=== PATIENT | female | born 1980 | race Caucasian/White ===

== ENCOUNTER → 2020-12-30 15:52 | Outpatient (CLI) | payer OTHER, SELFPAY ==
[2020-12-30 16:49] LABS: Hematocrit 42.1 % (36-46); Hemoglobin 14.3 g/dL (12.0-16.0); Mean Corpuscular HGB Conc 34.1 % (30-36); Mean Corpuscular Hemoglobin 30.5 PG (26-34); Mean Corpuscular Volume 89.4 fL (80-100); Platelet Count 179 X10^3/uL (150-400); Red Blood Cell Count 4.71 X10^6/uL (4.0-5.2); Red Cell Distribution Width 12.8 % (11.6-14.8); White Blood Cell Count 8.7 X10^3/uL (4.5-11.0)
[2020-12-30 17:17] LABS: Alanine Aminotransferase 19 IU/L (<35); Albumin 4.5 g/dL (3.5-5.0); Albumin Globulin Ratio 1.6 (1.0-2.8); Alkaline Phosphatase 60 U/L (38-126); Aspartate Aminotransferase 27 IU/L (14-36); BUN Creatinine Ratio 13.5 (6-22); Bilirubin Total 1.1 mg/dL (0.2-1.3); Blood Urea Nitrogen 7 mg/dL (7-17); Calcium 10.4 mg/dL (8.4-10.2); Carbon Dioxide 29 mmol/L (22-32); Chloride 103 mmol/L (98-107); Cholesterol 201 mg/dL (140-199); Estimated Glomerular Filt Rate > 60.0 mL/min (>60); Globulin 2.9 g/dL (1.7-4.1); Glucose 92 mg/dL (70-100); HDL Cholesterol 104 mg/dL (40-60); HEMOLYSIS < 15 (0-50); LDL Cholesterol Calculated 88 mg/dL (<100); Potassium 4.7 mmol/L (3.4-5.1); Sodium 138 mmol/L (137-145); Total Protein 7.4 g/dL (6.3-8.2); Triglycerides 45 mg/dL (35-150)
[2020-12-30 17:54] LABS: TSH w/ Reflex to FT4 0.53 uIU/mL (0.47-4.68)
== END ==
PROVIDERS: PCP Nurse Practitioner Family; Referring Provider Nurse Practitioner Family; Visit Provider Nurse Practitioner Family
DX: Z00.00 Encounter for general adult medical examination without abnormal findings (principal); Z13.6 Encounter for screening for cardiovascular disorders; F32.9 Major depressive disorder, single episode, unspecified; F41.9 Anxiety disorder, unspecified
CPT/HCPCS: 36415; 80053; 80061; 84443; 85027

== ENCOUNTER → 2021-01-08 16:43 | Outpatient (CLI) | payer OTHER, SELFPAY ==
[2021-01-09 11:21] LABS: Calcium 9.5 mg/dL (8.7-10.2); Parathyroid Hormone, Intact 74 pg/mL (15-65)
== END ==
PROVIDERS: PCP Nurse Practitioner Family; Referring Provider Nurse Practitioner Family; Visit Provider Nurse Practitioner Family
DX: E83.52 Hypercalcemia (principal)
CPT/HCPCS: 36415; 82310; 83970

== ENCOUNTER → 2021-03-19 18:44 | Outpatient (CLI) | payer OTHER, SELFPAY ==
[2021-03-19 19:53] LABS: COVID19 -Nasal RAPID Negative (Negative)
== END ==
PROVIDERS: PCP Nurse Practitioner Family; Visit Provider Physician Assistant
DX: R09.81 Nasal congestion (principal); Z20.822 Contact with and (suspected) exposure to COVID-19
CPT/HCPCS: 87635

== ENCOUNTER → 2022-07-09 16:39 | Outpatient (CLI) | payer OTHER, SELFPAY ==
--- NOTE | 2022-07-09 16:41 | DI.MG.S_ITS ---
BILATERAL DIGITAL SCREENING MAMMOGRAM 3D/2D WITH CAD: 07/09/2022 CLINICAL: Routine screening. Baseline exam. No prior exams were available for comparison. Both breasts are heterogeneously dense, which may obscure small masses (category c / 51-75% glandular tissue). Current study was also evaluated with a Computer Aided Detection (CAD) system. No significant masses, calcifications, or other findings are seen in either breast. IMPRESSION: NEGATIVE There is no mammographic evidence of malignancy. A 1 year screening mammogram is recommended. Based on the Tyrer Cuzick model (a risk assessment model) the patient's lifetime risk is 12.2% and her 10 year risk is 1.7%. According to the ACR, ACS, and NCCN guidelines, an annual breast MRI exam along with mammogram is recommended if the patient's lifetime risk is 20% or greater. This exam was interpreted at Station ID: [id number]. NOTE: For mammograms, a report in lay terms will be sent to the patient. Approximately 15% of breast malignancies will not be visualized mammographically. In the management of a palpable breast mass, a negative mammogram must not discourage biopsy of a clinically suspicious lesion. Electronically Signed By: Caron ledezma/braden:07/10/2022 09:02:36 letter sent: Normal Exam ACR BI-RADS Category 1: Negative 3341F
[2022-07-09 18:23] LABS: Alanine Aminotransferase 19 IU/L (<35); Albumin 4.7 g/dL (3.5-5.0); Albumin Globulin Ratio 1.4 (1.0-2.8); Alkaline Phosphatase 73 U/L (38-126); Aspartate Aminotransferase 26 IU/L (14-36); Bilirubin Total 1.5 mg/dL (0.2-1.3); Blood Urea Nitrogen 5 mg/dL (7-17); Calcium 9.6 mg/dL (8.4-10.2); Carbon Dioxide 25 mmol/L (22-32); Chloride 101 mmol/L (98-107); Estimated Glomerular Filt Rate > 60 mL/min (>60); Globulin 3.3 g/dL (1.7-4.1); Glucose 82 mg/dL (70-100); HEMOLYSIS < 15 (0-50); Potassium 3.4 mmol/L (3.4-5.1); Sodium 137 mmol/L (137-145)
[2022-07-11 06:36] LABS: Calcium 9.8 mg/dL (8.7-10.2); Parathyroid Hormone, Intact 66 pg/mL (15-65)
== END ==
PROVIDERS: PCP Family Medicine; Referring Provider Family Medicine; Visit Provider Family Medicine
DX: Z12.31 Encounter for screening mammogram for malignant neoplasm of breast (principal); N25.81 Secondary hyperparathyroidism of renal origin
CPT/HCPCS: 36415; 77063; 77067; 80053; 82310; 83970

== ENCOUNTER → 2022-10-26 15:44 | Outpatient (CLI) | payer OTHER, SELFPAY ==
[2022-10-26 16:59] LABS: Alanine Aminotransferase 17 IU/L (<35); Albumin 4.4 g/dL (3.5-5.0); Albumin Globulin Ratio 1.5 (1.0-2.8); Alkaline Phosphatase 71 U/L (38-126); Aspartate Aminotransferase 23 IU/L (14-36); Bilirubin Total 0.9 mg/dL (0.2-1.3); Blood Urea Nitrogen 9 mg/dL (7-17); Calcium 9.2 mg/dL (8.4-10.2); Carbon Dioxide 25 mmol/L (22-32); Chloride 104 mmol/L (98-107); Estimated Glomerular Filt Rate > 60 mL/min (>60); Globulin 2.9 g/dL (1.7-4.1); Glucose 86 mg/dL (70-100); HEMOLYSIS < 15 (0-50); Potassium 3.4 mmol/L (3.4-5.1); Sodium 137 mmol/L (137-145); Total Protein 7.3 g/dL (6.3-8.2)
== END ==
PROVIDERS: PCP Family Medicine; Referring Provider Family Medicine; Visit Provider Family Medicine
DX: E80.6 Other disorders of bilirubin metabolism (principal)
CPT/HCPCS: 36415; 80053

== ENCOUNTER → 2023-06-16 14:55 | Outpatient (CLI) | payer OTHER, SELFPAY ==
[2023-06-16 15:30] LABS: Add Manual Diff / Slide Review NO; Basophils Absolute Auto 0 /uL (0-100); Basophils Percent Auto 0.5 % (0-2); Eosinophils Absolute Auto 0 /uL (0-450); Eosinophils Percent Auto 0.7 % (2-4); Hematocrit 39.9 % (36-46); Hemoglobin 13.8 g/dL (12.0-16.0); Lymphocytes Absolute Auto 1800 /uL (1100-4500); Lymphocytes Percent Auto 31.7 % (25-40); Mean Corpuscular HGB Conc 34.6 % (30-36); Mean Corpuscular Hemoglobin 29.8 PG (26-34); Mean Corpuscular Volume 86.1 fL (80-100); Monocytes Absolute Auto 400 /uL (0-900); Monocytes Percent Auto 6.8 % (3-14); Neutrophils Absolute Auto 3400 /uL (1500-7000); Neutrophils Percent Auto 60.3 % (50-75); Platelet Count 157 X10^3/uL (150-400); Red Blood Cell Count 4.63 X10^6/uL (4.0-5.2); Red Cell Distribution Width 12.7 % (11.6-14.8); White Blood Cell Count 5.7 X10^3/uL (4.5-11.0)
[2023-06-16 15:49] LABS: Alanine Aminotransferase 20 IU/L (<35); Albumin 4.8 g/dL (3.5-5.0); Albumin Globulin Ratio 1.7 (1.0-2.8); Alkaline Phosphatase 63 U/L (38-126); Aspartate Aminotransferase 24 IU/L (14-36); BUN Creatinine Ratio 10.3 (6-22); Bilirubin Total 1.5 mg/dL (0.2-1.3); Blood Urea Nitrogen 6 mg/dL (7-17); Calcium 10.3 mg/dL (8.4-10.2); Carbon Dioxide 27 mmol/L (22-32); Chloride 103 mmol/L (98-107); Estimated Glomerular Filt Rate > 60 mL/min (>60); Globulin 2.9 g/dL (1.7-4.1); Glucose 86 mg/dL (70-100); HEMOLYSIS < 15 (0-50); Potassium 3.8 mmol/L (3.4-5.1); Sodium 137 mmol/L (137-145); Total Protein 7.7 g/dL (6.3-8.2)
[2023-06-16 15:50] LABS: HEMOLYSIS < 15 (0-50); Iron 119 ug/dL (37-170)
[2023-06-16 16:01] LABS: Percent Iron Saturation 31 % (15-50); Total Iron Binding Capacity 388 ug/dL (265-497); Transferrin 282 mg/dL (206-381)
[2023-06-16 16:21] LABS: TSH w/ Reflex to FT4 0.66 uIU/mL (0.47-4.68)
[2023-06-16 16:24] LABS: Ferritin 22 ng/mL (6-137)
[2023-06-16 16:39] LABS: Vitamin B12 386 pg/mL (239-931)
[2023-06-16 18:31] LABS: Vitamin D 25 Hydroxy (D3) 25.4 ng/mL (30.0-100.0)
[2023-06-17 17:29] LABS: Ionized Calcium 5.3 mg/dL (4.5-5.6)
[2023-06-18 14:51] LABS: Calcium 10.2 mg/dL (8.7-10.2); Parathyroid Hormone, Intact 50 pg/mL (15-65)
== END ==
PROVIDERS: PCP Physician Assistant; Referring Provider Physician Assistant; Visit Provider Physician Assistant
DX: R53.83 Other fatigue (principal); E55.9 Vitamin D deficiency, unspecified; N25.81 Secondary hyperparathyroidism of renal origin
CPT/HCPCS: 36415; 80053; 82306; 82310; 82330; 82607; 82728; 83540; 83550; 83970; 84443; 85025

== ENCOUNTER → 2023-09-14 13:33 | Outpatient (CLI) | payer OTHER, SELFPAY ==
--- NOTE | 2023-09-14 13:35 | DI.MG.S_ITS ---
BILATERAL DIGITAL SCREENING MAMMOGRAM 3D/2D WITH CAD: 09/14/2023 CLINICAL: Routine screening. Comparison is made to exam dated: 07/09/2022 mammogram - [facility]. Both breasts are heterogeneously dense, which may obscure small masses (category c / 51-75% glandular tissue). Current study was also evaluated with a Computer Aided Detection (CAD) system. No significant masses, calcifications, or other findings are seen in either breast. There has been no significant interval change. IMPRESSION: NEGATIVE There is no mammographic evidence of malignancy. A 1 year screening mammogram is recommended. Based on the Tyrer Cuzick model (a risk assessment model) the patient's lifetime risk is 12.2% and her 10 year risk is 1.8%. According to the ACR, ACS, and NCCN guidelines, an annual breast MRI exam along with mammogram is recommended if the patient's lifetime risk is 20% or greater. This exam was interpreted at Station ID: [id number]. NOTE: For mammograms, a report in lay terms will be sent to the patient. Approximately 15% of breast malignancies will not be visualized mammographically. In the management of a palpable breast mass, a negative mammogram must not discourage biopsy of a clinically suspicious lesion. Electronically Signed By: Kranthi phipps/braden:09/14/2023 17:07:41 letter sent: Normal Exam ACR BI-RADS Category 1: Negative 3341F
== END ==
LOC: MAMMO 13:34
PROVIDERS: PCP Family Medicine; Referring Provider Physician Assistant; Visit Provider Physician Assistant
DX: Z12.31 Encounter for screening mammogram for malignant neoplasm of breast (principal)
CPT/HCPCS: 77063; 77067

== ENCOUNTER 2024-01-24 08:15 | Emergency (ER) | payer OTHER, SELFPAY ==
[2024-01-24] VITALS (9 sets, daily range): BP systolic 101–204; BP diastolic 63–91; PULSE 65–83; RESP 18; TEMP 36.5; O2SAT 99–100; BMI 27.8
--- NOTE | 2024-01-24 09:09 | ED_ITS ---
HPI - Extremity Problem General Chief complaint: Extremity Problem,Nontraumatic Stated complaint: numbness and pain r arm Time Seen by Provider: 01/24/24 08:35 Source: patient Mode of arrival: Ambulatory Limitations: no limitations History of Present Illness HPI Narrative: Patient is a 43-year-old female who is here for evaluation of pain and tingling to her right hand and right arm. States it has been going on for the past several months. Has a follow-up with her primary doctor the end of this month. Has not taken anything for the symptoms. States that it initially started just as some tingling in her thumb and index and middle finger in her hand but is now radiating up into her forearm and above her elbow. She was also having some right shoulder discomfort. No chest pain. No shortness of breath. No trauma. She states that last evening she was unable to sleep because of the burning in the tingling. Related Data Home Medications Medication Instructions Recorded Confirmed apple cider vinegar 300 mg tablet mg PO 01/08/21 11/18/23 blue-green algae (Spirulina) 500 mg PO 01/08/21 11/18/23 mg tablet elderberry PO DAILY 01/08/21 11/18/23 multivitamin 1 tab PO DAILY 11/18/23 11/18/23 Previous Rx's Medication Instructions Recorded diphenhydramine HCl 2 % topical 1 applic topical BID #103 mL 11/18/23 gel (Benadryl) cyclobenzaprine 10 mg tablet 10 mg PO TID PRN muscle spasm #21 01/24/24 tabs methylprednisolone 4 mg tablets in See Rx Instructions PO .COMPLEX 01/24/24 a dose pack (Medrol (Jay)) #21 ea tramadol 50 mg tablet 50 mg PO Q6H PRN pain #10 tabs 01/24/24 Allergies Allergy/AdvReac Type Severity Reaction Status Date / Time No Known Drug Allergies Allergy Unverified 11/18/23 10:25 Review of Systems Musculoskeletal Musculoskeletal: Reports system reviewed and no additional complaints, except as documented Integumentary/Breasts Skin/Breast: Reports system reviewed and no additional complaints, except as documented Neurologic Neurologic: Reports system reviewed and no additional complaints, except as documented Patient History Medical History Itching of ear Keloid scar Spontaneous vaginal delivery Secondary hyperparathyroidism (12/2020) Keloid (~1998) Shoulder pain (~2013) Human papilloma virus (~2003) Depression (~2006) Anxiety (~2006) Surgical History History of tonsillectomy (~1983) Family History Father Pancreatitis Liver disease Cancer Prediabetes History of heart disease Hypertension Hyperlipidemia Mother History of heart disease Osteoporosis Sister Mental health problem Grandfather Prostate cancer Grandmother History of heart disease Hypertension Grandfather Stroke Grandmother Cancer Family/Other Mental health problem Social History marital status: number of children: 1 household members: spouse and children 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[employer]) Smoking Status: Never smoker second hand exposure: No alcohol intake: current (1x/week) substance use type: does not use Smoking Status: Never smoker alcohol intake frequency: a few times a month Substance Use Type: does not use Exam Initial Vital Signs Initial Vital Signs: Vital Signs Temperature 97.7 F 01/24/24 08:26 Pulse Rate 78 01/24/24 08:26 Respiratory Rate 18 01/24/24 08:26 Blood Pressure 124/77 01/24/24 08:26 Pulse Oximetry 100 01/24/24 08:26 Oxygen Delivery Method Room Air 01/24/24 08:26 Cardio Pulses: radial pulses present on the right Back/Spine/Pelvis Cervical Spine: No cervical muscular tenderness, No cervical spasm and No cervical spinal tenderness Skin General: no rashes or lesions noted Neuro Sensory Exam: no sensory deficits noted Other: Spurling's test negative Extrem Other: No discomfort with palpation of the right shoulder. No discomfort with movement or palpation of the right elbow of the right wrist. Course Orders Ordered: Discontinued Medications Ketorolac Tromethamine (Ketorolac 30 Mg/Ml Vial) 30 mg IM NOW ONE Stop: 01/24/24 09:10 Vital Signs Vital signs: Vital Signs - 8 hr 01/24/24 08:26 01/24/24 08:32 01/24/24 08:33 Temperature 97.7 F Pulse Rate 78 83 Pulse Rate [Bilateral Radial] Respiratory Rate 18 Blood Pressure 124/77 162/75 H Pulse Oximetry 100 Oxygen Delivery Method Room Air 01/24/24 08:33 01/24/24 08:35 Temperature Pulse Rate 76 Pulse Rate [Bilateral Radial] 70 Respiratory Rate Blood Pressure Pulse Oximetry 100 Oxygen Delivery Method MDM - Extremity (Nontraumatic) MDM Narrative Medical decision making narrative: History and physical exam was most consistent with cervical radiculopathy. I have low suspicion that this is carpal tunnel was the symptoms are going up to her elbow and also her shoulder. I discuss this with her. There was no imaging studies required today. Will try symptomatic treatment with muscle relaxers and anti-inflammatories and pain medication. Will have her keep her appointment at the end of the month with her primary care doctor. She was given return precautions and follow-up instructions. She expressed understanding and agreement. Discharge Plan Departure Patient Disposition: Home Clinical Impression: Cervical radiculopathy Instructions: DI for Cervical Radiculopathy Activity Restrictions/Additional Instructions: I do recommend that you try to stay as active as possible. After you finish the course of steroids doing taking anti-inflammatory such as Motrin and or Naprosyn can be helpful. Light stretching and heat and ice and massage can be helpful as well. Keep your appointment with your primary doctor in the end of the month. Prescriptions: New methylprednisolone [Medrol (Jay)] 4 mg tablets,dose pack See Rx Instructions .ROUTE .COMPLEX Qty: 21 0RF Rx Instructions: orally per package directions cyclobenzaprine 10 mg tablet 10 mg PO TID PRN (Reason: muscle spasm) Qty: 21 0RF tramadol 50 mg tablet 50 mg PO Q6H PRN (Reason: pain) Qty: 10 0RF No Action multivitamin Tablet 1 tab PO DAILY Benadryl 2 % gel 1 applic topical BID Qty: 103 0RF blue-green algae (Spirulina) 500 mg tablet PO elderberry PO DAILY apple cider vinegar 300 mg tablet PO Referrals: Melissa Perkins MD [Primary Care Provider] - Stand Alone Forms: Patient Portal/API
[2024-01-24] MEDS: KETOROLAC 30 MG/ML VIAL IM (09:19)
== END 2024-01-24 09:42 | disposition home or self-care (01) ==
PROVIDERS: Emergency Provider Emergency Medicine; PCP Family Medicine
DX: M54.12 Radiculopathy, cervical region (principal)
CPT/HCPCS: 96372; 99283; J1885

== ENCOUNTER → 2024-05-22 08:25 | Outpatient (CLI) | payer OTHER, SELFPAY ==
--- NOTE | 2024-05-22 09:00 | DI.MRI.S_ITS ---
PROCEDURE: MR CERVICAL SPINE WO CON INDICATIONS: cervical radiculopathy with hand numbness on right TECHNIQUE: Noncontrast sagittal T1 spin echo and T2 fast spin echo, sagittal STIR, foraminal oblique sagittal T2 fast spin echo, and axial gradient echo or T2 fast spin echo through the cervical spine. COMPARISON: None. FINDINGS: Image quality: Excellent. Alignment and Curvature: There is straightening of normal cervical lordosis. No significant spondylolisthesis. Bone Marrow: Marrow demonstrates normal overall signal. Spinal Cord: Visualized spinal cord has normal size and signal. No cerebellar tonsillar herniation. Paraspinous Soft Tissues: No paravertebral masses. Prevertebral soft tissues are normal in thickness. C2-C3: Loss of disc signal. Mild diffuse disc bulge. No significant central canal stenosis or neural foraminal narrowing. C3-C4: Loss of disc signal. No significant disc bulge, canal stenosis or neural foraminal narrowing. C4-C5: Loss of disc signal. Central disc bulge and effacement of thecal sac anteriorly. Mild left-sided neural foraminal narrowing is also seen. C5-C6: Loss of disc signal and disc height. Broad-based disc bulge and bilateral uncovertebral hypertrophic changes are seen with [id number] central canal stenosis and moderate right worse than left bilateral neural foraminal narrowing. C6-C7: Loss of disc height and disc signal.. Broad-based disc bulge and bilateral uncovertebral hypertrophic changes are seen with mild central canal stenosis and [id number] right-sided neural foraminal narrowing. Mild left-sided neural foraminal narrowing is also seen. C7-T1: Normal appearance. IMPRESSION: 1. Mild degenerative disc bulge at C4-5 through C6-7 levels causing mild central canal stenosis and bilateral neural foraminal narrowing as described above. 2. No marrow edema. No acute fracture or dislocation. 3. No abnormal cervical spinal cord signal. Dictated by: Yemi Lam M.D. on 05/22/2024 at 16:00 Approved by: Yemi Lam M.D. on 05/22/2024 at 16:05
== END ==
LOC: MRI 08:26
PROVIDERS: Family Provider Family Medicine; PCP Family Medicine; Referring Provider Family Medicine; Visit Provider Family Medicine
DX: M50.121 Cervical disc disorder at C4-C5 level with radiculopathy (principal); M48.02 Spinal stenosis, cervical region
CPT/HCPCS: 72141

== ENCOUNTER 2024-08-02 07:30 | Outpatient (RCR) | payer OTHER, SELFPAY ==
--- NOTE | 2024-04-06 15:57 | PT.OIE ---
Current Diagnoses Stiffness of right wrist, not elsewhere classified (04/06/24) Radiculopathy, cervical region (04/06/24) Weakness (04/06/24) Past Medical History (Last Reviewed 01/24/24 @ 09:11 by Jan Guerrier DO) Anxiety (~2006) Depression (~2006) Human papilloma virus (~2003) Itching of ear Keloid (~1998) Keloid scar Secondary hyperparathyroidism (12/2020) Shoulder pain (~2013) Spontaneous vaginal delivery Past Surgical History (Last Reviewed 06/01/22 @ 14:50 by Barbie Ramos DO) History of tonsillectomy (~1983) Visit Care Team Role Provider Type Melissa Perkins MD Attending Provider Physician Family Provider Primary Care Provider Referring Provider Specialty: Family Practice [employer] Address: [address] [place] [address], [facility] Fax: Email: [email or web address] Physical Therapy Initial Evaluation PT-OP-A Visit Information Start: 04/06/24 07:29 Freq: Status: Active Protocol: Document 04/06/24 14:33 NM (Rec: 04/06/24 16:15 NM [id number]) Out-Patient Physical Therapy Visit Information Visit Information Visit Type Initial Evaluation Visit Start Time 14:35 Visit Stop Time 15:20 Visit Number 1 Evaluation Information Evaluation Date 04/06/24 Precautions Precautions neck pain and median nerve PT-OP-B Current Condition Start: 04/06/24 07:29 Freq: Status: Active Protocol: Document 04/06/24 14:33 NM (Rec: 04/06/24 16:15 NM [id number]) Current Condition History of Current Condition Onset Date Mother's day 2023 Current Complaints pain, numbness and tingling History of Current Condition Pt reports that she has cervical radiculopathy. She was seen January-February because entire R arm went numb and 10/ [address] Brown who referred her to PT. Over the past 2 months . She nows has pain only in the R hand vs no longer has the radiation. Pt reports that her condition started in November, when she started to experience numbness in her hand. She sleeps with her arms elevated on both sides. On Mother's day, she did a lot of excavating/moving yard work. The following Wednesday, she had pain; unable to type. Prescribed prednisone and muscle relaxers; steroid helped with symptoms. She only uses muscle relaxers occasionally, causes depression. Primarily felt in thumb and fingers 2-3. 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 She also had a minor whiplash event 2 weekends ago when dog pulled on leash, so now L sided pain; now longer as stiffness. Day before mothers' day, she walked several miles in her backpack, which is originally when the arm numbness began but was managable. She shakes her hands, wakes up at night. Denies weakness but states difficulty with fine motor. 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) Functional Limitations- Other sleeping on side PT-OP-C Subjective Start: 04/06/24 07:29 Freq: Status: Active Protocol: Document 04/06/24 14:33 NM (Rec: 04/06/24 16:15 NM [id number]) OP-PT Subjective Patient Comments Patient Comments Pt consents to participate in evaluation Patient Questionnaires Neck Disability Index NDI Score 23/50 Quick Dash- Upper Extremity Quick Dash UE Score 56.8% (36 score) Quick Dash- Work and Sports Modules Quick Dash W&S Score work: 12 or 50% impaired OP-PT Pain Assessment Location R hand Pain Location Details fingers 1-3 Intensity 4 Scale Used Numeric (0 - 10) Description Aching,Tingling Description- Other numbness; worst: 8 Frequency Constant Variations/Patterns sharpness is sporadi Pain Aggravating Factors ADL's,Activity,Exercise, Lifting Other Pain Aggravating Factors gripping, fine motor, cooking Pain Alleviating Factors Medication,Rest cervical spine Pain Location Details R sided Intensity 3 Scale Used Numeric (0 - 10) Description Aching,Sharp,Spasm Description- Other worse: 5 Frequency Frequent Pain Duration 3 hours Variations/Patterns worse in morning Other Pain Aggravating Factors wearing backpack Pain Alleviating Factors Medication,Massage PT-OP-F Manual Assessment Start: 04/06/24 07:29 Freq: Status: Active Protocol: Document 04/06/24 14:33 NM (Rec: 04/06/24 16:15 NM [id number]) Manual Assessments Soft Tissue Assessment Soft Tissue Mobility Assessment Increased soft tissue restrictions of cervical paraspinals, chest and periscapulars, wrist extensors . R medial scapular border 7 cm, L medial scapular border 8 cm Joint Mobility Assessment Joint Mobility Assessment Hypomobility of cervical spine with lateral gliding, especially L>R PT-OP-G Mobility & Gait Start: 04/06/24 07:29 Freq: Status: Active Protocol: Document 04/06/24 14:33 NM (Rec: 04/06/24 16:15 NM [id number]) OP Gait Assessment Gait Gait Assistance Required: Independent Distance (Feet) 150 Comments Gait Comments Stiff gait with limited trunk rotation and arm swing. R shoulder is more elevated. No widebased or ataxic gait, no LOB PT-OP-H Neuro Start: 04/06/24 07:29 Freq: Status: Active Protocol: Document 04/06/24 14:33 NM (Rec: 04/06/24 16:15 NM [id number]) Sensation Evaluation Comments Summary Comments Will assess in next session Deep Tendon Reflex & Clonus Assessment Deep Tendon Reflex Bilateral Brachioradialis Deep Tendon Reflex 1+ Diminished Bilateral Tricep Deep Tendon Reflex 1+ Diminished Bilateral Bicep Deep Tendon Reflex 1+ Diminished PT-OP-J Posture/Palpation/Skin Start: 04/06/24 07:29 Freq: Status: Active Protocol: Document 04/06/24 14:33 NM (Rec: 04/06/24 16:15 NM [id number]) Posture Evaluation Position Standing Head/C-Spine Posture Forward Head Shoulder Posture (L) Rounded,(R) Rounded,(L) Forward,(R) Forward,(R) Elevated Scapula Posture (R) Rotated Up,(R) Elevated,(R ) Tipped Arm Posture (L) Externally Rotated,(R) Externally Rotated Pelvis Posture Anteriorly Tilted Weight Distribution Balanced Palpation Assessment Location R wrist/hand Palpation Details Tightness of wrist extensors Pain with gripping and wrist flexion cervical spine Palpation Findings Soft Tissue Tightness Palpation Details Moderate tightness of paraspinals, pectoralis, lat, levator scapula, upper trapezius, scalenes, suboccipitals Skin Assessment Other Assessments Skin Assessment Comments No R wrist swellin cm ea PT-OP-K Range of Motion Start: 04/06/24 07:29 Freq: Status: Active Protocol: Document 04/06/24 14:33 NM (Rec: 04/06/24 16:15 NM [id number]) Cervical Spine Range of Motion Cervical Spine Active Degrees Flexion 60 Extension 45 Rotation Left 84 Rotation Right 70 Lateral Flexion Left 40 Lateral Flexion Right 40 ROM Limitations Soft Tissue Tightness Comments pain on L side with ext and flex Shoulder Goniometric Range of Motion Shoulder Right Flexion 150 Abduction 150 External Rotation at 0 degrees Abduction 70 Internal Rotation Behind Back (text) T10 Comments T4 for apley ER Left Flexion 150 Abduction 160 External Rotation at 0 degrees Abduction 70 Internal Rotation Behind Back (text) T9 Comments T4 for apley ER Shoulder ROM Limitations Comments reports pulling sensation with apley IR Wrist Goniometric Range of Motion Wrist Right Flexion Active (degrees) 50 Extension Active (degrees) 70 Left Flexion Active (degrees) 60 Extension Active (degrees) 60 ROM Limitations Comments increased symptoms with R wrist flexion PT-OP-L Special Tests Start: 04/06/24 07:29 Freq: Status: Active Protocol: Document 04/06/24 14:33 NM (Rec: 04/06/24 16:15 NM [id number]) Special Tests Cervical Spine Special Tests Shoulder Abduction Relief Test Test Results + Comments neural symptom relief with passive arm ABD on head ULTT Test Results median n Comments better w/ depression; pain also w/ ulnar n test position but no symptoms Distraction Test Results + Comments symptom resolved Spurling's Test Results + Comments local only on L Neural Special Tests- Upper Body Carpal compression test Test Results + Froment's Sign Test Results - Phalen's Test Results + Tinel Sign Test Results - Carpal Shake Test Results + PT-OP-M Strength Start: 04/06/24 07:29 Freq: Status: Active Protocol: Document 04/06/24 14:33 NM (Rec: 04/06/24 16:15 NM [id number]) Cervical Spine Strength Cervical Spine Manual Muscle Testing Flexion (C1-2) 4+ Good+ Extension 4+ Good+ Rotation Left 4+ Good+ Rotation Right 4+ Good+ Lateral Flexion Left (C3) 4+ Good+ Lateral Flexion Right (C3) 4+ Good+ Comments no pain or symptom reproduction Shoulder Strength Shoulder Manual Muscle Testing Right Flexion 4+ Good+ Abduction (C5) 4 Good External Rotation 4 Good Internal Rotation 4 Good Left Flexion 4+ Good+ Abduction (C5) 4+ Good+ External Rotation 4+ Good+ Internal Rotation 4+ Good+ Elbow/Forearm Strength Elbow and Forearm Manual Muscle Testing Right Flexion (C6) 4+ Good+ Extension (C7) 4+ Good+ Left Flexion (C6) 4+ Good+ Extension (C7) 4+ Good+ Wrist Strength Wrist Manual Muscle Testing Right Flexion (C7) 4- Good- Extension (C6) 4 Good Comments mild pain w/ flex and ext fingers: 4/5, no significant difference between sides Left Flexion (C7) 4+ Good+ Extension (C6) 4+ Good+ PT-OP-Q Treatments Start: 04/06/24 07:29 Freq: Status: Active Protocol: Document 04/06/24 14:33 NM (Rec: 04/06/24 16:15 NM [id number]) Therapeutic Exercises Supine Exercises cervical traction Supine Exercise Name on towel roll under head Reps/Minutes 2 minutes Comments reports symptom reduction in hand Standing Exercises nerve glide Standing Exercise Name median nerve: 1. finger abd/ add, 2. wrist flex/ext Side right Reps/Minutes 10 ea Comments reports symptom reduction in hand PT-OP-T Assessment and Plan Start: 04/06/24 07:29 Freq: Status: Active Protocol: Document 04/06/24 14:33 NM (Rec: 04/06/24 16:15 NM [id number]) Physical Therapy Assessment Rehab Potential Rehabilitation Potential Good Evaluation Complexity Number of Personal Factors/Comorbidities 1-2 Number of Body Systems Impaired 1-2 Clinical Presentation at Evaluation Stable Impairments Impairments Activity Tolerance, Coordination,Functional Activities,Functional Mobility ,Gait,Integument,Pain,Posture, ROM,Sensation,Soft Tissue Mobility,Strength,Transfers, Vestibular Goals Five Impairment reports currently 50% impaired with work tasks Short Term Goal (STG) Pt will be educated on good ergonomic positioning and work tools in order to improve posture and body mechanics for better symptom management STG Duration 4 weeks Detention Goal (LTG) Pt will report that she is less than 25% impaired with work-related tasks in order to demonstrate improved symptom management, activity tolerance , and QOL LTG Duration 12 weeks Four Impairment sleeping Short Term Goal (STG) Pt will report that she is waking once or fewer times per night due to symptoms in R hand in order to demonstrate improved symptom management and QOL STG Duration 8 weeks Detention Goal (LTG) Pt will report that she is waking fewer than 2x/wk due to symptoms in R hand in order to demonstrate improved symptom management and QOL LTG Duration 12 weeks Three Impairment ROM: R wrist flexion 50 deg Short Term Goal (STG) Pt will improve R wrist flexion to at least 60 deg in order to demonstrate improved ROM for pericare, if appropriate STG Duration 6 weeks Ticket Scheduler Goal (LTG) Pt will improve R wrist flexion to at least 70 deg in order to demonstrate improved ROM for pericare or typing, if appropriate LTG Duration 12 weeks Two Impairment ROM: R cervical spine rotation 70 deg Ticket Scheduler Goal (LTG) Pt will improve R cervical spine rotation >80 deg or within 5 deg of L cervical spine rotation in order to improve visual scanning and demonstrate improved soft tissue length LTG Duration 12 weeks One Impairment QOL/activity tolerance: quickdash 56.8% impairment Short Term Goal (STG) Pt will decrease quickdash impairment by at least 11% (1 MCID) in order to demonstrate improved symptom management and QOL STG Duration 8 weeks Detention Goal (LTG) Pt will report <25% impairment on quickdash due to pain or numbness/tingling in R hand/ wrist or neck in order to demonstrate improved symptom management, activity tolerance and QOL LTG Duration 12 weeks Assessment Summary Assessment Pt is a 44 y.o. female presenting with acute cervical spine pain and R hand pain. She has numbness and tingling into first 3 fingers of R hand . Symptoms are consistent with carpal tunnel; however, neck pain and other neural symptoms suggest that she is having radicular symptoms into her R hand, likely C5-6. Pt is most concerned with her hand. Symptoms occurred after weekend traveling with backpack and after day of extensive yard work. 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 She has worse neural symptoms at night, which wakes her and she has to shake her hands. She has moderate soft tissue restrictions of her paraspinals, periscapulars , and chest muscles, which likely influences symptoms. Pt has small limitations in cervical spine ROM, no limitations in strength. She has slight limitations in shoulder ROM and R shoulder strength; however, pt has mild differences in strength bilaterally. Pt has moderate limitations in R wrist AROM. She has positive Spurling's test for local pain, ULTT with shoulder depression, and shoulder abduction relief sign (indicates C5-6 radicular symptoms). She is positive for all carpal tunnel tests except tinel. Currently, pt has impairments in ROM, strength, activity tolerance, pain, numbness/tingling, sleep , ability to perform ADLs/self care or work tasks, and QOL. PT educated pt on exam findings and plan of care, initiating HEP to address cervical spine ROM and neural symptoms. Pt had good feedback to exercises. Pt would benefit from skilled PT for improved soft tissue flexibility, spine and RUE mobility, strengthening, and education regarding body mechanics and ergononics in order to improve symptom management, ability to perform ADLs, and QOL. Physical Therapy Plan Frequency and Duration Frequency of Treatment 2x/Week Duration of treatment (weeks) 12 Plan of Care Start Date 04/06/24 Plan of Care End Date 07/06/24 Therapeutic Interventions Therapeutic Interventions Canalithic Repositioning,Gait Training,Home Exercise Program ,Joint Mobilizations,Manual Therapy,Neuromuscular Re- education,Orthotic/Prosthetic Management,Patient/Caregiver Education,Self-Care/Home Management,Sensory Integration ,Soft Tissue Mobilization, Taping,Therapeutic Activities, Therapeutic Exercises Modalities Cold Pack/Ice Massage,Electric Stimulation,Hot Packs, Traction- Mechanical, Ultrasound Next Visit Focus/Plan Next Note Type Treatment Note Next Visit Plan ergonomic assessment, sleeping assessment, vertebral a, PA springing review HEP establish tendon glides, DNF, stretching of cervical spine and periscapulars behzad pect, thoracic mobility
--- NOTE | 2024-04-10 09:41 | PT.OTN ---
Current Diagnoses Stiffness of right wrist, not elsewhere classified (04/10/24) Radiculopathy, cervical region (04/10/24) Weakness (04/10/24) Physical Therapy Treatment Note PT-OP-A Visit Information Start: 04/06/24 07:29 Freq: Status: Active Protocol: Document 04/10/24 07:31 NM (Rec: 04/10/24 08:17 NM [id number]) Out-Patient Physical Therapy Visit Information Visit Information Visit Type Treatment Note Visit Start Time 07:32 Visit Stop Time 08:15 Visit Number 2 Evaluation Information Evaluation Date 04/06/24 Precautions Precautions neck pain and median nerve PT-OP-B Current Condition Start: 04/06/24 07:29 Freq: Status: Active Protocol: Document 04/06/24 14:33 NM (Rec: 04/06/24 16:15 NM [id number]) Current Condition History of Current Condition Onset Date Mother's day 2023 Current Complaints pain, numbness and tingling History of Current Condition Pt reports that she has cervical radiculopathy. She was seen January-February because entire R arm went numb and 10/ [address] Brown who referred her to PT. Over the past 2 months . She nows has pain only in the R hand vs no longer has the radiation. Pt reports that her condition started in November, when she started to experience numbness in her hand. She sleeps with her arms elevated on both sides. On Mother's day, she did a lot of excavating/moving yard work. The following Wednesday, she had pain; unable to type. Prescribed prednisone and muscle relaxers; steroid helped with symptoms. She only uses muscle relaxers occasionally, causes depression. Primarily felt in thumb and fingers 2-3. Feels like numbness/tingling, worse w/ health information manager. She also had a minor whiplash event 2 weekends ago when dog pulled on leash, so now L sided pain; now longer as stiffness. Day before mothers' day, she walked several miles in her backpack, which is originally when the arm numbness began but was managable. She shakes her hands, wakes up at night. Denies weakness but states difficulty with fine motor. 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 She sewed the dog bed this past weekend, which was painful. Reports 5/10 R hand pain, 4/10 neck pain.Has been compliant with HEP since evaluation. PT-OP-F Manual Assessment Start: 04/06/24 07:29 Freq: Status: Active Protocol: Document 04/06/24 14:33 NM (Rec: 04/06/24 16:15 NM [id number]) Manual Assessments Soft Tissue Assessment Soft Tissue Mobility Assessment Increased soft tissue restrictions of cervical paraspinals, chest and periscapulars, wrist extensors . R medial scapular border 7 cm, L medial scapular border 8 cm Joint Mobility Assessment Joint Mobility Assessment Hypomobility of cervical spine with lateral gliding, especially L>R PT-OP-G Mobility & Gait Start: 04/06/24 07:29 Freq: Status: Active Protocol: Document 04/06/24 14:33 NM (Rec: 04/06/24 16:15 NM [id number]) OP Gait Assessment Gait Gait Assistance Required: Independent Distance (Feet) 150 Comments Gait Comments Stiff gait with limited trunk rotation and arm swing. R shoulder is more elevated. No widebased or ataxic gait, no LOB PT-OP-H Neuro Start: 04/06/24 07:29 Freq: Status: Active Protocol: Document 04/10/24 07:31 NM (Rec: 04/10/24 09:41 NM [id number]) Sensation Evaluation Comments Summary Comments BUE equally intact to light touch sensation PT-OP-J Posture/Palpation/Skin Start: 04/06/24 07:29 Freq: Status: Active Protocol: Document 04/06/24 14:33 NM (Rec: 04/06/24 16:15 NM [id number]) Posture Evaluation Position Standing Head/C-Spine Posture Forward Head Shoulder Posture (L) Rounded,(R) Rounded,(L) Forward,(R) Forward,(R) Elevated Scapula Posture (R) Rotated Up,(R) Elevated,(R ) Tipped Arm Posture (L) Externally Rotated,(R) Externally Rotated Pelvis Posture Anteriorly Tilted Weight Distribution Balanced Palpation Assessment Location R wrist/hand Palpation Details Tightness of wrist extensors Pain with gripping and wrist flexion cervical spine Palpation Findings Soft Tissue Tightness Palpation Details Moderate tightness of paraspinals, pectoralis, lat, levator scapula, upper trapezius, scalenes, suboccipitals Skin Assessment Other Assessments Skin Assessment Comments No R wrist swellin cm ea PT-OP-K Range of Motion Start: 04/06/24 07:29 Freq: Status: Active Protocol: Document 04/06/24 14:33 NM (Rec: 04/06/24 16:15 NM [id number]) Cervical Spine Range of Motion Cervical Spine Active Degrees Flexion 60 Extension 45 Rotation Left 84 Rotation Right 70 Lateral Flexion Left 40 Lateral Flexion Right 40 ROM Limitations Soft Tissue Tightness Comments pain on L side with ext and flex Shoulder Goniometric Range of Motion Shoulder Right Flexion 150 Abduction 150 External Rotation at 0 degrees Abduction 70 Internal Rotation Behind Back (text) T10 Comments T4 for apley ER Left Flexion 150 Abduction 160 External Rotation at 0 degrees Abduction 70 Internal Rotation Behind Back (text) T9 Comments T4 for apley ER Shoulder ROM Limitations Comments reports pulling sensation with apley IR Wrist Goniometric Range of Motion Wrist Right Flexion Active (degrees) 50 Extension Active (degrees) 70 Left Flexion Active (degrees) 60 Extension Active (degrees) 60 ROM Limitations Comments increased symptoms with R wrist flexion PT-OP-L Special Tests Start: 04/06/24 07:29 Freq: Status: Active Protocol: Document 04/10/24 07:31 NM (Rec: 04/10/24 09:41 NM [id number]) Special Tests Cervical Spine Special Tests Vertebral Artery Test Results - Comments intact cranial n, no abnormal palpation/auscultation of carotid a Shoulder Abduction Relief Test Test Results + Comments neural symptom relief with passive arm ABD on head ULTT Test Results median n Comments better w/ depression; pain also w/ ulnar n test position but no symptoms Distraction Test Results + Comments symptom resolved Spurling's Test Results + Comments local only on L PT-OP-M Strength Start: 04/06/24 07:29 Freq: Status: Active Protocol: Document 04/06/24 14:33 NM (Rec: 04/06/24 16:15 NM [id number]) Cervical Spine Strength Cervical Spine Manual Muscle Testing Flexion (C1-2) 4+ Good+ Extension 4+ Good+ Rotation Left 4+ Good+ Rotation Right 4+ Good+ Lateral Flexion Left (C3) 4+ Good+ Lateral Flexion Right (C3) 4+ Good+ Comments no pain or symptom reproduction Shoulder Strength Shoulder Manual Muscle Testing Right Flexion 4+ Good+ Abduction (C5) 4 Good External Rotation 4 Good Internal Rotation 4 Good Left Flexion 4+ Good+ Abduction (C5) 4+ Good+ External Rotation 4+ Good+ Internal Rotation 4+ Good+ Elbow/Forearm Strength Elbow and Forearm Manual Muscle Testing Right Flexion (C6) 4+ Good+ Extension (C7) 4+ Good+ Left Flexion (C6) 4+ Good+ Extension (C7) 4+ Good+ Wrist Strength Wrist Manual Muscle Testing Right Flexion (C7) 4- Good- Extension (C6) 4 Good Comments mild pain w/ flex and ext fingers: 4/5, no significant difference between sides Left Flexion (C7) 4+ Good+ Extension (C6) 4+ Good+ PT-OP-Q Treatments Start: 04/06/24 07:29 Freq: Status: Active Protocol: Document 04/10/24 07:31 NM (Rec: 04/10/24 08:17 NM [id number]) Therapeutic Exercises Supine Exercises thoracic mobility Supine Exercise Name 1. ext, 2. snow ann marie with pec stretch (HEP) Reps/Minutes 1. 10, 2. 10 Comments reports symptom reduction Sidelying Exercises open book Sidelying Exercise Name trialed in PT (HEP) Side bilateral Reps/Minutes 5 ea Sitting Exercises tendon glide Sitting Exercise Name (HEP): straight hand, hook fist, lumbrical fist, flat fist, full fist Side right Reps/Minutes 10 Comments feels stretching, no increase in symptoms, feels good Standing Exercises nerve glide Standing Exercise Name HEP review:median nerve: 1. finger abd/add, 2. wrist flex/ ext Side right Reps/Minutes 5 Comments reports symptom reduction in hand; cued flat hand vs making fist Manual Therapy Treatment Consent Patient gave verbal consent for manual Yes treatment Soft Tissue Mobilization thoracic spine/chest Body Location B paraspinals, pec, rhomboid Mobilization Type Rolling,Sustained Pressure Intensity/Depth Moderate Body Position Prone Comments Increased tightness of paraspinals and pec. Palpable reduction at pec following soft tissue mobilization, R>L R hand/forearm Body Location flexors, wrist flexors and palmar fascia Mobilization Type Rolling,Other Comments Rolling and fanning of R forearm flexors and palmar fascia. reports less numbness in hand with soft tissue mobilization cervical spine Body Location B paraspinals, LS, UT Mobilization Type Rolling,Sustained Pressure, Trigger Point Release,Other Comments Trigger point at L LS and UT, reduced with trigger point release but not gone. Increased restrictions of paraspinals, pec, LS, UT; R>L. Palpable reduction in soft tissue restrictions following STM Mobilization with movement of LS Joint Mobilizations thoracic spine Joint T2-T9 Direction P-A Grade III Body Position Prone Reps/Duration 10 ea Comments Hypomobility of T7-9. Monitored for pain, performed for increased cervicothoracic mobility cervical spine Joint C3-7 Direction P-A, lateral glides Grade II Body Position prone, sup Reps/Duration 2x10 ea Comments Monitored for pain. Performed for pain reduction and to determine tolerance for mobilization. Hypomobility of lower cervical spine PT-OP-T Assessment and Plan Start: 04/06/24 07:29 Freq: Status: Active Protocol: Document 04/10/24 07:31 NM (Rec: 04/10/24 08:17 NM [id number]) Physical Therapy Assessment Goals Five Impairment reports currently 50% impaired with work tasks Short Term Goal (STG) Pt will be educated on good ergonomic positioning and work tools in order to improve posture and body mechanics for better symptom management STG Duration 4 weeks Long-Term Goal (LTG) Pt will report that she is less than 25% impaired with work-related tasks in order to demonstrate improved symptom management, activity tolerance , and QOL LTG Duration 12 weeks Four Impairment sleeping Short Term Goal (STG) Pt will report that she is waking once or fewer times per night due to symptoms in R hand in order to demonstrate improved symptom management and QOL STG Duration 8 weeks Quantitative Researcher Goal (LTG) Pt will report that she is waking fewer than 2x/wk due to symptoms in R hand in order to demonstrate improved symptom management and QOL LTG Duration 12 weeks Three Impairment ROM: R wrist flexion 50 deg Short Term Goal (STG) Pt will improve R wrist flexion to at least 60 deg in order to demonstrate improved ROM for pericare, if appropriate STG Duration 6 weeks Long-Term Goal (LTG) Pt will improve R wrist flexion to at least 70 deg in order to demonstrate improved ROM for pericare or typing, if appropriate LTG Duration 12 weeks Two Impairment ROM: R cervical spine rotation 70 deg Long-Term Goal (LTG) Pt will improve R cervical spine rotation >80 deg or within 5 deg of L cervical spine rotation in order to improve visual scanning and demonstrate improved soft tissue length LTG Duration 12 weeks One Impairment QOL/activity tolerance: quickdash 56.8% impairment Short Term Goal (STG) Pt will decrease quickdash impairment by at least 11% (1 MCID) in order to demonstrate improved symptom management and QOL STG Duration 8 weeks Quantitative Researcher Goal (LTG) Pt will report <25% impairment on quickdash due to pain or numbness/tingling in R hand/ wrist or neck in order to demonstrate improved symptom management, activity tolerance and QOL LTG Duration 12 weeks Assessment Summary Assessment Pt tolerated session well. Emphasis on reducing cervical and thoracic muscle restrictions, in addition to R hand/forearm. Pt reports symptom reduction with soft tissue mobilization of neck and R hand/forearm flexors. Remaining session emphasis on improving cervicothoracic mobility and R flexor tendon mobility. Observable improvement in cervical spine ROM following open book and manual treatment. Pt had good response to tendon gliding on R hand, reporting reduction in numbness. Pt also had good feedback to abdirashid ann marie with pec stretch. Demos increased tightness especially on R side , but no significant limitations in trunk or R shoulder ROM. Educated on desk ergonomics at work for symptom reduction. She would benefit from skilled PT for cervicothoracic and R forearm/ hand mobility, in addition to body mechanics training in order to improve symptom management. Physical Therapy Plan Frequency and Duration Frequency of Treatment 2x/Week Duration of treatment (weeks) 12 Plan of Care Start Date 04/06/24 Plan of Care End Date 07/06/24 Therapeutic Interventions Therapeutic Interventions Canalithic Repositioning,Gait Training,Home Exercise Program ,Joint Mobilizations,Manual Therapy,Neuromuscular Re- education,Orthotic/Prosthetic Management,Patient/Caregiver Education,Self-Care/Home Management,Sensory Integration ,Soft Tissue Mobilization, Taping,Therapeutic Activities, Therapeutic Exercises Modalities Cold Pack/Ice Massage,Electric Stimulation,Hot Packs, Traction- Mechanical, Ultrasound Next Visit Focus/Plan Next Note Type Treatment Note Next Visit Plan Next: DNF training (chin tuck + flex/ext), trial CS stretches (scalenes, UT, LS, SCM); median nerve glide; scapular mobility > rows sleeping assessment Continue with manual therapy: STM, cervical spine mobilizations grade II-III
--- NOTE | 2024-04-12 15:20 | PT.OTN ---
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 She was seen January-February because entire R arm went numb and 10/ [address] Brown who referred her to PT. Over the past 2 months . She nows has pain only in the R hand vs no longer has the radiation. Pt reports that her condition started in November, when she started to experience numbness in her hand. She sleeps with her arms elevated on both sides. On Mother's day, she did a lot of excavating/moving yard work. The following Wednesday, she had pain; unable to type. Prescribed prednisone and muscle relaxers; steroid helped with symptoms. She only uses muscle relaxers occasionally, causes depression. Primarily felt in thumb and fingers 2-3. 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 She also had a minor whiplash event 2 weekends ago when dog pulled on leash, so now L sided pain; now longer as stiffness. Day before mothers' day, she walked several miles in her backpack, which is originally when the arm numbness began but was managable. She shakes her hands, wakes up at night. Denies weakness but states difficulty with fine motor. 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 PT-OP-F Manual Assessment Start: 04/06/24 07:29 Freq: Status: Active Protocol: Document 04/06/24 14:33 NM (Rec: 04/06/24 16:15 NM [id number]) Manual Assessments Soft Tissue Assessment Soft Tissue Mobility Assessment Increased soft tissue restrictions of cervical paraspinals, chest and periscapulars, wrist extensors . R medial scapular border 7 cm, L medial scapular border 8 cm Joint Mobility Assessment Joint Mobility Assessment Hypomobility of cervical spine with lateral gliding, especially L>R PT-OP-G Mobility & Gait Start: 04/06/24 07:29 Freq: Status: Active Protocol: Document 04/06/24 14:33 NM (Rec: 04/06/24 16:15 NM [id number]) OP Gait Assessment Gait Gait Assistance Required: Independent Distance (Feet) 150 Comments Gait Comments Stiff gait with limited trunk rotation and arm swing. R shoulder is more elevated. No widebased or ataxic gait, no LOB PT-OP-H Neuro Start: 04/06/24 07:29 Freq: Status: Active Protocol: Document 04/10/24 07:31 NM (Rec: 04/10/24 09:41 NM [id number]) Sensation Evaluation Comments Summary Comments BUE equally intact to light touch sensation PT-OP-J Posture/Palpation/Skin Start: 04/06/24 07:29 Freq: Status: Active Protocol: Document 04/06/24 14:33 NM (Rec: 04/06/24 16:15 NM [id number]) Posture Evaluation Position Standing Head/C-Spine Posture Forward Head Shoulder Posture (L) Rounded,(R) Rounded,(L) Forward,(R) Forward,(R) Elevated Scapula Posture (R) Rotated Up,(R) Elevated,(R ) Tipped Arm Posture (L) Externally Rotated,(R) Externally Rotated Pelvis Posture Anteriorly Tilted Weight Distribution Balanced Palpation Assessment Location R wrist/hand Palpation Details Tightness of wrist extensors Pain with gripping and wrist flexion cervical spine Palpation Findings Soft Tissue Tightness Palpation Details Moderate tightness of paraspinals, pectoralis, lat, levator scapula, upper trapezius, scalenes, suboccipitals Skin Assessment Other Assessments Skin Assessment Comments No R wrist swellin cm ea PT-OP-K Range of Motion Start: 04/06/24 07:29 Freq: Status: Active Protocol: Document 04/06/24 14:33 NM (Rec: 04/06/24 16:15 NM [id number]) Cervical Spine Range of Motion Cervical Spine Active Degrees Flexion 60 Extension 45 Rotation Left 84 Rotation Right 70 Lateral Flexion Left 40 Lateral Flexion Right 40 ROM Limitations Soft Tissue Tightness Comments pain on L side with ext and flex Shoulder Goniometric Range of Motion Shoulder Right Flexion 150 Abduction 150 External Rotation at 0 degrees Abduction 70 Internal Rotation Behind Back (text) T10 Comments T4 for apley ER Left Flexion 150 Abduction 160 External Rotation at 0 degrees Abduction 70 Internal Rotation Behind Back (text) T9 Comments T4 for apley ER Shoulder ROM Limitations Comments reports pulling sensation with apley IR Wrist Goniometric Range of Motion Wrist Right Flexion Active (degrees) 50 Extension Active (degrees) 70 Left Flexion Active (degrees) 60 Extension Active (degrees) 60 ROM Limitations Comments increased symptoms with R wrist flexion PT-OP-L Special Tests Start: 04/06/24 07:29 Freq: Status: Active Protocol: Document 04/10/24 07:31 NM (Rec: 04/10/24 09:41 NM [id number]) Special Tests Cervical Spine Special Tests Vertebral Artery Test Results - Comments intact cranial n, no abnormal palpation/auscultation of carotid a Shoulder Abduction Relief Test Test Results + Comments neural symptom relief with passive arm ABD on head ULTT Test Results median n Comments better w/ depression; pain also w/ ulnar n test position but no symptoms Distraction Test Results + Comments symptom resolved Spurling's Test Results + Comments local only on L PT-OP-M Strength Start: 04/06/24 07:29 Freq: Status: Active Protocol: Document 04/06/24 14:33 NM (Rec: 04/06/24 16:15 NM [id number]) Cervical Spine Strength Cervical Spine Manual Muscle Testing Flexion (C1-2) 4+ Good+ Extension 4+ Good+ Rotation Left 4+ Good+ Rotation Right 4+ Good+ Lateral Flexion Left (C3) 4+ Good+ Lateral Flexion Right (C3) 4+ Good+ Comments no pain or symptom reproduction Shoulder Strength Shoulder Manual Muscle Testing Right Flexion 4+ Good+ Abduction (C5) 4 Good External Rotation 4 Good Internal Rotation 4 Good Left Flexion 4+ Good+ Abduction (C5) 4+ Good+ External Rotation 4+ Good+ Internal Rotation 4+ Good+ Elbow/Forearm Strength Elbow and Forearm Manual Muscle Testing Right Flexion (C6) 4+ Good+ Extension (C7) 4+ Good+ Left Flexion (C6) 4+ Good+ Extension (C7) 4+ Good+ Wrist Strength Wrist Manual Muscle Testing Right Flexion (C7) 4- Good- Extension (C6) 4 Good Comments mild pain w/ flex and ext fingers: 4/5, no significant difference between sides Left Flexion (C7) 4+ Good+ Extension (C6) 4+ Good+ PT-OP-Q Treatments Start: 04/06/24 07:29 Freq: Status: Active Protocol: Document 04/12/24 15:16 TS (Rec: 04/12/24 16:19 TS [id number]) Therapeutic Exercises Sitting Exercises Prayer stretch Reps/Minutes 1x30 Comments Has increased numbness with prayer stretch. Ulnar/radial deviation Resistance 2LB Reps/Minutes x10 Comments no pain. Ext/Flex stretch Equipment Used 2LB weight Reps/Minutes 2x30 Comments Holding stretch and reps with 2LB weight Motorcycle bars Side bilateral Reps/Minutes x10 Comments Good stretch tendon glide Sitting Exercise Name (HEP): straight hand, hook fist, lumbrical fist, flat fist, full fist Side right Reps/Minutes 10 Comments feels stretching, no increase in symptoms, feels good Manual Therapy Treatment Soft Tissue Mobilization R hand/forearm Body Location flexors, wrist flexors and palmar fascia Mobilization Type Rolling,Other Comments Rolling and fanning of R forearm flexors and palmar fascia. cervical spine Body Location B paraspinals, LS, UT Mobilization Type Rolling,Sustained Pressure, Trigger Point Release,Other Comments Trigger point at L & R LS and UT, reduced with trigger point release but not gone. Increased restrictions of paraspinals, pec, LS, UT; R>L. Joint Mobilizations thoracic spine Joint T2-T9 Direction P-A Grade III Body Position Prone Reps/Duration 10 ea Comments Hypomobility of T7-9. Monitored for pain, performed for increased cervicothoracic mobility cervical spine Joint C3-7 Direction P-A, lateral glides Grade II Body Position prone, sup Reps/Duration 2x10 ea Comments Monitored for pain. Performed for pain reduction and to determine tolerance for mobilization. Hypomobility of lower cervical spine PT-OP-T Assessment and Plan Start: 04/06/24 07:29 Freq: Status: Active Protocol: Document 04/12/24 15:16 TS (Rec: 04/12/24 16:19 TS [id number]) Physical Therapy Assessment Goals Five Impairment reports currently 50% impaired with work tasks Short Term Goal (STG) Pt will be educated on good ergonomic positioning and work tools in order to improve posture and body mechanics for better symptom management STG Duration 4 weeks [employer] Major Goal (LTG) Pt will report that she is less than 25% impaired with work-related tasks in order to demonstrate improved symptom management, activity tolerance , and QOL LTG Duration 12 weeks Four Impairment sleeping Short Term Goal (STG) Pt will report that she is waking once or fewer times per night due to symptoms in R hand in order to demonstrate improved symptom management and QOL STG Duration 8 weeks Mcc Goal (LTG) Pt will report that she is waking fewer than 2x/wk due to symptoms in R hand in order to demonstrate improved symptom management and QOL LTG Duration 12 weeks Three Impairment ROM: R wrist flexion 50 deg Short Term Goal (STG) Pt will improve R wrist flexion to at least 60 deg in order to demonstrate improved ROM for pericare, if appropriate STG Duration 6 weeks [employer] Major Goal (LTG) Pt will improve R wrist flexion to at least 70 deg in order to demonstrate improved ROM for pericare or typing, if appropriate LTG Duration 12 weeks Two Impairment ROM: R cervical spine rotation 70 deg [employer] Major Goal (LTG) Pt will improve R cervical spine rotation >80 deg or within 5 deg of L cervical spine rotation in order to improve visual scanning and demonstrate improved soft tissue length LTG Duration 12 weeks One Impairment QOL/activity tolerance: quickdash 56.8% impairment Short Term Goal (STG) Pt will decrease quickdash impairment by at least 11% (1 MCID) in order to demonstrate improved symptom management and QOL STG Duration 8 weeks [employer] Major Goal (LTG) Pt will report <25% impairment on quickdash due to pain or numbness/tingling in R hand/ wrist or neck in order to demonstrate improved symptom management, activity tolerance and QOL LTG Duration 12 weeks Assessment Summary Assessment Pt responds well to manual, she reports feeling good pull with spine mobilizations. Weighted wrist exercises with 2LBS were comfortable for pt, no reports of pain or increased sensations. After end of prayer stretch pt reported increased numbness in R hand. Continues to have increased tightness in R side after session. Physical Therapy Plan Next Visit Focus/Plan Next Note Type Treatment Note Next Visit Plan Assess weight wrist ex, prayer stretch if pt did at home. Next: DNF training (chin tuck + flex/ext), trial CS stretches (scalenes, UT, LS, SCM); median nerve glide; scapular mobility > rows sleeping assessment Continue with manual therapy: STM, cervical spine mobilizations grade II-III
--- NOTE | 2024-04-17 12:09 | PT.OTN ---
Current Diagnoses Stiffness of right wrist, not elsewhere classified (04/20/24) Radiculopathy, cervical region (04/20/24) Weakness (04/20/24) Physical Therapy Treatment Note PT-OP-A Visit Information Start: 04/06/24 07:29 Freq: Status: Active Protocol: Document 04/17/24 11:18 NM (Rec: 04/17/24 12:09 NM [id number]) Out-Patient Physical Therapy Visit Information Visit Information Visit Type Treatment Note Visit Start Time 11:19 Visit Stop Time 12:00 Visit Number 4 Evaluation Information Evaluation Date 04/06/24 Precautions Precautions neck pain and median nerve PT-OP-B Current Condition Start: 04/06/24 07:29 Freq: Status: Active Protocol: Document 04/06/24 14:33 NM (Rec: 04/06/24 16:15 NM [id number]) Current Condition History of Current Condition Onset Date Mother's day 2023 Current Complaints pain, numbness and tingling History of Current Condition Pt reports that she has cervical radiculopathy. She was seen January-February because entire R arm went numb and 10/ [address] Brown who referred her to PT. Over the past 2 months . She nows has pain only in the R hand vs no longer has the radiation. Pt reports that her condition started in November, when she started to experience numbness in her hand. She sleeps with her arms elevated on both sides. On Mother's day, she did a lot of excavating/moving yard work. The following Wednesday, she had pain; unable to type. Prescribed prednisone and muscle relaxers; steroid helped with symptoms. She only uses muscle relaxers occasionally, causes depression. Primarily felt in thumb and fingers 2-3. 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 She also had a minor whiplash event 2 weekends ago when dog pulled on leash, so now L sided pain; now longer as stiffness. Day before mothers' day, she walked several miles in her backpack, which is originally when the arm numbness began but was managable. She shakes her hands, wakes up at night. Denies weakness but states difficulty with fine motor. 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 Reports no neck discomfort with exercises for neck. She reports increased neck pain on L side than R, states a really big knot. States 4-5/ 10. She has a follow up with Dr. Brown later in April. PT-OP-F Manual Assessment Start: 04/06/24 07:29 Freq: Status: Active Protocol: Document 04/06/24 14:33 NM (Rec: 04/06/24 16:15 NM [id number]) Manual Assessments Soft Tissue Assessment Soft Tissue Mobility Assessment Increased soft tissue restrictions of cervical paraspinals, chest and periscapulars, wrist extensors . R medial scapular border 7 cm, L medial scapular border 8 cm Joint Mobility Assessment Joint Mobility Assessment Hypomobility of cervical spine with lateral gliding, especially L>R PT-OP-G Mobility & Gait Start: 04/06/24 07:29 Freq: Status: Active Protocol: Document 04/06/24 14:33 NM (Rec: 04/06/24 16:15 NM [id number]) OP Gait Assessment Gait Gait Assistance Required: Independent Distance (Feet) 150 Comments Gait Comments Stiff gait with limited trunk rotation and arm swing. R shoulder is more elevated. No widebased or ataxic gait, no LOB PT-OP-H Neuro Start: 04/06/24 07:29 Freq: Status: Active Protocol: Document 04/10/24 07:31 NM (Rec: 04/10/24 09:41 NM [id number]) Sensation Evaluation Comments Summary Comments BUE equally intact to light touch sensation PT-OP-J Posture/Palpation/Skin Start: 04/06/24 07:29 Freq: Status: Active Protocol: Document 04/06/24 14:33 NM (Rec: 04/06/24 16:15 NM [id number]) Posture Evaluation Position Standing Head/C-Spine Posture Forward Head Shoulder Posture (L) Rounded,(R) Rounded,(L) Forward,(R) Forward,(R) Elevated Scapula Posture (R) Rotated Up,(R) Elevated,(R ) Tipped Arm Posture (L) Externally Rotated,(R) Externally Rotated Pelvis Posture Anteriorly Tilted Weight Distribution Balanced Palpation Assessment Location R wrist/hand Palpation Details Tightness of wrist extensors Pain with gripping and wrist flexion cervical spine Palpation Findings Soft Tissue Tightness Palpation Details Moderate tightness of paraspinals, pectoralis, lat, levator scapula, upper trapezius, scalenes, suboccipitals Skin Assessment Other Assessments Skin Assessment Comments No R wrist swellin cm ea PT-OP-K Range of Motion Start: 04/06/24 07:29 Freq: Status: Active Protocol: Document 04/06/24 14:33 NM (Rec: 04/06/24 16:15 NM [id number]) Cervical Spine Range of Motion Cervical Spine Active Degrees Flexion 60 Extension 45 Rotation Left 84 Rotation Right 70 Lateral Flexion Left 40 Lateral Flexion Right 40 ROM Limitations Soft Tissue Tightness Comments pain on L side with ext and flex Shoulder Goniometric Range of Motion Shoulder Right Flexion 150 Abduction 150 External Rotation at 0 degrees Abduction 70 Internal Rotation Behind Back (text) T10 Comments T4 for apley ER Left Flexion 150 Abduction 160 External Rotation at 0 degrees Abduction 70 Internal Rotation Behind Back (text) T9 Comments T4 for apley ER Shoulder ROM Limitations Comments reports pulling sensation with apley IR Wrist Goniometric Range of Motion Wrist Right Flexion Active (degrees) 50 Extension Active (degrees) 70 Left Flexion Active (degrees) 60 Extension Active (degrees) 60 ROM Limitations Comments increased symptoms with R wrist flexion PT-OP-L Special Tests Start: 04/06/24 07:29 Freq: Status: Active Protocol: Document 04/10/24 07:31 NM (Rec: 04/10/24 09:41 NM [id number]) Special Tests Cervical Spine Special Tests Vertebral Artery Test Results - Comments intact cranial n, no abnormal palpation/auscultation of carotid a Shoulder Abduction Relief Test Test Results + Comments neural symptom relief with passive arm ABD on head ULTT Test Results median n Comments better w/ depression; pain also w/ ulnar n test position but no symptoms Distraction Test Results + Comments symptom resolved Spurling's Test Results + Comments local only on L PT-OP-M Strength Start: 04/06/24 07:29 Freq: Status: Active Protocol: Document 04/06/24 14:33 NM (Rec: 04/06/24 16:15 NM [id number]) Cervical Spine Strength Cervical Spine Manual Muscle Testing Flexion (C1-2) 4+ Good+ Extension 4+ Good+ Rotation Left 4+ Good+ Rotation Right 4+ Good+ Lateral Flexion Left (C3) 4+ Good+ Lateral Flexion Right (C3) 4+ Good+ Comments no pain or symptom reproduction Shoulder Strength Shoulder Manual Muscle Testing Right Flexion 4+ Good+ Abduction (C5) 4 Good External Rotation 4 Good Internal Rotation 4 Good Left Flexion 4+ Good+ Abduction (C5) 4+ Good+ External Rotation 4+ Good+ Internal Rotation 4+ Good+ Elbow/Forearm Strength Elbow and Forearm Manual Muscle Testing Right Flexion (C6) 4+ Good+ Extension (C7) 4+ Good+ Left Flexion (C6) 4+ Good+ Extension (C7) 4+ Good+ Wrist Strength Wrist Manual Muscle Testing Right Flexion (C7) 4- Good- Extension (C6) 4 Good Comments mild pain w/ flex and ext fingers: 4/5, no significant difference between sides Left Flexion (C7) 4+ Good+ Extension (C6) 4+ Good+ PT-OP-Q Treatments Start: 04/06/24 07:29 Freq: Status: Active Protocol: Document 04/17/24 11:18 NM (Rec: 04/17/24 12:09 NM [id number]) Therapeutic Exercises Supine Exercises cervical spine isometrics Supine Exercise Name flexion, lateral flexion B, rotation B Side bilateral Reps/Minutes 5x5 ea Comments R hand increase symptom if use , none with isometric DNF activation Supine Exercise Name chin tucks isometrics Side bilateral Reps/Minutes 10 with 2 hold Comments pain free; no compensations thoracic mobility Supine Exercise Name 1. shoulder flex, 2. snow ann marie, 3. pec stretch T, 4. HABD w/ scap retract Side bilateral Equipment Used foam roller Reps/Minutes 1. 10, 2. 15, 3. 60, 4. 10 Comments no increase in symptoms Sitting Exercises cervical spine stretches Sitting Exercise Name LS Side bilateral Reps/Minutes 2x30 Comments trialed R side but d/c due to inc numbness; good carlos a L side Manual Therapy Treatment Consent Patient gave verbal consent for manual Yes treatment Soft Tissue Mobilization thoracic spine/chest Body Location B paraspinals, B pec, rhomboid Mobilization Type Rolling,Sustained Pressure Intensity/Depth Moderate Body Position Prone Comments Increased tightness of paraspinals and pec. Palpable reduction at pec following soft tissue mobilization, R>L cervical spine Body Location B paraspinals, LS, UT Mobilization Type Rolling,Sustained Pressure, Trigger Point Release,Other Intensity/Depth Moderate Body Position Hooklying,sitting Comments Trigger point at L & R LS and UT, reduced with trigger point release but not resolved. Increased restrictions of paraspinals, pec, LS, UT; R>L. Joint Mobilizations cervical spine Joint C3-7 Direction lateral glides Grade III Body Position Supine Reps/Duration 2x30 ea Comments Monitored for pain. Performed to improve R cervical spine mobility especially along lateral facets Self-Care/Home Management Treatment Education Patient Education Joint Protection,Pain Management Other Education Educated to d/c all hand exercises at this time due to symptom increase PT-OP-T Assessment and Plan Start: 04/06/24 07:29 Freq: Status: Active Protocol: Document 04/17/24 11:18 NM (Rec: 04/17/24 12:09 NM [id number]) Physical Therapy Assessment Goals Five Impairment reports currently 50% impaired with work tasks Short Term Goal (STG) Pt will be educated on good ergonomic positioning and work tools in order to improve posture and body mechanics for better symptom management STG Duration 4 weeks Residential Goal (LTG) Pt will report that she is less than 25% impaired with work-related tasks in order to demonstrate improved symptom management, activity tolerance , and QOL LTG Duration 12 weeks Four Impairment sleeping Short Term Goal (STG) Pt will report that she is waking once or fewer times per night due to symptoms in R hand in order to demonstrate improved symptom management and QOL STG Duration 8 weeks Residential Goal (LTG) Pt will report that she is waking fewer than 2x/wk due to symptoms in R hand in order to demonstrate improved symptom management and QOL LTG Duration 12 weeks Three Impairment ROM: R wrist flexion 50 deg Short Term Goal (STG) Pt will improve R wrist flexion to at least 60 deg in order to demonstrate improved ROM for pericare, if appropriate STG Duration 6 weeks [employer] Goal (LTG) Pt will improve R wrist flexion to at least 70 deg in order to demonstrate improved ROM for pericare or typing, if appropriate LTG Duration 12 weeks Two Impairment ROM: R cervical spine rotation 70 deg Residential Goal (LTG) Pt will improve R cervical spine rotation >80 deg or within 5 deg of L cervical spine rotation in order to improve visual scanning and demonstrate improved soft tissue length LTG Duration 12 weeks One Impairment QOL/activity tolerance: quickdash 56.8% impairment Short Term Goal (STG) Pt will decrease quickdash impairment by at least 11% (1 MCID) in order to demonstrate improved symptom management and QOL STG Duration 8 weeks [employer]ender Goal (LTG) Pt will report <25% impairment on quickdash due to pain or numbness/tingling in R hand/ wrist or neck in order to demonstrate improved symptom management, activity tolerance and QOL LTG Duration 12 weeks Assessment Summary Assessment Pt tolerated session well but reports no change in symptoms at end of session, other than less tightness along B paraspinals. Pt has significant trigger points at B levator scapula, L>R. Emphasis on restoring tissue length at pecs and cervical paraspinals. Pt with improved tolerance for pec stretch and thoracic mobility. 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 Trialed cervical isometrics to improve paraspinal strength in supine. Pt reports feeling weakness but no increased pain. If symptoms do not improve, pt would benefit from MRI of cervical spine. She would benefit from skilled PT for cervical spine mobility, flexibility and strengthening for symptom reduction and better tolerance for ADLs and work. Physical Therapy Plan Frequency and Duration Frequency of Treatment 2x/Week Duration of treatment (weeks) 12 Plan of Care Start Date 04/06/24 Plan of Care End Date 07/06/24 Therapeutic Interventions Therapeutic Interventions Canalithic Repositioning,Gait Training,Home Exercise Program ,Joint Mobilizations,Manual Therapy,Neuromuscular Re- education,Orthotic/Prosthetic Management,Patient/Caregiver Education,Self-Care/Home Management,Sensory Integration ,Soft Tissue Mobilization, Taping,Therapeutic Activities, Therapeutic Exercises Modalities Cold Pack/Ice Massage,Electric Stimulation,Hot Packs, Traction- Mechanical, Ultrasound Next Visit Focus/Plan Next Note Type Treatment Note Next Visit Plan row, scapular, flex with ER in supine, periscapulars Next: DNF training (chin tuck + flex/ext), trial CS stretches (scalenes, UT, LS, SCM); median nerve glide; scapular mobility > rows sleeping assessment Continue with manual therapy: STM, cervical spine mobilizations grade II-III
--- NOTE | 2024-04-17 12:09 | PT.OTN ---
Current Diagnoses Stiffness of right wrist, not elsewhere classified (04/17/24) Radiculopathy, cervical region (04/17/24) Weakness (04/17/24) Physical Therapy Treatment Note PT-OP-A Visit Information Start: 04/06/24 07:29 Freq: Status: Active Protocol: Document 04/17/24 11:18 NM (Rec: 04/17/24 12:09 NM [id number]) Out-Patient Physical Therapy Visit Information Visit Information Visit Type Treatment Note Visit Start Time 11:19 Visit Stop Time 12:00 Visit Number 4 Evaluation Information Evaluation Date 04/06/24 Precautions Precautions neck pain and median nerve PT-OP-B Current Condition Start: 04/06/24 07:29 Freq: Status: Active Protocol: Document 04/06/24 14:33 NM (Rec: 04/06/24 16:15 NM [id number]) Current Condition History of Current Condition Onset Date Mother's day 2023 Current Complaints pain, numbness and tingling History of Current Condition Pt reports that she has cervical radiculopathy. She was seen January-February because entire R arm went numb and 10/ [address] Brown who referred her to PT. Over the past 2 months . She nows has pain only in the R hand vs no longer has the radiation. Pt reports that her condition started in November, when she started to experience numbness in her hand. She sleeps with her arms elevated on both sides. On Mother's day, she did a lot of excavating/moving yard work. The following Wednesday, she had pain; unable to type. Prescribed prednisone and muscle relaxers; steroid helped with symptoms. She only uses muscle relaxers occasionally, causes depression. Primarily felt in thumb and fingers 2-3. Feels like numbness/tingling, worse w/ orthopedic physician. She also had a minor whiplash event 2 weekends ago when dog pulled on leash, so now L sided pain; now longer as stiffness. Day before mothers' day, she walked several miles in her backpack, which is originally when the arm numbness began but was managable. She shakes her hands, wakes up at night. Denies weakness but states difficulty with fine motor. 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 Reports no neck discomfort with exercises for neck. She reports increased neck pain on L side than R, states a really big knot. States 4-5/ 10. She has a follow up with Dr. Brown later in April. PT-OP-F Manual Assessment Start: 04/06/24 07:29 Freq: Status: Active Protocol: Document 04/06/24 14:33 NM (Rec: 04/06/24 16:15 NM [id number]) Manual Assessments Soft Tissue Assessment Soft Tissue Mobility Assessment Increased soft tissue restrictions of cervical paraspinals, chest and periscapulars, wrist extensors . R medial scapular border 7 cm, L medial scapular border 8 cm Joint Mobility Assessment Joint Mobility Assessment Hypomobility of cervical spine with lateral gliding, especially L>R PT-OP-G Mobility & Gait Start: 04/06/24 07:29 Freq: Status: Active Protocol: Document 04/06/24 14:33 NM (Rec: 04/06/24 16:15 NM [id number]) OP Gait Assessment Gait Gait Assistance Required: Independent Distance (Feet) 150 Comments Gait Comments Stiff gait with limited trunk rotation and arm swing. R shoulder is more elevated. No widebased or ataxic gait, no LOB PT-OP-H Neuro Start: 04/06/24 07:29 Freq: Status: Active Protocol: Document 04/10/24 07:31 NM (Rec: 04/10/24 09:41 NM [id number]) Sensation Evaluation Comments Summary Comments BUE equally intact to light touch sensation PT-OP-J Posture/Palpation/Skin Start: 04/06/24 07:29 Freq: Status: Active Protocol: Document 04/06/24 14:33 NM (Rec: 04/06/24 16:15 NM [id number]) Posture Evaluation Position Standing Head/C-Spine Posture Forward Head Shoulder Posture (L) Rounded,(R) Rounded,(L) Forward,(R) Forward,(R) Elevated Scapula Posture (R) Rotated Up,(R) Elevated,(R ) Tipped Arm Posture (L) Externally Rotated,(R) Externally Rotated Pelvis Posture Anteriorly Tilted Weight Distribution Balanced Palpation Assessment Location R wrist/hand Palpation Details Tightness of wrist extensors Pain with gripping and wrist flexion cervical spine Palpation Findings Soft Tissue Tightness Palpation Details Moderate tightness of paraspinals, pectoralis, lat, levator scapula, upper trapezius, scalenes, suboccipitals Skin Assessment Other Assessments Skin Assessment Comments No R wrist swellin cm ea PT-OP-K Range of Motion Start: 04/06/24 07:29 Freq: Status: Active Protocol: Document 04/06/24 14:33 NM (Rec: 04/06/24 16:15 NM [id number]) Cervical Spine Range of Motion Cervical Spine Active Degrees Flexion 60 Extension 45 Rotation Left 84 Rotation Right 70 Lateral Flexion Left 40 Lateral Flexion Right 40 ROM Limitations Soft Tissue Tightness Comments pain on L side with ext and flex Shoulder Goniometric Range of Motion Shoulder Right Flexion 150 Abduction 150 External Rotation at 0 degrees Abduction 70 Internal Rotation Behind Back (text) T10 Comments T4 for apley ER Left Flexion 150 Abduction 160 External Rotation at 0 degrees Abduction 70 Internal Rotation Behind Back (text) T9 Comments T4 for apley ER Shoulder ROM Limitations Comments reports pulling sensation with apley IR Wrist Goniometric Range of Motion Wrist Right Flexion Active (degrees) 50 Extension Active (degrees) 70 Left Flexion Active (degrees) 60 Extension Active (degrees) 60 ROM Limitations Comments increased symptoms with R wrist flexion PT-OP-L Special Tests Start: 04/06/24 07:29 Freq: Status: Active Protocol: Document 04/10/24 07:31 NM (Rec: 04/10/24 09:41 NM [id number]) Special Tests Cervical Spine Special Tests Vertebral Artery Test Results - Comments intact cranial n, no abnormal palpation/auscultation of carotid a Shoulder Abduction Relief Test Test Results + Comments neural symptom relief with passive arm ABD on head ULTT Test Results median n Comments better w/ depression; pain also w/ ulnar n test position but no symptoms Distraction Test Results + Comments symptom resolved Spurling's Test Results + Comments local only on L PT-OP-M Strength Start: 04/06/24 07:29 Freq: Status: Active Protocol: Document 04/06/24 14:33 NM (Rec: 04/06/24 16:15 NM [id number]) Cervical Spine Strength Cervical Spine Manual Muscle Testing Flexion (C1-2) 4+ Good+ Extension 4+ Good+ Rotation Left 4+ Good+ Rotation Right 4+ Good+ Lateral Flexion Left (C3) 4+ Good+ Lateral Flexion Right (C3) 4+ Good+ Comments no pain or symptom reproduction Shoulder Strength Shoulder Manual Muscle Testing Right Flexion 4+ Good+ Abduction (C5) 4 Good External Rotation 4 Good Internal Rotation 4 Good Left Flexion 4+ Good+ Abduction (C5) 4+ Good+ External Rotation 4+ Good+ Internal Rotation 4+ Good+ Elbow/Forearm Strength Elbow and Forearm Manual Muscle Testing Right Flexion (C6) 4+ Good+ Extension (C7) 4+ Good+ Left Flexion (C6) 4+ Good+ Extension (C7) 4+ Good+ Wrist Strength Wrist Manual Muscle Testing Right Flexion (C7) 4- Good- Extension (C6) 4 Good Comments mild pain w/ flex and ext fingers: 4/5, no significant difference between sides Left Flexion (C7) 4+ Good+ Extension (C6) 4+ Good+ PT-OP-Q Treatments Start: 04/06/24 07:29 Freq: Status: Active Protocol: Document 04/17/24 11:18 NM (Rec: 04/17/24 12:09 NM [id number]) Therapeutic Exercises Supine Exercises cervical spine isometrics Supine Exercise Name flexion, lateral flexion B, rotation B Side bilateral Reps/Minutes 5x5 ea Comments R hand increase symptom if use , none with isometric DNF activation Supine Exercise Name chin tucks isometrics Side bilateral Reps/Minutes 10 with 2 hold Comments pain free; no compensations thoracic mobility Supine Exercise Name 1. shoulder flex, 2. snow ann marie, 3. pec stretch T, 4. HABD w/ scap retract Side bilateral Equipment Used foam roller Reps/Minutes 1. 10, 2. 15, 3. 60, 4. 10 Comments no increase in symptoms Sitting Exercises cervical spine stretches Sitting Exercise Name LS Side bilateral Reps/Minutes 2x30 Comments trialed R side but d/c due to inc numbness; good carlos a L side Manual Therapy Treatment Consent Patient gave verbal consent for manual No treatment Soft Tissue Mobilization thoracic spine/chest Body Location B paraspinals, B pec, rhomboid Mobilization Type Rolling,Sustained Pressure Intensity/Depth Moderate Body Position Prone Comments Increased tightness of paraspinals and pec. Palpable reduction at pec following soft tissue mobilization, R>L cervical spine Body Location B paraspinals, LS, UT Mobilization Type Rolling,Sustained Pressure, Trigger Point Release,Other Intensity/Depth Moderate Body Position Hooklying,sitting Comments Trigger point at L & R LS and UT, reduced with trigger point release but not resolved. Increased restrictions of paraspinals, pec, LS, UT; R>L. Joint Mobilizations cervical spine Joint C3-7 Direction lateral glides Grade III Body Position Supine Reps/Duration 2x30 ea Comments Monitored for pain. Performed to improve R cervical spine mobility especially along lateral facets Self-Care/Home Management Treatment Education Patient Education Joint Protection,Pain Management Other Education Educated to d/c all hand exercises at this time due to symptom increase PT-OP-T Assessment and Plan Start: 04/06/24 07:29 Freq: Status: Active Protocol: Document 04/17/24 11:18 NM (Rec: 04/17/24 12:09 NM [id number]) Physical Therapy Assessment Goals Five Impairment reports currently 50% impaired with work tasks Short Term Goal (STG) Pt will be educated on good ergonomic positioning and work tools in order to improve posture and body mechanics for better symptom management STG Duration 4 weeks Half-Way Goal (LTG) Pt will report that she is less than 25% impaired with work-related tasks in order to demonstrate improved symptom management, activity tolerance , and QOL LTG Duration 12 weeks Four Impairment sleeping Short Term Goal (STG) Pt will report that she is waking once or fewer times per night due to symptoms in R hand in order to demonstrate improved symptom management and QOL STG Duration 8 weeks [employer] Goal (LTG) Pt will report that she is waking fewer than 2x/wk due to symptoms in R hand in order to demonstrate improved symptom management and QOL LTG Duration 12 weeks Three Impairment ROM: R wrist flexion 50 deg Short Term Goal (STG) Pt will improve R wrist flexion to at least 60 deg in order to demonstrate improved ROM for pericare, if appropriate STG Duration 6 weeks Half-Way Goal (LTG) Pt will improve R wrist flexion to at least 70 deg in order to demonstrate improved ROM for pericare or typing, if appropriate LTG Duration 12 weeks Two Impairment ROM: R cervical spine rotation 70 deg Half-Way Goal (LTG) Pt will improve R cervical spine rotation >80 deg or within 5 deg of L cervical spine rotation in order to improve visual scanning and demonstrate improved soft tissue length LTG Duration 12 weeks One Impairment QOL/activity tolerance: quickdash 56.8% impairment Short Term Goal (STG) Pt will decrease quickdash impairment by at least 11% (1 MCID) in order to demonstrate improved symptom management and QOL STG Duration 8 weeks [employer] Goal (LTG) Pt will report <25% impairment on quickdash due to pain or numbness/tingling in R hand/ wrist or neck in order to demonstrate improved symptom management, activity tolerance and QOL LTG Duration 12 weeks Assessment Summary Assessment Pt tolerated session well but reports no change in symptoms at end of session, other than less tightness along B paraspinals. Pt has significant trigger points at B levator scapula, L>R. Emphasis on restoring tissue length at pecs and cervical paraspinals. Pt with improved tolerance for pec stretch and thoracic mobility. She is unable to orthopedic physician objects without increase in R hand tingling/ numbness. Trialed cervical isometrics to improve paraspinal strength in supine. Pt reports feeling weakness but no increased pain. If symptoms do not improve, pt would benefit from MRI of cervical spine. She would benefit from skilled PT for cervical spine mobility, flexibility and strengthening for symptom reduction and better tolerance for ADLs and work. Physical Therapy Plan Frequency and Duration Frequency of Treatment 2x/Week Duration of treatment (weeks) 12 Plan of Care Start Date 04/06/24 Plan of Care End Date 07/06/24 Therapeutic Interventions Therapeutic Interventions Canalithic Repositioning,Gait Training,Home Exercise Program ,Joint Mobilizations,Manual Therapy,Neuromuscular Re- education,Orthotic/Prosthetic Management,Patient/Caregiver Education,Self-Care/Home Management,Sensory Integration ,Soft Tissue Mobilization, Taping,Therapeutic Activities, Therapeutic Exercises Modalities Cold Pack/Ice Massage,Electric Stimulation,Hot Packs, Traction- Mechanical, Ultrasound Next Visit Focus/Plan Next Note Type Treatment Note Next Visit Plan row, scapular, flex with ER in supine, periscapulars Next: DNF training (chin tuck + flex/ext), trial CS stretches (scalenes, UT, LS, SCM); median nerve glide; scapular mobility > rows sleeping assessment Continue with manual therapy: STM, cervical spine mobilizations grade II-III
--- NOTE | 2024-04-20 12:55 | PT.OTN ---
Current Diagnoses Stiffness of right wrist, not elsewhere classified (04/20/24) Radiculopathy, cervical region (04/20/24) Weakness (04/20/24) Physical Therapy Treatment Note PT-OP-A Visit Information Start: 04/06/24 07:29 Freq: Status: Active Protocol: Document 04/20/24 10:33 NM (Rec: 04/20/24 11:16 NM [id number]) Out-Patient Physical Therapy Visit Information Visit Information Visit Type Treatment Note Visit Start Time 10:33 Visit Stop Time 11:15 Visit Number 5 Evaluation Information Evaluation Date 04/06/24 Precautions Precautions neck pain and median nerve PT-OP-B Current Condition Start: 04/06/24 07:29 Freq: Status: Active Protocol: Document 04/06/24 14:33 NM (Rec: 04/06/24 16:15 NM [id number]) Current Condition History of Current Condition Onset Date Mother's day 2023 Current Complaints pain, numbness and tingling History of Current Condition Pt reports that she has cervical radiculopathy. She was seen January-February because entire R arm went numb and 10/ [address] Brown who referred her to PT. Over the past 2 months . She nows has pain only in the R hand vs no longer has the radiation. Pt reports that her condition started in November, when she started to experience numbness in her hand. She sleeps with her arms elevated on both sides. On Mother's day, she did a lot of excavating/moving yard work. The following Wednesday, she had pain; unable to type. Prescribed prednisone and muscle relaxers; steroid helped with symptoms. She only uses muscle relaxers occasionally, causes depression. Primarily felt in thumb and fingers 2-3. 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 She also had a minor whiplash event 2 weekends ago when dog pulled on leash, so now L sided pain; now longer as stiffness. Day before mothers' day, she walked several miles in her backpack, which is originally when the arm numbness began but was managable. She shakes her hands, wakes up at night. Denies weakness but states difficulty with fine motor. 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 used massage gun yesterday on her muscles, which felt good. Starting at 4/10 neck pain and R hand numbness/tingling PT-OP-F Manual Assessment Start: 04/06/24 07:29 Freq: Status: Active Protocol: Document 04/06/24 14:33 NM (Rec: 04/06/24 16:15 NM [id number]) Manual Assessments Soft Tissue Assessment Soft Tissue Mobility Assessment Increased soft tissue restrictions of cervical paraspinals, chest and periscapulars, wrist extensors . R medial scapular border 7 cm, L medial scapular border 8 cm Joint Mobility Assessment Joint Mobility Assessment Hypomobility of cervical spine with lateral gliding, especially L>R PT-OP-G Mobility & Gait Start: 04/06/24 07:29 Freq: Status: Active Protocol: Document 04/06/24 14:33 NM (Rec: 04/06/24 16:15 NM [id number]) OP Gait Assessment Gait Gait Assistance Required: Independent Distance (Feet) 150 Comments Gait Comments Stiff gait with limited trunk rotation and arm swing. R shoulder is more elevated. No widebased or ataxic gait, no LOB PT-OP-H Neuro Start: 04/06/24 07:29 Freq: Status: Active Protocol: Document 04/10/24 07:31 NM (Rec: 04/10/24 09:41 NM [id number]) Sensation Evaluation Comments Summary Comments BUE equally intact to light touch sensation PT-OP-J Posture/Palpation/Skin Start: 04/06/24 07:29 Freq: Status: Active Protocol: Document 04/06/24 14:33 NM (Rec: 04/06/24 16:15 NM [id number]) Posture Evaluation Position Standing Head/C-Spine Posture Forward Head Shoulder Posture (L) Rounded,(R) Rounded,(L) Forward,(R) Forward,(R) Elevated Scapula Posture (R) Rotated Up,(R) Elevated,(R ) Tipped Arm Posture (L) Externally Rotated,(R) Externally Rotated Pelvis Posture Anteriorly Tilted Weight Distribution Balanced Palpation Assessment Location R wrist/hand Palpation Details Tightness of wrist extensors Pain with gripping and wrist flexion cervical spine Palpation Findings Soft Tissue Tightness Palpation Details Moderate tightness of paraspinals, pectoralis, lat, levator scapula, upper trapezius, scalenes, suboccipitals Skin Assessment Other Assessments Skin Assessment Comments No R wrist swellin cm ea PT-OP-K Range of Motion Start: 04/06/24 07:29 Freq: Status: Active Protocol: Document 04/06/24 14:33 NM (Rec: 04/06/24 16:15 NM [id number]) Cervical Spine Range of Motion Cervical Spine Active Degrees Flexion 60 Extension 45 Rotation Left 84 Rotation Right 70 Lateral Flexion Left 40 Lateral Flexion Right 40 ROM Limitations Soft Tissue Tightness Comments pain on L side with ext and flex Shoulder Goniometric Range of Motion Shoulder Right Flexion 150 Abduction 150 External Rotation at 0 degrees Abduction 70 Internal Rotation Behind Back (text) T10 Comments T4 for apley ER Left Flexion 150 Abduction 160 External Rotation at 0 degrees Abduction 70 Internal Rotation Behind Back (text) T9 Comments T4 for apley ER Shoulder ROM Limitations Comments reports pulling sensation with apley IR Wrist Goniometric Range of Motion Wrist Right Flexion Active (degrees) 50 Extension Active (degrees) 70 Left Flexion Active (degrees) 60 Extension Active (degrees) 60 ROM Limitations Comments increased symptoms with R wrist flexion PT-OP-L Special Tests Start: 04/06/24 07:29 Freq: Status: Active Protocol: Document 04/10/24 07:31 NM (Rec: 04/10/24 09:41 NM [id number]) Special Tests Cervical Spine Special Tests Vertebral Artery Test Results - Comments intact cranial n, no abnormal palpation/auscultation of carotid a Shoulder Abduction Relief Test Test Results + Comments neural symptom relief with passive arm ABD on head ULTT Test Results median n Comments better w/ depression; pain also w/ ulnar n test position but no symptoms Distraction Test Results + Comments symptom resolved Spurling's Test Results + Comments local only on L PT-OP-M Strength Start: 04/06/24 07:29 Freq: Status: Active Protocol: Document 04/06/24 14:33 NM (Rec: 04/06/24 16:15 NM [id number]) Cervical Spine Strength Cervical Spine Manual Muscle Testing Flexion (C1-2) 4+ Good+ Extension 4+ Good+ Rotation Left 4+ Good+ Rotation Right 4+ Good+ Lateral Flexion Left (C3) 4+ Good+ Lateral Flexion Right (C3) 4+ Good+ Comments no pain or symptom reproduction Shoulder Strength Shoulder Manual Muscle Testing Right Flexion 4+ Good+ Abduction (C5) 4 Good External Rotation 4 Good Internal Rotation 4 Good Left Flexion 4+ Good+ Abduction (C5) 4+ Good+ External Rotation 4+ Good+ Internal Rotation 4+ Good+ Elbow/Forearm Strength Elbow and Forearm Manual Muscle Testing Right Flexion (C6) 4+ Good+ Extension (C7) 4+ Good+ Left Flexion (C6) 4+ Good+ Extension (C7) 4+ Good+ Wrist Strength Wrist Manual Muscle Testing Right Flexion (C7) 4- Good- Extension (C6) 4 Good Comments mild pain w/ flex and ext fingers: 4/5, no significant difference between sides Left Flexion (C7) 4+ Good+ Extension (C6) 4+ Good+ PT-OP-Q Treatments Start: 04/06/24 07:29 Freq: Status: Active Protocol: Document 04/20/24 10:33 NM (Rec: 04/20/24 11:16 NM [id number]) Therapeutic Exercises Supine Exercises median nerve glide Supine Exercise Name trialed in supine Side right Equipment Used with and without tensioning Reps/Minutes 10 ea Comments reports no change in neural symptoms cervical spine isometrics Supine Exercise Name flexion, lateral flexion B, rotation B Side bilateral Reps/Minutes 5x5 ea Comments R hand increase symptom if use , none with isometric Sidelying Exercises open book Side bilateral Reps/Minutes 10 ea Comments following nerve glide Standing Exercises cervical retraction Side bilateral Resistance AROM Equipment Used wall Reps/Minutes 15 Comments no increase in neural symptoms periscapulars Standing Exercise Name W<>Y Side bilateral Equipment Used wall Reps/Minutes 10 ea direction Comments inc tingling facing wall, less if not facing wall pec stretch/mobilization Standing Exercise Name wall 45-90 deg Side bilateral Reps/Minutes 15 breath holds w/ mobilization Other Exercises mobilization with movement Other Exercise Name 1. LS: shoulder flex, shoulder abd, snow ann marie; 2. pec Side bilateral Reps/Minutes 15 ea Comments HEP (no hand out) Manual Therapy Treatment Consent Patient gave verbal consent for manual Yes treatment Soft Tissue Mobilization thoracic spine/chest Body Location B paraspinals, B pec Mobilization Type Rolling,Sustained Pressure Intensity/Depth Moderate Body Position Prone Comments Increased tightness of paraspinals and pec. Palpable reduction at pec following soft tissue mobilization, R>L cervical spine Body Location B paraspinals, LS, UT Mobilization Type Rolling,Sustained Pressure, Trigger Point Release,Other Intensity/Depth Moderate Body Position Hooklying,sitting Comments Trigger point at L & R LS and UT, reduced with trigger point release but not resolved. Much less than last session. Increased restrictions of paraspinals, pec, LS, UT; R>L. Mobilization with movement of UT and LS, 5x ea bilaterally. Monitored for pain, feels really good Joint Mobilizations cervical spine Joint C3-7 Direction lateral glides L Grade III Body Position Supine Reps/Duration 2x30 ea Comments Monitored for pain. 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) Pt will report that she is less than 25% impaired with work-related tasks in order to demonstrate improved symptom management, activity tolerance , and QOL LTG Duration 12 weeks Four Impairment sleeping Short Term Goal (STG) Pt will report that she is waking once or fewer times per night due to symptoms in R hand in order to demonstrate improved symptom management and QOL STG Duration 8 weeks Group Home Goal (LTG) Pt will report that she is waking fewer than 2x/wk due to symptoms in R hand in order to demonstrate improved symptom management and QOL LTG Duration 12 weeks Three Impairment ROM: R wrist flexion 50 deg Short Term Goal (STG) Pt will improve R wrist flexion to at least 60 deg in order to demonstrate improved ROM for pericare, if appropriate STG Duration 6 weeks 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) Pt will improve R wrist flexion to at least 70 deg in order to demonstrate improved ROM for pericare or typing, if appropriate LTG Duration 12 weeks Two Impairment ROM: R cervical spine rotation 70 deg Group Home Goal (LTG) Pt will improve R cervical spine rotation >80 deg or within 5 deg of L cervical spine rotation in order to improve visual scanning and demonstrate improved soft tissue length LTG Duration 12 weeks One Impairment QOL/activity tolerance: quickdash 56.8% impairment Short Term Goal (STG) Pt will decrease quickdash impairment by at least 11% (1 MCID) in order to demonstrate improved symptom management and QOL STG Duration 8 weeks 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 Pt responds well to manual therapy but continues to have increased muscle restriction of pec/periscapulars and cervical paraspinals. Trialed median nerve glide, but no change in symptoms into R hand . Session emphasis on improving muscle length, reducing tension, and improving periscapular activation. Pt responds well to Y<>W lift offs when facing away from wall. Continued with deep neck flexor activation in standing and isometrics in supine. Mild decrease in symptoms with cervical retraction. She would benefit from skilled PT to improve symptom management and improve activity tolerance. Physical Therapy Plan Frequency and Duration Frequency of Treatment 2x/Week Duration of treatment (weeks) 12 Plan of Care Start Date 04/06/24 Plan of Care End Date 07/06/24 Therapeutic Interventions Therapeutic Interventions Canalithic Repositioning,Gait Training,Home Exercise Program ,Joint Mobilizations,Manual Therapy,Neuromuscular Re- education,Orthotic/Prosthetic Management,Patient/Caregiver Education,Self-Care/Home Management,Sensory Integration ,Soft Tissue Mobilization, Taping,Therapeutic Activities, Therapeutic Exercises Modalities Cold Pack/Ice Massage,Electric Stimulation,Hot Packs, Traction- Mechanical, Ultrasound Next Visit Focus/Plan Next Note Type Treatment Note Next Visit Plan row, scapular, flex with ER in supine, periscapulars Next: DNF training (chin tuck + flex/ext), trial CS stretches (scalenes, UT, LS, SCM); median nerve glide; scapular mobility > rows sleeping assessment Continue with manual therapy: STM, cervical spine mobilizations grade II-III
--- NOTE | 2024-04-24 09:01 | PT.OTN ---
Current Diagnoses Stiffness of right wrist, not elsewhere classified (04/24/24) Radiculopathy, cervical region (04/24/24) Weakness (04/24/24) Physical Therapy Treatment Note PT-OP-A Visit Information Start: 04/06/24 07:29 Freq: Status: Active Protocol: Document 04/24/24 08:17 MB (Rec: 04/24/24 09:01 MB [id number]) Out-Patient Physical Therapy Visit Information Visit Information Visit Type Treatment Note Visit Start Time 08:17 Visit Stop Time 08:57 Visit Number 6 Evaluation Information Evaluation Date 04/06/24 Precautions Precautions neck pain and median nerve PT-OP-B Current Condition Start: 04/06/24 07:29 Freq: Status: Active Protocol: Document 04/06/24 14:33 NM (Rec: 04/06/24 16:15 NM [id number]) Current Condition History of Current Condition Onset Date Mother's day 2023 Current Complaints pain, numbness and tingling History of Current Condition Pt reports that she has cervical radiculopathy. She was seen January-February because entire R arm went numb and 10/ [address] Brown who referred her to PT. Over the past 2 months . She nows has pain only in the R hand vs no longer has the radiation. Pt reports that her condition started in November, when she started to experience numbness in her hand. She sleeps with her arms elevated on both sides. On Mother's day, she did a lot of excavating/moving yard work. The following Wednesday, she had pain; unable to type. Prescribed prednisone and muscle relaxers; steroid helped with symptoms. She only uses muscle relaxers occasionally, causes depression. Primarily felt in thumb and fingers 2-3. Feels like numbness/tingling, worse w/ cloth weigher. She also had a minor whiplash event 2 weekends ago when dog pulled on leash, so now L sided pain; now longer as stiffness. Day before mothers' day, she walked several miles in her backpack, which is originally when the arm numbness began but was managable. She shakes her hands, wakes up at night. Denies weakness but states difficulty with fine motor. 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 She con't to have some right arm numbness when she awakens. Exercises are going well. She stopped the nerve glides in the hand d /t increased numbness and other exercises are going well . PT-OP-F Manual Assessment Start: 04/06/24 07:29 Freq: Status: Active Protocol: Document 04/06/24 14:33 NM (Rec: 04/06/24 16:15 NM [id number]) Manual Assessments Soft Tissue Assessment Soft Tissue Mobility Assessment Increased soft tissue restrictions of cervical paraspinals, chest and periscapulars, wrist extensors . R medial scapular border 7 cm, L medial scapular border 8 cm Joint Mobility Assessment Joint Mobility Assessment Hypomobility of cervical spine with lateral gliding, especially L>R PT-OP-G Mobility & Gait Start: 04/06/24 07:29 Freq: Status: Active Protocol: Document 04/06/24 14:33 NM (Rec: 04/06/24 16:15 NM [id number]) OP Gait Assessment Gait Gait Assistance Required: Independent Distance (Feet) 150 Comments Gait Comments Stiff gait with limited trunk rotation and arm swing. R shoulder is more elevated. No widebased or ataxic gait, no LOB PT-OP-H Neuro Start: 04/06/24 07:29 Freq: Status: Active Protocol: Document 04/10/24 07:31 NM (Rec: 04/10/24 09:41 NM [id number]) Sensation Evaluation Comments Summary Comments BUE equally intact to light touch sensation PT-OP-J Posture/Palpation/Skin Start: 04/06/24 07:29 Freq: Status: Active Protocol: Document 04/06/24 14:33 NM (Rec: 04/06/24 16:15 NM [id number]) Posture Evaluation Position Standing Head/C-Spine Posture Forward Head Shoulder Posture (L) Rounded,(R) Rounded,(L) Forward,(R) Forward,(R) Elevated Scapula Posture (R) Rotated Up,(R) Elevated,(R ) Tipped Arm Posture (L) Externally Rotated,(R) Externally Rotated Pelvis Posture Anteriorly Tilted Weight Distribution Balanced Palpation Assessment Location R wrist/hand Palpation Details Tightness of wrist extensors Pain with gripping and wrist flexion cervical spine Palpation Findings Soft Tissue Tightness Palpation Details Moderate tightness of paraspinals, pectoralis, lat, levator scapula, upper trapezius, scalenes, suboccipitals Skin Assessment Other Assessments Skin Assessment Comments No R wrist swellin cm ea PT-OP-K Range of Motion Start: 04/06/24 07:29 Freq: Status: Active Protocol: Document 04/06/24 14:33 NM (Rec: 04/06/24 16:15 NM [id number]) Cervical Spine Range of Motion Cervical Spine Active Degrees Flexion 60 Extension 45 Rotation Left 84 Rotation Right 70 Lateral Flexion Left 40 Lateral Flexion Right 40 ROM Limitations Soft Tissue Tightness Comments pain on L side with ext and flex Shoulder Goniometric Range of Motion Shoulder Right Flexion 150 Abduction 150 External Rotation at 0 degrees Abduction 70 Internal Rotation Behind Back (text) T10 Comments T4 for apley ER Left Flexion 150 Abduction 160 External Rotation at 0 degrees Abduction 70 Internal Rotation Behind Back (text) T9 Comments T4 for apley ER Shoulder ROM Limitations Comments reports pulling sensation with apley IR Wrist Goniometric Range of Motion Wrist Right Flexion Active (degrees) 50 Extension Active (degrees) 70 Left Flexion Active (degrees) 60 Extension Active (degrees) 60 ROM Limitations Comments increased symptoms with R wrist flexion PT-OP-L Special Tests Start: 04/06/24 07:29 Freq: Status: Active Protocol: Document 04/10/24 07:31 NM (Rec: 04/10/24 09:41 NM [id number]) Special Tests Cervical Spine Special Tests Vertebral Artery Test Results - Comments intact cranial n, no abnormal palpation/auscultation of carotid a Shoulder Abduction Relief Test Test Results + Comments neural symptom relief with passive arm ABD on head ULTT Test Results median n Comments better w/ depression; pain also w/ ulnar n test position but no symptoms Distraction Test Results + Comments symptom resolved Spurling's Test Results + Comments local only on L PT-OP-M Strength Start: 04/06/24 07:29 Freq: Status: Active Protocol: Document 04/06/24 14:33 NM (Rec: 04/06/24 16:15 NM [id number]) Cervical Spine Strength Cervical Spine Manual Muscle Testing Flexion (C1-2) 4+ Good+ Extension 4+ Good+ Rotation Left 4+ Good+ Rotation Right 4+ Good+ Lateral Flexion Left (C3) 4+ Good+ Lateral Flexion Right (C3) 4+ Good+ Comments no pain or symptom reproduction Shoulder Strength Shoulder Manual Muscle Testing Right Flexion 4+ Good+ Abduction (C5) 4 Good External Rotation 4 Good Internal Rotation 4 Good Left Flexion 4+ Good+ Abduction (C5) 4+ Good+ External Rotation 4+ Good+ Internal Rotation 4+ Good+ Elbow/Forearm Strength Elbow and Forearm Manual Muscle Testing Right Flexion (C6) 4+ Good+ Extension (C7) 4+ Good+ Left Flexion (C6) 4+ Good+ Extension (C7) 4+ Good+ Wrist Strength Wrist Manual Muscle Testing Right Flexion (C7) 4- Good- Extension (C6) 4 Good Comments mild pain w/ flex and ext fingers: 4/5, no significant difference between sides Left Flexion (C7) 4+ Good+ Extension (C6) 4+ Good+ PT-OP-Q Treatments Start: 04/06/24 07:29 Freq: Status: Active Protocol: Document 04/24/24 08:17 MB (Rec: 04/24/24 09:01 MB [id number]) Manual Therapy Treatment Consent Patient gave verbal consent for manual Yes treatment Other Other Manual Treatments Pt prone: TrP treatment right subscapularis, upper traps and infraspinatus. Pt supine: STM and positional release M SCM with more work on the right that is more tense, grade II- III PA mobs cervical spine and mobilizing at various angles with pt face up and more tension C1-5 on the right that makes middle scalene tight, manual traction cervical spine and occipital release and pt tolerates well. STM B pect major and minor and more tension on the right. Self-Care/Home Management Treatment Education Other Education Ed pt on proper sleeping position with pillow support between arms if side lying and more support under head, ed in benefits of trying manual and then cervical traction to unweight discs PT-OP-T Assessment and Plan Start: 04/06/24 07:29 Freq: Status: Active Protocol: Document 04/24/24 08:17 MB (Rec: 04/24/24 09:01 [id number]) Physical Therapy Assessment Goals Five Impairment reports currently 50% impaired with work tasks Short Term Goal (STG) Pt will be educated on good ergonomic positioning and work tools in order to improve posture and body mechanics for better symptom management STG Duration 4 weeks Managed Care Specialist Goal (LTG) Pt will report that she is less than 25% impaired with work-related tasks in order to demonstrate improved symptom management, activity tolerance , and QOL LTG Duration 12 weeks Four Impairment sleeping Short Term Goal (STG) Pt will report that she is waking once or fewer times per night due to symptoms in R hand in order to demonstrate improved symptom management and QOL STG Duration 8 weeks Managed Care Specialist Goal (LTG) Pt will report that she is waking fewer than 2x/wk due to symptoms in R hand in order to demonstrate improved symptom management and QOL LTG Duration 12 weeks Three Impairment ROM: R wrist flexion 50 deg Short Term Goal (STG) Pt will improve R wrist flexion to at least 60 deg in order to demonstrate improved ROM for pericare, if appropriate STG Duration 6 weeks Senior Care Goal (LTG) Pt will improve R wrist flexion to at least 70 deg in order to demonstrate improved ROM for pericare or typing, if appropriate LTG Duration 12 weeks Two Impairment ROM: R cervical spine rotation 70 deg Managed Care Specialist Goal (LTG) Pt will improve R cervical spine rotation >80 deg or within 5 deg of L cervical spine rotation in order to improve visual scanning and demonstrate improved soft tissue length LTG Duration 12 weeks One Impairment QOL/activity tolerance: quickdash 56.8% impairment Short Term Goal (STG) Pt will decrease quickdash impairment by at least 11% (1 MCID) in order to demonstrate improved symptom management and QOL STG Duration 8 weeks Managed Care Specialist Goal (LTG) Pt will report <25% impairment on quickdash due to pain or numbness/tingling in R hand/ wrist or neck in order to demonstrate improved symptom management, activity tolerance and QOL LTG Duration 12 weeks Assessment Summary Assessment Good tolerance of manual work including TrP work and manual cervical traction today and monitor response. Physical Therapy Plan Frequency and Duration Frequency of Treatment 2x/Week Duration of treatment (weeks) 12 Plan of Care Start Date 04/06/24 Plan of Care End Date 07/06/24 Therapeutic Interventions Therapeutic Interventions Canalithic Repositioning,Gait Training,Home Exercise Program ,Joint Mobilizations,Manual Therapy,Neuromuscular Re- education,Orthotic/Prosthetic Management,Patient/Caregiver Education,Self-Care/Home Management,Sensory Integration ,Soft Tissue Mobilization, Taping,Therapeutic Activities, Therapeutic Exercises Modalities Cold Pack/Ice Massage,Electric Stimulation,Hot Packs, Traction- Mechanical, Ultrasound Next Visit Focus/Plan Next Note Type Treatment Note Next Visit Plan Consider trial Piyush cervical traction. row, scapular, flex with ER in supine, periscapulars Next: DNF training (chin tuck + flex/ext), trial CS stretches (scalenes, UT, LS, SCM); median nerve glide; scapular mobility > rows sleeping assessment Continue with manual therapy: STM, cervical spine mobilizations grade II-III
--- NOTE | 2024-04-26 12:42 | PT.OTN ---
Current Diagnoses Stiffness of right wrist, not elsewhere classified (04/26/24) Radiculopathy, cervical region (04/26/24) Weakness (04/26/24) Physical Therapy Treatment Note PT-OP-A Visit Information Start: 04/06/24 07:29 Freq: Status: Active Protocol: Document 04/26/24 10:33 NM (Rec: 04/26/24 11:18 NM [id number]) Out-Patient Physical Therapy Visit Information Visit Information Visit Type Treatment Note Visit Start Time 10:33 Visit Stop Time 11:13 Visit Number 7 Evaluation Information Evaluation Date 04/06/24 Precautions Precautions neck pain and median nerve PT-OP-B Current Condition Start: 04/06/24 07:29 Freq: Status: Active Protocol: Document 04/06/24 14:33 NM (Rec: 04/06/24 16:15 NM [id number]) Current Condition History of Current Condition Onset Date Mother's day 2023 Current Complaints pain, numbness and tingling History of Current Condition Pt reports that she has cervical radiculopathy. She was seen January-February because entire R arm went numb and 10/ [address] Brown who referred her to PT. Over the past 2 months . She nows has pain only in the R hand vs no longer has the radiation. Pt reports that her condition started in November, when she started to experience numbness in her hand. She sleeps with her arms elevated on both sides. On Mother's day, she did a lot of excavating/moving yard work. The following Wednesday, she had pain; unable to type. Prescribed prednisone and muscle relaxers; steroid helped with symptoms. She only uses muscle relaxers occasionally, causes depression. Primarily felt in thumb and fingers 2-3. Feels like numbness/tingling, worse w/ bender machine. She also had a minor whiplash event 2 weekends ago when dog pulled on leash, so now L sided pain; now longer as stiffness. Day before mothers' day, she walked several miles in her backpack, which is originally when the arm numbness began but was managable. She shakes her hands, wakes up at night. Denies weakness but states difficulty with fine motor. 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 Pt reports less tingling, no change in numbness. PT-OP-F Manual Assessment Start: 04/06/24 07:29 Freq: Status: Active Protocol: Document 04/06/24 14:33 NM (Rec: 04/06/24 16:15 NM [id number]) Manual Assessments Soft Tissue Assessment Soft Tissue Mobility Assessment Increased soft tissue restrictions of cervical paraspinals, chest and periscapulars, wrist extensors . R medial scapular border 7 cm, L medial scapular border 8 cm Joint Mobility Assessment Joint Mobility Assessment Hypomobility of cervical spine with lateral gliding, especially L>R PT-OP-G Mobility & Gait Start: 04/06/24 07:29 Freq: Status: Active Protocol: Document 04/06/24 14:33 NM (Rec: 04/06/24 16:15 NM [id number]) OP Gait Assessment Gait Gait Assistance Required: Independent Distance (Feet) 150 Comments Gait Comments Stiff gait with limited trunk rotation and arm swing. R shoulder is more elevated. No widebased or ataxic gait, no LOB PT-OP-H Neuro Start: 04/06/24 07:29 Freq: Status: Active Protocol: Document 04/10/24 07:31 NM (Rec: 04/10/24 09:41 NM [id number]) Sensation Evaluation Comments Summary Comments BUE equally intact to light touch sensation PT-OP-J Posture/Palpation/Skin Start: 04/06/24 07:29 Freq: Status: Active Protocol: Document 04/06/24 14:33 NM (Rec: 04/06/24 16:15 NM [id number]) Posture Evaluation Position Standing Head/C-Spine Posture Forward Head Shoulder Posture (L) Rounded,(R) Rounded,(L) Forward,(R) Forward,(R) Elevated Scapula Posture (R) Rotated Up,(R) Elevated,(R ) Tipped Arm Posture (L) Externally Rotated,(R) Externally Rotated Pelvis Posture Anteriorly Tilted Weight Distribution Balanced Palpation Assessment Location R wrist/hand Palpation Details Tightness of wrist extensors Pain with gripping and wrist flexion cervical spine Palpation Findings Soft Tissue Tightness Palpation Details Moderate tightness of paraspinals, pectoralis, lat, levator scapula, upper trapezius, scalenes, suboccipitals Skin Assessment Other Assessments Skin Assessment Comments No R wrist swellin cm ea PT-OP-K Range of Motion Start: 04/06/24 07:29 Freq: Status: Active Protocol: Document 04/06/24 14:33 NM (Rec: 04/06/24 16:15 NM [id number]) Cervical Spine Range of Motion Cervical Spine Active Degrees Flexion 60 Extension 45 Rotation Left 84 Rotation Right 70 Lateral Flexion Left 40 Lateral Flexion Right 40 ROM Limitations Soft Tissue Tightness Comments pain on L side with ext and flex Shoulder Goniometric Range of Motion Shoulder Right Flexion 150 Abduction 150 External Rotation at 0 degrees Abduction 70 Internal Rotation Behind Back (text) T10 Comments T4 for apley ER Left Flexion 150 Abduction 160 External Rotation at 0 degrees Abduction 70 Internal Rotation Behind Back (text) T9 Comments T4 for apley ER Shoulder ROM Limitations Comments reports pulling sensation with apley IR Wrist Goniometric Range of Motion Wrist Right Flexion Active (degrees) 50 Extension Active (degrees) 70 Left Flexion Active (degrees) 60 Extension Active (degrees) 60 ROM Limitations Comments increased symptoms with R wrist flexion PT-OP-L Special Tests Start: 04/06/24 07:29 Freq: Status: Active Protocol: Document 04/10/24 07:31 NM (Rec: 04/10/24 09:41 NM [id number]) Special Tests Cervical Spine Special Tests Vertebral Artery Test Results - Comments intact cranial n, no abnormal palpation/auscultation of carotid a Shoulder Abduction Relief Test Test Results + Comments neural symptom relief with passive arm ABD on head ULTT Test Results median n Comments better w/ depression; pain also w/ ulnar n test position but no symptoms Distraction Test Results + Comments symptom resolved Spurling's Test Results + Comments local only on L PT-OP-M Strength Start: 04/06/24 07:29 Freq: Status: Active Protocol: Document 04/06/24 14:33 NM (Rec: 04/06/24 16:15 NM [id number]) Cervical Spine Strength Cervical Spine Manual Muscle Testing Flexion (C1-2) 4+ Good+ Extension 4+ Good+ Rotation Left 4+ Good+ Rotation Right 4+ Good+ Lateral Flexion Left (C3) 4+ Good+ Lateral Flexion Right (C3) 4+ Good+ Comments no pain or symptom reproduction Shoulder Strength Shoulder Manual Muscle Testing Right Flexion 4+ Good+ Abduction (C5) 4 Good External Rotation 4 Good Internal Rotation 4 Good Left Flexion 4+ Good+ Abduction (C5) 4+ Good+ External Rotation 4+ Good+ Internal Rotation 4+ Good+ Elbow/Forearm Strength Elbow and Forearm Manual Muscle Testing Right Flexion (C6) 4+ Good+ Extension (C7) 4+ Good+ Left Flexion (C6) 4+ Good+ Extension (C7) 4+ Good+ Wrist Strength Wrist Manual Muscle Testing Right Flexion (C7) 4- Good- Extension (C6) 4 Good Comments mild pain w/ flex and ext fingers: 4/5, no significant difference between sides Left Flexion (C7) 4+ Good+ Extension (C6) 4+ Good+ PT-OP-Q Treatments Start: 04/06/24 07:29 Freq: Status: Active Protocol: Document 04/26/24 10:33 NM (Rec: 04/26/24 11:18 NM [id number]) Therapeutic Exercises Sitting Exercises Cervical SNAGs Sitting Exercise Name C5-6 Side right Equipment Used L rot, towel Reps/Minutes 5 with 2 hold Comments Feels good, not a lot d/t hand numbness cervical spine stretches Sitting Exercise Name 1. scalene > levator stretch, 2. UT mobilization Side bilateral Reps/Minutes 1. 5x5 ea bilateral, 2. 5 w/ level 1 band, brief hold Standing Exercises cervical retraction Side bilateral Resistance level 1 Equipment Used seated, PT providing resistance with band Reps/Minutes 10 with 2 hold Comments no increase in neural symptoms periscapulars Standing Exercise Name W<>Y Side bilateral Equipment Used wall, back to wall Reps/Minutes 10 ea direction pec stretch/mobilization Standing Exercise Name wall 45-90 deg Side bilateral Equipment Used ball at pec Reps/Minutes 15 breath holds w/ mobilization Manual Therapy Treatment Consent Patient gave verbal consent for manual Yes treatment Soft Tissue Mobilization thoracic spine/chest Body Location B paraspinals, B pec Mobilization Type Rolling,Sustained Pressure Intensity/Depth Moderate Body Position Prone Comments Increased tightness of paraspinals and pec. Palpable reduction at pec following soft tissue mobilization, R>L cervical spine Body Location B paraspinals, LS, UT Mobilization Type Rolling,Sustained Pressure, Other Intensity/Depth Moderate Body Position Hooklying,sitting Comments No trigger points today but R side more elevated than L, reduced with soft tissue mobilization Joint Mobilizations 1st rib Joint R Direction caudal Grade III Body Position Sitting Reps/Duration 10 ea Comments elevated, reduced with mobilization but still elevated following. monitored for pain, slight bias into R lateral flexion with mobilization scapular Joint R Direction depression, adduction, rotation Body Position Sidelying Reps/Duration 10 ea Comments elevated at start of session, reduced and more normalized position afterward. monitored for pain cervical spine Joint C5-6 Direction upglide L, lateral glides L Grade III Body Position Supine Reps/Duration 2x30 ea Comments Monitored for pain. Performed to improve R cervical spine mobility especially along lateral facets, with bias into R lateral flexion and L rotation which pt reports causes symptom reduction. States no numbness when performing upglides Manual Traction cervical spine Body Position Supine Reps/Duration 5x10 Comments Gentle traction, reports reduction in numbness but no change in tingling fingers 1-3 PT-OP-T Assessment and Plan Start: 04/06/24 07:29 Freq: Status: Active Protocol: Document 04/26/24 10:33 NM (Rec: 04/26/24 11:18 NM [id number]) Physical Therapy Assessment Goals Five Impairment reports currently 50% impaired with work tasks Short Term Goal (STG) Pt will be educated on good ergonomic positioning and work tools in order to improve posture and body mechanics for better symptom management STG Duration 4 weeks Title I Math Tutor Goal (LTG) Pt will report that she is less than 25% impaired with work-related tasks in order to demonstrate improved symptom management, activity tolerance , and QOL LTG Duration 12 weeks Four Impairment sleeping Short Term Goal (STG) Pt will report that she is waking once or fewer times per night due to symptoms in R hand in order to demonstrate improved symptom management and QOL STG Duration 8 weeks Shelter Goal (LTG) Pt will report that she is waking fewer than 2x/wk due to symptoms in R hand in order to demonstrate improved symptom management and QOL LTG Duration 12 weeks Three Impairment ROM: R wrist flexion 50 deg Short Term Goal (STG) Pt will improve R wrist flexion to at least 60 deg in order to demonstrate improved ROM for pericare, if appropriate STG Duration 6 weeks Title I Math Tutor Goal (LTG) Pt will improve R wrist flexion to at least 70 deg in order to demonstrate improved ROM for pericare or typing, if appropriate LTG Duration 12 weeks Two Impairment ROM: R cervical spine rotation 70 deg Shelter Goal (LTG) Pt will improve R cervical spine rotation >80 deg or within 5 deg of L cervical spine rotation in order to improve visual scanning and demonstrate improved soft tissue length LTG Duration 12 weeks One Impairment QOL/activity tolerance: quickdash 56.8% impairment Short Term Goal (STG) Pt will decrease quickdash impairment by at least 11% (1 MCID) in order to demonstrate improved symptom management and QOL STG Duration 8 weeks Title I Math Tutor Goal (LTG) Pt will report <25% impairment on quickdash due to pain or numbness/tingling in R hand/ wrist or neck in order to demonstrate improved symptom management, activity tolerance and QOL LTG Duration 12 weeks Assessment Summary Assessment Pt tolerated session well but has minimal change in neural symptoms at end of session. Pt does have reduction in numbness with L upglide and lateral glides during manual treatment. Emphasis on mid- cervical region on R side. Right 1st rib and R scapula are elevated, reduced with soft tissue mobilization and scapular mobilizations. Pt demos improvements in cervical spine ROM following last session. Requires cueing for correct deep neck flexor activation with band. Good response to SNAGs, educated to perform in limited number of reps with emphasis on R midcervical spine to reduce feelings of tingling while promoting increased ROM and reducing hypomobility of cervical spine. Pt would benefit from skilled PT for improved symptom management and soft tissue mobilty/ strengthening. Physical Therapy Plan Frequency and Duration Frequency of Treatment 2x/Week Duration of treatment (weeks) 12 Plan of Care Start Date 04/06/24 Plan of Care End Date 07/06/24 Therapeutic Interventions Therapeutic Interventions Canalithic Repositioning,Gait Training,Home Exercise Program ,Joint Mobilizations,Manual Therapy,Neuromuscular Re- education,Orthotic/Prosthetic Management,Patient/Caregiver Education,Self-Care/Home Management,Sensory Integration ,Soft Tissue Mobilization, Taping,Therapeutic Activities, Therapeutic Exercises Modalities Cold Pack/Ice Massage,Electric Stimulation,Hot Packs, Traction- Mechanical, Ultrasound Next Visit Focus/Plan Next Note Type Treatment Note Next Visit Plan trial Pickett cervical traction. Upglides and lateral glides, STM as needed, resisted retraction row and low row w/ band, scapular clock, flex with ER in supine, periscapulars Next: scalenes, UT, LS, SCM as needed; scapular mobility > rows and low rows Continue with manual therapy: STM, cervical spine mobilizations grade II-III
--- NOTE | 2024-05-02 10:31 | PT.OTN ---
Current Diagnoses Stiffness of right wrist, not elsewhere classified (05/02/24) Radiculopathy, cervical region (05/02/24) Weakness (05/02/24) Physical Therapy Treatment Note PT-OP-A Visit Information Start: 04/06/24 07:29 Freq: Status: Active Protocol: Document 05/02/24 09:46 MB (Rec: 05/02/24 10:30 MB [id number]) Out-Patient Physical Therapy Visit Information Visit Information Visit Type Treatment Note Visit Start Time 09:46 Visit Stop Time 10:26 Visit Number 8 Evaluation Information Evaluation Date 04/06/24 Precautions Precautions neck pain and median nerve PT-OP-B Current Condition Start: 04/06/24 07:29 Freq: Status: Active Protocol: Document 04/06/24 14:33 NM (Rec: 04/06/24 16:15 NM [id number]) Current Condition History of Current Condition Onset Date Mother's day 2023 Current Complaints pain, numbness and tingling History of Current Condition Pt reports that she has cervical radiculopathy. She was seen January-February because entire R arm went numb and 10/ [address] Brown who referred her to PT. Over the past 2 months . She nows has pain only in the R hand vs no longer has the radiation. Pt reports that her condition started in November, when she started to experience numbness in her hand. She sleeps with her arms elevated on both sides. On Mother's day, she did a lot of excavating/moving yard work. The following Wednesday, she had pain; unable to type. Prescribed prednisone and muscle relaxers; steroid helped with symptoms. She only uses muscle relaxers occasionally, causes depression. Primarily felt in thumb and fingers 2-3. Feels like numbness/tingling, worse w/ suede brusher. She also had a minor whiplash event 2 weekends ago when dog pulled on leash, so now L sided pain; now longer as stiffness. Day before mothers' day, she walked several miles in her backpack, which is originally when the arm numbness began but was managable. She shakes her hands, wakes up at night. Denies weakness but states difficulty with fine motor. 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 She is excited to try traction. PT-OP-F Manual Assessment Start: 04/06/24 07:29 Freq: Status: Active Protocol: Document 04/06/24 14:33 NM (Rec: 04/06/24 16:15 NM [id number]) Manual Assessments Soft Tissue Assessment Soft Tissue Mobility Assessment Increased soft tissue restrictions of cervical paraspinals, chest and periscapulars, wrist extensors . R medial scapular border 7 cm, L medial scapular border 8 cm Joint Mobility Assessment Joint Mobility Assessment Hypomobility of cervical spine with lateral gliding, especially L>R PT-OP-G Mobility & Gait Start: 04/06/24 07:29 Freq: Status: Active Protocol: Document 04/06/24 14:33 NM (Rec: 04/06/24 16:15 NM [id number]) OP Gait Assessment Gait Gait Assistance Required: Independent Distance (Feet) 150 Comments Gait Comments Stiff gait with limited trunk rotation and arm swing. R shoulder is more elevated. No widebased or ataxic gait, no LOB PT-OP-H Neuro Start: 04/06/24 07:29 Freq: Status: Active Protocol: Document 04/10/24 07:31 NM (Rec: 04/10/24 09:41 NM [id number]) Sensation Evaluation Comments Summary Comments BUE equally intact to light touch sensation PT-OP-J Posture/Palpation/Skin Start: 04/06/24 07:29 Freq: Status: Active Protocol: Document 04/06/24 14:33 NM (Rec: 04/06/24 16:15 NM [id number]) Posture Evaluation Position Standing Head/C-Spine Posture Forward Head Shoulder Posture (L) Rounded,(R) Rounded,(L) Forward,(R) Forward,(R) Elevated Scapula Posture (R) Rotated Up,(R) Elevated,(R ) Tipped Arm Posture (L) Externally Rotated,(R) Externally Rotated Pelvis Posture Anteriorly Tilted Weight Distribution Balanced Palpation Assessment Location R wrist/hand Palpation Details Tightness of wrist extensors Pain with gripping and wrist flexion cervical spine Palpation Findings Soft Tissue Tightness Palpation Details Moderate tightness of paraspinals, pectoralis, lat, levator scapula, upper trapezius, scalenes, suboccipitals Skin Assessment Other Assessments Skin Assessment Comments No R wrist swellin cm ea PT-OP-K Range of Motion Start: 04/06/24 07:29 Freq: Status: Active Protocol: Document 04/06/24 14:33 NM (Rec: 04/06/24 16:15 NM [id number]) Cervical Spine Range of Motion Cervical Spine Active Degrees Flexion 60 Extension 45 Rotation Left 84 Rotation Right 70 Lateral Flexion Left 40 Lateral Flexion Right 40 ROM Limitations Soft Tissue Tightness Comments pain on L side with ext and flex Shoulder Goniometric Range of Motion Shoulder Right Flexion 150 Abduction 150 External Rotation at 0 degrees Abduction 70 Internal Rotation Behind Back (text) T10 Comments T4 for apley ER Left Flexion 150 Abduction 160 External Rotation at 0 degrees Abduction 70 Internal Rotation Behind Back (text) T9 Comments T4 for apley ER Shoulder ROM Limitations Comments reports pulling sensation with apley IR Wrist Goniometric Range of Motion Wrist Right Flexion Active (degrees) 50 Extension Active (degrees) 70 Left Flexion Active (degrees) 60 Extension Active (degrees) 60 ROM Limitations Comments increased symptoms with R wrist flexion PT-OP-L Special Tests Start: 04/06/24 07:29 Freq: Status: Active Protocol: Document 04/10/24 07:31 NM (Rec: 04/10/24 09:41 NM [id number]) Special Tests Cervical Spine Special Tests Vertebral Artery Test Results - Comments intact cranial n, no abnormal palpation/auscultation of carotid a Shoulder Abduction Relief Test Test Results + Comments neural symptom relief with passive arm ABD on head ULTT Test Results median n Comments better w/ depression; pain also w/ ulnar n test position but no symptoms Distraction Test Results + Comments symptom resolved Spurling's Test Results + Comments local only on L PT-OP-M Strength Start: 04/06/24 07:29 Freq: Status: Active Protocol: Document 04/06/24 14:33 NM (Rec: 04/06/24 16:15 NM [id number]) Cervical Spine Strength Cervical Spine Manual Muscle Testing Flexion (C1-2) 4+ Good+ Extension 4+ Good+ Rotation Left 4+ Good+ Rotation Right 4+ Good+ Lateral Flexion Left (C3) 4+ Good+ Lateral Flexion Right (C3) 4+ Good+ Comments no pain or symptom reproduction Shoulder Strength Shoulder Manual Muscle Testing Right Flexion 4+ Good+ Abduction (C5) 4 Good External Rotation 4 Good Internal Rotation 4 Good Left Flexion 4+ Good+ Abduction (C5) 4+ Good+ External Rotation 4+ Good+ Internal Rotation 4+ Good+ Elbow/Forearm Strength Elbow and Forearm Manual Muscle Testing Right Flexion (C6) 4+ Good+ Extension (C7) 4+ Good+ Left Flexion (C6) 4+ Good+ Extension (C7) 4+ Good+ Wrist Strength Wrist Manual Muscle Testing Right Flexion (C7) 4- Good- Extension (C6) 4 Good Comments mild pain w/ flex and ext fingers: 4/5, no significant difference between sides Left Flexion (C7) 4+ Good+ Extension (C6) 4+ Good+ PT-OP-Q Treatments Start: 04/06/24 07:29 Freq: Status: Active Protocol: Document 05/02/24 09:46 MB (Rec: 05/02/24 10:30 MB [id number]) Therapeutic Exercises Supine Exercises 6 foam roller exercises Side bilateral Equipment Used 6 foam roller Reps/Minutes Several reps all AROM, one rep pect stretch Comments Flexion, Ts, 1/2X and pect stretch Manual Therapy Treatment Consent Patient gave verbal consent for manual Yes treatment Manual Traction Pickett cervical traction Comments Initiated training today on yoga mat, height of machine at lowest level, PT teaching pt to position traction pads, pump up machine and hold. Traction 20-30 lbs and it does tend not to hold over time. Other Other Manual Treatments Pt prone: TrP treatment right upper traps and B cervical paraspinals. Rib recoil upper thoracic spinous processes. Pt supine: grade II-III PA mobs cervical spine and mobilizing at various angles with pt face up and more tension C1-5 on left today, B first rib isometric PT-OP-T Assessment and Plan Start: 04/06/24 07:29 Freq: Status: Active Protocol: Document 05/02/24 09:46 MB (Rec: 05/02/24 10:30 MB [id number]) Physical Therapy Assessment Rehab Potential Rehabilitation Potential Good Evaluation Complexity Number of Personal Factors/Comorbidities 1-2 Number of Body Systems Impaired 1-2 Clinical Presentation at Evaluation Stable Impairments Impairments Activity Tolerance, Coordination,Functional Activities,Functional Mobility ,Gait,Integument,Pain,Posture, ROM,Sensation,Soft Tissue Mobility,Strength,Transfers, Vestibular Goals Five Impairment reports currently 50% impaired with work tasks Short Term Goal (STG) Pt will be educated on good ergonomic positioning and work tools in order to improve posture and body mechanics for better symptom management STG Duration 4 weeks Shelter Goal (LTG) Pt will report that she is less than 25% impaired with work-related tasks in order to demonstrate improved symptom management, activity tolerance , and QOL LTG Duration 12 weeks Four Impairment sleeping Short Term Goal (STG) Pt will report that she is waking once or fewer times per night due to symptoms in R hand in order to demonstrate improved symptom management and QOL STG Duration 8 weeks Shelter Goal (LTG) Pt will report that she is waking fewer than 2x/wk due to symptoms in R hand in order to demonstrate improved symptom management and QOL LTG Duration 12 weeks Three Impairment ROM: R wrist flexion 50 deg Short Term Goal (STG) Pt will improve R wrist flexion to at least 60 deg in order to demonstrate improved ROM for pericare, if appropriate STG Duration 6 weeks Shelter Goal (LTG) Pt will improve R wrist flexion to at least 70 deg in order to demonstrate improved ROM for pericare or typing, if appropriate LTG Duration 12 weeks Two Impairment ROM: R cervical spine rotation 70 deg Shelter Goal (LTG) Pt will improve R cervical spine rotation >80 deg or within 5 deg of L cervical spine rotation in order to improve visual scanning and demonstrate improved soft tissue length LTG Duration 12 weeks One Impairment QOL/activity tolerance: quickdash 56.8% impairment Short Term Goal (STG) Pt will decrease quickdash impairment by at least 11% (1 MCID) in order to demonstrate improved symptom management and QOL STG Duration 8 weeks Nuclear Medicine Technician Goal (LTG) Pt will report <25% impairment on quickdash due to pain or numbness/tingling in R hand/ wrist or neck in order to demonstrate improved symptom management, activity tolerance and QOL LTG Duration 12 weeks Assessment Summary Assessment Progressed thoracic mobility over 6 foam roller today, continued manual work and initiated Pickett cervical traction machine today. Monitor response. Pt states no paresthesias in right hand during use today and cervical movement is better after all of treatment today. Physical Therapy Plan Frequency and Duration Frequency of Treatment 2x/Week Duration of treatment (weeks) 12 Plan of Care Start Date 04/06/24 Plan of Care End Date 07/06/24 Therapeutic Interventions Therapeutic Interventions Canalithic Repositioning,Gait Training,Home Exercise Program ,Joint Mobilizations,Manual Therapy,Neuromuscular Re- education,Orthotic/Prosthetic Management,Patient/Caregiver Education,Self-Care/Home Management,Sensory Integration ,Soft Tissue Mobilization, Taping,Therapeutic Activities, Therapeutic Exercises Modalities Cold Pack/Ice Massage,Electric Stimulation,Hot Packs, Traction- Mechanical, Ultrasound Next Visit Focus/Plan Next Note Type Treatment Note Next Visit Plan Review Pickett cervical traction. From POC: Upglides and lateral glides, STM as needed, resisted retraction row and low row w/ band, scapular clock, flex with ER in supine, periscapulars Next: scalenes, UT, LS, SCM as needed; scapular mobility > rows and low rows Continue with manual therapy: STM, cervical spine mobilizations grade II-III
--- NOTE | 2024-05-05 12:44 | PT.OTN ---
Current Diagnoses Stiffness of right wrist, not elsewhere classified (05/05/24) Radiculopathy, cervical region (05/05/24) Weakness (05/05/24) Physical Therapy Treatment Note PT-OP-A Visit Information Start: 04/06/24 07:29 Freq: Status: Active Protocol: Document 05/05/24 11:19 NM (Rec: 05/05/24 11:54 NM [id number]) Out-Patient Physical Therapy Visit Information Visit Information Visit Type Progress Note Visit Start Time 11:20 Visit Stop Time 12:04 Visit Number 9 Evaluation Information Evaluation Date 04/06/24 Precautions Precautions neck pain and median nerve PT-OP-B Current Condition Start: 04/06/24 07:29 Freq: Status: Active Protocol: Document 04/06/24 14:33 NM (Rec: 04/06/24 16:15 NM [id number]) Current Condition History of Current Condition Onset Date Mother's day 2023 Current Complaints pain, numbness and tingling History of Current Condition Pt reports that she has cervical radiculopathy. She was seen January-February because entire R arm went numb and 10/ [address] Brown who referred her to PT. Over the past 2 months . She nows has pain only in the R hand vs no longer has the radiation. Pt reports that her condition started in November, when she started to experience numbness in her hand. She sleeps with her arms elevated on both sides. On Mother's day, she did a lot of excavating/moving yard work. The following Wednesday, she had pain; unable to type. Prescribed prednisone and muscle relaxers; steroid helped with symptoms. She only uses muscle relaxers occasionally, causes depression. Primarily felt in thumb and fingers 2-3. Feels like numbness/tingling, worse w/ heel blacker. She also had a minor whiplash event 2 weekends ago when dog pulled on leash, so now L sided pain; now longer as stiffness. Day before mothers' day, she walked several miles in her backpack, which is originally when the arm numbness began but was managable. She shakes her hands, wakes up at night. Denies weakness but states difficulty with fine motor. 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 Mike R thumb is swollen and completely numb in R hand. She ordered a traction machine. States traction felt very good . No change in neck/hand symptoms since starting PT. States that it feels alittle less but less and very painful . PT-OP-F Manual Assessment Start: 04/06/24 07:29 Freq: Status: Active Protocol: Document 04/06/24 14:33 NM (Rec: 04/06/24 16:15 NM [id number]) Manual Assessments Soft Tissue Assessment Soft Tissue Mobility Assessment Increased soft tissue restrictions of cervical paraspinals, chest and periscapulars, wrist extensors . R medial scapular border 7 cm, L medial scapular border 8 cm Joint Mobility Assessment Joint Mobility Assessment Hypomobility of cervical spine with lateral gliding, especially L>R PT-OP-G Mobility & Gait Start: 04/06/24 07:29 Freq: Status: Active Protocol: Document 04/06/24 14:33 NM (Rec: 04/06/24 16:15 NM [id number]) OP Gait Assessment Gait Gait Assistance Required: Independent Distance (Feet) 150 Comments Gait Comments Stiff gait with limited trunk rotation and arm swing. R shoulder is more elevated. No widebased or ataxic gait, no LOB PT-OP-H Neuro Start: 04/06/24 07:29 Freq: Status: Active Protocol: Document 04/10/24 07:31 NM (Rec: 04/10/24 09:41 NM [id number]) Sensation Evaluation Comments Summary Comments BUE equally intact to light touch sensation PT-OP-J Posture/Palpation/Skin Start: 04/06/24 07:29 Freq: Status: Active Protocol: Document 04/06/24 14:33 NM (Rec: 04/06/24 16:15 NM [id number]) Posture Evaluation Position Standing Head/C-Spine Posture Forward Head Shoulder Posture (L) Rounded,(R) Rounded,(L) Forward,(R) Forward,(R) Elevated Scapula Posture (R) Rotated Up,(R) Elevated,(R ) Tipped Arm Posture (L) Externally Rotated,(R) Externally Rotated Pelvis Posture Anteriorly Tilted Weight Distribution Balanced Palpation Assessment Location R wrist/hand Palpation Details Tightness of wrist extensors Pain with gripping and wrist flexion cervical spine Palpation Findings Soft Tissue Tightness Palpation Details Moderate tightness of paraspinals, pectoralis, lat, levator scapula, upper trapezius, scalenes, suboccipitals Skin Assessment Other Assessments Skin Assessment Comments No R wrist swellin cm ea PT-OP-K Range of Motion Start: 04/06/24 07:29 Freq: Status: Active Protocol: Document 05/05/24 11:19 NM (Rec: 05/05/24 11:54 NM [id number]) Cervical Spine Range of Motion Cervical Spine Active Degrees Flexion 60 Extension 45 Rotation Left 84 Rotation Right 70 Lateral Flexion Left 40 Lateral Flexion Right 40 ROM Limitations Soft Tissue Tightness Comments pain on L side with ext and flex 05/05/24: 80 deg rot B, 45 deg L LF, 25 deg R LF, 55 deg ext, 60 deg flex Shoulder Goniometric Range of Motion Shoulder Right Flexion 150 Abduction 150 External Rotation at 0 degrees Abduction 70 Internal Rotation Behind Back (text) T10 Comments T4 for apley ER 05/05/24: 153 deg abd, 165 deg flexion PT-OP-L Special Tests Start: 04/06/24 07:29 Freq: Status: Active Protocol: Document 04/10/24 07:31 NM (Rec: 04/10/24 09:41 NM [id number]) Special Tests Cervical Spine Special Tests Vertebral Artery Test Results - Comments intact cranial n, no abnormal palpation/auscultation of carotid a Shoulder Abduction Relief Test Test Results + Comments neural symptom relief with passive arm ABD on head ULTT Test Results median n Comments better w/ depression; pain also w/ ulnar n test position but no symptoms Distraction Test Results + Comments symptom resolved Spurling's Test Results + Comments local only on L PT-OP-M Strength Start: 04/06/24 07:29 Freq: Status: Active Protocol: Document 04/06/24 14:33 NM (Rec: 04/06/24 16:15 NM [id number]) Cervical Spine Strength Cervical Spine Manual Muscle Testing Flexion (C1-2) 4+ Good+ Extension 4+ Good+ Rotation Left 4+ Good+ Rotation Right 4+ Good+ Lateral Flexion Left (C3) 4+ Good+ Lateral Flexion Right (C3) 4+ Good+ Comments no pain or symptom reproduction Shoulder Strength Shoulder Manual Muscle Testing Right Flexion 4+ Good+ Abduction (C5) 4 Good External Rotation 4 Good Internal Rotation 4 Good Left Flexion 4+ Good+ Abduction (C5) 4+ Good+ External Rotation 4+ Good+ Internal Rotation 4+ Good+ Elbow/Forearm Strength Elbow and Forearm Manual Muscle Testing Right Flexion (C6) 4+ Good+ Extension (C7) 4+ Good+ Left Flexion (C6) 4+ Good+ Extension (C7) 4+ Good+ Wrist Strength Wrist Manual Muscle Testing Right Flexion (C7) 4- Good- Extension (C6) 4 Good Comments mild pain w/ flex and ext fingers: 4/5, no significant difference between sides Left Flexion (C7) 4+ Good+ Extension (C6) 4+ Good+ PT-OP-Q Treatments Start: 04/06/24 07:29 Freq: Status: Active Protocol: Document 05/05/24 11:19 NM (Rec: 05/05/24 11:54 NM [id number]) Therapeutic Exercises Supine Exercises DNF activation Supine Exercise Name 1. chin tucks, 2. head nods, 3 . cervical rotation Side bilateral Equipment Used 2 tennis balls Reps/Minutes 10 ea Standing Exercises cervical retraction Standing Exercise Name 1. retraction, 2. retraction + rotation Side bilateral Resistance level 1 Equipment Used seated, PT providing resistance with band Reps/Minutes 10 with 2 hold ea direction Comments no increase in neural symptoms periscapulars Standing Exercise Name 1. UT shrug, 2. rows, 3. low row Side bilateral Resistance level 1 band > level 3 band ( revert back to level 1) Reps/Minutes 1. 10x5, 2. 20 w/ 3 hold, 3. 15 with 3 hold Comments cued cervical retraction, scap control; pain free, no inc neural symptoms Other Exercises mobilization with movement Other Exercise Name suboccipital release Side bilateral Equipment Used 2 tennis balls under pillow Reps/Minutes 2 minutes Manual Therapy Treatment Consent Patient gave verbal consent for manual Yes treatment Soft Tissue Mobilization thoracic spine/chest Body Location B paraspinals, B pec Mobilization Type Rolling,Sustained Pressure Intensity/Depth Moderate Body Position Prone Comments Increased tightness of paraspinals and pec. Palpable reduction at pec following soft tissue mobilization, R>L cervical spine Body Location B paraspinals, LS, UT Mobilization Type Rolling,Sustained Pressure, Other Intensity/Depth Moderate Body Position Hooklying,sitting Comments No trigger points today, equal R & L, reduced with soft tissue mobilization, less tightness Joint Mobilizations 1st rib Joint R Direction caudal Grade III Body Position Sitting Reps/Duration 10 ea Comments elevated, reduced with mobilization but still elevated following. monitored for pain, slight bias into R lateral flexion with mobilization scapular Joint R Direction depression, adduction, rotation Body Position Sidelying Reps/Duration 10 ea Comments performed prior to periscapular exercises, reduced and more normalized position afterward. monitored for pain cervical spine Joint C5-6 Direction upglide L, lateral glides L Grade III Body Position Supine Reps/Duration 2x30 ea Comments Monitored for pain. Performed to improve R cervical spine mobility especially along lateral facets, with bias into R lateral flexion and L rotation which pt reports causes symptom reduction. Fewer neural symptoms with mobilization Manual Traction cervical spine Body Position Supine Reps/Duration 2x30 Comments Gentle traction, reports reduction in numbness PT-OP-R Modalities Start: 04/06/24 07:29 Freq: Status: Active Protocol: Document 05/05/24 11:19 NM (Rec: 05/05/24 12:28 NM [id number]) Spinal Traction Traction Treatment Cervical Method Mechanical,Static Patient Position Hooklying Force Applied (Pounds) 20 Heating Pad Applied No Traction Treatment Comment Tristan's cervical traction unit. PT performed set up and positioned pt, PT present and monitored throughout. Muniz within reach. PT-OP-T Assessment and Plan Start: 04/06/24 07:29 Freq: Status: Active Protocol: Document 05/05/24 11:19 NM (Rec: 05/05/24 11:54 NM [id number]) Physical Therapy Assessment Goals Five Impairment reports currently 50% impaired with work tasks Short Term Goal (STG) Pt will be educated on good ergonomic positioning and work tools in order to improve posture and body mechanics for better symptom management 05/05/24: pt provided handout for ergonomics in previous sessions, currently states 31. 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) Pt will report that she is less than 25% impaired with work-related tasks in order to demonstrate improved symptom management, activity tolerance , and QOL 05/05/24- PROGRESSING: pt reports 31.3% impaired at work LTG Duration 12 weeks Four Impairment sleeping Short Term Goal (STG) Pt will report that she is waking once or fewer times per night due to symptoms in R hand in order to demonstrate improved symptom management and QOL 05/05/24: not waking up at night due to symptoms STG Duration 8 weeks 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) Pt will report that she is waking fewer than 2x/wk due to symptoms in R hand in order to demonstrate improved symptom management and QOL 05/05/24: not waking up at night due to symptoms LTG Duration 12 weeks MET Three Impairment ROM: R wrist flexion 50 deg Short Term Goal (STG) Pt will improve R wrist flexion to at least 60 deg in order to demonstrate improved ROM for pericare, if appropriate STG Duration 6 weeks Care Home Goal (LTG) Pt will improve R wrist flexion to at least 70 deg in order to demonstrate improved ROM for pericare or typing, if appropriate LTG Duration 12 weeks Two Impairment ROM: R cervical spine rotation 70 deg 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) Pt will improve R cervical spine rotation >80 deg or within 5 deg of L cervical spine rotation in order to improve visual scanning and demonstrate improved soft tissue length 05/05/24: 80 deg B rotation LTG Duration 12 weeks MET One Impairment QOL/activity tolerance: quickdash 56.8% impairment Short Term Goal (STG) Pt will decrease quickdash impairment by at least 11% (1 MCID) in order to demonstrate improved symptom management and QOL 05/05/24- NOT MET: 34 or 52.3%; work module 31.3% STG Duration 8 weeks Care Home Goal (LTG) Pt will report <25% impairment on quickdash due to pain or numbness/tingling in R hand/ wrist or neck in order to demonstrate improved symptom management, activity tolerance and QOL LTG Duration 12 weeks Progress Towards Goals Progress Towards Goals Progressing Toward Goals,Goals Met Assessment Summary Assessment Pt tolerated session well. Continues to have good feedback for manual therapy and mechanical traction today. Educated pt on use of 2 tennis balls for suboccipital release and mobilizations, in addition to deep neck flexor activation. Progressed to standing periscapular activation with lower resistance bands to periscapular activation for postural correction and better cervical spine alignment. Pt able to perform all exercises today with reports of fewer neural symptoms in R hand. Pt is having follow up with referring provider in upcoming weeks. She would benefit from skilled PT for improved flexibility, strength, and symptom reduction in order to improve better activity tolerance. Physical Therapy Plan Frequency and Duration Frequency of Treatment 2x/Week Duration of treatment (weeks) 12 Plan of Care Start Date 04/06/24 Plan of Care End Date 07/06/24 Therapeutic Interventions Therapeutic Interventions Canalithic Repositioning,Gait Training,Home Exercise Program ,Joint Mobilizations,Manual Therapy,Neuromuscular Re- education,Orthotic/Prosthetic Management,Patient/Caregiver Education,Self-Care/Home Management,Sensory Integration ,Soft Tissue Mobilization, Taping,Therapeutic Activities, Therapeutic Exercises Modalities Cold Pack/Ice Massage,Electric Stimulation,Hot Packs, Traction- Mechanical, Ultrasound Other Referrals/Consults Referrals/Consults Recommended Pt would benefit from a MRI of her cervical spine Next Visit Focus/Plan Next Note Type Treatment Note Next Visit Plan Review Pickett cervical traction and follow up about home traction. Retrial rows/ low rows, periscapular. From POC: Upglides and lateral glides, STM as needed, resisted retraction row and low row w/ band, scapular clock, flex with ER in supine, periscapulars Next: scalenes, UT, LS, SCM as needed; scapular mobility > rows and low rows Continue with manual therapy: STM, cervical spine mobilizations grade II-III
--- NOTE | 2024-05-11 12:50 | PT.OTN ---
Current Diagnoses Stiffness of right wrist, not elsewhere classified (05/11/24) Radiculopathy, cervical region (05/11/24) Weakness (05/11/24) Physical Therapy Treatment Note PT-OP-A Visit Information Start: 04/06/24 07:29 Freq: Status: Active Protocol: Document 05/11/24 08:15 NM (Rec: 05/11/24 07:28 NM [id number]) Out-Patient Physical Therapy Visit Information Visit Information Visit Type Treatment Note Visit Note 09/22 after PN Visit Start Time 08:15 Visit Stop Time 09:00 Visit Number 10 Evaluation Information Evaluation Date 04/06/24 Precautions Precautions neck pain and median nerve PT-OP-B Current Condition Start: 04/06/24 07:29 Freq: Status: Active Protocol: Document 04/06/24 14:33 NM (Rec: 04/06/24 16:15 NM [id number]) Current Condition History of Current Condition Onset Date Mother's day 2023 Current Complaints pain, numbness and tingling History of Current Condition Pt reports that she has cervical radiculopathy. She was seen January-February because entire R arm went numb and 10/ [address] Brown who referred her to PT. Over the past 2 months . She nows has pain only in the R hand vs no longer has the radiation. Pt reports that her condition started in November, when she started to experience numbness in her hand. She sleeps with her arms elevated on both sides. On Mother's day, she did a lot of excavating/moving yard work. The following Wednesday, she had pain; unable to type. Prescribed prednisone and muscle relaxers; steroid helped with symptoms. She only uses muscle relaxers occasionally, causes depression. Primarily felt in thumb and fingers 2-3. 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 She also had a minor whiplash event 2 weekends ago when dog pulled on leash, so now L sided pain; now longer as stiffness. Day before mothers' day, she walked several miles in her backpack, which is originally when the arm numbness began but was managable. She shakes her hands, wakes up at night. Denies weakness but states difficulty with fine motor. 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 She had her doctor appt and MRI has been ordered. Pt reports that she woke up with numbness in R side but it did not wake her up. She continues to have muscle tightness. [place] good after last session. PT-OP-F Manual Assessment Start: 04/06/24 07:29 Freq: Status: Active Protocol: Document 04/06/24 14:33 NM (Rec: 04/06/24 16:15 NM [id number]) Manual Assessments Soft Tissue Assessment Soft Tissue Mobility Assessment Increased soft tissue restrictions of cervical paraspinals, chest and periscapulars, wrist extensors . R medial scapular border 7 cm, L medial scapular border 8 cm Joint Mobility Assessment Joint Mobility Assessment Hypomobility of cervical spine with lateral gliding, especially L>R PT-OP-G Mobility & Gait Start: 04/06/24 07:29 Freq: Status: Active Protocol: Document 04/06/24 14:33 NM (Rec: 04/06/24 16:15 NM [id number]) OP Gait Assessment Gait Gait Assistance Required: Independent Distance (Feet) 150 Comments Gait Comments Stiff gait with limited trunk rotation and arm swing. R shoulder is more elevated. No widebased or ataxic gait, no LOB PT-OP-H Neuro Start: 04/06/24 07:29 Freq: Status: Active Protocol: Document 04/10/24 07:31 NM (Rec: 04/10/24 09:41 NM [id number]) Sensation Evaluation Comments Summary Comments BUE equally intact to light touch sensation PT-OP-J Posture/Palpation/Skin Start: 04/06/24 07:29 Freq: Status: Active Protocol: Document 04/06/24 14:33 NM (Rec: 04/06/24 16:15 NM [id number]) Posture Evaluation Position Standing Head/C-Spine Posture Forward Head Shoulder Posture (L) Rounded,(R) Rounded,(L) Forward,(R) Forward,(R) Elevated Scapula Posture (R) Rotated Up,(R) Elevated,(R ) Tipped Arm Posture (L) Externally Rotated,(R) Externally Rotated Pelvis Posture Anteriorly Tilted Weight Distribution Balanced Palpation Assessment Location R wrist/hand Palpation Details Tightness of wrist extensors Pain with gripping and wrist flexion cervical spine Palpation Findings Soft Tissue Tightness Palpation Details Moderate tightness of paraspinals, pectoralis, lat, levator scapula, upper trapezius, scalenes, suboccipitals Skin Assessment Other Assessments Skin Assessment Comments No R wrist swellin cm ea PT-OP-K Range of Motion Start: 04/06/24 07:29 Freq: Status: Active Protocol: Document 05/05/24 11:19 NM (Rec: 05/05/24 11:54 NM [id number]) Cervical Spine Range of Motion Cervical Spine Active Degrees Flexion 60 Extension 45 Rotation Left 84 Rotation Right 70 Lateral Flexion Left 40 Lateral Flexion Right 40 ROM Limitations Soft Tissue Tightness Comments pain on L side with ext and flex 05/05/24: 80 deg rot B, 45 deg L LF, 25 deg R LF, 55 deg ext, 60 deg flex Shoulder Goniometric Range of Motion Shoulder Right Flexion 150 Abduction 150 External Rotation at 0 degrees Abduction 70 Internal Rotation Behind Back (text) T10 Comments T4 for apley ER 05/05/24: 153 deg abd, 165 deg flexion PT-OP-L Special Tests Start: 04/06/24 07:29 Freq: Status: Active Protocol: Document 04/10/24 07:31 NM (Rec: 04/10/24 09:41 NM [id number]) Special Tests Cervical Spine Special Tests Vertebral Artery Test Results - Comments intact cranial n, no abnormal palpation/auscultation of carotid a Shoulder Abduction Relief Test Test Results + Comments neural symptom relief with passive arm ABD on head ULTT Test Results median n Comments better w/ depression; pain also w/ ulnar n test position but no symptoms Distraction Test Results + Comments symptom resolved Spurling's Test Results + Comments local only on L PT-OP-M Strength Start: 04/06/24 07:29 Freq: Status: Active Protocol: Document 04/06/24 14:33 NM (Rec: 04/06/24 16:15 NM [id number]) Cervical Spine Strength Cervical Spine Manual Muscle Testing Flexion (C1-2) 4+ Good+ Extension 4+ Good+ Rotation Left 4+ Good+ Rotation Right 4+ Good+ Lateral Flexion Left (C3) 4+ Good+ Lateral Flexion Right (C3) 4+ Good+ Comments no pain or symptom reproduction Shoulder Strength Shoulder Manual Muscle Testing Right Flexion 4+ Good+ Abduction (C5) 4 Good External Rotation 4 Good Internal Rotation 4 Good Left Flexion 4+ Good+ Abduction (C5) 4+ Good+ External Rotation 4+ Good+ Internal Rotation 4+ Good+ Elbow/Forearm Strength Elbow and Forearm Manual Muscle Testing Right Flexion (C6) 4+ Good+ Extension (C7) 4+ Good+ Left Flexion (C6) 4+ Good+ Extension (C7) 4+ Good+ Wrist Strength Wrist Manual Muscle Testing Right Flexion (C7) 4- Good- Extension (C6) 4 Good Comments mild pain w/ flex and ext fingers: 4/5, no significant difference between sides Left Flexion (C7) 4+ Good+ Extension (C6) 4+ Good+ PT-OP-Q Treatments Start: 04/06/24 07:29 Freq: Status: Active Protocol: Document 05/11/24 08:15 NM (Rec: 05/11/24 07:29 NM [id number]) Therapeutic Exercises Supine Exercises 6 foam roller exercises Supine Exercise Name T's, flexion w/ band, ER Side bilateral Resistance AROM T's, level 1 band for flex Equipment Used 6 foam roller Reps/Minutes 10 ea Comments R shldr pain w/ T's; edu to try shorter lever arm or d/c if worse Standing Exercises cervical isometrics Standing Exercise Name 1. retract, 2. lateral flexion , 3. rotation Side bilateral Equipment Used small blue kickball Reps/Minutes 12 with 3 hold Comments pain free; feels better than using hand periscapulars Standing Exercise Name HEP: 1. rows, 2. low row Side bilateral Resistance level 2 Reps/Minutes 1. 2x15 w/ brief hold Comments visual and tactile cues for cervical retraction; Manual Therapy Treatment Consent Patient gave verbal consent for manual Yes treatment Soft Tissue Mobilization thoracic spine/chest Body Location B paraspinals, B pec Mobilization Type Rolling,Sustained Pressure Intensity/Depth Moderate Body Position Prone Comments Increased tightness of paraspinals and pec. Palpable reduction at pec following soft tissue mobilization, R>L cervical spine Body Location B paraspinals, LS, UT, scalenes, SCM Mobilization Type Rolling,Sustained Pressure, Other Intensity/Depth Moderate Body Position Hooklying,sitting Comments Slight elevation of R side, mild reduction with mobilization. Trigger points of LS. Increased restrictions of scalenes and SCM R>L. Educated on using tripod garage door installer for gentle mobilization of SCM as part of HEP during day Joint Mobilizations 1st rib Joint R Direction caudal Grade III Body Position Sitting Reps/Duration 10 ea Comments Less elevated today. Performed with breathing and small shoulder shrug elevation cervical spine Joint C5-6 Direction upglide L, lateral glides L Grade III Body Position Supine Reps/Duration 2x30 ea Comments Monitored for pain. Performed to improve R cervical spine mobility especially along lateral facets, with bias into R lateral flexion and L rotation which pt reports causes symptom reduction. Fewer neural symptoms with mobilization Self-Care/Home Management Treatment Education Patient Education Joint Protection,Safety Other Education Educated on 20-30# limit for cervical traction and to d/c if symptoms worsen PT-OP-R Modalities Start: 04/06/24 07:29 Freq: Status: Active Protocol: Document 05/11/24 08:15 NM (Rec: 05/11/24 07:28 NM [id number]) Spinal Traction Traction Treatment Cervical Traction Treatment Comment Pt performing at home; not today in session PT-OP-T Assessment and Plan Start: 04/06/24 07:29 Freq: Status: Active Protocol: Document 05/11/24 08:15 NM (Rec: 05/11/24 07:28 NM [id number]) Physical Therapy Assessment Goals Five Impairment reports currently 50% impaired with work tasks Short Term Goal (STG) Pt will be educated on good ergonomic positioning and work tools in order to improve posture and body mechanics for better symptom management 05/05/24: pt provided handout for ergonomics in previous sessions, currently states 31. 3% impaired at work ( improvement since evaluation) STG Duration 4 weeks MET Equipment Operating Engineer Goal (LTG) Pt will report that she is less than 25% impaired with work-related tasks in order to demonstrate improved symptom management, activity tolerance , and QOL 05/05/24- PROGRESSING: pt reports 31.3% impaired at work LTG Duration 12 weeks Four Impairment sleeping Short Term Goal (STG) Pt will report that she is waking once or fewer times per night due to symptoms in R hand in order to demonstrate improved symptom management and QOL 05/05/24: not waking up at night due to symptoms STG Duration 8 weeks Equipment Operating Engineer Goal (LTG) Pt will report that she is waking fewer than 2x/wk due to symptoms in R hand in order to demonstrate improved symptom management and QOL 05/05/24: not waking up at night due to symptoms LTG Duration 12 weeks MET Three Impairment ROM: R wrist flexion 50 deg Short Term Goal (STG) Pt will improve R wrist flexion to at least 60 deg in order to demonstrate improved ROM for pericare, if appropriate STG Duration 6 weeks Senior Care Goal (LTG) Pt will improve R wrist flexion to at least 70 deg in order to demonstrate improved ROM for pericare or typing, if appropriate LTG Duration 12 weeks Two Impairment ROM: R cervical spine rotation 70 deg Equipment Operating Engineer Goal (LTG) Pt will improve R cervical spine rotation >80 deg or within 5 deg of L cervical spine rotation in order to improve visual scanning and demonstrate improved soft tissue length 05/05/24: 80 deg B rotation LTG Duration 12 weeks MET One Impairment QOL/activity tolerance: quickdash 56.8% impairment Short Term Goal (STG) Pt will decrease quickdash impairment by at least 11% (1 MCID) in order to demonstrate improved symptom management and QOL 05/05/24- NOT MET: 34 or 52.3%; work module 31.3% STG Duration 8 weeks Senior Care Goal (LTG) Pt will report <25% impairment on quickdash due to pain or numbness/tingling in R hand/ wrist or neck in order to demonstrate improved symptom management, activity tolerance and QOL LTG Duration 12 weeks Assessment Summary Assessment Pt tolerated session well, no change in neural symptoms during session. Retrialed rows /low rows for periscapular strengthening and for scapular control. Able to perform with good cervical retraction and form with level 2 band with occasional cues for shoulder relaxation and control. Pt able to progress to banded foam roller exercises with good form and feedback. Due to R shoulder pain with T's, recommended shorter lever arm to decrease pain or to discontinue if pain occurs. PT also educated pt on protocol for traction and to stop immediately if symptoms worsen . Pt verbalizes agreement and would benefit from skilled PT for improved symptom management and activity tolerance. Physical Therapy Plan Frequency and Duration Frequency of Treatment 2x/Week Duration of treatment (weeks) 12 Plan of Care Start Date 04/06/24 Plan of Care End Date 07/06/24 Therapeutic Interventions Therapeutic Interventions Canalithic Repositioning,Gait Training,Home Exercise Program ,Joint Mobilizations,Manual Therapy,Neuromuscular Re- education,Orthotic/Prosthetic Management,Patient/Caregiver Education,Self-Care/Home Management,Sensory Integration ,Soft Tissue Mobilization, Taping,Therapeutic Activities, Therapeutic Exercises Modalities Cold Pack/Ice Massage,Electric Stimulation,Hot Packs, Traction- Mechanical, Ultrasound Other Referrals/Consults Referrals/Consults Recommended Pt would benefit from a MRI of her cervical spine Next Visit Focus/Plan Next Note Type Treatment Note Next Visit Plan Cont with flex + ER on foam roller, wall; trial wall w/ median n glide; snow ann marie w/ band), prone pull up From POC: Upglides and lateral glides, STM as needed, resisted retraction row and low row w/ band, scapular clock, flex with ER in supine, periscapulars Next: scalenes, UT, LS, SCM as needed; scapular mobility > rows and low rows Continue with manual therapy: STM, cervical spine mobilizations grade II-III
--- NOTE | 2024-05-16 09:26 | PT-OP ANOTE ---
Pt canceled appointment same day d/t forgot appointment time.
--- NOTE | 2024-05-18 09:53 | PT.OTN ---
Current Diagnoses Stiffness of right wrist, not elsewhere classified (05/18/24) Radiculopathy, cervical region (05/18/24) Weakness (05/18/24) Physical Therapy Treatment Note PT-OP-A Visit Information Start: 04/06/24 07:29 Freq: Status: Active Protocol: Document 05/18/24 09:01 NM (Rec: 05/18/24 09:42 NM [id number]) Out-Patient Physical Therapy Visit Information Visit Information Visit Type Treatment Note Visit Note 10/23 after PN Visit Start Time 09:02 Visit Stop Time 09:42 Visit Number 11 Evaluation Information Evaluation Date 04/06/24 Precautions Precautions neck pain and median nerve PT-OP-B Current Condition Start: 04/06/24 07:29 Freq: Status: Active Protocol: Document 04/06/24 14:33 NM (Rec: 04/06/24 16:15 NM [id number]) Current Condition History of Current Condition Onset Date Mother's day 2023 Current Complaints pain, numbness and tingling History of Current Condition Pt reports that she has cervical radiculopathy. She was seen January-February because entire R arm went numb and 10/ [address] Brown who referred her to PT. Over the past 2 months . She nows has pain only in the R hand vs no longer has the radiation. Pt reports that her condition started in November, when she started to experience numbness in her hand. She sleeps with her arms elevated on both sides. On Mother's day, she did a lot of excavating/moving yard work. The following Wednesday, she had pain; unable to type. Prescribed prednisone and muscle relaxers; steroid helped with symptoms. She only uses muscle relaxers occasionally, causes depression. Primarily felt in thumb and fingers 2-3. 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 She also had a minor whiplash event 2 weekends ago when dog pulled on leash, so now L sided pain; now longer as stiffness. Day before mothers' day, she walked several miles in her backpack, which is originally when the arm numbness began but was managable. She shakes her hands, wakes up at night. Denies weakness but states difficulty with fine motor. 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 She reports increased numbness and tingling. States that she thinks it's now entire hand, not just first 3 fingers. She is being mindful of sleeping position, posture. Denies any incident that she is aware of that cause the increase. She has been having trouble scheduling her MRI. Has been using traction machine every other machine every other day, states doesn' t worsen symptoms but states that the strap puts her in extension. PT-OP-F Manual Assessment Start: 04/06/24 07:29 Freq: Status: Active Protocol: Document 04/06/24 14:33 NM (Rec: 04/06/24 16:15 NM [id number]) Manual Assessments Soft Tissue Assessment Soft Tissue Mobility Assessment Increased soft tissue restrictions of cervical paraspinals, chest and periscapulars, wrist extensors . R medial scapular border 7 cm, L medial scapular border 8 cm Joint Mobility Assessment Joint Mobility Assessment Hypomobility of cervical spine with lateral gliding, especially L>R PT-OP-G Mobility & Gait Start: 04/06/24 07:29 Freq: Status: Active Protocol: Document 04/06/24 14:33 NM (Rec: 04/06/24 16:15 NM [id number]) OP Gait Assessment Gait Gait Assistance Required: Independent Distance (Feet) 150 Comments Gait Comments Stiff gait with limited trunk rotation and arm swing. R shoulder is more elevated. No widebased or ataxic gait, no LOB PT-OP-H Neuro Start: 04/06/24 07:29 Freq: Status: Active Protocol: Document 04/10/24 07:31 NM (Rec: 04/10/24 09:41 NM [id number]) Sensation Evaluation Comments Summary Comments BUE equally intact to light touch sensation PT-OP-J Posture/Palpation/Skin Start: 04/06/24 07:29 Freq: Status: Active Protocol: Document 04/06/24 14:33 NM (Rec: 04/06/24 16:15 NM [id number]) Posture Evaluation Position Standing Head/C-Spine Posture Forward Head Shoulder Posture (L) Rounded,(R) Rounded,(L) Forward,(R) Forward,(R) Elevated Scapula Posture (R) Rotated Up,(R) Elevated,(R ) Tipped Arm Posture (L) Externally Rotated,(R) Externally Rotated Pelvis Posture Anteriorly Tilted Weight Distribution Balanced Palpation Assessment Location R wrist/hand Palpation Details Tightness of wrist extensors Pain with gripping and wrist flexion cervical spine Palpation Findings Soft Tissue Tightness Palpation Details Moderate tightness of paraspinals, pectoralis, lat, levator scapula, upper trapezius, scalenes, suboccipitals Skin Assessment Other Assessments Skin Assessment Comments No R wrist swellin cm ea PT-OP-K Range of Motion Start: 04/06/24 07:29 Freq: Status: Active Protocol: Document 05/05/24 11:19 NM (Rec: 05/05/24 11:54 NM [id number]) Cervical Spine Range of Motion Cervical Spine Active Degrees Flexion 60 Extension 45 Rotation Left 84 Rotation Right 70 Lateral Flexion Left 40 Lateral Flexion Right 40 ROM Limitations Soft Tissue Tightness Comments pain on L side with ext and flex 05/05/24: 80 deg rot B, 45 deg L LF, 25 deg R LF, 55 deg ext, 60 deg flex Shoulder Goniometric Range of Motion Shoulder Right Flexion 150 Abduction 150 External Rotation at 0 degrees Abduction 70 Internal Rotation Behind Back (text) T10 Comments T4 for apley ER 05/05/24: 153 deg abd, 165 deg flexion PT-OP-L Special Tests Start: 04/06/24 07:29 Freq: Status: Active Protocol: Document 04/10/24 07:31 NM (Rec: 04/10/24 09:41 NM [id number]) Special Tests Cervical Spine Special Tests Vertebral Artery Test Results - Comments intact cranial n, no abnormal palpation/auscultation of carotid a Shoulder Abduction Relief Test Test Results + Comments neural symptom relief with passive arm ABD on head ULTT Test Results median n Comments better w/ depression; pain also w/ ulnar n test position but no symptoms Distraction Test Results + Comments symptom resolved Spurling's Test Results + Comments local only on L PT-OP-M Strength Start: 04/06/24 07:29 Freq: Status: Active Protocol: Document 04/06/24 14:33 NM (Rec: 04/06/24 16:15 NM [id number]) Cervical Spine Strength Cervical Spine Manual Muscle Testing Flexion (C1-2) 4+ Good+ Extension 4+ Good+ Rotation Left 4+ Good+ Rotation Right 4+ Good+ Lateral Flexion Left (C3) 4+ Good+ Lateral Flexion Right (C3) 4+ Good+ Comments no pain or symptom reproduction Shoulder Strength Shoulder Manual Muscle Testing Right Flexion 4+ Good+ Abduction (C5) 4 Good External Rotation 4 Good Internal Rotation 4 Good Left Flexion 4+ Good+ Abduction (C5) 4+ Good+ External Rotation 4+ Good+ Internal Rotation 4+ Good+ Elbow/Forearm Strength Elbow and Forearm Manual Muscle Testing Right Flexion (C6) 4+ Good+ Extension (C7) 4+ Good+ Left Flexion (C6) 4+ Good+ Extension (C7) 4+ Good+ Wrist Strength Wrist Manual Muscle Testing Right Flexion (C7) 4- Good- Extension (C6) 4 Good Comments mild pain w/ flex and ext fingers: 4/5, no significant difference between sides Left Flexion (C7) 4+ Good+ Extension (C6) 4+ Good+ PT-OP-Q Treatments Start: 04/06/24 07:29 Freq: Status: Active Protocol: Document 05/18/24 09:01 NM (Rec: 05/18/24 09:42 NM [id number]) Therapeutic Exercises Standing Exercises serratus anterior Standing Exercise Name 1. indian ball, 2. foam roller wall flex Side bilateral Reps/Minutes 1. 10, 2, 10 Comments increased tingling w/ protraction rotator cuff Standing Exercise Name 1. ER at 0 abd, 2. ER at 45 abd, 3. lateral wall walks(HEP ), 4. ADD/IR shannon Side bilateral Resistance level 1 band Reps/Minutes 1. 10, 2. 10, 3. 2x10 ft, 4. 10x2 Comments reports dec in neural symptoms Other Exercises stretching Other Exercise Name 1. posterior cuff cross body stretch, 2. lat over head stretch Side bilateral Reps/Minutes 60 Comments lat stretch feels good, post cuff stretch inc neural symptoms Manual Therapy Treatment Consent Patient gave verbal consent for manual Yes treatment Soft Tissue Mobilization R rotator cuff Body Location supraspinatus, infraspinatus, teres, subscap border, lat Mobilization Type Instrument Assisted,Myofascial Release,Rolling,Trigger Point Release,Other Intensity/Depth Moderate Body Position Sidelying Comments 1. rolling and fanning of rotator cuff. Initial increase in symptoms with reduction after soft tissue. Demos increased restrictions with palpable trigger points especially infraspinatus, teres, and supraspinatus 2. cupping of rotator cuff with smallest and medium cups. Skin assessed prior, demos several small scars on posterior shoulder over cuff. Monitored for pain throughout. Demos redness post cupping. Reports reduction in neural symptoms with cupping cervical spine Body Location B paraspinals, LS, UT, scalenes, SCM Mobilization Type Rolling,Sustained Pressure, Other Intensity/Depth Moderate Body Position Hooklying,sitting Comments Less tenderness and restriction B Joint Mobilizations scapular Joint R Direction depression, adduction, rotation Body Position Sidelying Reps/Duration 10 ea Comments performed prior to periscapular exercises, reduced and more normalized position afterward. monitored for pain cervical spine Joint C3-C7 Direction PA Grade II Body Position Prone Reps/Duration 2x30 ea Comments Monitored for pain, improved mobility and small reduction in neural symptoms PT-OP-R Modalities Start: 04/06/24 07:29 Freq: Status: Active Protocol: Document 05/11/24 08:15 NM (Rec: 05/11/24 07:28 NM [id number]) Spinal Traction Traction Treatment Cervical Traction Treatment Comment Pt performing at home; not today in session PT-OP-T Assessment and Plan Start: 04/06/24 07:29 Freq: Status: Active Protocol: Document 05/18/24 09:01 NM (Rec: 05/18/24 09:42 NM [id number]) Physical Therapy Assessment Goals Five Impairment reports currently 50% impaired with work tasks Short Term Goal (STG) Pt will be educated on good ergonomic positioning and work tools in order to improve posture and body mechanics for better symptom management 05/05/24: pt provided handout for ergonomics in previous sessions, currently states 31. 3% impaired at work ( improvement since evaluation) STG Duration 4 weeks MET Roll Over Loader Goal (LTG) Pt will report that she is less than 25% impaired with work-related tasks in order to demonstrate improved symptom management, activity tolerance , and QOL 05/05/24- PROGRESSING: pt reports 31.3% impaired at work LTG Duration 12 weeks Four Impairment sleeping Short Term Goal (STG) Pt will report that she is waking once or fewer times per night due to symptoms in R hand in order to demonstrate improved symptom management and QOL 05/05/24: not waking up at night due to symptoms STG Duration 8 weeks Prison Goal (LTG) Pt will report that she is waking fewer than 2x/wk due to symptoms in R hand in order to demonstrate improved symptom management and QOL 05/05/24: not waking up at night due to symptoms LTG Duration 12 weeks MET Three Impairment ROM: R wrist flexion 50 deg Short Term Goal (STG) Pt will improve R wrist flexion to at least 60 deg in order to demonstrate improved ROM for pericare, if appropriate STG Duration 6 weeks Roll Over Loader Goal (LTG) Pt will improve R wrist flexion to at least 70 deg in order to demonstrate improved ROM for pericare or typing, if appropriate LTG Duration 12 weeks Two Impairment ROM: R cervical spine rotation 70 deg Roll Over Loader Goal (LTG) Pt will improve R cervical spine rotation >80 deg or within 5 deg of L cervical spine rotation in order to improve visual scanning and demonstrate improved soft tissue length 05/05/24: 80 deg B rotation LTG Duration 12 weeks MET One Impairment QOL/activity tolerance: quickdash 56.8% impairment Short Term Goal (STG) Pt will decrease quickdash impairment by at least 11% (1 MCID) in order to demonstrate improved symptom management and QOL 05/05/24- NOT MET: 34 or 52.3%; work module 31.3% STG Duration 8 weeks Prison Goal (LTG) Pt will report <25% impairment on quickdash due to pain or numbness/tingling in R hand/ wrist or neck in order to demonstrate improved symptom management, activity tolerance and QOL LTG Duration 12 weeks Assessment Summary Assessment Pt tolerated session fair. She has reduction in R hand numbness post soft tissue mobilization of rotator cuff muscles. Pt has increased tingling with protraction and occasionally cross body adduction. Good response to cupping for improved myofascial release. No increase in symptoms with rotator cuff activation exercises, even with abduction /ER which has been most provocative for pt in past. PT educated pt on monitoring symptoms with traction, planning to discontinue in future if symptoms worsen. Pt would benefit from skilled PT for improved symptom management and body mechanics education in order to activity tolerance. Physical Therapy Plan Frequency and Duration Frequency of Treatment 2x/Week Duration of treatment (weeks) 12 Plan of Care Start Date 04/06/24 Plan of Care End Date 07/06/24 Therapeutic Interventions Therapeutic Interventions Canalithic Repositioning,Gait Training,Home Exercise Program ,Joint Mobilizations,Manual Therapy,Neuromuscular Re- education,Orthotic/Prosthetic Management,Patient/Caregiver Education,Self-Care/Home Management,Sensory Integration ,Soft Tissue Mobilization, Taping,Therapeutic Activities, Therapeutic Exercises Modalities Cold Pack/Ice Massage,Electric Stimulation,Hot Packs, Traction- Mechanical, Ultrasound Other Referrals/Consults Referrals/Consults Recommended Pt would benefit from a MRI of her cervical spine Next Visit Focus/Plan Next Note Type Treatment Note Next Visit Plan Assess tolerance to cupping and rotator cuff exercise. Trial flexion + ER in standing at wall; trial wall w/ median n glide; snow ann marie w/ band, prone pull up From POC: Upglides and lateral glides, STM as needed, resisted retraction row and low row w/ band, scapular clock, flex with ER in supine, periscapulars Next: scalenes, UT, LS, SCM as needed; scapular mobility > rows and low rows Continue with manual therapy: STM, cervical spine mobilizations grade II-III
--- NOTE | 2024-05-22 10:42 | PT.OTN ---
Current Diagnoses Stiffness of right wrist, not elsewhere classified (05/22/24) Radiculopathy, cervical region (05/22/24) Weakness (05/22/24) Physical Therapy Treatment Note PT-OP-A Visit Information Start: 04/06/24 07:29 Freq: Status: Active Protocol: Document 05/22/24 09:48 NM (Rec: 05/22/24 10:32 NM [id number]) Out-Patient Physical Therapy Visit Information Visit Information Visit Type Treatment Note Visit Note 11/20 after PN Visit Start Time 09:49 Visit Stop Time 10:29 Visit Number 12 Evaluation Information Evaluation Date 04/06/24 Precautions Precautions neck pain and median nerve PT-OP-B Current Condition Start: 04/06/24 07:29 Freq: Status: Active Protocol: Document 04/06/24 14:33 NM (Rec: 04/06/24 16:15 NM [id number]) Current Condition History of Current Condition Onset Date Mother's day 2023 Current Complaints pain, numbness and tingling History of Current Condition Pt reports that she has cervical radiculopathy. She was seen January-February because entire R arm went numb and 10/ [address] Brown who referred her to PT. Over the past 2 months . She nows has pain only in the R hand vs no longer has the radiation. Pt reports that her condition started in November, when she started to experience numbness in her hand. She sleeps with her arms elevated on both sides. On Mother's day, she did a lot of excavating/moving yard work. The following Wednesday, she had pain; unable to type. Prescribed prednisone and muscle relaxers; steroid helped with symptoms. She only uses muscle relaxers occasionally, causes depression. Primarily felt in thumb and fingers 2-3. 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 She also had a minor whiplash event 2 weekends ago when dog pulled on leash, so now L sided pain; now longer as stiffness. Day before mothers' day, she walked several miles in her backpack, which is originally when the arm numbness began but was managable. She shakes her hands, wakes up at night. Denies weakness but states difficulty with fine motor. 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 She states she felt good after last session. However, states that she continues to have numbness in first 4 fingers; numbness is consistent but tingling comes and goes. She had tingling with driving this am and when waking up. She states that her shoulder does not feel as pinched. Pt reports that shoulder ext during day causes increased numbness/tingling but not at night when she sleeps as that is the position that she is in when sleeping to relieve neural symptoms. Pt has not done the traction since last week. PT-OP-F Manual Assessment Start: 04/06/24 07:29 Freq: Status: Active Protocol: Document 04/06/24 14:33 NM (Rec: 04/06/24 16:15 NM [id number]) Manual Assessments Soft Tissue Assessment Soft Tissue Mobility Assessment Increased soft tissue restrictions of cervical paraspinals, chest and periscapulars, wrist extensors . R medial scapular border 7 cm, L medial scapular border 8 cm Joint Mobility Assessment Joint Mobility Assessment Hypomobility of cervical spine with lateral gliding, especially L>R PT-OP-G Mobility & Gait Start: 04/06/24 07:29 Freq: Status: Active Protocol: Document 04/06/24 14:33 NM (Rec: 04/06/24 16:15 NM [id number]) OP Gait Assessment Gait Gait Assistance Required: Independent Distance (Feet) 150 Comments Gait Comments Stiff gait with limited trunk rotation and arm swing. R shoulder is more elevated. No widebased or ataxic gait, no LOB PT-OP-H Neuro Start: 04/06/24 07:29 Freq: Status: Active Protocol: Document 04/10/24 07:31 NM (Rec: 04/10/24 09:41 NM [id number]) Sensation Evaluation Comments Summary Comments BUE equally intact to light touch sensation PT-OP-J Posture/Palpation/Skin Start: 04/06/24 07:29 Freq: Status: Active Protocol: Document 04/06/24 14:33 NM (Rec: 04/06/24 16:15 NM [id number]) Posture Evaluation Position Standing Head/C-Spine Posture Forward Head Shoulder Posture (L) Rounded,(R) Rounded,(L) Forward,(R) Forward,(R) Elevated Scapula Posture (R) Rotated Up,(R) Elevated,(R ) Tipped Arm Posture (L) Externally Rotated,(R) Externally Rotated Pelvis Posture Anteriorly Tilted Weight Distribution Balanced Palpation Assessment Location R wrist/hand Palpation Details Tightness of wrist extensors Pain with gripping and wrist flexion cervical spine Palpation Findings Soft Tissue Tightness Palpation Details Moderate tightness of paraspinals, pectoralis, lat, levator scapula, upper trapezius, scalenes, suboccipitals Skin Assessment Other Assessments Skin Assessment Comments No R wrist swellin cm ea PT-OP-K Range of Motion Start: 04/06/24 07:29 Freq: Status: Active Protocol: Document 05/05/24 11:19 NM (Rec: 05/05/24 11:54 NM [id number]) Cervical Spine Range of Motion Cervical Spine Active Degrees Flexion 60 Extension 45 Rotation Left 84 Rotation Right 70 Lateral Flexion Left 40 Lateral Flexion Right 40 ROM Limitations Soft Tissue Tightness Comments pain on L side with ext and flex 05/05/24: 80 deg rot B, 45 deg L LF, 25 deg R LF, 55 deg ext, 60 deg flex Shoulder Goniometric Range of Motion Shoulder Right Flexion 150 Abduction 150 External Rotation at 0 degrees Abduction 70 Internal Rotation Behind Back (text) T10 Comments T4 for apley ER 05/05/24: 153 deg abd, 165 deg flexion PT-OP-L Special Tests Start: 04/06/24 07:29 Freq: Status: Active Protocol: Document 04/10/24 07:31 NM (Rec: 04/10/24 09:41 NM [id number]) Special Tests Cervical Spine Special Tests Vertebral Artery Test Results - Comments intact cranial n, no abnormal palpation/auscultation of carotid a Shoulder Abduction Relief Test Test Results + Comments neural symptom relief with passive arm ABD on head ULTT Test Results median n Comments better w/ depression; pain also w/ ulnar n test position but no symptoms Distraction Test Results + Comments symptom resolved Spurling's Test Results + Comments local only on L PT-OP-M Strength Start: 04/06/24 07:29 Freq: Status: Active Protocol: Document 04/06/24 14:33 NM (Rec: 04/06/24 16:15 NM [id number]) Cervical Spine Strength Cervical Spine Manual Muscle Testing Flexion (C1-2) 4+ Good+ Extension 4+ Good+ Rotation Left 4+ Good+ Rotation Right 4+ Good+ Lateral Flexion Left (C3) 4+ Good+ Lateral Flexion Right (C3) 4+ Good+ Comments no pain or symptom reproduction Shoulder Strength Shoulder Manual Muscle Testing Right Flexion 4+ Good+ Abduction (C5) 4 Good External Rotation 4 Good Internal Rotation 4 Good Left Flexion 4+ Good+ Abduction (C5) 4+ Good+ External Rotation 4+ Good+ Internal Rotation 4+ Good+ Elbow/Forearm Strength Elbow and Forearm Manual Muscle Testing Right Flexion (C6) 4+ Good+ Extension (C7) 4+ Good+ Left Flexion (C6) 4+ Good+ Extension (C7) 4+ Good+ Wrist Strength Wrist Manual Muscle Testing Right Flexion (C7) 4- Good- Extension (C6) 4 Good Comments mild pain w/ flex and ext fingers: 4/5, no significant difference between sides Left Flexion (C7) 4+ Good+ Extension (C6) 4+ Good+ PT-OP-Q Treatments Start: 04/06/24 07:29 Freq: Status: Active Protocol: Document 05/22/24 09:48 NM (Rec: 05/22/24 10:32 NM [id number]) Therapeutic Exercises Prone Exercises periscapulars Prone Exercise Name ITW Side bilateral Equipment Used 65 cm ball Reps/Minutes 10x2 ea Comments neutral spine; inc symptoms w/ T in 4/5 finger Sitting Exercises cervical retraction Sitting Exercise Name for form Side bilateral Reps/Minutes 10x2 Comments visual and verbal cues for neutral head position cervical spine stretches Sitting Exercise Name 1. SCM/scalenes, 2. LS w/ overpressure, 3. UT Side right Equipment Used L assist R Reps/Minutes 10x5 ea Comments no increase in symptoms Other Exercises quadruped Other Exercise Name 1. thread needle, 2. thoracic extension Side bilateral Equipment Used mat on floor, 65 cm dominican ball Reps/Minutes 1. 10x5 ea side, 2. 5x10 ( inc N/T w/ shldr flex) Comments R am harder to stabilize, reports feels worse but not pain mobilization with movement Other Exercise Name pec mobilization w/ movement Side bilateral Equipment Used theracane Reps/Minutes 2 minutes Manual Therapy Treatment Consent Patient gave verbal consent for manual Yes treatment Soft Tissue Mobilization R rotator cuff Body Location supraspinatus, infraspinatus, teres, subscap border, lat Mobilization Type Myofascial Release,Rolling, Trigger Point Release Intensity/Depth Moderate Body Position Sidelying Comments Reduced symptoms with soft tissue mobilization. Trigger point at teres/lat/subscap that is reduced with mobilization thoracic spine/chest Body Location B pec Mobilization Type Rolling,Sustained Pressure Intensity/Depth Moderate Body Position Prone Comments Increased tightness R pec. Palpable reduction at pec following soft tissue mobilization cervical spine Body Location B paraspinals, LS, UT, scalenes, SCM Mobilization Type Rolling,Sustained Pressure, Other Intensity/Depth Moderate Body Position Hooklying,sitting Comments R still more tight/restricted than L, reduction with mobilization. 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 and small rolling for scalenes PT-OP-R Modalities Start: 04/06/24 07:29 Freq: Status: Active Protocol: Document 05/11/24 08:15 NM (Rec: 05/11/24 07:28 NM [id number]) Spinal Traction Traction Treatment Cervical Traction Treatment Comment Pt performing at home; not today in session PT-OP-T Assessment and Plan Start: 04/06/24 07:29 Freq: Status: Active Protocol: Document 05/22/24 09:48 NM (Rec: 05/22/24 10:32 NM [id number]) Physical Therapy Assessment Goals Five Impairment reports currently 50% impaired with work tasks Short Term Goal (STG) Pt will be educated on good ergonomic positioning and work tools in order to improve posture and body mechanics for better symptom management 05/05/24: pt provided handout for ergonomics in previous sessions, currently states 31. 3% impaired at work ( improvement since evaluation) STG Duration 4 weeks MET Senior Living Goal (LTG) Pt will report that she is less than 25% impaired with work-related tasks in order to demonstrate improved symptom management, activity tolerance , and QOL 05/05/24- PROGRESSING: pt reports 31.3% impaired at work LTG Duration 12 weeks Four Impairment sleeping Short Term Goal (STG) Pt will report that she is waking once or fewer times per night due to symptoms in R hand in order to demonstrate improved symptom management and QOL 05/05/24: not waking up at night due to symptoms STG Duration 8 weeks Social Service Coordinator Goal (LTG) Pt will report that she is waking fewer than 2x/wk due to symptoms in R hand in order to demonstrate improved symptom management and QOL 05/05/24: not waking up at night due to symptoms LTG Duration 12 weeks MET Three Impairment ROM: R wrist flexion 50 deg Short Term Goal (STG) Pt will improve R wrist flexion to at least 60 deg in order to demonstrate improved ROM for pericare, if appropriate STG Duration 6 weeks Social Service Coordinator Goal (LTG) Pt will improve R wrist flexion to at least 70 deg in order to demonstrate improved ROM for pericare or typing, if appropriate LTG Duration 12 weeks Two Impairment ROM: R cervical spine rotation 70 deg Senior Living Goal (LTG) Pt will improve R cervical spine rotation >80 deg or within 5 deg of L cervical spine rotation in order to improve visual scanning and demonstrate improved soft tissue length 05/05/24: 80 deg B rotation LTG Duration 12 weeks MET One Impairment QOL/activity tolerance: quickdash 56.8% impairment Short Term Goal (STG) Pt will decrease quickdash impairment by at least 11% (1 MCID) in order to demonstrate improved symptom management and QOL 05/05/24- NOT MET: 34 or 52.3%; work module 31.3% STG Duration 8 weeks Social Service Coordinator Goal (LTG) Pt will report <25% impairment on quickdash due to pain or numbness/tingling in R hand/ wrist or neck in order to demonstrate improved symptom management, activity tolerance and QOL LTG Duration 12 weeks Assessment Summary Assessment Pt tolerated session well but reports increase in numbness or tingling with prone T and shoulder flexion at end range; however, resolved once out of position for exercise. Initiated gentle periscapular strengthening to improve periscapular activation to improve scapular positioning and to support cervical spine. Still demonstrates increased tightness of R cervical paraspinals, affecting thoracic outlet. No symptoms with stretching, good response with fewer reps using mobilization vs sustained hold . At end of session, pt reports less tingling and numbness in R hand. Pt would benefit from skilled PT to improve flexibility and strength in order to improve symptom management Physical Therapy Plan Frequency and Duration Frequency of Treatment 2x/Week Duration of treatment (weeks) 12 Plan of Care Start Date 04/06/24 Plan of Care End Date 07/06/24 Therapeutic Interventions Therapeutic Interventions Canalithic Repositioning,Gait Training,Home Exercise Program ,Joint Mobilizations,Manual Therapy,Neuromuscular Re- education,Orthotic/Prosthetic Management,Patient/Caregiver Education,Self-Care/Home Management,Sensory Integration ,Soft Tissue Mobilization, Taping,Therapeutic Activities, Therapeutic Exercises Modalities Cold Pack/Ice Massage,Electric Stimulation,Hot Packs, Traction- Mechanical, Ultrasound Other Referrals/Consults Referrals/Consults Recommended Pt would benefit from a MRI of her cervical spine Next Visit Focus/Plan Next Note Type Treatment Note Next Visit Plan ask about MRI results. Assess carlos a to stretching. Retrial wall walks, flex + ER with retraction Trial flexion + ER in standing at wall; trial wall w/ median n glide; snow ann marie w/ band, prone pull up From POC: Upglides and lateral glides, STM as needed, resisted retraction row and low row w/ band, scapular clock, flex with ER in supine, periscapulars Next: scalenes, UT, LS, SCM as needed; scapular mobility > rows and low rows Continue with manual therapy: STM, cervical spine mobilizations grade II-III
--- NOTE | 2024-05-25 12:54 | PT.OTN ---
Current Diagnoses Stiffness of right wrist, not elsewhere classified (05/25/24) Radiculopathy, cervical region (05/25/24) Weakness (05/25/24) Physical Therapy Treatment Note PT-OP-A Visit Information Start: 04/06/24 07:29 Freq: Status: Active Protocol: Document 05/25/24 09:46 NM (Rec: 05/25/24 10:33 NM [id number]) Out-Patient Physical Therapy Visit Information Visit Information Visit Type Treatment Note Visit Note 12/21 after PN Visit Start Time 09:47 Visit Stop Time 10:31 Visit Number 13 Evaluation Information Evaluation Date 04/06/24 Precautions Precautions neck pain and median nerve PT-OP-B Current Condition Start: 04/06/24 07:29 Freq: Status: Active Protocol: Document 04/06/24 14:33 NM (Rec: 04/06/24 16:15 NM [id number]) Current Condition History of Current Condition Onset Date Mother's day 2023 Current Complaints pain, numbness and tingling History of Current Condition Pt reports that she has cervical radiculopathy. She was seen January-February because entire R arm went numb and 10/ [address] Brown who referred her to PT. Over the past 2 months . She nows has pain only in the R hand vs no longer has the radiation. Pt reports that her condition started in November, when she started to experience numbness in her hand. She sleeps with her arms elevated on both sides. On Mother's day, she did a lot of excavating/moving yard work. The following Wednesday, she had pain; unable to type. Prescribed prednisone and muscle relaxers; steroid helped with symptoms. She only uses muscle relaxers occasionally, causes depression. Primarily felt in thumb and fingers 2-3. Feels like numbness/tingling, worse w/ hospice administrator. She also had a minor whiplash event 2 weekends ago when dog pulled on leash, so now L sided pain; now longer as stiffness. Day before mothers' day, she walked several miles in her backpack, which is originally when the arm numbness began but was managable. She shakes her hands, wakes up at night. Denies weakness but states difficulty with fine motor. 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 Pt reports that the stretching feels amazing, states that if the numbness and tingling occurs, then reduces time. PT-OP-F Manual Assessment Start: 04/06/24 07:29 Freq: Status: Active Protocol: Document 04/06/24 14:33 NM (Rec: 04/06/24 16:15 NM [id number]) Manual Assessments Soft Tissue Assessment Soft Tissue Mobility Assessment Increased soft tissue restrictions of cervical paraspinals, chest and periscapulars, wrist extensors . R medial scapular border 7 cm, L medial scapular border 8 cm Joint Mobility Assessment Joint Mobility Assessment Hypomobility of cervical spine with lateral gliding, especially L>R PT-OP-G Mobility & Gait Start: 04/06/24 07:29 Freq: Status: Active Protocol: Document 04/06/24 14:33 NM (Rec: 04/06/24 16:15 NM [id number]) OP Gait Assessment Gait Gait Assistance Required: Independent Distance (Feet) 150 Comments Gait Comments Stiff gait with limited trunk rotation and arm swing. R shoulder is more elevated. No widebased or ataxic gait, no LOB PT-OP-H Neuro Start: 04/06/24 07:29 Freq: Status: Active Protocol: Document 04/10/24 07:31 NM (Rec: 04/10/24 09:41 NM [id number]) Sensation Evaluation Comments Summary Comments BUE equally intact to light touch sensation PT-OP-J Posture/Palpation/Skin Start: 04/06/24 07:29 Freq: Status: Active Protocol: Document 04/06/24 14:33 NM (Rec: 04/06/24 16:15 NM [id number]) Posture Evaluation Position Standing Head/C-Spine Posture Forward Head Shoulder Posture (L) Rounded,(R) Rounded,(L) Forward,(R) Forward,(R) Elevated Scapula Posture (R) Rotated Up,(R) Elevated,(R ) Tipped Arm Posture (L) Externally Rotated,(R) Externally Rotated Pelvis Posture Anteriorly Tilted Weight Distribution Balanced Palpation Assessment Location R wrist/hand Palpation Details Tightness of wrist extensors Pain with gripping and wrist flexion cervical spine Palpation Findings Soft Tissue Tightness Palpation Details Moderate tightness of paraspinals, pectoralis, lat, levator scapula, upper trapezius, scalenes, suboccipitals Skin Assessment Other Assessments Skin Assessment Comments No R wrist swellin cm ea PT-OP-K Range of Motion Start: 04/06/24 07:29 Freq: Status: Active Protocol: Document 05/05/24 11:19 NM (Rec: 05/05/24 11:54 NM [id number]) Cervical Spine Range of Motion Cervical Spine Active Degrees Flexion 60 Extension 45 Rotation Left 84 Rotation Right 70 Lateral Flexion Left 40 Lateral Flexion Right 40 ROM Limitations Soft Tissue Tightness Comments pain on L side with ext and flex 05/05/24: 80 deg rot B, 45 deg L LF, 25 deg R LF, 55 deg ext, 60 deg flex Shoulder Goniometric Range of Motion Shoulder Right Flexion 150 Abduction 150 External Rotation at 0 degrees Abduction 70 Internal Rotation Behind Back (text) T10 Comments T4 for apley ER 05/05/24: 153 deg abd, 165 deg flexion PT-OP-L Special Tests Start: 04/06/24 07:29 Freq: Status: Active Protocol: Document 04/10/24 07:31 NM (Rec: 04/10/24 09:41 NM [id number]) Special Tests Cervical Spine Special Tests Vertebral Artery Test Results - Comments intact cranial n, no abnormal palpation/auscultation of carotid a Shoulder Abduction Relief Test Test Results + Comments neural symptom relief with passive arm ABD on head ULTT Test Results median n Comments better w/ depression; pain also w/ ulnar n test position but no symptoms Distraction Test Results + Comments symptom resolved Spurling's Test Results + Comments local only on L PT-OP-M Strength Start: 04/06/24 07:29 Freq: Status: Active Protocol: Document 04/06/24 14:33 NM (Rec: 04/06/24 16:15 NM [id number]) Cervical Spine Strength Cervical Spine Manual Muscle Testing Flexion (C1-2) 4+ Good+ Extension 4+ Good+ Rotation Left 4+ Good+ Rotation Right 4+ Good+ Lateral Flexion Left (C3) 4+ Good+ Lateral Flexion Right (C3) 4+ Good+ Comments no pain or symptom reproduction Shoulder Strength Shoulder Manual Muscle Testing Right Flexion 4+ Good+ Abduction (C5) 4 Good External Rotation 4 Good Internal Rotation 4 Good Left Flexion 4+ Good+ Abduction (C5) 4+ Good+ External Rotation 4+ Good+ Internal Rotation 4+ Good+ Elbow/Forearm Strength Elbow and Forearm Manual Muscle Testing Right Flexion (C6) 4+ Good+ Extension (C7) 4+ Good+ Left Flexion (C6) 4+ Good+ Extension (C7) 4+ Good+ Wrist Strength Wrist Manual Muscle Testing Right Flexion (C7) 4- Good- Extension (C6) 4 Good Comments mild pain w/ flex and ext fingers: 4/5, no significant difference between sides Left Flexion (C7) 4+ Good+ Extension (C6) 4+ Good+ PT-OP-Q Treatments Start: 04/06/24 07:29 Freq: Status: Active Protocol: Document 05/25/24 09:46 NM (Rec: 05/25/24 10:33 NM [id number]) Therapeutic Exercises Supine Exercises 6 foam roller exercises Supine Exercise Name 1. thoracic ext w/ flex Y, 2. snow ann marie, 3. PNF HABD w/ ER, 4. ER 90/90 Side bilateral Resistance level 1 band Reps/Minutes 1. 15, 2. 10, 3. 10, 4. 15 Comments reduction in symptoms; post manual tx, just below 90 deg abd median nerve glide Supine Exercise Name on foam roller: 1. median n, 2 . ulnar n. Side bilateral Reps/Minutes 10 ea Comments reports no inc in symptoms Sidelying Exercises sleeper stretch Side right Reps/Minutes 5x5 Comments reports good stretch, slight inc in neural symptoms Manual Therapy Treatment Consent Patient gave verbal consent for manual Yes treatment Soft Tissue Mobilization R rotator cuff Body Location supraspinatus, infraspinatus, teres, subscap border, lat Mobilization Type Myofascial Release,Rolling, Trigger Point Release Intensity/Depth Moderate Body Position Sidelying Comments Reduced symptoms with soft tissue mobilization. Fewertigger point at teres/lat /subscap thoracic spine/chest Body Location B pec Mobilization Type Rolling,Sustained Pressure Intensity/Depth Moderate Body Position Prone Comments Increased tightness R pec. Palpable reduction at pec following soft tissue mobilization cervical spine Body Location B paraspinals, LS, UT, scalenes, SCM Mobilization Type Rolling,Sustained Pressure, Other Intensity/Depth Moderate Body Position Hooklying,sitting Comments R still more tight/restricted than L, reduction with mobilization. Less tension in LS and UT Performed with manual stretching, 2x30 ea. Pt reports most decrease in symptoms w/ cervical flexion, L rot and shoulder depression Joint Mobilizations 1st rib Joint R Direction caudal Grade III Body Position Sitting Reps/Duration 10 ea Comments Less elevated today. Performed with breathing and small shoulder shrug elevation cervical spine Joint C4-C7 Direction upglide, lateral glide L Grade III Body Position Prone Reps/Duration 4x30 ea Comments Monitored for pain, reports improvement in symptoms in R hand Manual Traction cervical spine Body Position Supine Reps/Duration 2x30 Comments Gentle traction, reports reduction in numbness PT-OP-R Modalities Start: 04/06/24 07:29 Freq: Status: Active Protocol: Document 05/25/24 09:46 NM (Rec: 05/25/24 10:33 NM [id number]) Spinal Traction Traction Treatment Cervical Method Mechanical,Static Patient Position Hooklying Force Applied (Pounds) 20 Heating Pad Applied No Traction Treatment Comment 8 minutes: Traction with cervical flexion bias. pt monitored by PT throughout, reyes within reach. PT-OP-T Assessment and Plan Start: 04/06/24 07:29 Freq: Status: Active Protocol: Document 05/25/24 09:46 NM (Rec: 05/25/24 10:33 NM [id number]) Physical Therapy Assessment Goals Five Impairment reports currently 50% impaired with work tasks Short Term Goal (STG) Pt will be educated on good ergonomic positioning and work tools in order to improve posture and body mechanics for better symptom management 05/05/24: pt provided handout for ergonomics in previous sessions, currently states 31. 3% impaired at work ( improvement since evaluation) STG Duration 4 weeks MET Longterm Goal (LTG) Pt will report that she is less than 25% impaired with work-related tasks in order to demonstrate improved symptom management, activity tolerance , and QOL 05/05/24- PROGRESSING: pt reports 31.3% impaired at work LTG Duration 12 weeks Four Impairment sleeping Short Term Goal (STG) Pt will report that she is waking once or fewer times per night due to symptoms in R hand in order to demonstrate improved symptom management and QOL 05/05/24: not waking up at night due to symptoms STG Duration 8 weeks 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) Pt will report that she is waking fewer than 2x/wk due to symptoms in R hand in order to demonstrate improved symptom management and QOL 05/05/24: not waking up at night due to symptoms LTG Duration 12 weeks MET Three Impairment ROM: R wrist flexion 50 deg Short Term Goal (STG) Pt will improve R wrist flexion to at least 60 deg in order to demonstrate improved ROM for pericare, if appropriate STG Duration 6 weeks Longterm Goal (LTG) Pt will improve R wrist flexion to at least 70 deg in order to demonstrate improved ROM for pericare or typing, if appropriate LTG Duration 12 weeks Two Impairment ROM: R cervical spine rotation 70 deg Longterm Goal (LTG) Pt will improve R cervical spine rotation >80 deg or within 5 deg of L cervical spine rotation in order to improve visual scanning and demonstrate improved soft tissue length 05/05/24: 80 deg B rotation LTG Duration 12 weeks MET One Impairment QOL/activity tolerance: quickdash 56.8% impairment Short Term Goal (STG) Pt will decrease quickdash impairment by at least 11% (1 MCID) in order to demonstrate improved symptom management and QOL 05/05/24- NOT MET: 34 or 52.3%; work module 31.3% STG Duration 8 weeks Longterm Goal (LTG) Pt will report <25% impairment on quickdash due to pain or numbness/tingling in R hand/ wrist or neck in order to demonstrate improved symptom management, activity tolerance and QOL LTG Duration 12 weeks Assessment Summary Assessment Pt has MRI results but has not discussed yet with doctor, planning to make an appt. Pt tolerated session well. Has increased symptoms with shoulder IR/adduction. Pt reports significant reduction in symptoms during manual therapy when positioned into cervical flexion, L rotation, and R shoulder depression during stretching. Continues to have good response to cervical spine stretches. No symptom increase with neural glides. However, still limited at wrist with flexion. Pt reports mild reduction in symptoms at end of session. Pt would benefit from skilled PT for improved cervical spine and RUE flexibility and symptom management. Physical Therapy Plan Frequency and Duration Frequency of Treatment 2x/Week Duration of treatment (weeks) 12 Plan of Care Start Date 04/06/24 Plan of Care End Date 07/06/24 Therapeutic Interventions Therapeutic Interventions Canalithic Repositioning,Gait Training,Home Exercise Program ,Joint Mobilizations,Manual Therapy,Neuromuscular Re- education,Orthotic/Prosthetic Management,Patient/Caregiver Education,Self-Care/Home Management,Sensory Integration ,Soft Tissue Mobilization, Taping,Therapeutic Activities, Therapeutic Exercises Modalities Cold Pack/Ice Massage,Electric Stimulation,Hot Packs, Traction- Mechanical, Ultrasound Other Referrals/Consults Referrals/Consults Recommended Pt would benefit from a MRI of her cervical spine Next Visit Focus/Plan Next Note Type Treatment Note Next Visit Plan ask about MRI results aj BEAL. Retral nerve glides in standing, address wrist flexion (trial stretches again ). Lat stretch. Trial flexion + ER in standing at wall; trial wall w/ median n glide; snow ann marie w/ band, prone pull up From POC: Upglides and lateral glides, STM as needed, resisted retraction row and low row w/ band, scapular clock, flex with ER in supine, periscapulars Next: scalenes, UT, LS, SCM as needed; scapular mobility > rows and low rows Continue with manual therapy: STM, cervical spine mobilizations grade II-III
--- NOTE | 2024-05-29 12:46 | PT.OTN ---
Current Diagnoses Stiffness of right wrist, not elsewhere classified (05/29/24) Radiculopathy, cervical region (05/29/24) Weakness (05/29/24) Physical Therapy Treatment Note PT-OP-A Visit Information Start: 04/06/24 07:29 Freq: Status: Active Protocol: Document 05/29/24 09:49 NM (Rec: 05/29/24 10:32 NM [id number]) Out-Patient Physical Therapy Visit Information Visit Information Visit Type Treatment Note Visit Note 510 after PN Visit Start Time 09:50 Visit Stop Time 10:28 Visit Number 14 Evaluation Information Evaluation Date 04/06/24 Precautions Precautions neck pain and median nerve PT-OP-B Current Condition Start: 04/06/24 07:29 Freq: Status: Active Protocol: Document 04/06/24 14:33 NM (Rec: 04/06/24 16:15 NM [id number]) Current Condition History of Current Condition Onset Date Mother's day 2023 Current Complaints pain, numbness and tingling History of Current Condition Pt reports that she has cervical radiculopathy. She was seen January-February because entire R arm went numb and 10/ [address] Brown who referred her to PT. Over the past 2 months . She nows has pain only in the R hand vs no longer has the radiation. Pt reports that her condition started in November, when she started to experience numbness in her hand. She sleeps with her arms elevated on both sides. On Mother's day, she did a lot of excavating/moving yard work. The following Wednesday, she had pain; unable to type. Prescribed prednisone and muscle relaxers; steroid helped with symptoms. She only uses muscle relaxers occasionally, causes depression. Primarily felt in thumb and fingers 2-3. 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 She also had a minor whiplash event 2 weekends ago when dog pulled on leash, so now L sided pain; now longer as stiffness. Day before mothers' day, she walked several miles in her backpack, which is originally when the arm numbness began but was managable. She shakes her hands, wakes up at night. Denies weakness but states difficulty with fine motor. 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 States tried new pillow for last 2 nights. Has tried a traction pillow, reports that feels better than traction machine. States that numbness and tingling is less, states in first 3 fingers but minimally in the last two. Brought HEP to condense ( states doing foam roller, CS isometrics, stretches) PT-OP-F Manual Assessment Start: 04/06/24 07:29 Freq: Status: Active Protocol: Document 04/06/24 14:33 NM (Rec: 04/06/24 16:15 NM [id number]) Manual Assessments Soft Tissue Assessment Soft Tissue Mobility Assessment Increased soft tissue restrictions of cervical paraspinals, chest and periscapulars, wrist extensors . R medial scapular border 7 cm, L medial scapular border 8 cm Joint Mobility Assessment Joint Mobility Assessment Hypomobility of cervical spine with lateral gliding, especially L>R PT-OP-G Mobility & Gait Start: 04/06/24 07:29 Freq: Status: Active Protocol: Document 04/06/24 14:33 NM (Rec: 04/06/24 16:15 NM [id number]) OP Gait Assessment Gait Gait Assistance Required: Independent Distance (Feet) 150 Comments Gait Comments Stiff gait with limited trunk rotation and arm swing. R shoulder is more elevated. No widebased or ataxic gait, no LOB PT-OP-H Neuro Start: 04/06/24 07:29 Freq: Status: Active Protocol: Document 04/10/24 07:31 NM (Rec: 04/10/24 09:41 NM [id number]) Sensation Evaluation Comments Summary Comments BUE equally intact to light touch sensation PT-OP-J Posture/Palpation/Skin Start: 04/06/24 07:29 Freq: Status: Active Protocol: Document 04/06/24 14:33 NM (Rec: 04/06/24 16:15 NM [id number]) Posture Evaluation Position Standing Head/C-Spine Posture Forward Head Shoulder Posture (L) Rounded,(R) Rounded,(L) Forward,(R) Forward,(R) Elevated Scapula Posture (R) Rotated Up,(R) Elevated,(R ) Tipped Arm Posture (L) Externally Rotated,(R) Externally Rotated Pelvis Posture Anteriorly Tilted Weight Distribution Balanced Palpation Assessment Location R wrist/hand Palpation Details Tightness of wrist extensors Pain with gripping and wrist flexion cervical spine Palpation Findings Soft Tissue Tightness Palpation Details Moderate tightness of paraspinals, pectoralis, lat, levator scapula, upper trapezius, scalenes, suboccipitals Skin Assessment Other Assessments Skin Assessment Comments No R wrist swellin cm ea PT-OP-K Range of Motion Start: 04/06/24 07:29 Freq: Status: Active Protocol: Document 05/05/24 11:19 NM (Rec: 05/05/24 11:54 NM [id number]) Cervical Spine Range of Motion Cervical Spine Active Degrees Flexion 60 Extension 45 Rotation Left 84 Rotation Right 70 Lateral Flexion Left 40 Lateral Flexion Right 40 ROM Limitations Soft Tissue Tightness Comments pain on L side with ext and flex 05/05/24: 80 deg rot B, 45 deg L LF, 25 deg R LF, 55 deg ext, 60 deg flex Shoulder Goniometric Range of Motion Shoulder Right Flexion 150 Abduction 150 External Rotation at 0 degrees Abduction 70 Internal Rotation Behind Back (text) T10 Comments T4 for apley ER 05/05/24: 153 deg abd, 165 deg flexion PT-OP-L Special Tests Start: 04/06/24 07:29 Freq: Status: Active Protocol: Document 04/10/24 07:31 NM (Rec: 04/10/24 09:41 NM [id number]) Special Tests Cervical Spine Special Tests Vertebral Artery Test Results - Comments intact cranial n, no abnormal palpation/auscultation of carotid a Shoulder Abduction Relief Test Test Results + Comments neural symptom relief with passive arm ABD on head ULTT Test Results median n Comments better w/ depression; pain also w/ ulnar n test position but no symptoms Distraction Test Results + Comments symptom resolved Spurling's Test Results + Comments local only on L PT-OP-M Strength Start: 04/06/24 07:29 Freq: Status: Active Protocol: Document 04/06/24 14:33 NM (Rec: 04/06/24 16:15 NM [id number]) Cervical Spine Strength Cervical Spine Manual Muscle Testing Flexion (C1-2) 4+ Good+ Extension 4+ Good+ Rotation Left 4+ Good+ Rotation Right 4+ Good+ Lateral Flexion Left (C3) 4+ Good+ Lateral Flexion Right (C3) 4+ Good+ Comments no pain or symptom reproduction Shoulder Strength Shoulder Manual Muscle Testing Right Flexion 4+ Good+ Abduction (C5) 4 Good External Rotation 4 Good Internal Rotation 4 Good Left Flexion 4+ Good+ Abduction (C5) 4+ Good+ External Rotation 4+ Good+ Internal Rotation 4+ Good+ Elbow/Forearm Strength Elbow and Forearm Manual Muscle Testing Right Flexion (C6) 4+ Good+ Extension (C7) 4+ Good+ Left Flexion (C6) 4+ Good+ Extension (C7) 4+ Good+ Wrist Strength Wrist Manual Muscle Testing Right Flexion (C7) 4- Good- Extension (C6) 4 Good Comments mild pain w/ flex and ext fingers: 4/5, no significant difference between sides Left Flexion (C7) 4+ Good+ Extension (C6) 4+ Good+ PT-OP-Q Treatments Start: 04/06/24 07:29 Freq: Status: Active Protocol: Document 05/29/24 09:49 NM (Rec: 05/29/24 10:32 NM [id number]) Therapeutic Exercises Prone Exercises periscapulars Prone Exercise Name Y<>W lift off Side bilateral Equipment Used plinth, towel by face Reps/Minutes 10 Comments no symptom increase Sitting Exercises wrist/finger ext Side right Equipment Used rubber band Reps/Minutes 15 ea Ext/Flex stretch Sitting Exercise Name Retrialed in PT: 1. wrist flex stretch, 2. wrist ext stretch Side right Equipment Used elbow flexed to reduce tension Reps/Minutes 10x5 hold ea Comments mild increase w/ wrist flex in first 3 fingers Other Exercises quadruped Other Exercise Name 1. CS retraction, 2. CS retraction + rot, 3. Child pose w/ foam roller Side bilateral Reps/Minutes 1. 15, 2. 15, 3. 10x5 Manual Therapy Treatment Consent Patient gave verbal consent for manual Yes treatment Soft Tissue Mobilization R rotator cuff Body Location supraspinatus, infraspinatus, teres, subscap border, lat Mobilization Type Myofascial Release,Rolling, Trigger Point Release Intensity/Depth Moderate Body Position Sidelying Comments Reduced symptoms with soft tissue mobilization. No trigger points today R hand/forearm Body Location wrist flexors Mobilization Type Rolling,Other Intensity/Depth Superficial Body Position Supine Comments Performed with fanning over carpal tunnel. No increase in symptoms, Feels good cervical spine Body Location B paraspinals, LS, UT, scalenes, SCM Mobilization Type Rolling,Sustained Pressure, Other Intensity/Depth Moderate Body Position Hooklying,sitting Comments R still more tight/restricted than L, reduction with mobilization. Less tension in LS and UT Performed with manual stretching, 2x30 ea. Pt reports most decrease in symptoms w/ cervical flexion, L rot and shoulder depression Joint Mobilizations R wrist Joint carpal Direction dorsal/volar Grade II Body Position Supine Reps/Duration 10 ea Comments Monitored for symptoms, emphasis on promoting flexion and extension. Reports no increase in symptoms or wrist pain 1st rib Joint R Direction caudal Grade III Body Position Sitting Reps/Duration 10 ea Comments Less elevated today. Performed with breathing and small shoulder shrug elevation cervical spine Joint C4-C7 Direction upglide, lateral glide L with rotation Grade III Body Position Prone Reps/Duration 4x30 ea Comments Monitored for pain, reports improvement in symptoms in R hand Manual Traction cervical spine Body Position Supine Reps/Duration 2x30 Comments Gentle traction, reports reduction in numbness PT-OP-R Modalities Start: 04/06/24 07:29 Freq: Status: Active Protocol: Document 05/25/24 09:46 NM (Rec: 05/25/24 10:33 NM [id number]) Spinal Traction Traction Treatment Cervical Method Mechanical,Static Patient Position Hooklying Force Applied (Pounds) 20 Heating Pad Applied No Traction Treatment Comment 8 minutes: Traction with cervical flexion bias. pt monitored by PT throughout, reyes within reach. PT-OP-T Assessment and Plan Start: 04/06/24 07:29 Freq: Status: Active Protocol: Document 05/29/24 09:49 NM (Rec: 05/29/24 10:32 NM [id number]) Physical Therapy Assessment Goals Five Impairment reports currently 50% impaired with work tasks Short Term Goal (STG) Pt will be educated on good ergonomic positioning and work tools in order to improve posture and body mechanics for better symptom management 05/05/24: pt provided handout for ergonomics in previous sessions, currently states 31. 3% impaired at work ( improvement since evaluation) STG Duration 4 weeks MET Soils Analyst Goal (LTG) Pt will report that she is less than 25% impaired with work-related tasks in order to demonstrate improved symptom management, activity tolerance , and QOL 05/05/24- PROGRESSING: pt reports 31.3% impaired at work LTG Duration 12 weeks Four Impairment sleeping Short Term Goal (STG) Pt will report that she is waking once or fewer times per night due to symptoms in R hand in order to demonstrate improved symptom management and QOL 05/05/24: not waking up at night due to symptoms STG Duration 8 weeks Soils Analyst Goal (LTG) Pt will report that she is waking fewer than 2x/wk due to symptoms in R hand in order to demonstrate improved symptom management and QOL 05/05/24: not waking up at night due to symptoms LTG Duration 12 weeks MET Three Impairment ROM: R wrist flexion 50 deg Short Term Goal (STG) Pt will improve R wrist flexion to at least 60 deg in order to demonstrate improved ROM for pericare, if appropriate STG Duration 6 weeks Soils Analyst Goal (LTG) Pt will improve R wrist flexion to at least 70 deg in order to demonstrate improved ROM for pericare or typing, if appropriate LTG Duration 12 weeks Two Impairment ROM: R cervical spine rotation 70 deg Soils Analyst Goal (LTG) Pt will improve R cervical spine rotation >80 deg or within 5 deg of L cervical spine rotation in order to improve visual scanning and demonstrate improved soft tissue length 05/05/24: 80 deg B rotation LTG Duration 12 weeks MET One Impairment QOL/activity tolerance: quickdash 56.8% impairment Short Term Goal (STG) Pt will decrease quickdash impairment by at least 11% (1 MCID) in order to demonstrate improved symptom management and QOL 05/05/24- NOT MET: 34 or 52.3%; work module 31.3% STG Duration 8 weeks M[facility] Goal (LTG) Pt will report <25% impairment on quickdash due to pain or numbness/tingling in R hand/ wrist or neck in order to demonstrate improved symptom management, activity tolerance and QOL LTG Duration 12 weeks Assessment Summary Assessment Pt tolerated session well with only mild increase in symptoms following wrist flexion, reports overall that she has less numbness/tingling into R hand today than previously. Trialed wrist stretching and gentle wrist extension strengthening to offload carpal tunnel symptoms . Emphasis on continued cervical spine and trunk elongation. Pt has better feedback for prone periscapular strengthening today. Continues to have best response to cervical traction manually. Pt would benefit from skilled PT for symptom management and to improve activity tolerance. Physical Therapy Plan Frequency and Duration Frequency of Treatment 2x/Week Duration of treatment (weeks) 12 Plan of Care Start Date 04/06/24 Plan of Care End Date 07/06/24 Therapeutic Interventions Therapeutic Interventions Canalithic Repositioning,Gait Training,Home Exercise Program ,Joint Mobilizations,Manual Therapy,Neuromuscular Re- education,Orthotic/Prosthetic Management,Patient/Caregiver Education,Self-Care/Home Management,Sensory Integration ,Soft Tissue Mobilization, Taping,Therapeutic Activities, Therapeutic Exercises Modalities Cold Pack/Ice Massage,Electric Stimulation,Hot Packs, Traction- Mechanical, Ultrasound Other Referrals/Consults Referrals/Consults Recommended Pt would benefit from a MRI of her cervical spine Next Visit Focus/Plan Next Note Type Treatment Note Next Visit Plan ask about MRI results wCatarino RIVERA Retrial nerve glides in standing. Ask about tolerance for wrist stretch/wrist ext w/ band. If ok, trial tendon glide in R hand and add wrist stretch to HEP. Quadruped and prone YW (add dowel). Trial flexion + ER in standing at wall; wall w/ median n glide; snow ann marie w/ band w/i limited ROM From POC: Upglides and lateral glides, STM as needed, resisted retraction row and low row w/ band, scapular clock, flex with ER in supine, periscapulars Next: scalenes, UT, LS, SCM as needed; scapular mobility > rows and low rows w/ band ( increased reps/resistance) Continue with manual therapy: STM, cervical spine mobilizations grade II-III
--- NOTE | 2024-06-01 10:41 | PT.OTN ---
Current Diagnoses Stiffness of right wrist, not elsewhere classified (06/01/24) Radiculopathy, cervical region (06/01/24) Weakness (06/01/24) Physical Therapy Treatment Note PT-OP-A Visit Information Start: 04/06/24 07:29 Freq: Status: Active Protocol: Document 06/01/24 09:49 SW (Rec: 06/01/24 10:39 SW [id number]) Out-Patient Physical Therapy Visit Information Visit Information Visit Type Treatment Note Visit Note 02/20 Visit Start Time 09:47 Visit Stop Time 10:25 Visit Number 15 Number of NUTRITION PROGRAM INSTRUCTOR Visits 1 Precautions Precautions neck pain and median nerve PT-OP-B Current Condition Start: 04/06/24 07:29 Freq: Status: Active Protocol: Document 04/06/24 14:33 NM (Rec: 04/06/24 16:15 NM [id number]) Current Condition History of Current Condition Onset Date Mother's day 2023 Current Complaints pain, numbness and tingling History of Current Condition Pt reports that she has cervical radiculopathy. She was seen January-February because entire R arm went numb and 10/ [address] Brown who referred her to PT. Over the past 2 months . She nows has pain only in the R hand vs no longer has the radiation. Pt reports that her condition started in November, when she started to experience numbness in her hand. She sleeps with her arms elevated on both sides. On Mother's day, she did a lot of excavating/moving yard work. The following Wednesday, she had pain; unable to type. Prescribed prednisone and muscle relaxers; steroid helped with symptoms. She only uses muscle relaxers occasionally, causes depression. Primarily felt in thumb and fingers 2-3. Feels like numbness/tingling, worse w/ animal geneticist. She also had a minor whiplash event 2 weekends ago when dog pulled on leash, so now L sided pain; now longer as stiffness. Day before mothers' day, she walked several miles in her backpack, which is originally when the arm numbness began but was managable. She shakes her hands, wakes up at night. Denies weakness but states difficulty with fine motor. 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 Pt has not trialed new wrist ext exercises, due to another unrelated problem. PT-OP-F Manual Assessment Start: 04/06/24 07:29 Freq: Status: Active Protocol: Document 04/06/24 14:33 NM (Rec: 04/06/24 16:15 NM [id number]) Manual Assessments Soft Tissue Assessment Soft Tissue Mobility Assessment Increased soft tissue restrictions of cervical paraspinals, chest and periscapulars, wrist extensors . R medial scapular border 7 cm, L medial scapular border 8 cm Joint Mobility Assessment Joint Mobility Assessment Hypomobility of cervical spine with lateral gliding, especially L>R PT-OP-G Mobility & Gait Start: 04/06/24 07:29 Freq: Status: Active Protocol: Document 04/06/24 14:33 NM (Rec: 04/06/24 16:15 NM [id number]) OP Gait Assessment Gait Gait Assistance Required: Independent Distance (Feet) 150 Comments Gait Comments Stiff gait with limited trunk rotation and arm swing. R shoulder is more elevated. No widebased or ataxic gait, no LOB PT-OP-H Neuro Start: 04/06/24 07:29 Freq: Status: Active Protocol: Document 04/10/24 07:31 NM (Rec: 04/10/24 09:41 NM [id number]) Sensation Evaluation Comments Summary Comments BUE equally intact to light touch sensation PT-OP-J Posture/Palpation/Skin Start: 04/06/24 07:29 Freq: Status: Active Protocol: Document 04/06/24 14:33 NM (Rec: 04/06/24 16:15 NM [id number]) Posture Evaluation Position Standing Head/C-Spine Posture Forward Head Shoulder Posture (L) Rounded,(R) Rounded,(L) Forward,(R) Forward,(R) Elevated Scapula Posture (R) Rotated Up,(R) Elevated,(R ) Tipped Arm Posture (L) Externally Rotated,(R) Externally Rotated Pelvis Posture Anteriorly Tilted Weight Distribution Balanced Palpation Assessment Location R wrist/hand Palpation Details Tightness of wrist extensors Pain with gripping and wrist flexion cervical spine Palpation Findings Soft Tissue Tightness Palpation Details Moderate tightness of paraspinals, pectoralis, lat, levator scapula, upper trapezius, scalenes, suboccipitals Skin Assessment Other Assessments Skin Assessment Comments No R wrist swellin cm ea PT-OP-K Range of Motion Start: 04/06/24 07:29 Freq: Status: Active Protocol: Document 05/05/24 11:19 NM (Rec: 05/05/24 11:54 NM [id number]) Cervical Spine Range of Motion Cervical Spine Active Degrees Flexion 60 Extension 45 Rotation Left 84 Rotation Right 70 Lateral Flexion Left 40 Lateral Flexion Right 40 ROM Limitations Soft Tissue Tightness Comments pain on L side with ext and flex 05/05/24: 80 deg rot B, 45 deg L LF, 25 deg R LF, 55 deg ext, 60 deg flex Shoulder Goniometric Range of Motion Shoulder Right Flexion 150 Abduction 150 External Rotation at 0 degrees Abduction 70 Internal Rotation Behind Back (text) T10 Comments T4 for apley ER 05/05/24: 153 deg abd, 165 deg flexion PT-OP-L Special Tests Start: 04/06/24 07:29 Freq: Status: Active Protocol: Document 04/10/24 07:31 NM (Rec: 04/10/24 09:41 NM [id number]) Special Tests Cervical Spine Special Tests Vertebral Artery Test Results - Comments intact cranial n, no abnormal palpation/auscultation of carotid a Shoulder Abduction Relief Test Test Results + Comments neural symptom relief with passive arm ABD on head ULTT Test Results median n Comments better w/ depression; pain also w/ ulnar n test position but no symptoms Distraction Test Results + Comments symptom resolved Spurling's Test Results + Comments local only on L PT-OP-M Strength Start: 04/06/24 07:29 Freq: Status: Active Protocol: Document 04/06/24 14:33 NM (Rec: 04/06/24 16:15 NM [id number]) Cervical Spine Strength Cervical Spine Manual Muscle Testing Flexion (C1-2) 4+ Good+ Extension 4+ Good+ Rotation Left 4+ Good+ Rotation Right 4+ Good+ Lateral Flexion Left (C3) 4+ Good+ Lateral Flexion Right (C3) 4+ Good+ Comments no pain or symptom reproduction Shoulder Strength Shoulder Manual Muscle Testing Right Flexion 4+ Good+ Abduction (C5) 4 Good External Rotation 4 Good Internal Rotation 4 Good Left Flexion 4+ Good+ Abduction (C5) 4+ Good+ External Rotation 4+ Good+ Internal Rotation 4+ Good+ Elbow/Forearm Strength Elbow and Forearm Manual Muscle Testing Right Flexion (C6) 4+ Good+ Extension (C7) 4+ Good+ Left Flexion (C6) 4+ Good+ Extension (C7) 4+ Good+ Wrist Strength Wrist Manual Muscle Testing Right Flexion (C7) 4- Good- Extension (C6) 4 Good Comments mild pain w/ flex and ext fingers: 4/5, no significant difference between sides Left Flexion (C7) 4+ Good+ Extension (C6) 4+ Good+ PT-OP-Q Treatments Start: 04/06/24 07:29 Freq: Status: Active Protocol: Document 06/01/24 09:49 (Rec: 06/01/24 10:39 [id number]) Therapeutic Exercises Supine Exercises DNF activation Supine Exercise Name 1. chin tucks 2. head nods 3. cervical rotation Side bilateral Reps/Minutes 10 ea Prone Exercises periscapulars Prone Exercise Name Y<>W lift off Side bilateral Equipment Used plinth, towel by face Reps/Minutes 10 Comments no symptom increase Sitting Exercises wrist/finger ext Side right Equipment Used rubber band Reps/Minutes 15 ea cervical spine stretches Sitting Exercise Name 1. SCM/scalenes, 2. LS w/ overpressure, 3. UT Side right Equipment Used L assist R Reps/Minutes 10x5 ea Comments no increase in symptoms Ext/Flex stretch Sitting Exercise Name 1. wrist flex stretch, 2. wrist ext stretch Side right Equipment Used elbow flexed to reduce tension Reps/Minutes 10x5 hold ea Comments mild increase w/ wrist flex in thumb only Manual Therapy Treatment Consent Patient gave verbal consent for manual Yes treatment Soft Tissue Mobilization R rotator cuff Body Location supraspinatus, infraspinatus, teres, subscap border, lat Mobilization Type Myofascial Release,Rolling, Trigger Point Release Intensity/Depth Moderate Body Position Sidelying Comments Reduced symptoms with soft tissue mobilization. No trigger points today R hand/forearm Body Location wrist flexors Mobilization Type Rolling,Other Intensity/Depth Superficial Body Position Supine Comments Performed with fanning over carpal tunnel. No increase in symptoms, Feels good cervical spine Body Location B paraspinals, LS, UT, scalenes, SCM Mobilization Type Rolling,Sustained Pressure, Other Intensity/Depth Moderate Body Position Hooklying,sitting Comments R still more tight/restricted than L, reduction with mobilization. Less tension in LS and UT Performed with manual stretching, 2x30 ea. Pt reports most decrease in symptoms w/ cervical flexion, L rot and shoulder depression PT-OP-R Modalities Start: 04/06/24 07:29 Freq: Status: Active Protocol: Document 05/25/24 09:46 NM (Rec: 05/25/24 10:33 NM [id number]) Spinal Traction Traction Treatment Cervical Method Mechanical,Static Patient Position Hooklying Force Applied (Pounds) 20 Heating Pad Applied No Traction Treatment Comment 8 minutes: Traction with cervical flexion bias. pt monitored by PT throughout, reyse within reach. PT-OP-T Assessment and Plan Start: 04/06/24 07:29 Freq: Status: Active Protocol: Document 06/01/24 09:49 SW (Rec: 06/01/24 10:39 SW [id number]) Physical Therapy Assessment Goals Five Impairment reports currently 50% impaired with work tasks Short Term Goal (STG) Pt will be educated on good ergonomic positioning and work tools in order to improve posture and body mechanics for better symptom management 05/05/24: pt provided handout for ergonomics in previous sessions, currently states 31. 3% impaired at work ( improvement since evaluation) STG Duration 4 weeks MET [employer] Terminal Operator Goal (LTG) Pt will report that she is less than 25% impaired with work-related tasks in order to demonstrate improved symptom management, activity tolerance , and QOL 05/05/24- PROGRESSING: pt reports 31.3% impaired at work LTG Duration 12 weeks Four Impairment sleeping Short Term Goal (STG) Pt will report that she is waking once or fewer times per night due to symptoms in R hand in order to demonstrate improved symptom management and QOL 05/05/24: not waking up at night due to symptoms STG Duration 8 weeks Fpc Goal (LTG) Pt will report that she is waking fewer than 2x/wk due to symptoms in R hand in order to demonstrate improved symptom management and QOL 05/05/24: not waking up at night due to symptoms LTG Duration 12 weeks MET Three Impairment ROM: R wrist flexion 50 deg Short Term Goal (STG) Pt will improve R wrist flexion to at least 60 deg in order to demonstrate improved ROM for pericare, if appropriate STG Duration 6 weeks Fpc Goal (LTG) Pt will improve R wrist flexion to at least 70 deg in order to demonstrate improved ROM for pericare or typing, if appropriate LTG Duration 12 weeks Two Impairment ROM: R cervical spine rotation 70 deg [employer] Terminal Operator Goal (LTG) Pt will improve R cervical spine rotation >80 deg or within 5 deg of L cervical spine rotation in order to improve visual scanning and demonstrate improved soft tissue length 05/05/24: 80 deg B rotation LTG Duration 12 weeks MET One Impairment QOL/activity tolerance: quickdash 56.8% impairment Short Term Goal (STG) Pt will decrease quickdash impairment by at least 11% (1 MCID) in order to demonstrate improved symptom management and QOL 05/05/24- NOT MET: 34 or 52.3%; work module 31.3% STG Duration 8 weeks Fpc Goal (LTG) Pt will report <25% impairment on quickdash due to pain or numbness/tingling in R hand/ wrist or neck in order to demonstrate improved symptom management, activity tolerance and QOL LTG Duration 12 weeks Assessment Summary Assessment Pt had followup with provider yesterday for MRI results. Provider is recommending a referal to a neurologist for the stenosis in C4, C5, and C6 . Pt came to session today with flare up of symptoms, session focused on manual work for symptom reduction. Pt reported symptom relief post manual therapy. Some flare up reported with ther ex this session in base of thumb, ended session with cervical traction for pt comfort and symptom relief, good feedback with symptom reduction. Physical Therapy Plan Frequency and Duration Frequency of Treatment 2x/Week Duration of treatment (weeks) 12 Plan of Care Start Date 04/06/24 Plan of Care End Date 07/06/24 Therapeutic Interventions Therapeutic Interventions Canalithic Repositioning,Gait Training,Home Exercise Program ,Joint Mobilizations,Manual Therapy,Neuromuscular Re- education,Orthotic/Prosthetic Management,Patient/Caregiver Education,Self-Care/Home Management,Sensory Integration ,Soft Tissue Mobilization, Taping,Therapeutic Activities, Therapeutic Exercises Modalities Cold Pack/Ice Massage,Electric Stimulation,Hot Packs, Traction- Mechanical, Ultrasound Other Referrals/Consults Referrals/Consults Recommended Pt would benefit from a MRI of her cervical spine Next Visit Focus/Plan Next Note Type Treatment Note Next Visit Plan ask about MRI results wCatarino BEAL. Retrial nerve glides in standing. Ask about tolerance for wrist stretch/wrist ext w/ band. If ok, trial tendon glide in R hand and add wrist stretch to HEP. Quadruped and prone YW (add dowel). Trial flexion + ER in standing at wall; wall w/ median n glide; snow ann marie w/ band w/i limited ROM From POC: Upglides and lateral glides, STM as needed, resisted retraction row and low row w/ band, scapular clock, flex with ER in supine, periscapulars Next: scalenes, UT, LS, SCM as needed; scapular mobility > rows and low rows w/ band ( increased reps/resistance) Continue with manual therapy: STM, cervical spine mobilizations grade II-III
--- NOTE | 2024-06-06 13:05 | PT.OTN ---
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 She was seen January-February because entire R arm went numb and 10/ [address] Brown who referred her to PT. Over the past 2 months . She nows has pain only in the R hand vs no longer has the radiation. Pt reports that her condition started in November, when she started to experience numbness in her hand. She sleeps with her arms elevated on both sides. On Mother's day, she did a lot of excavating/moving yard work. The following Wednesday, she had pain; unable to type. Prescribed prednisone and muscle relaxers; steroid helped with symptoms. She only uses muscle relaxers occasionally, causes depression. Primarily felt in thumb and fingers 2-3. 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 She also had a minor whiplash event 2 weekends ago when dog pulled on leash, so now L sided pain; now longer as stiffness. Day before mothers' day, she walked several miles in her backpack, which is originally when the arm numbness began but was managable. She shakes her hands, wakes up at night. Denies weakness but states difficulty with fine motor. 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 Since the cervical traction machine bothered her, she tried a cervical traction pillow and that works well. A couple of weeks ago, she back slid and things are going slowly with PT. PT-OP-F Manual Assessment Start: 04/06/24 07:29 Freq: Status: Active Protocol: Document 04/06/24 14:33 NM (Rec: 04/06/24 16:15 NM [id number]) Manual Assessments Soft Tissue Assessment Soft Tissue Mobility Assessment Increased soft tissue restrictions of cervical paraspinals, chest and periscapulars, wrist extensors . R medial scapular border 7 cm, L medial scapular border 8 cm Joint Mobility Assessment Joint Mobility Assessment Hypomobility of cervical spine with lateral gliding, especially L>R PT-OP-G Mobility & Gait Start: 04/06/24 07:29 Freq: Status: Active Protocol: Document 04/06/24 14:33 NM (Rec: 04/06/24 16:15 NM [id number]) OP Gait Assessment Gait Gait Assistance Required: Independent Distance (Feet) 150 Comments Gait Comments Stiff gait with limited trunk rotation and arm swing. R shoulder is more elevated. No widebased or ataxic gait, no LOB PT-OP-H Neuro Start: 04/06/24 07:29 Freq: Status: Active Protocol: Document 04/10/24 07:31 NM (Rec: 04/10/24 09:41 NM [id number]) Sensation Evaluation Comments Summary Comments BUE equally intact to light touch sensation PT-OP-J Posture/Palpation/Skin Start: 04/06/24 07:29 Freq: Status: Active Protocol: Document 04/06/24 14:33 NM (Rec: 04/06/24 16:15 NM [id number]) Posture Evaluation Position Standing Head/C-Spine Posture Forward Head Shoulder Posture (L) Rounded,(R) Rounded,(L) Forward,(R) Forward,(R) Elevated Scapula Posture (R) Rotated Up,(R) Elevated,(R ) Tipped Arm Posture (L) Externally Rotated,(R) Externally Rotated Pelvis Posture Anteriorly Tilted Weight Distribution Balanced Palpation Assessment Location R wrist/hand Palpation Details Tightness of wrist extensors Pain with gripping and wrist flexion cervical spine Palpation Findings Soft Tissue Tightness Palpation Details Moderate tightness of paraspinals, pectoralis, lat, levator scapula, upper trapezius, scalenes, suboccipitals Skin Assessment Other Assessments Skin Assessment Comments No R wrist swellin cm ea PT-OP-K Range of Motion Start: 04/06/24 07:29 Freq: Status: Active Protocol: Document 05/05/24 11:19 NM (Rec: 05/05/24 11:54 NM [id number]) Cervical Spine Range of Motion Cervical Spine Active Degrees Flexion 60 Extension 45 Rotation Left 84 Rotation Right 70 Lateral Flexion Left 40 Lateral Flexion Right 40 ROM Limitations Soft Tissue Tightness Comments pain on L side with ext and flex 05/05/24: 80 deg rot B, 45 deg L LF, 25 deg R LF, 55 deg ext, 60 deg flex Shoulder Goniometric Range of Motion Shoulder Right Flexion 150 Abduction 150 External Rotation at 0 degrees Abduction 70 Internal Rotation Behind Back (text) T10 Comments T4 for apley ER 05/05/24: 153 deg abd, 165 deg flexion PT-OP-L Special Tests Start: 04/06/24 07:29 Freq: Status: Active Protocol: Document 04/10/24 07:31 NM (Rec: 04/10/24 09:41 NM [id number]) Special Tests Cervical Spine Special Tests Vertebral Artery Test Results - Comments intact cranial n, no abnormal palpation/auscultation of carotid a Shoulder Abduction Relief Test Test Results + Comments neural symptom relief with passive arm ABD on head ULTT Test Results median n Comments better w/ depression; pain also w/ ulnar n test position but no symptoms Distraction Test Results + Comments symptom resolved Spurling's Test Results + Comments local only on L PT-OP-M Strength Start: 04/06/24 07:29 Freq: Status: Active Protocol: Document 04/06/24 14:33 NM (Rec: 04/06/24 16:15 NM [id number]) Cervical Spine Strength Cervical Spine Manual Muscle Testing Flexion (C1-2) 4+ Good+ Extension 4+ Good+ Rotation Left 4+ Good+ Rotation Right 4+ Good+ Lateral Flexion Left (C3) 4+ Good+ Lateral Flexion Right (C3) 4+ Good+ Comments no pain or symptom reproduction Shoulder Strength Shoulder Manual Muscle Testing Right Flexion 4+ Good+ Abduction (C5) 4 Good External Rotation 4 Good Internal Rotation 4 Good Left Flexion 4+ Good+ Abduction (C5) 4+ Good+ External Rotation 4+ Good+ Internal Rotation 4+ Good+ Elbow/Forearm Strength Elbow and Forearm Manual Muscle Testing Right Flexion (C6) 4+ Good+ Extension (C7) 4+ Good+ Left Flexion (C6) 4+ Good+ Extension (C7) 4+ Good+ Wrist Strength Wrist Manual Muscle Testing Right Flexion (C7) 4- Good- Extension (C6) 4 Good Comments mild pain w/ flex and ext fingers: 4/5, no significant difference between sides Left Flexion (C7) 4+ Good+ Extension (C6) 4+ Good+ PT-OP-Q Treatments Start: 04/06/24 07:29 Freq: Status: Active Protocol: Document 06/06/24 10:32 MB (Rec: 06/06/24 13:05 MB [id number]) Manual Therapy Treatment Consent Patient gave verbal consent for manual Yes treatment Other Other Manual Treatments Pt prone: PA thoracic mobs, STM right infra, levator, upper traps and TrP treatment these muscles, TrP treatment right wrist flexors and extensors Self-Care/Home Management Treatment Education Other Education Ed pt to con't with proper pillow support sleeping, to make note of how she feels after forearm work today to track if hand symptoms are more peripheral compared to spinal, review of questionnaires and how she is feeling, testing wrist flexion and this provokes hand symptoms. PT-OP-R Modalities Start: 04/06/24 07:29 Freq: Status: Active Protocol: Document 05/25/24 09:46 NM (Rec: 05/25/24 10:33 NM [id number]) Spinal Traction Traction Treatment Cervical Method Mechanical,Static Patient Position Hooklying Force Applied (Pounds) 20 Heating Pad Applied No Traction Treatment Comment 8 minutes: Traction with cervical flexion bias. pt monitored by PT throughout, reyes within reach. PT-OP-T Assessment and Plan Start: 04/06/24 07:29 Freq: Status: Active Protocol: Document 06/06/24 10:32 MB (Rec: 06/06/24 11:17 MB [id number]) Physical Therapy Assessment Goals Five Impairment reports currently 50% impaired with work tasks Short Term Goal (STG) Pt will be educated on good ergonomic positioning and work tools in order to improve posture and body mechanics for better symptom management 05/05/24: pt provided handout for ergonomics in previous sessions, currently states 31. 3% impaired at work ( improvement since evaluation) STG Duration 4 weeks MET Intermediate Goal (LTG) Pt will report that she is less than 25% impaired with work-related tasks in order to demonstrate improved symptom management, activity tolerance , and QOL 05/05/24- PROGRESSING: pt reports 31.3% impaired at work 06/06/24 NDI performed by PT and after discussing with primary PT, another test was done and she will review in future LTG Duration 12 weeks Four Impairment sleeping Short Term Goal (STG) Pt will report that she is waking once or fewer times per night due to symptoms in R hand in order to demonstrate improved symptom management and QOL 05/05/24: not waking up at night due to symptoms STG Duration 8 weeks--MET Psychiatric Lpn Goal (LTG) Pt will report that she is waking fewer than 2x/wk due to symptoms in R hand in order to demonstrate improved symptom management and QOL 05/05/24: not waking up at night due to symptoms LTG Duration 12 weeks MET Three Impairment ROM: R wrist flexion 50 deg Short Term Goal (STG) Pt will improve R wrist flexion to at least 60 deg in order to demonstrate improved ROM for pericare, if appropriate 06/06/24: AROM right wrist flexion to 50 deg and reproduces tingling STG Duration 6 weeks Intermediate Goal (LTG) Pt will improve R wrist flexion to at least 70 deg in order to demonstrate improved ROM for pericare or typing, if appropriate 06/06/24: See above LTG Duration 12 weeks Two Impairment ROM: R cervical spine rotation 70 deg Intermediate Goal (LTG) Pt will improve R cervical spine rotation >80 deg or within 5 deg of L cervical spine rotation in order to improve visual scanning and demonstrate improved soft tissue length 05/05/24: 80 deg B rotation LTG Duration 12 weeks MET One Impairment QOL/activity tolerance: quickdash 56.8% impairment Short Term Goal (STG) Pt will decrease quickdash impairment by at least 11% (1 MCID) in order to demonstrate improved symptom management and QOL 05/05/24- NOT MET: 34 or 52.3%; work module 31.3% 06/06/24 QuickDASH reveals 45. 45% impairment, not improving STG Duration 8 weeks Psychiatric Lpn Goal (LTG) Pt will report <25% impairment on quickdash due to pain or numbness/tingling in R hand/ wrist or neck in order to demonstrate improved symptom management, activity tolerance and QOL 06/06/24: See QuickDASH score above, not improving LTG Duration 12 weeks Assessment Summary Assessment Pt has met sleeping and cervical rotation goals since starting PT and so discontinued these goals. Reporting scores are not better this date and this could be due to a different PT reviewing the questionnaire with patient. She does report getting better slowly overall since starting PT. PT worked on right wrist flexors and extensors today for TrP work and her forearm is looser after treatment. Asked pt to note later if hand paresthesia is better. If it it, may consider more of a median/ radial nerve distal problem at the wrist. PT recommends EMG. PT will con't to assist pt with postural, cervical spine, flexibility. Physical Therapy Plan Frequency and Duration Frequency of Treatment 2x/Week Duration of treatment (weeks) 12 Plan of Care Start Date 04/06/24 Plan of Care End Date 07/06/24 Therapeutic Interventions Therapeutic Interventions Canalithic Repositioning,Gait Training,Home Exercise Program ,Joint Mobilizations,Manual Therapy,Neuromuscular Re- education,Orthotic/Prosthetic Management,Patient/Caregiver Education,Self-Care/Home Management,Sensory Integration ,Soft Tissue Mobilization, Taping,Therapeutic Activities, Therapeutic Exercises Modalities Cold Pack/Ice Massage,Electric Stimulation,Hot Packs, Traction- Mechanical, Ultrasound Other Referrals/Consults Referrals/Consults Recommended EMG Next Visit Focus/Plan Next Note Type Treatment Note Next Visit Plan Con't forearm manual work, address carpal tunnel, consider work on scalenes, UT, LS, SCM as needed, other cervical mobs; scapular mobility > rows and low rows w / band (increased reps/ resistance)
--- NOTE | 2024-06-07 09:44 | PT.OTN ---
Current Diagnoses Stiffness of right wrist, not elsewhere classified (06/07/24) Radiculopathy, cervical region (06/07/24) Weakness (06/07/24) Physical Therapy Treatment Note PT-OP-A Visit Information Start: 04/06/24 07:29 Freq: Status: Active Protocol: Document 06/07/24 09:02 NM (Rec: 06/07/24 09:44 NM [id number]) Out-Patient Physical Therapy Visit Information Visit Information Visit Type Treatment Note Visit Note 09/22 post PN Visit Start Time 09:03 Visit Stop Time 09:43 Visit Number 17 Evaluation Information Evaluation Date 04/06/24 Precautions Precautions neck pain and median nerve PT-OP-B Current Condition Start: 04/06/24 07:29 Freq: Status: Active Protocol: Document 04/06/24 14:33 NM (Rec: 04/06/24 16:15 NM [id number]) Current Condition History of Current Condition Onset Date Mother's day 2023 Current Complaints pain, numbness and tingling History of Current Condition Pt reports that she has cervical radiculopathy. She was seen January-February because entire R arm went numb and 10/ [address] Brown who referred her to PT. Over the past 2 months . She nows has pain only in the R hand vs no longer has the radiation. Pt reports that her condition started in November, when she started to experience numbness in her hand. She sleeps with her arms elevated on both sides. On Mother's day, she did a lot of excavating/moving yard work. The following Wednesday, she had pain; unable to type. Prescribed prednisone and muscle relaxers; steroid helped with symptoms. She only uses muscle relaxers occasionally, causes depression. Primarily felt in thumb and fingers 2-3. 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 She also had a minor whiplash event 2 weekends ago when dog pulled on leash, so now L sided pain; now longer as stiffness. Day before mothers' day, she walked several miles in her backpack, which is originally when the arm numbness began but was managable. She shakes her hands, wakes up at night. Denies weakness but states difficulty with fine motor. 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 Reports feels less discomfort, tingling in R hand. PT-OP-F Manual Assessment Start: 04/06/24 07:29 Freq: Status: Active Protocol: Document 04/06/24 14:33 NM (Rec: 04/06/24 16:15 NM [id number]) Manual Assessments Soft Tissue Assessment Soft Tissue Mobility Assessment Increased soft tissue restrictions of cervical paraspinals, chest and periscapulars, wrist extensors . R medial scapular border 7 cm, L medial scapular border 8 cm Joint Mobility Assessment Joint Mobility Assessment Hypomobility of cervical spine with lateral gliding, especially L>R PT-OP-G Mobility & Gait Start: 04/06/24 07:29 Freq: Status: Active Protocol: Document 04/06/24 14:33 NM (Rec: 04/06/24 16:15 NM [id number]) OP Gait Assessment Gait Gait Assistance Required: Independent Distance (Feet) 150 Comments Gait Comments Stiff gait with limited trunk rotation and arm swing. R shoulder is more elevated. No widebased or ataxic gait, no LOB PT-OP-H Neuro Start: 04/06/24 07:29 Freq: Status: Active Protocol: Document 04/10/24 07:31 NM (Rec: 04/10/24 09:41 NM [id number]) Sensation Evaluation Comments Summary Comments BUE equally intact to light touch sensation PT-OP-J Posture/Palpation/Skin Start: 04/06/24 07:29 Freq: Status: Active Protocol: Document 04/06/24 14:33 NM (Rec: 04/06/24 16:15 NM [id number]) Posture Evaluation Position Standing Head/C-Spine Posture Forward Head Shoulder Posture (L) Rounded,(R) Rounded,(L) Forward,(R) Forward,(R) Elevated Scapula Posture (R) Rotated Up,(R) Elevated,(R ) Tipped Arm Posture (L) Externally Rotated,(R) Externally Rotated Pelvis Posture Anteriorly Tilted Weight Distribution Balanced Palpation Assessment Location R wrist/hand Palpation Details Tightness of wrist extensors Pain with gripping and wrist flexion cervical spine Palpation Findings Soft Tissue Tightness Palpation Details Moderate tightness of paraspinals, pectoralis, lat, levator scapula, upper trapezius, scalenes, suboccipitals Skin Assessment Other Assessments Skin Assessment Comments No R wrist swellin cm ea PT-OP-K Range of Motion Start: 04/06/24 07:29 Freq: Status: Active Protocol: Document 05/05/24 11:19 NM (Rec: 05/05/24 11:54 NM [id number]) Cervical Spine Range of Motion Cervical Spine Active Degrees Flexion 60 Extension 45 Rotation Left 84 Rotation Right 70 Lateral Flexion Left 40 Lateral Flexion Right 40 ROM Limitations Soft Tissue Tightness Comments pain on L side with ext and flex 05/05/24: 80 deg rot B, 45 deg L LF, 25 deg R LF, 55 deg ext, 60 deg flex Shoulder Goniometric Range of Motion Shoulder Right Flexion 150 Abduction 150 External Rotation at 0 degrees Abduction 70 Internal Rotation Behind Back (text) T10 Comments T4 for apley ER 05/05/24: 153 deg abd, 165 deg flexion PT-OP-L Special Tests Start: 04/06/24 07:29 Freq: Status: Active Protocol: Document 04/10/24 07:31 NM (Rec: 04/10/24 09:41 NM [id number]) Special Tests Cervical Spine Special Tests Vertebral Artery Test Results - Comments intact cranial n, no abnormal palpation/auscultation of carotid a Shoulder Abduction Relief Test Test Results + Comments neural symptom relief with passive arm ABD on head ULTT Test Results median n Comments better w/ depression; pain also w/ ulnar n test position but no symptoms Distraction Test Results + Comments symptom resolved Spurling's Test Results + Comments local only on L PT-OP-M Strength Start: 04/06/24 07:29 Freq: Status: Active Protocol: Document 04/06/24 14:33 NM (Rec: 04/06/24 16:15 NM [id number]) Cervical Spine Strength Cervical Spine Manual Muscle Testing Flexion (C1-2) 4+ Good+ Extension 4+ Good+ Rotation Left 4+ Good+ Rotation Right 4+ Good+ Lateral Flexion Left (C3) 4+ Good+ Lateral Flexion Right (C3) 4+ Good+ Comments no pain or symptom reproduction Shoulder Strength Shoulder Manual Muscle Testing Right Flexion 4+ Good+ Abduction (C5) 4 Good External Rotation 4 Good Internal Rotation 4 Good Left Flexion 4+ Good+ Abduction (C5) 4+ Good+ External Rotation 4+ Good+ Internal Rotation 4+ Good+ Elbow/Forearm Strength Elbow and Forearm Manual Muscle Testing Right Flexion (C6) 4+ Good+ Extension (C7) 4+ Good+ Left Flexion (C6) 4+ Good+ Extension (C7) 4+ Good+ Wrist Strength Wrist Manual Muscle Testing Right Flexion (C7) 4- Good- Extension (C6) 4 Good Comments mild pain w/ flex and ext fingers: 4/5, no significant difference between sides Left Flexion (C7) 4+ Good+ Extension (C6) 4+ Good+ PT-OP-Q Treatments Start: 04/06/24 07:29 Freq: Status: Active Protocol: Document 06/07/24 09:02 NM (Rec: 06/07/24 09:44 NM [id number]) Therapeutic Exercises Sitting Exercises wrist pronation/supination Sitting Exercise Name 1. pro/sup, 2. wrist circles Side right Resistance 1# Reps/Minutes 2x15 wrist/finger ext Sitting Exercise Name 1. finger ext, 2. with wrist circles Side right Resistance thick band Reps/Minutes 10 ea tendon glide Sitting Exercise Name straight hand, hook fist, lumbrical fist, flat fist, full fist Side right Equipment Used re-added to HEP Reps/Minutes 10 Comments hand in neutral on pillow vs upright Standing Exercises pec stretch/mobilization Standing Exercise Name pec mobilization from 45 to 90 deg abd w/ finger abd/add Side bilateral Reps/Minutes 10 ea nerve glide Standing Exercise Name median n: 1. tensioner w/ finger abd/add, 2. glide; ulnar n Side right Reps/Minutes 20 ea Comments no head mvmt d/t inc symptoms; reports dec symptom w/ stop Manual Therapy Treatment Consent Patient gave verbal consent for manual Yes treatment Soft Tissue Mobilization R hand/forearm Body Location wrist flexors Mobilization Type Rolling,Other Intensity/Depth Superficial Body Position Supine Comments Performed with fanning over carpal tunnel. No increase in symptoms except for along R lateral forearm Joint Mobilizations R wrist Joint carpal, metacarpals, radio/ ulnocarpal Direction dorsal/volar Grade II Body Position Supine Reps/Duration 2x30 ea Comments Monitored for symptoms, emphasis on promoting flexion and extension. Reports no increase in symptoms or wrist pain PT-OP-R Modalities Start: 04/06/24 07:29 Freq: Status: Active Protocol: Document 05/25/24 09:46 NM (Rec: 05/25/24 10:33 NM [id number]) Spinal Traction Traction Treatment Cervical Method Mechanical,Static Patient Position Hooklying Force Applied (Pounds) 20 Heating Pad Applied No Traction Treatment Comment 8 minutes: Traction with cervical flexion bias. pt monitored by PT throughout, reyes within reach. PT-OP-T Assessment and Plan Start: 04/06/24 07:29 Freq: Status: Active Protocol: Document 06/07/24 09:02 NM (Rec: 06/07/24 09:44 NM [id number]) Physical Therapy Assessment Goals Five Impairment reports currently 50% impaired with work tasks Short Term Goal (STG) Pt will be educated on good ergonomic positioning and work tools in order to improve posture and body mechanics for better symptom management 05/05/24: pt provided handout for ergonomics in previous sessions, currently states 31. 3% impaired at work ( improvement since evaluation) STG Duration 4 weeks MET Senior Living Goal (LTG) Pt will report that she is less than 25% impaired with work-related tasks in order to demonstrate improved symptom management, activity tolerance , and QOL 05/05/24- PROGRESSING: pt reports 31.3% impaired at work 06/06/24 NDI performed by PT and after discussing with primary PT, another test was done and she will review in future 06/07/24: 56% impaired on work- related quickdash; scores do not reflect pt subjective LTG Duration 12 weeks Three Impairment ROM: R wrist flexion 50 deg Short Term Goal (STG) Pt will improve R wrist flexion to at least 60 deg in order to demonstrate improved ROM for pericare, if appropriate 06/06/24: AROM right wrist flexion to 50 deg and reproduces tingling STG Duration 6 weeks Senior Living Goal (LTG) Pt will improve R wrist flexion to at least 70 deg in order to demonstrate improved ROM for pericare or typing, if appropriate 06/06/24: See above LTG Duration 12 weeks One Impairment QOL/activity tolerance: quickdash 56.8% impairment Short Term Goal (STG) Pt will decrease quickdash impairment by at least 11% (1 MCID) in order to demonstrate improved symptom management and QOL 05/05/24- NOT MET: 34 or 52.3%; work module 31.3% 06/06/24 QuickDASH reveals 45. 45% impairment, not improving STG Duration 8 weeks Senior Living Goal (LTG) Pt will report <25% impairment on quickdash due to pain or numbness/tingling in R hand/ wrist or neck in order to demonstrate improved symptom management, activity tolerance and QOL 06/06/24: See QuickDASH score above, not improving LTG Duration 12 weeks Assessment Summary Assessment Pt tolerated session well, reports less tingling in first 3 fingers at end of session. However, she does reports increased symptoms during median nerve glide mobilization with head movement. She reports overall symptom improvement despite poor reflection in score. Retrialed tendon glides; pt tolerates well with neutral positioning of hand vs forearm elevated. Able to progress resisted with wrist strengthening and finger extension. Continues to respond well to manual therapy of her R wrist; however, demos decreased radiocarpal mobility. Physical Therapy Plan Frequency and Duration Frequency of Treatment 2x/Week Duration of treatment (weeks) 12 Plan of Care Start Date 04/06/24 Plan of Care End Date 07/06/24 Therapeutic Interventions Therapeutic Interventions Canalithic Repositioning,Gait Training,Home Exercise Program ,Joint Mobilizations,Manual Therapy,Neuromuscular Re- education,Orthotic/Prosthetic Management,Patient/Caregiver Education,Self-Care/Home Management,Sensory Integration ,Soft Tissue Mobilization, Taping,Therapeutic Activities, Therapeutic Exercises Modalities Cold Pack/Ice Massage,Electric Stimulation,Hot Packs, Traction- Mechanical, Ultrasound Other Referrals/Consults Referrals/Consults Recommended EMG Next Visit Focus/Plan Next Note Type Treatment Note Next Visit Plan Con't forearm manual work and wrist/carpal mobs, address carpal tunnel, consider work on scalenes, UT, LS, SCM as needed, other cervical mobs; scapular mobility > rows and low rows w/ band (increased reps/resistance) Assess tolerance to tendon glides and nerve glides
--- NOTE | 2024-06-12 09:01 | PT.OTN ---
Current Diagnoses Stiffness of right wrist, not elsewhere classified (06/12/24) Radiculopathy, cervical region (06/12/24) Weakness (06/12/24) Physical Therapy Treatment Note PT-OP-A Visit Information Start: 04/06/24 07:29 Freq: Status: Active Protocol: Document 06/12/24 08:19 MB (Rec: 06/12/24 09:00 MB [id number]) Out-Patient Physical Therapy Visit Information Visit Information Visit Type Treatment Note Visit Start Time 08:19 Visit Stop Time 08:59 Visit Number 18 Evaluation Information Evaluation Date 04/06/24 Precautions Precautions neck pain and median nerve PT-OP-B Current Condition Start: 04/06/24 07:29 Freq: Status: Active Protocol: Document 04/06/24 14:33 NM (Rec: 04/06/24 16:15 NM [id number]) Current Condition History of Current Condition Onset Date Mother's day 2023 Current Complaints pain, numbness and tingling History of Current Condition Pt reports that she has cervical radiculopathy. She was seen January-February because entire R arm went numb and 10/ [address] Brown who referred her to PT. Over the past 2 months . She nows has pain only in the R hand vs no longer has the radiation. Pt reports that her condition started in November, when she started to experience numbness in her hand. She sleeps with her arms elevated on both sides. On Mother's day, she did a lot of excavating/moving yard work. The following Wednesday, she had pain; unable to type. Prescribed prednisone and muscle relaxers; steroid helped with symptoms. She only uses muscle relaxers occasionally, causes depression. Primarily felt in thumb and fingers 2-3. 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 She also had a minor whiplash event 2 weekends ago when dog pulled on leash, so now L sided pain; now longer as stiffness. Day before mothers' day, she walked several miles in her backpack, which is originally when the arm numbness began but was managable. She shakes her hands, wakes up at night. Denies weakness but states difficulty with fine motor. 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 PT-OP-F Manual Assessment Start: 04/06/24 07:29 Freq: Status: Active Protocol: Document 04/06/24 14:33 NM (Rec: 04/06/24 16:15 NM [id number]) Manual Assessments Soft Tissue Assessment Soft Tissue Mobility Assessment Increased soft tissue restrictions of cervical paraspinals, chest and periscapulars, wrist extensors . R medial scapular border 7 cm, L medial scapular border 8 cm Joint Mobility Assessment Joint Mobility Assessment Hypomobility of cervical spine with lateral gliding, especially L>R PT-OP-G Mobility & Gait Start: 04/06/24 07:29 Freq: Status: Active Protocol: Document 04/06/24 14:33 NM (Rec: 04/06/24 16:15 NM [id number]) OP Gait Assessment Gait Gait Assistance Required: Independent Distance (Feet) 150 Comments Gait Comments Stiff gait with limited trunk rotation and arm swing. R shoulder is more elevated. No widebased or ataxic gait, no LOB PT-OP-H Neuro Start: 04/06/24 07:29 Freq: Status: Active Protocol: Document 04/10/24 07:31 NM (Rec: 04/10/24 09:41 NM [id number]) Sensation Evaluation Comments Summary Comments BUE equally intact to light touch sensation PT-OP-J Posture/Palpation/Skin Start: 04/06/24 07:29 Freq: Status: Active Protocol: Document 04/06/24 14:33 NM (Rec: 04/06/24 16:15 NM [id number]) Posture Evaluation Position Standing Head/C-Spine Posture Forward Head Shoulder Posture (L) Rounded,(R) Rounded,(L) Forward,(R) Forward,(R) Elevated Scapula Posture (R) Rotated Up,(R) Elevated,(R ) Tipped Arm Posture (L) Externally Rotated,(R) Externally Rotated Pelvis Posture Anteriorly Tilted Weight Distribution Balanced Palpation Assessment Location R wrist/hand Palpation Details Tightness of wrist extensors Pain with gripping and wrist flexion cervical spine Palpation Findings Soft Tissue Tightness Palpation Details Moderate tightness of paraspinals, pectoralis, lat, levator scapula, upper trapezius, scalenes, suboccipitals Skin Assessment Other Assessments Skin Assessment Comments No R wrist swellin cm ea PT-OP-K Range of Motion Start: 04/06/24 07:29 Freq: Status: Active Protocol: Document 05/05/24 11:19 NM (Rec: 05/05/24 11:54 NM [id number]) Cervical Spine Range of Motion Cervical Spine Active Degrees Flexion 60 Extension 45 Rotation Left 84 Rotation Right 70 Lateral Flexion Left 40 Lateral Flexion Right 40 ROM Limitations Soft Tissue Tightness Comments pain on L side with ext and flex 05/05/24: 80 deg rot B, 45 deg L LF, 25 deg R LF, 55 deg ext, 60 deg flex Shoulder Goniometric Range of Motion Shoulder Right Flexion 150 Abduction 150 External Rotation at 0 degrees Abduction 70 Internal Rotation Behind Back (text) T10 Comments T4 for apley ER 05/05/24: 153 deg abd, 165 deg flexion PT-OP-L Special Tests Start: 04/06/24 07:29 Freq: Status: Active Protocol: Document 04/10/24 07:31 NM (Rec: 04/10/24 09:41 NM [id number]) Special Tests Cervical Spine Special Tests Vertebral Artery Test Results - Comments intact cranial n, no abnormal palpation/auscultation of carotid a Shoulder Abduction Relief Test Test Results + Comments neural symptom relief with passive arm ABD on head ULTT Test Results median n Comments better w/ depression; pain also w/ ulnar n test position but no symptoms Distraction Test Results + Comments symptom resolved Spurling's Test Results + Comments local only on L PT-OP-M Strength Start: 04/06/24 07:29 Freq: Status: Active Protocol: Document 04/06/24 14:33 NM (Rec: 04/06/24 16:15 NM [id number]) Cervical Spine Strength Cervical Spine Manual Muscle Testing Flexion (C1-2) 4+ Good+ Extension 4+ Good+ Rotation Left 4+ Good+ Rotation Right 4+ Good+ Lateral Flexion Left (C3) 4+ Good+ Lateral Flexion Right (C3) 4+ Good+ Comments no pain or symptom reproduction Shoulder Strength Shoulder Manual Muscle Testing Right Flexion 4+ Good+ Abduction (C5) 4 Good External Rotation 4 Good Internal Rotation 4 Good Left Flexion 4+ Good+ Abduction (C5) 4+ Good+ External Rotation 4+ Good+ Internal Rotation 4+ Good+ Elbow/Forearm Strength Elbow and Forearm Manual Muscle Testing Right Flexion (C6) 4+ Good+ Extension (C7) 4+ Good+ Left Flexion (C6) 4+ Good+ Extension (C7) 4+ Good+ Wrist Strength Wrist Manual Muscle Testing Right Flexion (C7) 4- Good- Extension (C6) 4 Good Comments mild pain w/ flex and ext fingers: 4/5, no significant difference between sides Left Flexion (C7) 4+ Good+ Extension (C6) 4+ Good+ PT-OP-Q Treatments Start: 04/06/24 07:29 Freq: Status: Active Protocol: Document 06/12/24 08:19 MB (Rec: 06/12/24 09:00 MB [id number]) Therapeutic Exercises Sitting Exercises tendon glide Comments Pt demonstrates today Standing Exercises nerve glide Comments Pt demonstrates Other Exercises Racquet ball massage Comments Intrascapular massage today Down dog Comments Focus on loose neck and ability to move looser through thoracic spine Manual Therapy Treatment Consent Patient gave verbal consent for manual Yes treatment Other Other Manual Treatments Pt sitting: STM and TrP treatment right wrist flexors and extensors; pt prone: PA thoracic mobs grade III-IV, STM cervical paraspinals and TrP treatment right upper traps and cervical paraspinals , right levator PT-OP-R Modalities Start: 04/06/24 07:29 Freq: Status: Active Protocol: Document 05/25/24 09:46 NM (Rec: 05/25/24 10:33 NM [id number]) Spinal Traction Traction Treatment Cervical Method Mechanical,Static Patient Position Hooklying Force Applied (Pounds) 20 Heating Pad Applied No Traction Treatment Comment 8 minutes: Traction with cervical flexion bias. pt monitored by PT throughout, reyes within reach. PT-OP-T Assessment and Plan Start: 04/06/24 07:29 Freq: Status: Active Protocol: Document 06/12/24 08:19 MB (Rec: 06/12/24 09:00 MB [id number]) Physical Therapy Assessment Goals Five Impairment reports currently 50% impaired with work tasks Short Term Goal (STG) Pt will be educated on good ergonomic positioning and work tools in order to improve posture and body mechanics for better symptom management 05/05/24: pt provided handout for ergonomics in previous sessions, currently states 31. 3% impaired at work ( improvement since evaluation) STG Duration 4 weeks MET [facility] Goal (LTG) Pt will report that she is less than 25% impaired with work-related tasks in order to demonstrate improved symptom management, activity tolerance , and QOL 05/05/24- PROGRESSING: pt reports 31.3% impaired at work 06/06/24 NDI performed by PT and after discussing with primary PT, another test was done and she will review in future 06/07/24: 56% impaired on work- related quickdash; scores do not reflect pt subjective LTG Duration 12 weeks Three Impairment ROM: R wrist flexion 50 deg Short Term Goal (STG) Pt will improve R wrist flexion to at least 60 deg in order to demonstrate improved ROM for pericare, if appropriate 06/06/24: AROM right wrist flexion to 50 deg and reproduces tingling STG Duration 6 weeks [facility] Goal (LTG) Pt will improve R wrist flexion to at least 70 deg in order to demonstrate improved ROM for pericare or typing, if appropriate 06/06/24: See above LTG Duration 12 weeks One Impairment QOL/activity tolerance: quickdash 56.8% impairment Short Term Goal (STG) Pt will decrease quickdash impairment by at least 11% (1 MCID) in order to demonstrate improved symptom management and QOL 05/05/24- NOT MET: 34 or 52.3%; work module 31.3% 06/06/24 QuickDASH reveals 45. 45% impairment, not improving STG Duration 8 weeks [facility] Goal (LTG) Pt will report <25% impairment on quickdash due to pain or numbness/tingling in R hand/ wrist or neck in order to demonstrate improved symptom management, activity tolerance and QOL 06/06/24: See QuickDASH score above, not improving LTG Duration 12 weeks Assessment Summary Assessment Pt tolerates PT well and is feeling much better. Con't per plan. Physical Therapy Plan Frequency and Duration Frequency of Treatment 2x/Week Duration of treatment (weeks) 12 Plan of Care Start Date 04/06/24 Plan of Care End Date 07/06/24 Therapeutic Interventions Therapeutic Interventions Canalithic Repositioning,Gait Training,Home Exercise Program ,Joint Mobilizations,Manual Therapy,Neuromuscular Re- education,Orthotic/Prosthetic Management,Patient/Caregiver Education,Self-Care/Home Management,Sensory Integration ,Soft Tissue Mobilization, Taping,Therapeutic Activities, Therapeutic Exercises Modalities Cold Pack/Ice Massage,Electric Stimulation,Hot Packs, Traction- Mechanical, Ultrasound Other Referrals/Consults Referrals/Consults Recommended EMG Next Visit Focus/Plan Next Note Type Treatment Note Next Visit Plan From POC: Con't forearm manual work and wrist/carpal mobs, address carpal tunnel, consider work on scalenes, UT, LS, SCM as needed, other cervical mobs; scapular mobility > rows and low rows w / band (increased reps/ resistance) Assess tolerance to tendon glides and nerve glides
--- NOTE | 2024-06-15 10:37 | PT.OTN ---
Current Diagnoses Stiffness of right wrist, not elsewhere classified (06/15/24) Radiculopathy, cervical region (06/15/24) Weakness (06/15/24) Physical Therapy Treatment Note PT-OP-A Visit Information Start: 04/06/24 07:29 Freq: Status: Active Protocol: Document 06/15/24 09:48 NM (Rec: 06/15/24 10:37 NM [id number]) Out-Patient Physical Therapy Visit Information Visit Information Visit Type Treatment Note Visit Start Time 09:48 Visit Stop Time 10:27 Visit Number 19 PT-OP-B Current Condition Start: 04/06/24 07:29 Freq: Status: Active Protocol: Document 04/06/24 14:33 NM (Rec: 04/06/24 16:15 NM [id number]) Current Condition History of Current Condition Onset Date Mother's day 2023 Current Complaints pain, numbness and tingling History of Current Condition Pt reports that she has cervical radiculopathy. She was seen January-February because entire R arm went numb and 10/ [address] Brown who referred her to PT. Over the past 2 months . She nows has pain only in the R hand vs no longer has the radiation. Pt reports that her condition started in November, when she started to experience numbness in her hand. She sleeps with her arms elevated on both sides. On Mother's day, she did a lot of excavating/moving yard work. The following Wednesday, she had pain; unable to type. Prescribed prednisone and muscle relaxers; steroid helped with symptoms. She only uses muscle relaxers occasionally, causes depression. Primarily felt in thumb and fingers 2-3. 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 She also had a minor whiplash event 2 weekends ago when dog pulled on leash, so now L sided pain; now longer as stiffness. Day before mothers' day, she walked several miles in her backpack, which is originally when the arm numbness began but was managable. She shakes her hands, wakes up at night. Denies weakness but states difficulty with fine motor. 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 She reports that in the evening of Wednesday, she did not have any numbness in her hand. Reports less tingling in the morning when she wakes up , most mornings. Has been occurring since last Wednesday . PT-OP-F Manual Assessment Start: 04/06/24 07:29 Freq: Status: Active Protocol: Document 04/06/24 14:33 NM (Rec: 04/06/24 16:15 NM [id number]) Manual Assessments Soft Tissue Assessment Soft Tissue Mobility Assessment Increased soft tissue restrictions of cervical paraspinals, chest and periscapulars, wrist extensors . R medial scapular border 7 cm, L medial scapular border 8 cm Joint Mobility Assessment Joint Mobility Assessment Hypomobility of cervical spine with lateral gliding, especially L>R PT-OP-G Mobility & Gait Start: 04/06/24 07:29 Freq: Status: Active Protocol: Document 04/06/24 14:33 NM (Rec: 04/06/24 16:15 NM [id number]) OP Gait Assessment Gait Gait Assistance Required: Independent Distance (Feet) 150 Comments Gait Comments Stiff gait with limited trunk rotation and arm swing. R shoulder is more elevated. No widebased or ataxic gait, no LOB PT-OP-H Neuro Start: 04/06/24 07:29 Freq: Status: Active Protocol: Document 04/10/24 07:31 NM (Rec: 04/10/24 09:41 NM [id number]) Sensation Evaluation Comments Summary Comments BUE equally intact to light touch sensation PT-OP-J Posture/Palpation/Skin Start: 04/06/24 07:29 Freq: Status: Active Protocol: Document 04/06/24 14:33 NM (Rec: 04/06/24 16:15 NM [id number]) Posture Evaluation Position Standing Head/C-Spine Posture Forward Head Shoulder Posture (L) Rounded,(R) Rounded,(L) Forward,(R) Forward,(R) Elevated Scapula Posture (R) Rotated Up,(R) Elevated,(R ) Tipped Arm Posture (L) Externally Rotated,(R) Externally Rotated Pelvis Posture Anteriorly Tilted Weight Distribution Balanced Palpation Assessment Location R wrist/hand Palpation Details Tightness of wrist extensors Pain with gripping and wrist flexion cervical spine Palpation Findings Soft Tissue Tightness Palpation Details Moderate tightness of paraspinals, pectoralis, lat, levator scapula, upper trapezius, scalenes, suboccipitals Skin Assessment Other Assessments Skin Assessment Comments No R wrist swellin cm ea PT-OP-K Range of Motion Start: 04/06/24 07:29 Freq: Status: Active Protocol: Document 05/05/24 11:19 NM (Rec: 05/05/24 11:54 NM [id number]) Cervical Spine Range of Motion Cervical Spine Active Degrees Flexion 60 Extension 45 Rotation Left 84 Rotation Right 70 Lateral Flexion Left 40 Lateral Flexion Right 40 ROM Limitations Soft Tissue Tightness Comments pain on L side with ext and flex 05/05/24: 80 deg rot B, 45 deg L LF, 25 deg R LF, 55 deg ext, 60 deg flex Shoulder Goniometric Range of Motion Shoulder Right Flexion 150 Abduction 150 External Rotation at 0 degrees Abduction 70 Internal Rotation Behind Back (text) T10 Comments T4 for apley ER 05/05/24: 153 deg abd, 165 deg flexion PT-OP-L Special Tests Start: 04/06/24 07:29 Freq: Status: Active Protocol: Document 04/10/24 07:31 NM (Rec: 04/10/24 09:41 NM [id number]) Special Tests Cervical Spine Special Tests Vertebral Artery Test Results - Comments intact cranial n, no abnormal palpation/auscultation of carotid a Shoulder Abduction Relief Test Test Results + Comments neural symptom relief with passive arm ABD on head ULTT Test Results median n Comments better w/ depression; pain also w/ ulnar n test position but no symptoms Distraction Test Results + Comments symptom resolved Spurling's Test Results + Comments local only on L PT-OP-M Strength Start: 04/06/24 07:29 Freq: Status: Active Protocol: Document 04/06/24 14:33 NM (Rec: 04/06/24 16:15 NM [id number]) Cervical Spine Strength Cervical Spine Manual Muscle Testing Flexion (C1-2) 4+ Good+ Extension 4+ Good+ Rotation Left 4+ Good+ Rotation Right 4+ Good+ Lateral Flexion Left (C3) 4+ Good+ Lateral Flexion Right (C3) 4+ Good+ Comments no pain or symptom reproduction Shoulder Strength Shoulder Manual Muscle Testing Right Flexion 4+ Good+ Abduction (C5) 4 Good External Rotation 4 Good Internal Rotation 4 Good Left Flexion 4+ Good+ Abduction (C5) 4+ Good+ External Rotation 4+ Good+ Internal Rotation 4+ Good+ Elbow/Forearm Strength Elbow and Forearm Manual Muscle Testing Right Flexion (C6) 4+ Good+ Extension (C7) 4+ Good+ Left Flexion (C6) 4+ Good+ Extension (C7) 4+ Good+ Wrist Strength Wrist Manual Muscle Testing Right Flexion (C7) 4- Good- Extension (C6) 4 Good Comments mild pain w/ flex and ext fingers: 4/5, no significant difference between sides Left Flexion (C7) 4+ Good+ Extension (C6) 4+ Good+ PT-OP-Q Treatments Start: 04/06/24 07:29 Freq: Status: Active Protocol: Document 06/15/24 09:48 NM (Rec: 06/15/24 10:37 NM [id number]) Therapeutic Exercises Supine Exercises median nerve glide Supine Exercise Name partial ROM w/ fingers in partial fist Side right Reps/Minutes 20 ea Sitting Exercises wrist pronation/supination Sitting Exercise Name 1. pro/sup, 2. wrist circles, 3. UD/RD Side right Resistance 2# Reps/Minutes 20 ea wrist/finger ext Sitting Exercise Name 1. wrist flex/ext glides, 2. thumb ext Equipment Used mild finger flex Reps/Minutes 1. 20, 2. 10 w/ thickest band cervical retraction Sitting Exercise Name w/ thoracic rotation ea direction to/from neutral Side bilateral Reps/Minutes 20 tendon glide Sitting Exercise Name straight hand, hook fist, lumbrical fist, flat fist, full fist Side right Reps/Minutes 10 Comments with arm extended Manual Therapy Treatment Consent Patient gave verbal consent for manual Yes treatment Soft Tissue Mobilization thoracic spine/chest Body Location pec Mobilization Type Rolling,Sustained Pressure Intensity/Depth Moderate Body Position Supine Comments Increased restriction in axilla of pec R hand/forearm Body Location wrist flexors, along w/ coracobracialis Mobilization Type Rolling,Other Intensity/Depth Superficial Body Position Supine Comments Performed with fanning over carpal tunnel. No increase in symptoms except for along R lateral forearm Joint Mobilizations R wrist Joint carpal, metacarpals, radio/ ulnocarpal Direction dorsal/volar Grade II Body Position Supine Reps/Duration 2x30 ea Comments Monitored for symptoms, emphasis on promoting flexion and extension. Reports no increase in symptoms or wrist pain 1st rib Joint 1st and 2nd rib Body Position Sidelying Reps/Duration 20 ea Comments Both elevated today. w/ MWM using R shoulder flex and ext, cueing for breathwork. Reduction in rib elevation PT-OP-R Modalities Start: 04/06/24 07:29 Freq: Status: Active Protocol: Document 05/25/24 09:46 NM (Rec: 05/25/24 10:33 NM [id number]) Spinal Traction Traction Treatment Cervical Method Mechanical,Static Patient Position Hooklying Force Applied (Pounds) 20 Heating Pad Applied No Traction Treatment Comment 8 minutes: Traction with cervical flexion bias. pt monitored by PT throughout, reyes within reach. PT-OP-T Assessment and Plan Start: 04/06/24 07:29 Freq: Status: Active Protocol: Document 06/15/24 09:48 NM (Rec: 06/15/24 10:37 NM [id number]) Physical Therapy Assessment Goals Five Impairment reports currently 50% impaired with work tasks Short Term Goal (STG) Pt will be educated on good ergonomic positioning and work tools in order to improve posture and body mechanics for better symptom management 05/05/24: pt provided handout for ergonomics in previous sessions, currently states 31. 3% impaired at work ( improvement since evaluation) STG Duration 4 weeks MET Alf Goal (LTG) Pt will report that she is less than 25% impaired with work-related tasks in order to demonstrate improved symptom management, activity tolerance , and QOL 05/05/24- PROGRESSING: pt reports 31.3% impaired at work 06/06/24 NDI performed by PT and after discussing with primary PT, another test was done and she will review in future 06/07/24: 56% impaired on work- related quickdash; scores do not reflect pt subjective LTG Duration 12 weeks Three Impairment ROM: R wrist flexion 50 deg Short Term Goal (STG) Pt will improve R wrist flexion to at least 60 deg in order to demonstrate improved ROM for pericare, if appropriate 06/06/24: AROM right wrist flexion to 50 deg and reproduces tingling 06/15/24: 60 deg of wrist flexion w/o symptom increase STG Duration 6 weeks MET Alf Goal (LTG) Pt will improve R wrist flexion to at least 70 deg in order to demonstrate improved ROM for pericare or typing, if appropriate 06/06/24: See above LTG Duration 12 weeks One Impairment QOL/activity tolerance: quickdash 56.8% impairment Short Term Goal (STG) Pt will decrease quickdash impairment by at least 11% (1 MCID) in order to demonstrate improved symptom management and QOL 05/05/24- NOT MET: 34 or 52.3%; work module 31.3% 06/06/24 QuickDASH reveals 45. 45% impairment, not improving STG Duration 8 weeks Support Assistant Goal (LTG) Pt will report <25% impairment on quickdash due to pain or numbness/tingling in R hand/ wrist or neck in order to demonstrate improved symptom management, activity tolerance and QOL 06/06/24: See QuickDASH score above, not improving LTG Duration 12 weeks Assessment Summary Assessment Pt tolerated session well. Met wrist flexion STG today, now 60 deg of wrist flexion without symptom increase. Continues to have restrictions of pecs and 1st/2nd ribs, elevated today. Pt responds well to trials with median nerve glides with modifications of slight finger extension and limited ROM, has less tingling than in previous sessions. Responds best to tendon glides, able to progress to elbow extension/ shoulder flexion without symptom increase. Pt would benefit from skilled PT for symptom management in order to improve pericare, ADL tolerance, and work tolerance. Physical Therapy Plan Frequency and Duration Frequency of Treatment 2x/Week Duration of treatment (weeks) 12 Plan of Care Start Date 04/06/24 Plan of Care End Date 07/06/24 Therapeutic Interventions Therapeutic Interventions Canalithic Repositioning,Gait Training,Home Exercise Program ,Joint Mobilizations,Manual Therapy,Neuromuscular Re- education,Orthotic/Prosthetic Management,Patient/Caregiver Education,Self-Care/Home Management,Sensory Integration ,Soft Tissue Mobilization, Taping,Therapeutic Activities, Therapeutic Exercises Modalities Cold Pack/Ice Massage,Electric Stimulation,Hot Packs, Traction- Mechanical, Ultrasound Other Referrals/Consults Referrals/Consults Recommended EMG Next Visit Focus/Plan Next Note Type Treatment Note Next Visit Plan retrial seated open book with trunk flexion, nerve glides w/ lower shoulder, scapular mobilizations From POC: Con't forearm manual work and wrist/carpal mobs, address carpal tunnel, consider work on scalenes, UT, LS, SCM as needed, other cervical mobs; scapular mobility > rows and low rows w / band (increased reps/ resistance) Assess tolerance to tendon glides and nerve glides
--- NOTE | 2024-06-26 10:33 | PT.OTN ---
Current Diagnoses Stiffness of right wrist, not elsewhere classified (06/26/24) Radiculopathy, cervical region (06/26/24) Weakness (06/26/24) Physical Therapy Treatment Note PT-OP-A Visit Information Start: 04/06/24 07:29 Freq: Status: Active Protocol: Document 06/26/24 09:48 NM (Rec: 06/26/24 10:33 NM [id number]) Out-Patient Physical Therapy Visit Information Visit Information Visit Type Treatment Note Visit Start Time 09:49 Visit Stop Time 10:29 Visit Number 20 Evaluation Information Evaluation Date 04/06/24 Precautions Precautions neck pain and median nerve PT-OP-B Current Condition Start: 04/06/24 07:29 Freq: Status: Active Protocol: Document 04/06/24 14:33 NM (Rec: 04/06/24 16:15 NM [id number]) Current Condition History of Current Condition Onset Date Mother's day 2023 Current Complaints pain, numbness and tingling History of Current Condition Pt reports that she has cervical radiculopathy. She was seen January-February because entire R arm went numb and 10/ [address] Brown who referred her to PT. Over the past 2 months . She nows has pain only in the R hand vs no longer has the radiation. Pt reports that her condition started in November, when she started to experience numbness in her hand. She sleeps with her arms elevated on both sides. On Mother's day, she did a lot of excavating/moving yard work. The following Wednesday, she had pain; unable to type. Prescribed prednisone and muscle relaxers; steroid helped with symptoms. She only uses muscle relaxers occasionally, causes depression. Primarily felt in thumb and fingers 2-3. 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 She also had a minor whiplash event 2 weekends ago when dog pulled on leash, so now L sided pain; now longer as stiffness. Day before mothers' day, she walked several miles in her backpack, which is originally when the arm numbness began but was managable. She shakes her hands, wakes up at night. Denies weakness but states difficulty with fine motor. 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 She had a massage over the weekend , massage therapist commented on pec tightness. Reports just a little numbness/tingling in R hand, reduced back down to first 3 day. PT-OP-F Manual Assessment Start: 04/06/24 07:29 Freq: Status: Active Protocol: Document 04/06/24 14:33 NM (Rec: 04/06/24 16:15 NM [id number]) Manual Assessments Soft Tissue Assessment Soft Tissue Mobility Assessment Increased soft tissue restrictions of cervical paraspinals, chest and periscapulars, wrist extensors . R medial scapular border 7 cm, L medial scapular border 8 cm Joint Mobility Assessment Joint Mobility Assessment Hypomobility of cervical spine with lateral gliding, especially L>R PT-OP-G Mobility & Gait Start: 04/06/24 07:29 Freq: Status: Active Protocol: Document 04/06/24 14:33 NM (Rec: 04/06/24 16:15 NM [id number]) OP Gait Assessment Gait Gait Assistance Required: Independent Distance (Feet) 150 Comments Gait Comments Stiff gait with limited trunk rotation and arm swing. R shoulder is more elevated. No widebased or ataxic gait, no LOB PT-OP-H Neuro Start: 04/06/24 07:29 Freq: Status: Active Protocol: Document 04/10/24 07:31 NM (Rec: 04/10/24 09:41 NM [id number]) Sensation Evaluation Comments Summary Comments BUE equally intact to light touch sensation PT-OP-J Posture/Palpation/Skin Start: 04/06/24 07:29 Freq: Status: Active Protocol: Document 04/06/24 14:33 NM (Rec: 04/06/24 16:15 NM [id number]) Posture Evaluation Position Standing Head/C-Spine Posture Forward Head Shoulder Posture (L) Rounded,(R) Rounded,(L) Forward,(R) Forward,(R) Elevated Scapula Posture (R) Rotated Up,(R) Elevated,(R ) Tipped Arm Posture (L) Externally Rotated,(R) Externally Rotated Pelvis Posture Anteriorly Tilted Weight Distribution Balanced Palpation Assessment Location R wrist/hand Palpation Details Tightness of wrist extensors Pain with gripping and wrist flexion cervical spine Palpation Findings Soft Tissue Tightness Palpation Details Moderate tightness of paraspinals, pectoralis, lat, levator scapula, upper trapezius, scalenes, suboccipitals Skin Assessment Other Assessments Skin Assessment Comments No R wrist swellin cm ea PT-OP-K Range of Motion Start: 04/06/24 07:29 Freq: Status: Active Protocol: Document 05/05/24 11:19 NM (Rec: 05/05/24 11:54 NM [id number]) Cervical Spine Range of Motion Cervical Spine Active Degrees Flexion 60 Extension 45 Rotation Left 84 Rotation Right 70 Lateral Flexion Left 40 Lateral Flexion Right 40 ROM Limitations Soft Tissue Tightness Comments pain on L side with ext and flex 05/05/24: 80 deg rot B, 45 deg L LF, 25 deg R LF, 55 deg ext, 60 deg flex Shoulder Goniometric Range of Motion Shoulder Right Flexion 150 Abduction 150 External Rotation at 0 degrees Abduction 70 Internal Rotation Behind Back (text) T10 Comments T4 for apley ER 05/05/24: 153 deg abd, 165 deg flexion PT-OP-L Special Tests Start: 04/06/24 07:29 Freq: Status: Active Protocol: Document 04/10/24 07:31 NM (Rec: 04/10/24 09:41 NM [id number]) Special Tests Cervical Spine Special Tests Vertebral Artery Test Results - Comments intact cranial n, no abnormal palpation/auscultation of carotid a Shoulder Abduction Relief Test Test Results + Comments neural symptom relief with passive arm ABD on head ULTT Test Results median n Comments better w/ depression; pain also w/ ulnar n test position but no symptoms Distraction Test Results + Comments symptom resolved Spurling's Test Results + Comments local only on L PT-OP-M Strength Start: 04/06/24 07:29 Freq: Status: Active Protocol: Document 04/06/24 14:33 NM (Rec: 04/06/24 16:15 NM [id number]) Cervical Spine Strength Cervical Spine Manual Muscle Testing Flexion (C1-2) 4+ Good+ Extension 4+ Good+ Rotation Left 4+ Good+ Rotation Right 4+ Good+ Lateral Flexion Left (C3) 4+ Good+ Lateral Flexion Right (C3) 4+ Good+ Comments no pain or symptom reproduction Shoulder Strength Shoulder Manual Muscle Testing Right Flexion 4+ Good+ Abduction (C5) 4 Good External Rotation 4 Good Internal Rotation 4 Good Left Flexion 4+ Good+ Abduction (C5) 4+ Good+ External Rotation 4+ Good+ Internal Rotation 4+ Good+ Elbow/Forearm Strength Elbow and Forearm Manual Muscle Testing Right Flexion (C6) 4+ Good+ Extension (C7) 4+ Good+ Left Flexion (C6) 4+ Good+ Extension (C7) 4+ Good+ Wrist Strength Wrist Manual Muscle Testing Right Flexion (C7) 4- Good- Extension (C6) 4 Good Comments mild pain w/ flex and ext fingers: 4/5, no significant difference between sides Left Flexion (C7) 4+ Good+ Extension (C6) 4+ Good+ PT-OP-Q Treatments Start: 04/06/24 07:29 Freq: Status: Active Protocol: Document 06/26/24 09:48 NM (Rec: 06/26/24 10:33 NM [id number]) Therapeutic Exercises Supine Exercises median nerve glide Supine Exercise Name partial ROM w/ fingers in partial finger ext Side right Reps/Minutes 20 ea DNF activation Supine Exercise Name retraction with lift Side bilateral Reps/Minutes 2x10 Sitting Exercises wrist extension/flexion Sitting Exercise Name 1. flexion AROM, 2. flexion w/ 1# Side right Equipment Used from neutral position on table Reps/Minutes 1. 10, 2. 10 from neutral then 10 from deficit below table Comments cued neutral wrist alignment wrist pronation/supination Sitting Exercise Name 1. pro/sup, 2. wrist circles, 3. UD/RD Side right Resistance 2# Reps/Minutes 20 ea Other Exercises ball squeezes Other Exercise Name 1. 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 slight wrist ext Side right Equipment Used assistant professor of life [employer] ball; hand by side Reps/Minutes 15 ea Comments no symptom increase 1/2 kneel thoracic mobility Other Exercise Name open book Side bilateral Reps/Minutes 10 ea w/ 2 hold Comments slightly lower on R side d/t tingling, stops w/ lowered arm Manual Therapy Treatment Consent Patient gave verbal consent for manual Yes treatment Soft Tissue Mobilization thoracic spine/chest Body Location pec Mobilization Type Rolling,Sustained Pressure Intensity/Depth Moderate Body Position Supine Comments Increased restriction in axilla of pec R hand/forearm Body Location wrist flexors, along w/ coracobracialis Mobilization Type Rolling,Other Intensity/Depth Superficial Body Position Supine Comments Performed with fanning over carpal tunnel. No increase in symptoms cervical spine Body Location scalenes Mobilization Type Rolling Intensity/Depth Moderate Body Position Hooklying PT-OP-R Modalities Start: 04/06/24 07:29 Freq: Status: Active Protocol: Document 05/25/24 09:46 NM (Rec: 05/25/24 10:33 NM [id number]) Spinal Traction Traction Treatment Cervical Method Mechanical,Static Patient Position Hooklying Force Applied (Pounds) 20 Heating Pad Applied No Traction Treatment Comment 8 minutes: Traction with cervical flexion bias. pt monitored by PT throughout, reyes within reach. PT-OP-T Assessment and Plan Start: 04/06/24 07:29 Freq: Status: Active Protocol: Document 06/26/24 09:48 NM (Rec: 06/26/24 10:33 NM [id number]) Physical Therapy Assessment Goals Five Impairment reports currently 50% impaired with work tasks Short Term Goal (STG) Pt will be educated on good ergonomic positioning and work tools in order to improve posture and body mechanics for better symptom management 05/05/24: pt provided handout for ergonomics in previous sessions, currently states 31. 3% impaired at work ( improvement since evaluation) STG Duration 4 weeks MET [facility] Goal (LTG) Pt will report that she is less than 25% impaired with work-related tasks in order to demonstrate improved symptom management, activity tolerance , and QOL 05/05/24- PROGRESSING: pt reports 31.3% impaired at work 06/06/24 NDI performed by PT and after discussing with primary PT, another test was done and she will review in future 06/07/24: 56% impaired on work- related quickdash; scores do not reflect pt subjective LTG Duration 12 weeks Three Impairment ROM: R wrist flexion 50 deg Short Term Goal (STG) Pt will improve R wrist flexion to at least 60 deg in order to demonstrate improved ROM for pericare, if appropriate 06/06/24: AROM right wrist flexion to 50 deg and reproduces tingling 06/15/24: 60 deg of wrist flexion w/o symptom increase STG Duration 6 weeks 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 45% impairment, not improving STG Duration 8 weeks [facility] Goal (LTG) Pt will report <25% impairment on quickdash due to pain or numbness/tingling in R hand/ wrist or neck in order to demonstrate improved symptom management, activity tolerance and QOL 06/06/24: See QuickDASH score above, not improving LTG Duration 12 weeks Assessment Summary Assessment Pt tolerated session well. Less tingling with median n glide today in supine, able to tolerate slight finger extension. Fewer soft tissue restrictions at her pec and R forearm today as well. Still requires modification to prevent tingling in R arm with thoracic mobility and nerve glides. Good response to trialed gripping with ball and wrist flexion even beyond neutral ROM. Pt would benefit from skilled PT for symptom management to improve work tolerance and ability to perform ADLs involving wrist flexion. Physical Therapy Plan Frequency and Duration Frequency of Treatment 2x/Week Duration of treatment (weeks) 12 Plan of Care Start Date 04/06/24 Plan of Care End Date 07/06/24 Therapeutic Interventions Therapeutic Interventions Canalithic Repositioning,Gait Training,Home Exercise Program ,Joint Mobilizations,Manual Therapy,Neuromuscular Re- education,Orthotic/Prosthetic Management,Patient/Caregiver Education,Self-Care/Home Management,Sensory Integration ,Soft Tissue Mobilization, Taping,Therapeutic Activities, Therapeutic Exercises Modalities Cold Pack/Ice Massage,Electric Stimulation,Hot Packs, Traction- Mechanical, Ultrasound Other Referrals/Consults Referrals/Consults Recommended EMG Next Visit Focus/Plan Next Note Type Treatment Note Next Visit Plan cont thoracic mob in 1/2 kneel , review and assess carlos a to wrist flexion (add to HEP), scapular mobilizations, CS/pec /wrist mobility and strength From POC: Con't forearm manual work and wrist/carpal mobs, address carpal tunnel, consider work on scalenes, UT, LS, SCM as needed, other cervical mobs; scapular mobility > rows and low rows w / band (increased reps/ resistance) Assess tolerance to tendon glides and nerve glides
--- NOTE | 2024-06-30 08:14 | PT.OTN ---
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 She was seen January-February because entire R arm went numb and 10/ [address] Brown who referred her to PT. Over the past 2 months . She nows has pain only in the R hand vs no longer has the radiation. Pt reports that her condition started in November, when she started to experience numbness in her hand. She sleeps with her arms elevated on both sides. On Mother's day, she did a lot of excavating/moving yard work. The following Wednesday, she had pain; unable to type. Prescribed prednisone and muscle relaxers; steroid helped with symptoms. She only uses muscle relaxers occasionally, causes depression. Primarily felt in thumb and fingers 2-3. Feels like numbness/tingling, worse w/ vp purchasing. She also had a minor whiplash event 2 weekends ago when dog pulled on leash, so now L sided pain; now longer as stiffness. Day before mothers' day, she walked several miles in her backpack, which is originally when the arm numbness began but was managable. She shakes her hands, wakes up at night. Denies weakness but states difficulty with fine motor. 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 Not as much tingling RUE 1-3 fingersif minful of angle of her R arm or hand to decrease tingling symptoms. Did pretty well with wrist/hand exercises if not making a sustained contraction and more mobilility. SHe states having tightness in neck arrival. Is very compliant with hand wrist and nerve glides along with self STMs and MWM R pec but is not comfortable. PT-OP-F Manual Assessment Start: 04/06/24 07:29 Freq: Status: Active Protocol: Document 04/06/24 14:33 NM (Rec: 04/06/24 16:15 NM [id number]) Manual Assessments Soft Tissue Assessment Soft Tissue Mobility Assessment Increased soft tissue restrictions of cervical paraspinals, chest and periscapulars, wrist extensors . R medial scapular border 7 cm, L medial scapular border 8 cm Joint Mobility Assessment Joint Mobility Assessment Hypomobility of cervical spine with lateral gliding, especially L>R PT-OP-G Mobility & Gait Start: 04/06/24 07:29 Freq: Status: Active Protocol: Document 04/06/24 14:33 NM (Rec: 04/06/24 16:15 NM [id number]) OP Gait Assessment Gait Gait Assistance Required: Independent Distance (Feet) 150 Comments Gait Comments Stiff gait with limited trunk rotation and arm swing. R shoulder is more elevated. No widebased or ataxic gait, no LOB PT-OP-H Neuro Start: 04/06/24 07:29 Freq: Status: Active Protocol: Document 04/10/24 07:31 NM (Rec: 04/10/24 09:41 NM [id number]) Sensation Evaluation Comments Summary Comments BUE equally intact to light touch sensation PT-OP-J Posture/Palpation/Skin Start: 04/06/24 07:29 Freq: Status: Active Protocol: Document 04/06/24 14:33 NM (Rec: 04/06/24 16:15 NM [id number]) Posture Evaluation Position Standing Head/C-Spine Posture Forward Head Shoulder Posture (L) Rounded,(R) Rounded,(L) Forward,(R) Forward,(R) Elevated Scapula Posture (R) Rotated Up,(R) Elevated,(R ) Tipped Arm Posture (L) Externally Rotated,(R) Externally Rotated Pelvis Posture Anteriorly Tilted Weight Distribution Balanced Palpation Assessment Location R wrist/hand Palpation Details Tightness of wrist extensors Pain with gripping and wrist flexion cervical spine Palpation Findings Soft Tissue Tightness Palpation Details Moderate tightness of paraspinals, pectoralis, lat, levator scapula, upper trapezius, scalenes, suboccipitals Skin Assessment Other Assessments Skin Assessment Comments No R wrist swellin cm ea PT-OP-K Range of Motion Start: 04/06/24 07:29 Freq: Status: Active Protocol: Document 05/05/24 11:19 NM (Rec: 05/05/24 11:54 NM [id number]) Cervical Spine Range of Motion Cervical Spine Active Degrees Flexion 60 Extension 45 Rotation Left 84 Rotation Right 70 Lateral Flexion Left 40 Lateral Flexion Right 40 ROM Limitations Soft Tissue Tightness Comments pain on L side with ext and flex 05/05/24: 80 deg rot B, 45 deg L LF, 25 deg R LF, 55 deg ext, 60 deg flex Shoulder Goniometric Range of Motion Shoulder Right Flexion 150 Abduction 150 External Rotation at 0 degrees Abduction 70 Internal Rotation Behind Back (text) T10 Comments T4 for apley ER 05/05/24: 153 deg abd, 165 deg flexion PT-OP-L Special Tests Start: 04/06/24 07:29 Freq: Status: Active Protocol: Document 04/10/24 07:31 NM (Rec: 04/10/24 09:41 NM [id number]) Special Tests Cervical Spine Special Tests Vertebral Artery Test Results - Comments intact cranial n, no abnormal palpation/auscultation of carotid a Shoulder Abduction Relief Test Test Results + Comments neural symptom relief with passive arm ABD on head ULTT Test Results median n Comments better w/ depression; pain also w/ ulnar n test position but no symptoms Distraction Test Results + Comments symptom resolved Spurling's Test Results + Comments local only on L PT-OP-M Strength Start: 04/06/24 07:29 Freq: Status: Active Protocol: Document 04/06/24 14:33 NM (Rec: 04/06/24 16:15 NM [id number]) Cervical Spine Strength Cervical Spine Manual Muscle Testing Flexion (C1-2) 4+ Good+ Extension 4+ Good+ Rotation Left 4+ Good+ Rotation Right 4+ Good+ Lateral Flexion Left (C3) 4+ Good+ Lateral Flexion Right (C3) 4+ Good+ Comments no pain or symptom reproduction Shoulder Strength Shoulder Manual Muscle Testing Right Flexion 4+ Good+ Abduction (C5) 4 Good External Rotation 4 Good Internal Rotation 4 Good Left Flexion 4+ Good+ Abduction (C5) 4+ Good+ External Rotation 4+ Good+ Internal Rotation 4+ Good+ Elbow/Forearm Strength Elbow and Forearm Manual Muscle Testing Right Flexion (C6) 4+ Good+ Extension (C7) 4+ Good+ Left Flexion (C6) 4+ Good+ Extension (C7) 4+ Good+ Wrist Strength Wrist Manual Muscle Testing Right Flexion (C7) 4- Good- Extension (C6) 4 Good Comments mild pain w/ flex and ext fingers: 4/5, no significant difference between sides Left Flexion (C7) 4+ Good+ Extension (C6) 4+ Good+ PT-OP-Q Treatments Start: 04/06/24 07:29 Freq: Status: Active Protocol: Document 06/30/24 07:34 SP (Rec: 06/30/24 08:21 SP [id number]) Therapeutic Exercises Sitting Exercises wrist extension/flexion Sitting Exercise Name 1. flexion AROM, 2. flexion w/ 1# Side right Resistance 3#>2# DB ext, 2# DB flexion Equipment Used from neutral position on table Reps/Minutes 13th rep started tingling thenar eminence, went away /c 2# DB 14-20 reps Comments was able perform full range able wrist pronation/supination Sitting Exercise Name 1. pro/sup, 2. wrist circles, 3. UD/RD Side right Resistance 2#>3# DB Reps/Minutes 20 ea Comments non symptomatic wrist/finger ext Sitting Exercise Name 1. wrist flex/ext glides, 2. thumb ext Equipment Used mild finger flex Reps/Minutes 1. stopped at 13 reps due to tinginling 2. 20 w/ thickest rubber band Comments 2. cued palm on table isolate 1st MTP ext and ABD- nonsymptomatic Standing Exercises extension Standing Exercise Name Hold Comments causes symptoms over distal supraspinatus R row Standing Exercise Name added to HEP Resistance Tb #4 dark blue Reps/Minutes x10 Comments no symptoms Other Exercises 1/2 kneel thoracic mobility Other Exercise Name open book Side bilateral Reps/Minutes 10 ea w/ 2 hold Comments slightly lower on R side d/t tingling, stops w/ less finger extension Manual Therapy Treatment Consent Patient gave verbal consent for manual Yes treatment Soft Tissue Mobilization thoracic spine/chest Body Location pec Mobilization Type Rolling,Sustained Pressure Intensity/Depth Moderate Body Position Supine Comments increased mobility of pec, nonsymptomatic R hand/forearm Body Location wrist flexors, along w/ coracobracialis Mobilization Type Rolling,Other Intensity/Depth Superficial Body Position Supine Comments Performed with fanning over carpal tunnel. No increase in symptoms cervical spine Body Location scalenes Mobilization Type Rolling Intensity/Depth Moderate Body Position Hooklying Comments No increase in symptoms PT-OP-R Modalities Start: 04/06/24 07:29 Freq: Status: Active Protocol: Document 05/25/24 09:46 NM (Rec: 05/25/24 10:33 NM [id number]) Spinal Traction Traction Treatment Cervical Method Mechanical,Static Patient Position Hooklying Force Applied (Pounds) 20 Heating Pad Applied No Traction Treatment Comment 8 minutes: Traction with cervical flexion bias. pt monitored by PT throughout, reyes within reach. PT-OP-T Assessment and Plan Start: 04/06/24 07:29 Freq: Status: Active Protocol: Document 06/30/24 07:34 SP (Rec: 06/30/24 08:21 SP [id number]) Physical Therapy Assessment Goals Five Impairment reports currently 50% impaired with work tasks Short Term Goal (STG) Pt will be educated on good ergonomic positioning and work tools in order to improve posture and body mechanics for better symptom management 05/05/24: pt provided handout for ergonomics in previous sessions, currently states 31. 3% impaired at work ( improvement since evaluation) STG Duration 4 weeks MET Pump Erector Goal (LTG) Pt will report that she is less than 25% impaired with work-related tasks in order to demonstrate improved symptom management, activity tolerance , and QOL 05/05/24- PROGRESSING: pt reports 31.3% impaired at work 06/06/24 NDI performed by PT and after discussing with primary PT, another test was done and she will review in future 06/07/24: 56% impaired on work- related quickdash; scores do not reflect pt subjective LTG Duration 12 weeks Three Impairment ROM: R wrist flexion 50 deg Short Term Goal (STG) Pt will improve R wrist flexion to at least 60 deg in order to demonstrate improved ROM for pericare, if appropriate 06/06/24: AROM right wrist flexion to 50 deg and reproduces tingling 06/15/24: 60 deg of wrist flexion w/o symptom increase STG Duration 6 weeks MET Retirement Goal (LTG) Pt will improve R wrist flexion to at least 70 deg in order to demonstrate improved ROM for pericare or typing, if appropriate 06/06/24: See above LTG Duration 12 weeks One Impairment QOL/activity tolerance: quickdash 56.8% impairment Short Term Goal (STG) Pt will decrease quickdash impairment by at least 11% (1 MCID) in order to demonstrate improved symptom management and QOL 05/05/24- NOT MET: 34 or 52.3%; work module 31.3% 06/06/24 QuickDASH reveals 45. 45% impairment, not improving STG Duration 8 weeks Pump Erector Goal (LTG) Pt will report <25% impairment on quickdash due to pain or numbness/tingling in R hand/ wrist or neck in order to demonstrate improved symptom management, activity tolerance and QOL 06/06/24: See QuickDASH score above, not improving LTG Duration 12 weeks Assessment Summary Assessment Pt reports nonsymptomatic during manual. Nonsymptomatic during all ther ex with tolerance of increased resistance 3 lb dumbbell, except wrist flexion, unable increased >2 lbs. CUes for scap retraction with good tolerance and cued no excessive gripping holding band during inititated rows for HEP. Was ablet o tolerate finger glides up to 13 reps before tingling started. Improved 1/2 knee TS rotation with cues for slight finger flexion to decreased neural tension, improved no symptoms in fingers. Discussed with pt if called for EMG, is awaiting for appt but knows referral was placed. Physical Therapy Plan Frequency and Duration Frequency of Treatment 2x/Week Duration of treatment (weeks) 12 Plan of Care Start Date 04/06/24 Plan of Care End Date 07/06/24 Therapeutic Interventions Therapeutic Interventions Canalithic Repositioning,Gait Training,Home Exercise Program ,Joint Mobilizations,Manual Therapy,Neuromuscular Re- education,Orthotic/Prosthetic Management,Patient/Caregiver Education,Self-Care/Home Management,Sensory Integration ,Soft Tissue Mobilization, Taping,Therapeutic Activities, Therapeutic Exercises Modalities Cold Pack/Ice Massage,Electric Stimulation,Hot Packs, Traction- Mechanical, Ultrasound Other Referrals/Consults Referrals/Consults Recommended EMG Next Visit Focus/Plan Next Note Type Treatment Note Next Visit Plan cont thoracic mob in 1/2 kneel , review and assess carlos a to wrist flexion declined HO using DB, scapular mobilizations, CS/pec/wrist mobility and strength From POC: Con't forearm manual work and wrist/carpal mobs, address carpal tunnel, consider work on scalenes, UT, LS, SCM as needed, other cervical mobs; scapular mobility > rows and low rows w / band (increased reps/ resistance) Assess tolerance to tendon glides and nerve glides
--- NOTE | 2024-07-03 11:04 | PT.OTN ---
Current Diagnoses Stiffness of right wrist, not elsewhere classified (07/03/24) Radiculopathy, cervical region (07/03/24) Weakness (07/03/24) Physical Therapy Treatment Note PT-OP-A Visit Information Start: 04/06/24 07:29 Freq: Status: Active Protocol: Document 07/03/24 08:06 NM (Rec: 07/03/24 08:10 NM [id number]) Out-Patient Physical Therapy Visit Information Visit Information Visit Type Progress Note Visit Start Time 09:50 Visit Stop Time 10:30 Visit Number 22 Evaluation Information Evaluation Date 04/06/24 Precautions Precautions neck pain and median nerve PT-OP-B Current Condition Start: 04/06/24 07:29 Freq: Status: Active Protocol: Document 04/06/24 14:33 NM (Rec: 04/06/24 16:15 NM [id number]) Current Condition History of Current Condition Onset Date Mother's day 2023 Current Complaints pain, numbness and tingling History of Current Condition Pt reports that she has cervical radiculopathy. She was seen January-February because entire R arm went numb and 10/ [address] Brown who referred her to PT. Over the past 2 months . She nows has pain only in the R hand vs no longer has the radiation. Pt reports that her condition started in November, when she started to experience numbness in her hand. She sleeps with her arms elevated on both sides. On Mother's day, she did a lot of excavating/moving yard work. The following Wednesday, she had pain; unable to type. Prescribed prednisone and muscle relaxers; steroid helped with symptoms. She only uses muscle relaxers occasionally, causes depression. Primarily felt in thumb and fingers 2-3. Feels like numbness/tingling, worse w/ security delivery specialist. She also had a minor whiplash event 2 weekends ago when dog pulled on leash, so now L sided pain; now longer as stiffness. Day before mothers' day, she walked several miles in her backpack, which is originally when the arm numbness began but was managable. She shakes her hands, wakes up at night. Denies weakness but states difficulty with fine motor. 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 She reports minimal tingling and numbness. Still comes in waves , isolated to just working in morning at desk. States otherwise has consistently been very diminished. Has been referred to neurologist. Still 1st three fingers. Reports less bothered with wrist flexion, especially with pericare. Reports not very limited with daily routine, but still has had several life changes. Less neck pain but still tension/tightness present. Reports that she is still having pain on top of her R shoulder. She has been modifying movements. PT-OP-F Manual Assessment Start: 04/06/24 07:29 Freq: Status: Active Protocol: Document 04/06/24 14:33 NM (Rec: 04/06/24 16:15 NM [id number]) Manual Assessments Soft Tissue Assessment Soft Tissue Mobility Assessment Increased soft tissue restrictions of cervical paraspinals, chest and periscapulars, wrist extensors . R medial scapular border 7 cm, L medial scapular border 8 cm Joint Mobility Assessment Joint Mobility Assessment Hypomobility of cervical spine with lateral gliding, especially L>R PT-OP-G Mobility & Gait Start: 04/06/24 07:29 Freq: Status: Active Protocol: Document 04/06/24 14:33 NM (Rec: 04/06/24 16:15 NM [id number]) OP Gait Assessment Gait Gait Assistance Required: Independent Distance (Feet) 150 Comments Gait Comments Stiff gait with limited trunk rotation and arm swing. R shoulder is more elevated. No widebased or ataxic gait, no LOB PT-OP-H Neuro Start: 04/06/24 07:29 Freq: Status: Active Protocol: Document 04/10/24 07:31 NM (Rec: 04/10/24 09:41 NM [id number]) Sensation Evaluation Comments Summary Comments BUE equally intact to light touch sensation PT-OP-J Posture/Palpation/Skin Start: 04/06/24 07:29 Freq: Status: Active Protocol: Document 04/06/24 14:33 NM (Rec: 04/06/24 16:15 NM [id number]) Posture Evaluation Position Standing Head/C-Spine Posture Forward Head Shoulder Posture (L) Rounded,(R) Rounded,(L) Forward,(R) Forward,(R) Elevated Scapula Posture (R) Rotated Up,(R) Elevated,(R ) Tipped Arm Posture (L) Externally Rotated,(R) Externally Rotated Pelvis Posture Anteriorly Tilted Weight Distribution Balanced Palpation Assessment Location R wrist/hand Palpation Details Tightness of wrist extensors Pain with gripping and wrist flexion cervical spine Palpation Findings Soft Tissue Tightness Palpation Details Moderate tightness of paraspinals, pectoralis, lat, levator scapula, upper trapezius, scalenes, suboccipitals Skin Assessment Other Assessments Skin Assessment Comments No R wrist swellin cm ea PT-OP-K Range of Motion Start: 04/06/24 07:29 Freq: Status: Active Protocol: Document 07/03/24 08:06 NM (Rec: 07/03/24 08:10 NM [id number]) Cervical Spine Range of Motion Cervical Spine Active Degrees Flexion 60 Extension 55 Rotation Left 82 Rotation Right 86 Lateral Flexion Left 40 Lateral Flexion Right 40 ROM Limitations Soft Tissue Tightness Comments pain on L side with ext and flex 05/05/24: 80 deg rot B, 45 deg L LF, 25 deg R LF, 55 deg ext, 60 deg flex 07/03/24: see above; tightness but no symptom reproduction Wrist Goniometric Range of Motion Wrist Right Flexion Active (degrees) 65 Extension Active (degrees) 70 Left Flexion Active (degrees) 60 Extension Active (degrees) 60 PT-OP-L Special Tests Start: 04/06/24 07:29 Freq: Status: Active Protocol: Document 04/10/24 07:31 NM (Rec: 04/10/24 09:41 NM [id number]) Special Tests Cervical Spine Special Tests Vertebral Artery Test Results - Comments intact cranial n, no abnormal palpation/auscultation of carotid a Shoulder Abduction Relief Test Test Results + Comments neural symptom relief with passive arm ABD on head ULTT Test Results median n Comments better w/ depression; pain also w/ ulnar n test position but no symptoms Distraction Test Results + Comments symptom resolved Spurling's Test Results + Comments local only on L PT-OP-M Strength Start: 04/06/24 07:29 Freq: Status: Active Protocol: Document 07/03/24 08:06 NM (Rec: 07/03/24 08:10 NM [id number]) Cervical Spine Strength Cervical Spine Manual Muscle Testing Flexion (C1-2) 4+ Good+ Extension 4+ Good+ Rotation Left 4+ Good+ Rotation Right 4+ Good+ Lateral Flexion Left (C3) 4+ Good+ Lateral Flexion Right (C3) 4+ Good+ Comments no pain or symptom reproduction 07/03/24: no pain or symptom reproduction Wrist Strength Wrist Manual Muscle Testing Right Flexion (C7) 4+ Good+ Extension (C6) 4+ Good+ Comments mild pain w/ flex and ext fingers: 4/5, no significant difference between sides 07/03/24: no symptom reproduction Left Flexion (C7) 4+ Good+ Extension (C6) 4+ Good+ PT-OP-Q Treatments Start: 04/06/24 07:29 Freq: Status: Active Protocol: Document 07/03/24 08:06 NM (Rec: 07/03/24 08:10 NM [id number]) Therapeutic Exercises Standing Exercises rotator cuff Standing Exercise Name miniband flex + er Side bilateral Resistance level 2 band Equipment Used full finger ext > slight fist position to dec tingle Reps/Minutes 2x10 Comments no tingle w/o change hand position Other Exercises ball squeezes Other Exercise Name did not perform in session but edu to use socks at home 1/2 kneel thoracic mobility Other Exercise Name open book Side bilateral Resistance level 1 band Reps/Minutes 15 ea w/ 2 hold Comments slightly lower than chest height; edu to d/c band at home if bothers hand mobilization with movement Other Exercise Name subscapularis/lat, pec Side right Equipment Used L assist R Reps/Minutes 2 minutes ea Comments educated on how to perform subscap, tactile cueing Manual Therapy Treatment Consent Patient gave verbal consent for manual Yes treatment Soft Tissue Mobilization R rotator cuff Body Location supraspinatus, infraspinatus, teres, subscap border, lat Mobilization Type Myofascial Release,Rolling, Strumming Intensity/Depth Moderate Body Position Sidelying Comments Reduced tightness with manual treatment. Tenderness with subscapularis/lat, post cuff. R hand/forearm Body Location wrist flexors, along w/ coracobracialis Mobilization Type Rolling,Other Intensity/Depth Superficial Body Position Supine Comments Performed with fanning over carpal tunnel. No increase in symptoms cervical spine Body Location scalenes, SCM, paraspinals, suboccipitals Mobilization Type Rolling Intensity/Depth Moderate Body Position Hooklying Comments Increased tightness with posterior chain, tightness R>L . No increase in symptoms Joint Mobilizations R wrist Joint carpal, metacarpals, radio/ ulnocarpal Direction dorsal/volar Grade II Body Position Supine Reps/Duration 4x30 ea Comments Monitored for symptoms, emphasis on promoting flexion and extension. Reports no increase in symptoms or wrist pain PT-OP-R Modalities Start: 04/06/24 07:29 Freq: Status: Active Protocol: Document 05/25/24 09:46 NM (Rec: 05/25/24 10:33 NM [id number]) Spinal Traction Traction Treatment Cervical Method Mechanical,Static Patient Position Hooklying Force Applied (Pounds) 20 Heating Pad Applied No Traction Treatment Comment 8 minutes: Traction with cervical flexion bias. pt monitored by PT throughout, reyes within reach. PT-OP-T Assessment and Plan Start: 04/06/24 07:29 Freq: Status: Active Protocol: Document 07/03/24 08:06 NM (Rec: 07/03/24 08:10 NM [id number]) Physical Therapy Assessment Goals Five Impairment reports currently 50% impaired with work tasks Short Term Goal (STG) Pt will be educated on good ergonomic positioning and work tools in order to improve posture and body mechanics for better symptom management 05/05/24: pt provided handout for ergonomics in previous sessions, currently states 31. 3% impaired at work ( improvement since evaluation) STG Duration 4 weeks MET Detention Goal (LTG) Pt will report that she is less than 25% impaired with work-related tasks in order to demonstrate improved symptom management, activity tolerance , and QOL 05/05/24- PROGRESSING: pt reports 31.3% impaired at work 06/06/24 NDI performed by PT and after discussing with primary PT, another test was done and she will review in future 06/07/24: 56% impaired on work- related quickdash; scores do not reflect pt subjective 07/03/24: reports 12.5% impairment with work-related tasks on work module quickdash LTG Duration 12 weeks MET Three Impairment ROM: R wrist flexion 50 deg Short Term Goal (STG) Pt will improve R wrist flexion to at least 60 deg in order to demonstrate improved ROM for pericare, if appropriate 06/06/24: AROM right wrist flexion to 50 deg and reproduces tingling 06/15/24: 60 deg of wrist flexion w/o symptom increase STG Duration 6 weeks MET Detention Goal (LTG) Pt will improve R wrist flexion to at least 70 deg in order to demonstrate improved ROM for pericare or typing, if appropriate 06/06/24: See above 07/03/24: R wrist flexion 65 deg LTG Duration updated 8 weeks-NOT MET, PROGRESSING 07/03/24 One Impairment QOL/activity tolerance: quickdash 56.8% impairment Short Term Goal (STG) Pt will decrease quickdash impairment by at least 11% (1 MCID) in order to demonstrate improved symptom management and QOL 05/05/24- NOT MET: 34 or 52.3%; work module 31.3% 06/06/24 QuickDASH reveals 45. 45% impairment, not improving STG Duration 8 weeks Detention Goal (LTG) Pt will report <25% impairment on quickdash due to pain or numbness/tingling in R hand/ wrist or neck in order to demonstrate improved symptom management, activity tolerance and QOL 06/06/24: See QuickDASH score above, not improving 07/03/24: 27.3% impairment QUICKDASH, 6/50 (12/100) NDI LTG Duration updated 8 weeks-PROGRESSING, NOT MET 07/03/24 Progress Towards Goals Progress Towards Goals Progressing Toward Goals,Goals Met Assessment Summary Assessment Pt tolerated session well. Does have mild increase in tingling with resisted miniband and open book; however, eliminated with change in hand position. Able to progress to resisted thoracic mobility at wall and with miniband, in addition to progression to standing position. Pt continues to have soft tissue limitations at posterior cervical paraspinals , pec, posterior cuff, and R forearm. All limitations improved with manual treatment . Met 1 LTG today, progressing toward remaining LTGs. Pt would benefit from skilled PT to increase R wrist mobility and overall flexibility with education regarding posture/ ergonomics in order to continue to improve symptom management for ability to perform work-related tasks and personal ADLs. Physical Therapy Plan Frequency and Duration Frequency of Treatment 1-2x/week Duration of treatment (weeks) 8 Plan of Care Start Date 07/03/24 Plan of Care End Date 09/01/24 Therapeutic Interventions Therapeutic Interventions Canalithic Repositioning,Gait Training,Home Exercise Program ,Joint Mobilizations,Manual Therapy,Neuromuscular Re- education,Orthotic/Prosthetic Management,Patient/Caregiver Education,Self-Care/Home Management,Sensory Integration ,Soft Tissue Mobilization, Taping,Therapeutic Activities, Therapeutic Exercises Modalities Cold Pack/Ice Massage,Electric Stimulation,Hot Packs, Traction- Mechanical, Ultrasound Other Referrals/Consults Referrals/Consults Recommended Recommend EMG for further symptom assessment prior to neurology visit Next Visit Focus/Plan Next Note Type Treatment Note Next Visit Plan Assess tolerance for increased resistance with mobility. cont with proximal shoulder/ neck strengthening. Trial prone on ball. From POC: Con't forearm manual work and wrist/carpal mobs, address carpal tunnel, consider work on scalenes, UT, LS, SCM as needed, other cervical mobs; scapular mobility > rows and low rows w / band (increased reps/ resistance) Assess tolerance to tendon glides and nerve glides
--- NOTE | 2024-07-03 11:05 | PT.OPPOC ---
Physical, Occupational & Speech Therapy At [facility] Current Diagnoses Stiffness of right wrist, not elsewhere classified (07/03/24) Radiculopathy, cervical region (07/03/24) Weakness (07/03/24) Visit Care Team Role Provider Type Melissa Perkins MD Attending Provider Physician Family Provider Primary Care Provider Referring Provider Specialty: Family Practice ACCORDION MAKER Address: [address] [place] [address], [phone] Fax: Email: [email or web address] Plan Of Care PT-OP-B Current Condition Start: 04/06/24 07:29 Freq: Status: Active Protocol: Document 04/06/24 14:33 NM (Rec: 04/06/24 16:15 NM [id number]) Current Condition History of Current Condition Onset Date Mother's day 2023 Current Complaints pain, numbness and tingling History of Current Condition Pt reports that she has cervical radiculopathy. She was seen January-February because entire R arm went numb and 10/ [address] Brown who referred her to PT. Over the past 2 months . She nows has pain only in the R hand vs no longer has the radiation. Pt reports that her condition started in November, when she started to experience numbness in her hand. She sleeps with her arms elevated on both sides. On Mother's day, she did a lot of excavating/moving yard work. The following Wednesday, she had pain; unable to type. Prescribed prednisone and muscle relaxers; steroid helped with symptoms. She only uses muscle relaxers occasionally, causes depression. Primarily felt in thumb and fingers 2-3. Feels like numbness/tingling, worse w/ print developer. She also had a minor whiplash event 2 weekends ago when dog pulled on leash, so now L sided pain; now longer as stiffness. Day before mothers' day, she walked several miles in her backpack, which is originally when the arm numbness began but was managable. She shakes her hands, wakes up at night. Denies weakness but states difficulty with fine motor. 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 3% impaired at work ( improvement since evaluation) STG Duration 4 weeks MET Academic Success Coordinator Goal (LTG) Pt will report that she is less than 25% impaired with work-related tasks in order to demonstrate improved symptom management, activity tolerance , and QOL 05/05/24- PROGRESSING: pt reports 31.3% impaired at work 06/06/24 NDI performed by PT and after discussing with primary PT, another test was done and she will review in future 06/07/24: 56% impaired on work- related quickdash; scores do not reflect pt subjective 07/03/24: reports 12.5% impairment with work-related tasks on work module quickdash LTG Duration 12 weeks MET Three Impairment ROM: R wrist flexion 50 deg Short Term Goal (STG) Pt will improve R wrist flexion to at least 60 deg in order to demonstrate improved ROM for pericare, if appropriate 06/06/24: AROM right wrist flexion to 50 deg and reproduces tingling 06/15/24: 60 deg of wrist flexion w/o symptom increase STG Duration 6 weeks MET Academic Success Coordinator Goal (LTG) Pt will improve R wrist flexion to at least 70 deg in order to demonstrate improved ROM for pericare or typing, if appropriate 06/06/24: See above 07/03/24: R wrist flexion 65 deg LTG Duration updated 8 weeks-NOT MET, PROGRESSING 07/03/24 One Impairment QOL/activity tolerance: quickdash 56.8% impairment Short Term Goal (STG) Pt will decrease quickdash impairment by at least 11% (1 MCID) in order to demonstrate improved symptom management and QOL 05/05/24- NOT MET: 34 or 52.3%; work module 31.3% 06/06/24 QuickDASH reveals 45. 45% impairment, not improving STG Duration 8 weeks [facility] Goal (LTG) Pt will report <25% impairment on quickdash due to pain or numbness/tingling in R hand/ wrist or neck in order to demonstrate improved symptom management, activity tolerance and QOL 06/06/24: See QuickDASH score above, not improving 07/03/24: 27.3% impairment QUICKDASH, 6/50 (12/100) NDI LTG Duration updated 8 weeks-PROGRESSING, NOT MET 07/03/24 Progress Towards Goals Progress Towards Goals Progressing Toward Goals,Goals Met Assessment Summary Assessment Pt has been seen x21 visits since initial evaluation in March 2024. Since initial evaluation, pt demonstrates increased cervical spine and R wrist ROM and strength. She continues to have mild symptom reproduction (tingling) into 1st three fingers of R hand with wrist flexion; however, less frequent and less intense than prior to initial evaluation. She reports progress in her symptom management since initial evaluation, currently states only 27.3% impairment on quickdash and 12.5% impairment on work module quickdash. Pt demonstrates progress toward her PT goals, meeting 3/5; she has also demonstrated improvement toward remaining goals but still lacks end range wrist flexion AROM and still has impairments with ADLs per quickdash. Pt is compliant with HEP. PT and pt discussed continuing plan of care 1-2x/wk for continued symptom management. Pt has been referred to neurology to address continuing symptoms following recent MRI. Pt would also likely benefit from an EMG to assess peripheral vs central symptoms. Pt would continue to benefit from skilled PT for progressive flexibility and strengthening in order to improve symptom management with ADLs/IADLs and work-related tasks. Physical Therapy Plan Frequency and Duration Frequency of Treatment 1-2x/week Duration of treatment (weeks) 8 Plan of Care Start Date 07/03/24 Plan of Care End Date 09/01/24 Therapeutic Interventions Therapeutic Interventions Canalithic Repositioning,Gait Training,Home Exercise Program ,Joint Mobilizations,Manual Therapy,Neuromuscular Re- education,Orthotic/Prosthetic Management,Patient/Caregiver Education,Self-Care/Home Management,Sensory Integration ,Soft Tissue Mobilization, Taping,Therapeutic Activities, Therapeutic Exercises Modalities Cold Pack/Ice Massage,Electric Stimulation,Hot Packs, Traction- Mechanical, Ultrasound Other Referrals/Consults Referrals/Consults Recommended Recommend EMG for further symptom assessment prior to neurology visit Next Visit Focus/Plan Next Note Type Treatment Note Next Visit Plan Assess tolerance for increased resistance with mobility. cont with proximal shoulder/ neck strengthening. Trial prone on ball. From POC: Con't forearm manual work and wrist/carpal mobs, address carpal tunnel, consider work on scalenes, UT, LS, SCM as needed, other cervical mobs; scapular mobility > rows and low rows w / band (increased reps/ resistance) Assess tolerance to tendon glides and nerve glides Plan of Care Dates Plan of Care Start Date 07/03/24 Plan of Care End Date 09/01/24 Electronically Signed by: Kia Blandon, PT 07/03/24 [id number] If you are in agreement with this Plan of Care, please return a signed and dated copy. I have reviewed this Plan of Care and certify that the skilled therapy services above are required to meet the patient?s needs. Physician Signature Date Printed Name and Credentials Clinical Instructor Signature Printed Name and Credentials
--- NOTE | 2024-07-06 10:39 | PT.OTN ---
Current Diagnoses Stiffness of right wrist, not elsewhere classified (07/06/24) Radiculopathy, cervical region (07/06/24) Weakness (07/06/24) Physical Therapy Treatment Note PT-OP-A Visit Information Start: 04/06/24 07:29 Freq: Status: Active Protocol: Document 07/06/24 09:51 NM (Rec: 07/06/24 10:39 NM [id number]) Out-Patient Physical Therapy Visit Information Visit Information Visit Type Treatment Note Visit Start Time 09:54 Visit Stop Time 10:30 Visit Number 23 Evaluation Information Evaluation Date 04/06/24 Precautions Precautions neck pain and median nerve PT-OP-B Current Condition Start: 04/06/24 07:29 Freq: Status: Active Protocol: Document 04/06/24 14:33 NM (Rec: 04/06/24 16:15 NM [id number]) Current Condition History of Current Condition Onset Date Mother's day 2023 Current Complaints pain, numbness and tingling History of Current Condition Pt reports that she has cervical radiculopathy. She was seen January-February because entire R arm went numb and 10/ [address] Brown who referred her to PT. Over the past 2 months . She nows has pain only in the R hand vs no longer has the radiation. Pt reports that her condition started in November, when she started to experience numbness in her hand. She sleeps with her arms elevated on both sides. On Mother's day, she did a lot of excavating/moving yard work. The following Wednesday, she had pain; unable to type. Prescribed prednisone and muscle relaxers; steroid helped with symptoms. She only uses muscle relaxers occasionally, causes depression. Primarily felt in thumb and fingers 2-3. 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 She also had a minor whiplash event 2 weekends ago when dog pulled on leash, so now L sided pain; now longer as stiffness. Day before mothers' day, she walked several miles in her backpack, which is originally when the arm numbness began but was managable. She shakes her hands, wakes up at night. Denies weakness but states difficulty with fine motor. 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 Took pictures of work station. Does not stand frequently. She has a bruised rib in her back from violent sneezing/coughing due to cold. PT-OP-F Manual Assessment Start: 04/06/24 07:29 Freq: Status: Active Protocol: Document 04/06/24 14:33 NM (Rec: 04/06/24 16:15 NM [id number]) Manual Assessments Soft Tissue Assessment Soft Tissue Mobility Assessment Increased soft tissue restrictions of cervical paraspinals, chest and periscapulars, wrist extensors . R medial scapular border 7 cm, L medial scapular border 8 cm Joint Mobility Assessment Joint Mobility Assessment Hypomobility of cervical spine with lateral gliding, especially L>R PT-OP-G Mobility & Gait Start: 04/06/24 07:29 Freq: Status: Active Protocol: Document 04/06/24 14:33 NM (Rec: 04/06/24 16:15 NM [id number]) OP Gait Assessment Gait Gait Assistance Required: Independent Distance (Feet) 150 Comments Gait Comments Stiff gait with limited trunk rotation and arm swing. R shoulder is more elevated. No widebased or ataxic gait, no LOB PT-OP-H Neuro Start: 04/06/24 07:29 Freq: Status: Active Protocol: Document 04/10/24 07:31 NM (Rec: 04/10/24 09:41 NM [id number]) Sensation Evaluation Comments Summary Comments BUE equally intact to light touch sensation PT-OP-J Posture/Palpation/Skin Start: 04/06/24 07:29 Freq: Status: Active Protocol: Document 04/06/24 14:33 NM (Rec: 04/06/24 16:15 NM [id number]) Posture Evaluation Position Standing Head/C-Spine Posture Forward Head Shoulder Posture (L) Rounded,(R) Rounded,(L) Forward,(R) Forward,(R) Elevated Scapula Posture (R) Rotated Up,(R) Elevated,(R ) Tipped Arm Posture (L) Externally Rotated,(R) Externally Rotated Pelvis Posture Anteriorly Tilted Weight Distribution Balanced Palpation Assessment Location R wrist/hand Palpation Details Tightness of wrist extensors Pain with gripping and wrist flexion cervical spine Palpation Findings Soft Tissue Tightness Palpation Details Moderate tightness of paraspinals, pectoralis, lat, levator scapula, upper trapezius, scalenes, suboccipitals Skin Assessment Other Assessments Skin Assessment Comments No R wrist swellin cm ea PT-OP-K Range of Motion Start: 04/06/24 07:29 Freq: Status: Active Protocol: Document 07/03/24 08:06 NM (Rec: 07/03/24 08:10 NM [id number]) Cervical Spine Range of Motion Cervical Spine Active Degrees Flexion 60 Extension 55 Rotation Left 82 Rotation Right 86 Lateral Flexion Left 40 Lateral Flexion Right 40 ROM Limitations Soft Tissue Tightness Comments pain on L side with ext and flex 05/05/24: 80 deg rot B, 45 deg L LF, 25 deg R LF, 55 deg ext, 60 deg flex 07/03/24: see above; tightness but no symptom reproduction Wrist Goniometric Range of Motion Wrist Right Flexion Active (degrees) 65 Extension Active (degrees) 70 Left Flexion Active (degrees) 60 Extension Active (degrees) 60 PT-OP-L Special Tests Start: 04/06/24 07:29 Freq: Status: Active Protocol: Document 04/10/24 07:31 NM (Rec: 04/10/24 09:41 NM [id number]) Special Tests Cervical Spine Special Tests Vertebral Artery Test Results - Comments intact cranial n, no abnormal palpation/auscultation of carotid a Shoulder Abduction Relief Test Test Results + Comments neural symptom relief with passive arm ABD on head ULTT Test Results median n Comments better w/ depression; pain also w/ ulnar n test position but no symptoms Distraction Test Results + Comments symptom resolved Spurling's Test Results + Comments local only on L PT-OP-M Strength Start: 04/06/24 07:29 Freq: Status: Active Protocol: Document 07/03/24 08:06 NM (Rec: 07/03/24 08:10 NM [id number]) Cervical Spine Strength Cervical Spine Manual Muscle Testing Flexion (C1-2) 4+ Good+ Extension 4+ Good+ Rotation Left 4+ Good+ Rotation Right 4+ Good+ Lateral Flexion Left (C3) 4+ Good+ Lateral Flexion Right (C3) 4+ Good+ Comments no pain or symptom reproduction 07/03/24: no pain or symptom reproduction Wrist Strength Wrist Manual Muscle Testing Right Flexion (C7) 4+ Good+ Extension (C6) 4+ Good+ Comments mild pain w/ flex and ext fingers: 4/5, no significant difference between sides 07/03/24: no symptom reproduction Left Flexion (C7) 4+ Good+ Extension (C6) 4+ Good+ PT-OP-Q Treatments Start: 04/06/24 07:29 Freq: Status: Active Protocol: Document 07/06/24 09:51 NM (Rec: 07/06/24 10:39 NM [id number]) Therapeutic Exercises Sitting Exercises wrist extension/flexion Sitting Exercise Name HEP:1. flexion AROM, 2. flexion w/ 3# from neutral, 3. flex full ROM (2#) Side right Resistance 3#>2# DB ext, 2# DB flexion Equipment Used from neutral position on table Reps/Minutes 1. 10 w/ full range, 2. 10 (no symptoms), 3. 5 but has symptoms Comments no symptoms full ROM w/o wt ( trialed 2#) wrist pronation/supination Sitting Exercise Name 1. pro/sup, 2. wrist circles, 3. UD/RD (not today) Side right Resistance 1. yellow therabar, 2, 3# DB Reps/Minutes 1.10 ea 2. 10 CW and 10 CCW w/ 3# Comments non symptomatic Other Exercises 1/2 kneel thoracic mobility Other Exercise Name rainbow rotations w/ trunk at wall Side bilateral Equipment Used full rotation Reps/Minutes 10 ea side Comments no symptoms into R arm Manual Therapy Treatment Consent Patient gave verbal consent for manual Yes treatment Soft Tissue Mobilization R rotator cuff Body Location supraspinatus, infraspinatus, teres, subscap border, lat Mobilization Type Myofascial Release,Rolling, Strumming Intensity/Depth Moderate Body Position Sidelying Comments Reduced tightness with manual treatment. Tenderness with subscapularis/lat, post cuff. R hand/forearm Body Location wrist flexors, along w/ coracobracialis Mobilization Type Instrument Assisted,Rolling, Other Intensity/Depth Superficial Body Position Supine Comments Performed with fanning over carpal tunnel. No increase in symptoms. Used gua-sha tool cervical spine Body Location scalenes, SCM, paraspinals, suboccipitals Mobilization Type Rolling Intensity/Depth Moderate Body Position Hooklying Comments Increased tightness with posterior chain, tightness R>L . No increase in symptoms Self-Care/Home Management Treatment Education Patient Education Body Mechanics Other Education 3 minutes- Pt took pictures of work station since most symptomatic at desk. PT recommended trialing raising monitor ~1 to prevent looking down, back/head support since sitting more forward, and keeping keyboard closer to pt. PT-OP-R Modalities Start: 04/06/24 07:29 Freq: Status: Active Protocol: Document 05/25/24 09:46 NM (Rec: 05/25/24 10:33 NM [id number]) Spinal Traction Traction Treatment Cervical Method Mechanical,Static Patient Position Hooklying Force Applied (Pounds) 20 Heating Pad Applied No Traction Treatment Comment 8 minutes: Traction with cervical flexion bias. pt monitored by PT throughout, reyes within reach. PT-OP-T Assessment and Plan Start: 04/06/24 07:29 Freq: Status: Active Protocol: Document 07/06/24 09:51 NM (Rec: 07/06/24 10:39 NM [id number]) Physical Therapy Assessment Goals Five Impairment reports currently 50% impaired with work tasks Short Term Goal (STG) Pt will be educated on good ergonomic positioning and work tools in order to improve posture and body mechanics for better symptom management 05/05/24: pt provided handout for ergonomics in previous sessions, currently states 31. 3% impaired at work ( improvement since evaluation) STG Duration 4 weeks MET Custodial Goal (LTG) Pt will report that she is less than 25% impaired with work-related tasks in order to demonstrate improved symptom management, activity tolerance , and QOL 05/05/24- PROGRESSING: pt reports 31.3% impaired at work 06/06/24 NDI performed by PT and after discussing with primary PT, another test was done and she will review in future 06/07/24: 56% impaired on work- related quickdash; scores do not reflect pt subjective 07/03/24: reports 12.5% impairment with work-related tasks on work module quickdash LTG Duration 12 weeks MET Three Impairment ROM: R wrist flexion 50 deg Short Term Goal (STG) Pt will improve R wrist flexion to at least 60 deg in order to demonstrate improved ROM for pericare, if appropriate 06/06/24: AROM right wrist flexion to 50 deg and reproduces tingling 06/15/24: 60 deg of wrist flexion w/o symptom increase STG Duration 6 weeks MET Crab [place]cher Goal (LTG) Pt will improve R wrist flexion to at least 70 deg in order to demonstrate improved ROM for pericare or typing, if appropriate 06/06/24: See above 07/03/24: R wrist flexion 65 deg LTG Duration updated 8 weeks-NOT MET, PROGRESSING 07/03/24 One Impairment QOL/activity tolerance: quickdash 56.8% impairment Short Term Goal (STG) Pt will decrease quickdash impairment by at least 11% (1 MCID) in order to demonstrate improved symptom management and QOL 05/05/24- NOT MET: 34 or 52.3%; work module 31.3% 06/06/24 QuickDASH reveals 45. 45% impairment, not improving STG Duration 8 weeks Cr[place]cher Goal (LTG) Pt will report <25% impairment on quickdash due to pain or numbness/tingling in R hand/ wrist or neck in order to demonstrate improved symptom management, activity tolerance and QOL 06/06/24: See QuickDASH score above, not improving 07/03/24: 27.3% impairment QUICKDASH, 6/50 (12/100) NDI LTG Duration updated 8 weeks-PROGRESSING, NOT MET 07/03/24 Assessment Summary Assessment Good tolerance for therapeutic exercise today. Able to progress to 3# for wrist flexion from neutral without symptom increase and for increased resistance (constant ) from therabar. Pt has no neural symptoms into R hand with advanced 1/2 kneel thoracic mobility. Continues to have some R shoulder irritation but denies pain. Less soft tissue tightness overall in cervical spine, R forearm, and pec. Pt would continue to benefit from skilled PT for progressive wrist and proximal strengthening and flexibility in order to improve symptom management at work. Physical Therapy Plan Frequency and Duration Frequency of Treatment 1-2x/week Duration of treatment (weeks) 8 Plan of Care Start Date 07/03/24 Plan of Care End Date 09/01/24 Therapeutic Interventions Therapeutic Interventions Canalithic Repositioning,Gait Training,Home Exercise Program ,Joint Mobilizations,Manual Therapy,Neuromuscular Re- education,Orthotic/Prosthetic Management,Patient/Caregiver Education,Self-Care/Home Management,Sensory Integration ,Soft Tissue Mobilization, Taping,Therapeutic Activities, Therapeutic Exercises Modalities Cold Pack/Ice Massage,Electric Stimulation,Hot Packs, Traction- Mechanical, Ultrasound Other Referrals/Consults Referrals/Consults Recommended Recommend EMG for further symptom assessment prior to neurology visit Next Visit Focus/Plan Next Note Type Treatment Note Next Visit Plan Assess carlos a for TS mobility. cont with TS/CS mobility. Wrist/forearm strengthening ( trial eccentric flex). Trial prone on ball ITWY (may need to modify to prevent symptoms into R arm, maintain neutral spine). From POC: Con't forearm manual work and wrist/carpal mobs, address carpal tunnel, consider work on scalenes, UT, LS, SCM as needed, other cervical mobs; scapular mobility > rows and low rows w / band (increased reps/ resistance) Assess tolerance to tendon glides and nerve glides
--- NOTE | 2024-07-10 11:35 | PT.OTN ---
Current Diagnoses Stiffness of right wrist, not elsewhere classified (07/10/24) Radiculopathy, cervical region (07/10/24) Weakness (07/10/24) Physical Therapy Treatment Note PT-OP-A Visit Information Start: 04/06/24 07:29 Freq: Status: Active Protocol: Document 07/10/24 08:15 NM (Rec: 07/10/24 09:01 NM [id number]) Out-Patient Physical Therapy Visit Information Visit Information Visit Type Treatment Note Visit Start Time 08:15 Visit Stop Time 08:57 Visit Number 24 Evaluation Information Evaluation Date 04/06/24 Precautions Precautions neck pain and median nerve PT-OP-B Current Condition Start: 04/06/24 07:29 Freq: Status: Active Protocol: Document 04/06/24 14:33 NM (Rec: 04/06/24 16:15 NM [id number]) Current Condition History of Current Condition Onset Date Mother's day 2023 Current Complaints pain, numbness and tingling History of Current Condition Pt reports that she has cervical radiculopathy. She was seen January-February because entire R arm went numb and 10/ [address] Brown who referred her to PT. Over the past 2 months . She nows has pain only in the R hand vs no longer has the radiation. Pt reports that her condition started in November, when she started to experience numbness in her hand. She sleeps with her arms elevated on both sides. On Mother's day, she did a lot of excavating/moving yard work. The following Wednesday, she had pain; unable to type. Prescribed prednisone and muscle relaxers; steroid helped with symptoms. She only uses muscle relaxers occasionally, causes depression. Primarily felt in thumb and fingers 2-3. 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 She also had a minor whiplash event 2 weekends ago when dog pulled on leash, so now L sided pain; now longer as stiffness. Day before mothers' day, she walked several miles in her backpack, which is originally when the arm numbness began but was managable. She shakes her hands, wakes up at night. Denies weakness but states difficulty with fine motor. 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 Reports that only has tingling for 10% of her day. However, states has intermittently at work but adjust posture or make gentle ergonomic adjustment, which makes it go away PT-OP-F Manual Assessment Start: 04/06/24 07:29 Freq: Status: Active Protocol: Document 04/06/24 14:33 NM (Rec: 04/06/24 16:15 NM [id number]) Manual Assessments Soft Tissue Assessment Soft Tissue Mobility Assessment Increased soft tissue restrictions of cervical paraspinals, chest and periscapulars, wrist extensors . R medial scapular border 7 cm, L medial scapular border 8 cm Joint Mobility Assessment Joint Mobility Assessment Hypomobility of cervical spine with lateral gliding, especially L>R PT-OP-G Mobility & Gait Start: 04/06/24 07:29 Freq: Status: Active Protocol: Document 04/06/24 14:33 NM (Rec: 04/06/24 16:15 NM [id number]) OP Gait Assessment Gait Gait Assistance Required: Independent Distance (Feet) 150 Comments Gait Comments Stiff gait with limited trunk rotation and arm swing. R shoulder is more elevated. No widebased or ataxic gait, no LOB PT-OP-H Neuro Start: 04/06/24 07:29 Freq: Status: Active Protocol: Document 04/10/24 07:31 NM (Rec: 04/10/24 09:41 NM [id number]) Sensation Evaluation Comments Summary Comments BUE equally intact to light touch sensation PT-OP-J Posture/Palpation/Skin Start: 04/06/24 07:29 Freq: Status: Active Protocol: Document 04/06/24 14:33 NM (Rec: 04/06/24 16:15 NM [id number]) Posture Evaluation Position Standing Head/C-Spine Posture Forward Head Shoulder Posture (L) Rounded,(R) Rounded,(L) Forward,(R) Forward,(R) Elevated Scapula Posture (R) Rotated Up,(R) Elevated,(R ) Tipped Arm Posture (L) Externally Rotated,(R) Externally Rotated Pelvis Posture Anteriorly Tilted Weight Distribution Balanced Palpation Assessment Location R wrist/hand Palpation Details Tightness of wrist extensors Pain with gripping and wrist flexion cervical spine Palpation Findings Soft Tissue Tightness Palpation Details Moderate tightness of paraspinals, pectoralis, lat, levator scapula, upper trapezius, scalenes, suboccipitals Skin Assessment Other Assessments Skin Assessment Comments No R wrist swellin cm ea PT-OP-K Range of Motion Start: 04/06/24 07:29 Freq: Status: Active Protocol: Document 07/03/24 08:06 NM (Rec: 07/03/24 08:10 NM [id number]) Cervical Spine Range of Motion Cervical Spine Active Degrees Flexion 60 Extension 55 Rotation Left 82 Rotation Right 86 Lateral Flexion Left 40 Lateral Flexion Right 40 ROM Limitations Soft Tissue Tightness Comments pain on L side with ext and flex 05/05/24: 80 deg rot B, 45 deg L LF, 25 deg R LF, 55 deg ext, 60 deg flex 07/03/24: see above; tightness but no symptom reproduction Wrist Goniometric Range of Motion Wrist Right Flexion Active (degrees) 65 Extension Active (degrees) 70 Left Flexion Active (degrees) 60 Extension Active (degrees) 60 PT-OP-L Special Tests Start: 04/06/24 07:29 Freq: Status: Active Protocol: Document 04/10/24 07:31 NM (Rec: 04/10/24 09:41 NM [id number]) Special Tests Cervical Spine Special Tests Vertebral Artery Test Results - Comments intact cranial n, no abnormal palpation/auscultation of carotid a Shoulder Abduction Relief Test Test Results + Comments neural symptom relief with passive arm ABD on head ULTT Test Results median n Comments better w/ depression; pain also w/ ulnar n test position but no symptoms Distraction Test Results + Comments symptom resolved Spurling's Test Results + Comments local only on L PT-OP-M Strength Start: 04/06/24 07:29 Freq: Status: Active Protocol: Document 07/03/24 08:06 NM (Rec: 07/03/24 08:10 NM [id number]) Cervical Spine Strength Cervical Spine Manual Muscle Testing Flexion (C1-2) 4+ Good+ Extension 4+ Good+ Rotation Left 4+ Good+ Rotation Right 4+ Good+ Lateral Flexion Left (C3) 4+ Good+ Lateral Flexion Right (C3) 4+ Good+ Comments no pain or symptom reproduction 07/03/24: no pain or symptom reproduction Wrist Strength Wrist Manual Muscle Testing Right Flexion (C7) 4+ Good+ Extension (C6) 4+ Good+ Comments mild pain w/ flex and ext fingers: 4/5, no significant difference between sides 07/03/24: no symptom reproduction Left Flexion (C7) 4+ Good+ Extension (C6) 4+ Good+ PT-OP-Q Treatments Start: 04/06/24 07:29 Freq: Status: Active Protocol: Document 07/10/24 08:15 NM (Rec: 07/10/24 09:01 NM [id number]) Therapeutic Exercises Prone Exercises periscapulars Prone Exercise Name I, T, row to ER, Y Side bilateral Equipment Used 65 cm polish ball, pillow under knees Reps/Minutes 10 ea Comments cued neutral head position, relaxed shoulders; no inc symptoms with Y Standing Exercises pec stretch/mobilization Standing Exercise Name pec mobilization from 45 to 90 deg abd w/ finger abd/add Side bilateral Equipment Used tennis ball in pillow case Reps/Minutes 10 ea Comments snow ann marie nerve glide Standing Exercise Name median Side right Reps/Minutes 10 Comments full ROM with slight finger flex, at just under 90 deg abd ; no inc symptoms Other Exercises 1/2 kneel thoracic mobility Other Exercise Name rainbow rotations w/ trunk at wall Side bilateral Equipment Used full rotation Reps/Minutes 10 ea side Comments no symptoms into R arm, full hand ext Manual Therapy Treatment Consent Patient gave verbal consent for manual Yes treatment Soft Tissue Mobilization R rotator cuff Body Location supraspinatus, infraspinatus, teres, subscap border, lat Mobilization Type Myofascial Release,Rolling, Strumming Intensity/Depth Moderate Body Position Sidelying Comments Reduced tightness with manual treatment. Tenderness with subscapularis/lat, post cuff; less today than previously but still restricted R hand/forearm Body Location wrist flexors, along w/ coracobracialis Mobilization Type Instrument Assisted,Rolling, Other Intensity/Depth Superficial Body Position Supine Comments Performed with fanning over carpal tunnel. No increase in symptoms. Less restriction of flexors cervical spine Body Location scalenes, SCM, paraspinals, suboccipitals Mobilization Type Rolling Intensity/Depth Moderate Body Position Hooklying Comments Increased tightness with posterior chain, tightness R>L . No increase in symptoms Joint Mobilizations R wrist Joint carpal, metacarpals, radio/ ulnocarpal Direction dorsal/volar Grade II Body Position Supine Reps/Duration 4x30 ea Comments Monitored for symptoms, emphasis on promoting flexion and extension. Reports no increase in symptoms or wrist pain 1st rib Joint 1st and 2nd rib Body Position Sidelying Reps/Duration 20 ea Comments Both elevated today. Reduction in rib elevation PT-OP-R Modalities Start: 04/06/24 07:29 Freq: Status: Active Protocol: Document 05/25/24 09:46 NM (Rec: 05/25/24 10:33 NM [id number]) Spinal Traction Traction Treatment Cervical Method Mechanical,Static Patient Position Hooklying Force Applied (Pounds) 20 Heating Pad Applied No Traction Treatment Comment 8 minutes: Traction with cervical flexion bias. pt monitored by PT throughout, reyes within reach. PT-OP-T Assessment and Plan Start: 04/06/24 07:29 Freq: Status: Active Protocol: Document 07/10/24 08:15 NM (Rec: 07/10/24 09:01 NM [id number]) Physical Therapy Assessment Goals Three Impairment ROM: R wrist flexion 50 deg Short Term Goal (STG) Pt will improve R wrist flexion to at least 60 deg in order to demonstrate improved ROM for pericare, if appropriate 06/06/24: AROM right wrist flexion to 50 deg and reproduces tingling 06/15/24: 60 deg of wrist flexion w/o symptom increase STG Duration 6 weeks MET Alf Goal (LTG) Pt will improve R wrist flexion to at least 70 deg in order to demonstrate improved ROM for pericare or typing, if appropriate 06/06/24: See above 07/03/24: R wrist flexion 65 deg LTG Duration updated 8 weeks-NOT MET, PROGRESSING 07/03/24 One Impairment QOL/activity tolerance: quickdash 56.8% impairment Short Term Goal (STG) Pt will decrease quickdash impairment by at least 11% (1 MCID) in order to demonstrate improved symptom management and QOL 05/05/24- NOT MET: 34 or 52.3%; work module 31.3% 06/06/24 QuickDASH reveals 45. 45% impairment, not improving STG Duration 8 weeks Alf Goal (LTG) Pt will report <25% impairment on quickdash due to pain or numbness/tingling in R hand/ wrist or neck in order to demonstrate improved symptom management, activity tolerance and QOL 06/06/24: See QuickDASH score above, not improving 07/03/24: 27.3% impairment QUICKDASH, 6/50 (12/100) NDI LTG Duration updated 8 weeks-PROGRESSING, NOT MET 07/03/24 Assessment Summary Assessment Pt tolerated session well. Continues to report improvement of symptoms, including less tingling into R hand. Trialed prone ITY and row/ER. Pt able to perform limited reps without any ROM compensations or increased symptoms into hand. Improvement from earlier trials when RUE elevation would cause increased tingling . Pt also able to do full ROM median nerve glide without symptom increase but no head tensioning, also an improvement compared to previous session attempts. Pt would continue to benefit from skilled PT for progressive RUE and cervical spine flexibility and RUE/ periscapular activation to improve symptom management for improved ADL tolerance. Physical Therapy Plan Frequency and Duration Frequency of Treatment 1-2x/week Duration of treatment (weeks) 8 Plan of Care Start Date 07/03/24 Plan of Care End Date 09/01/24 Therapeutic Interventions Therapeutic Interventions Canalithic Repositioning,Gait Training,Home Exercise Program ,Joint Mobilizations,Manual Therapy,Neuromuscular Re- education,Orthotic/Prosthetic Management,Patient/Caregiver Education,Self-Care/Home Management,Sensory Integration ,Soft Tissue Mobilization, Taping,Therapeutic Activities, Therapeutic Exercises Modalities Cold Pack/Ice Massage,Electric Stimulation,Hot Packs, Traction- Mechanical, Ultrasound Other Referrals/Consults Referrals/Consults Recommended Recommend EMG for further symptom assessment prior to neurology visit Next Visit Focus/Plan Next Note Type Treatment Note Next Visit Plan Assess carlos a for prone ITRY at ball, nerve glide on HEP; progress w/ reps then wt if carlos a. TS mobility at wall. cont with TS/CS mobility w/ deference to neural symptoms. Wrist/forearm strengthening ( trial eccentric flex) > neutral ROM, progress wt as able, add banded when easier. rotator cuff and subscap strength for humeral position (progress into elevation as able), can trial snow angels with band in standing or PNF. From POC: Con't forearm manual work and wrist/carpal mobs, address carpal tunnel, consider work on scalenes, UT, LS, SCM as needed, other cervical mobs; scapular mobility > rows and low rows w / band (increased reps/ resistance)
--- NOTE | 2024-07-17 08:13 | PT.OTN ---
Current Diagnoses Stiffness of right wrist, not elsewhere classified (07/17/24) Radiculopathy, cervical region (07/17/24) Weakness (07/17/24) Physical Therapy Treatment Note PT-OP-A Visit Information Start: 04/06/24 07:29 Freq: Status: Active Protocol: Document 07/17/24 07:30 MB (Rec: 07/17/24 08:13 MB [id number]) Out-Patient Physical Therapy Visit Information Visit Information Visit Type Treatment Note Visit Start Time 07:30 Visit Stop Time 08:10 Visit Number 25 Evaluation Information Evaluation Date 04/06/24 Precautions Precautions neck pain and median nerve PT-OP-B Current Condition Start: 04/06/24 07:29 Freq: Status: Active Protocol: Document 04/06/24 14:33 NM (Rec: 04/06/24 16:15 NM [id number]) Current Condition History of Current Condition Onset Date Mother's day 2023 Current Complaints pain, numbness and tingling History of Current Condition Pt reports that she has cervical radiculopathy. She was seen January-February because entire R arm went numb and 10/ [address] Brown who referred her to PT. Over the past 2 months . She nows has pain only in the R hand vs no longer has the radiation. Pt reports that her condition started in November, when she started to experience numbness in her hand. She sleeps with her arms elevated on both sides. On Mother's day, she did a lot of excavating/moving yard work. The following Wednesday, she had pain; unable to type. Prescribed prednisone and muscle relaxers; steroid helped with symptoms. She only uses muscle relaxers occasionally, causes depression. Primarily felt in thumb and fingers 2-3. Feels like numbness/tingling, worse w/ him specialist. She also had a minor whiplash event 2 weekends ago when dog pulled on leash, so now L sided pain; now longer as stiffness. Day before mothers' day, she walked several miles in her backpack, which is originally when the arm numbness began but was managable. She shakes her hands, wakes up at night. Denies weakness but states difficulty with fine motor. 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 Overall, she is doing pretty good. PT-OP-F Manual Assessment Start: 04/06/24 07:29 Freq: Status: Active Protocol: Document 04/06/24 14:33 NM (Rec: 04/06/24 16:15 NM [id number]) Manual Assessments Soft Tissue Assessment Soft Tissue Mobility Assessment Increased soft tissue restrictions of cervical paraspinals, chest and periscapulars, wrist extensors . R medial scapular border 7 cm, L medial scapular border 8 cm Joint Mobility Assessment Joint Mobility Assessment Hypomobility of cervical spine with lateral gliding, especially L>R PT-OP-G Mobility & Gait Start: 04/06/24 07:29 Freq: Status: Active Protocol: Document 04/06/24 14:33 NM (Rec: 04/06/24 16:15 NM [id number]) OP Gait Assessment Gait Gait Assistance Required: Independent Distance (Feet) 150 Comments Gait Comments Stiff gait with limited trunk rotation and arm swing. R shoulder is more elevated. No widebased or ataxic gait, no LOB PT-OP-H Neuro Start: 04/06/24 07:29 Freq: Status: Active Protocol: Document 04/10/24 07:31 NM (Rec: 04/10/24 09:41 NM [id number]) Sensation Evaluation Comments Summary Comments BUE equally intact to light touch sensation PT-OP-J Posture/Palpation/Skin Start: 04/06/24 07:29 Freq: Status: Active Protocol: Document 04/06/24 14:33 NM (Rec: 04/06/24 16:15 NM [id number]) Posture Evaluation Position Standing Head/C-Spine Posture Forward Head Shoulder Posture (L) Rounded,(R) Rounded,(L) Forward,(R) Forward,(R) Elevated Scapula Posture (R) Rotated Up,(R) Elevated,(R ) Tipped Arm Posture (L) Externally Rotated,(R) Externally Rotated Pelvis Posture Anteriorly Tilted Weight Distribution Balanced Palpation Assessment Location R wrist/hand Palpation Details Tightness of wrist extensors Pain with gripping and wrist flexion cervical spine Palpation Findings Soft Tissue Tightness Palpation Details Moderate tightness of paraspinals, pectoralis, lat, levator scapula, upper trapezius, scalenes, suboccipitals Skin Assessment Other Assessments Skin Assessment Comments No R wrist swellin cm ea PT-OP-K Range of Motion Start: 04/06/24 07:29 Freq: Status: Active Protocol: Document 07/03/24 08:06 NM (Rec: 07/03/24 08:10 NM [id number]) Cervical Spine Range of Motion Cervical Spine Active Degrees Flexion 60 Extension 55 Rotation Left 82 Rotation Right 86 Lateral Flexion Left 40 Lateral Flexion Right 40 ROM Limitations Soft Tissue Tightness Comments pain on L side with ext and flex 05/05/24: 80 deg rot B, 45 deg L LF, 25 deg R LF, 55 deg ext, 60 deg flex 07/03/24: see above; tightness but no symptom reproduction Wrist Goniometric Range of Motion Wrist Right Flexion Active (degrees) 65 Extension Active (degrees) 70 Left Flexion Active (degrees) 60 Extension Active (degrees) 60 PT-OP-L Special Tests Start: 04/06/24 07:29 Freq: Status: Active Protocol: Document 04/10/24 07:31 NM (Rec: 04/10/24 09:41 NM [id number]) Special Tests Cervical Spine Special Tests Vertebral Artery Test Results - Comments intact cranial n, no abnormal palpation/auscultation of carotid a Shoulder Abduction Relief Test Test Results + Comments neural symptom relief with passive arm ABD on head ULTT Test Results median n Comments better w/ depression; pain also w/ ulnar n test position but no symptoms Distraction Test Results + Comments symptom resolved Spurling's Test Results + Comments local only on L PT-OP-M Strength Start: 04/06/24 07:29 Freq: Status: Active Protocol: Document 07/03/24 08:06 NM (Rec: 07/03/24 08:10 NM [id number]) Cervical Spine Strength Cervical Spine Manual Muscle Testing Flexion (C1-2) 4+ Good+ Extension 4+ Good+ Rotation Left 4+ Good+ Rotation Right 4+ Good+ Lateral Flexion Left (C3) 4+ Good+ Lateral Flexion Right (C3) 4+ Good+ Comments no pain or symptom reproduction 07/03/24: no pain or symptom reproduction Wrist Strength Wrist Manual Muscle Testing Right Flexion (C7) 4+ Good+ Extension (C6) 4+ Good+ Comments mild pain w/ flex and ext fingers: 4/5, no significant difference between sides 07/03/24: no symptom reproduction Left Flexion (C7) 4+ Good+ Extension (C6) 4+ Good+ PT-OP-Q Treatments Start: 04/06/24 07:29 Freq: Status: Active Protocol: Document 07/17/24 07:30 MB (Rec: 07/17/24 08:13 MB [id number]) Therapeutic Exercises Sitting Exercises Minute forearm stretching Comments Sitting including wrist range, neck stretches and MWM stretches Other Exercises Therapy ball stretching for pects/thoracic extension Equipment Used 65 cm ball Comments Pect stretch and thoracic extension stretch Manual Therapy Treatment Consent Patient gave verbal consent for manual Yes treatment Other Other Manual Treatments Pt prone, grade IV thoracic mobs PA, STM and positional release thoracic spin, right infraspinatus, right upper traps, cervical paraspinals and TrP right upper traps, infra, cervical paraspinals and right wrist flexors and extensors, supine passive and MWM right pect major stretch and TrP treatment PT-OP-R Modalities Start: 04/06/24 07:29 Freq: Status: Active Protocol: Document 05/25/24 09:46 NM (Rec: 05/25/24 10:33 NM [id number]) Spinal Traction Traction Treatment Cervical Method Mechanical,Static Patient Position Hooklying Force Applied (Pounds) 20 Heating Pad Applied No Traction Treatment Comment 8 minutes: Traction with cervical flexion bias. pt monitored by PT throughout, reyes within reach. PT-OP-T Assessment and Plan Start: 04/06/24 07:29 Freq: Status: Active Protocol: Document 07/17/24 07:30 MB (Rec: 07/17/24 08:13 MB [id number]) Physical Therapy Assessment Goals Three Impairment ROM: R wrist flexion 50 deg Short Term Goal (STG) Pt will improve R wrist flexion to at least 60 deg in order to demonstrate improved ROM for pericare, if appropriate 06/06/24: AROM right wrist flexion to 50 deg and reproduces tingling 06/15/24: 60 deg of wrist flexion w/o symptom increase STG Duration 6 weeks MET Shelter Goal (LTG) Pt will improve R wrist flexion to at least 70 deg in order to demonstrate improved ROM for pericare or typing, if appropriate 06/06/24: See above 07/03/24: R wrist flexion 65 deg LTG Duration updated 8 weeks-NOT MET, PROGRESSING 07/03/24 One Impairment QOL/activity tolerance: quickdash 56.8% impairment Short Term Goal (STG) Pt will decrease quickdash impairment by at least 11% (1 MCID) in order to demonstrate improved symptom management and QOL 05/05/24- NOT MET: 34 or 52.3%; work module 31.3% 06/06/24 QuickDASH reveals 45. 45% impairment, not improving STG Duration 8 weeks Linseed Oil Order Filler Goal (LTG) Pt will report <25% impairment on quickdash due to pain or numbness/tingling in R hand/ wrist or neck in order to demonstrate improved symptom management, activity tolerance and QOL 06/06/24: See QuickDASH score above, not improving 07/03/24: 27.3% impairment QUICKDASH, 6/50 (12/100) NDI LTG Duration updated 8 weeks-PROGRESSING, NOT MET 07/03/24 Assessment Summary Assessment Pt is feeling better, progressed active stretching for forearm in sitting and provided exercise link for pt, pect stretch over therapy ball and ed in benefits of sitting on therapy ball at work, responds well to manual work Physical Therapy Plan Frequency and Duration Frequency of Treatment 1-2x/week Duration of treatment (weeks) 8 Plan of Care Start Date 07/03/24 Plan of Care End Date 09/01/24 Therapeutic Interventions Therapeutic Interventions Canalithic Repositioning,Gait Training,Home Exercise Program ,Joint Mobilizations,Manual Therapy,Neuromuscular Re- education,Orthotic/Prosthetic Management,Patient/Caregiver Education,Self-Care/Home Management,Sensory Integration ,Soft Tissue Mobilization, Taping,Therapeutic Activities, Therapeutic Exercises Modalities Cold Pack/Ice Massage,Electric Stimulation,Hot Packs, Traction- Mechanical, Ultrasound Other Referrals/Consults Referrals/Consults Recommended Recommend EMG for further symptom assessment prior to neurology visit Next Visit Focus/Plan Next Note Type Treatment Note Next Visit Plan Con't per plan: Assess carlos a for prone ITRY at ball, nerve glide on HEP; progress w/ reps then wt if carlos a. TS mobility at wall. cont with TS/CS mobility w/ deference to neural symptoms. Wrist/forearm strengthening (trial eccentric flex) > neutral ROM, progress wt as able, add banded when easier. rotator cuff and subscap strength for humeral position (progress into elevation as able), can trial snow angels with band in standing or PNF. From POC: Con't forearm manual work and wrist/carpal mobs, address carpal tunnel, consider work on scalenes, UT, LS, SCM as needed, other cervical mobs; scapular mobility > rows and low rows w / band (increased reps/ resistance)
--- NOTE | 2024-07-24 09:00 | PT.OTN ---
Current Diagnoses Stiffness of right wrist, not elsewhere classified (07/24/24) Radiculopathy, cervical region (07/24/24) Weakness (07/24/24) Physical Therapy Treatment Note PT-OP-A Visit Information Start: 04/06/24 07:29 Freq: Status: Active Protocol: Document 07/24/24 08:21 SP (Rec: 07/24/24 09:04 SP [id number]) Out-Patient Physical Therapy Visit Information Visit Information Visit Type Treatment Note Visit Start Time 08:21 Visit Stop Time 09:00 Visit Number 26 Number of VP DESIGN Visits 1 Evaluation Information Evaluation Date 04/06/24 Precautions Precautions neck pain and median nerve PT-OP-B Current Condition Start: 04/06/24 07:29 Freq: Status: Active Protocol: Document 04/06/24 14:33 NM (Rec: 04/06/24 16:15 NM [id number]) Current Condition History of Current Condition Onset Date Mother's day 2023 Current Complaints pain, numbness and tingling History of Current Condition Pt reports that she has cervical radiculopathy. She was seen January-February because entire R arm went numb and 10/ [address] Brown who referred her to PT. Over the past 2 months . She nows has pain only in the R hand vs no longer has the radiation. Pt reports that her condition started in November, when she started to experience numbness in her hand. She sleeps with her arms elevated on both sides. On Mother's day, she did a lot of excavating/moving yard work. The following Wednesday, she had pain; unable to type. Prescribed prednisone and muscle relaxers; steroid helped with symptoms. She only uses muscle relaxers occasionally, causes depression. Primarily felt in thumb and fingers 2-3. 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 She also had a minor whiplash event 2 weekends ago when dog pulled on leash, so now L sided pain; now longer as stiffness. Day before mothers' day, she walked several miles in her backpack, which is originally when the arm numbness began but was managable. She shakes her hands, wakes up at night. Denies weakness but states difficulty with fine motor. 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 Awaiting referral for EMG RUE. Was out of town sleeping in Hotel since last tx and different support with pillows and had more tingling down R arm and alsot into L isolated to hand but not at arrival today. Did her exercises and helped some but not as goods at home. Has appt wtith PT for TrP manual therapist tomorrow. PT-OP-F Manual Assessment Start: 04/06/24 07:29 Freq: Status: Active Protocol: Document 04/06/24 14:33 NM (Rec: 04/06/24 16:15 NM [id number]) Manual Assessments Soft Tissue Assessment Soft Tissue Mobility Assessment Increased soft tissue restrictions of cervical paraspinals, chest and periscapulars, wrist extensors . R medial scapular border 7 cm, L medial scapular border 8 cm Joint Mobility Assessment Joint Mobility Assessment Hypomobility of cervical spine with lateral gliding, especially L>R PT-OP-G Mobility & Gait Start: 04/06/24 07:29 Freq: Status: Active Protocol: Document 04/06/24 14:33 NM (Rec: 04/06/24 16:15 NM [id number]) OP Gait Assessment Gait Gait Assistance Required: Independent Distance (Feet) 150 Comments Gait Comments Stiff gait with limited trunk rotation and arm swing. R shoulder is more elevated. No widebased or ataxic gait, no LOB PT-OP-H Neuro Start: 04/06/24 07:29 Freq: Status: Active Protocol: Document 04/10/24 07:31 NM (Rec: 04/10/24 09:41 NM [id number]) Sensation Evaluation Comments Summary Comments BUE equally intact to light touch sensation PT-OP-J Posture/Palpation/Skin Start: 04/06/24 07:29 Freq: Status: Active Protocol: Document 04/06/24 14:33 NM (Rec: 04/06/24 16:15 NM [id number]) Posture Evaluation Position Standing Head/C-Spine Posture Forward Head Shoulder Posture (L) Rounded,(R) Rounded,(L) Forward,(R) Forward,(R) Elevated Scapula Posture (R) Rotated Up,(R) Elevated,(R ) Tipped Arm Posture (L) Externally Rotated,(R) Externally Rotated Pelvis Posture Anteriorly Tilted Weight Distribution Balanced Palpation Assessment Location R wrist/hand Palpation Details Tightness of wrist extensors Pain with gripping and wrist flexion cervical spine Palpation Findings Soft Tissue Tightness Palpation Details Moderate tightness of paraspinals, pectoralis, lat, levator scapula, upper trapezius, scalenes, suboccipitals Skin Assessment Other Assessments Skin Assessment Comments No R wrist swellin cm ea PT-OP-K Range of Motion Start: 04/06/24 07:29 Freq: Status: Active Protocol: Document 07/03/24 08:06 NM (Rec: 07/03/24 08:10 NM [id number]) Cervical Spine Range of Motion Cervical Spine Active Degrees Flexion 60 Extension 55 Rotation Left 82 Rotation Right 86 Lateral Flexion Left 40 Lateral Flexion Right 40 ROM Limitations Soft Tissue Tightness Comments pain on L side with ext and flex 05/05/24: 80 deg rot B, 45 deg L LF, 25 deg R LF, 55 deg ext, 60 deg flex 07/03/24: see above; tightness but no symptom reproduction Wrist Goniometric Range of Motion Wrist Right Flexion Active (degrees) 65 Extension Active (degrees) 70 Left Flexion Active (degrees) 60 Extension Active (degrees) 60 PT-OP-L Special Tests Start: 04/06/24 07:29 Freq: Status: Active Protocol: Document 04/10/24 07:31 NM (Rec: 04/10/24 09:41 NM [id number]) Special Tests Cervical Spine Special Tests Vertebral Artery Test Results - Comments intact cranial n, no abnormal palpation/auscultation of carotid a Shoulder Abduction Relief Test Test Results + Comments neural symptom relief with passive arm ABD on head ULTT Test Results median n Comments better w/ depression; pain also w/ ulnar n test position but no symptoms Distraction Test Results + Comments symptom resolved Spurling's Test Results + Comments local only on L PT-OP-M Strength Start: 04/06/24 07:29 Freq: Status: Active Protocol: Document 07/03/24 08:06 NM (Rec: 07/03/24 08:10 NM [id number]) Cervical Spine Strength Cervical Spine Manual Muscle Testing Flexion (C1-2) 4+ Good+ Extension 4+ Good+ Rotation Left 4+ Good+ Rotation Right 4+ Good+ Lateral Flexion Left (C3) 4+ Good+ Lateral Flexion Right (C3) 4+ Good+ Comments no pain or symptom reproduction 07/03/24: no pain or symptom reproduction Wrist Strength Wrist Manual Muscle Testing Right Flexion (C7) 4+ Good+ Extension (C6) 4+ Good+ Comments mild pain w/ flex and ext fingers: 4/5, no significant difference between sides 07/03/24: no symptom reproduction Left Flexion (C7) 4+ Good+ Extension (C6) 4+ Good+ PT-OP-Q Treatments Start: 04/06/24 07:29 Freq: Status: Active Protocol: Document 07/24/24 08:21 SP (Rec: 07/24/24 09:04 SP [id number]) Therapeutic Exercises Prone Exercises periscapulars Prone Exercise Name I, T, row to ER, Y Side bilateral Resistance AROM> 1# DB Equipment Used 65 cm tongan ball, pillow under knees Reps/Minutes 10 ea Comments cued neutral head position, relaxed shoulders; no inc symptoms with Y Sitting Exercises wrist extension/flexion Sitting Exercise Name HEP:1. Cont ext/ecc flex 2. fle w/ 3# from neutral, 3. flex full ROM (2#) Side right Resistance 1>2# DB ext, 2# DB flexion Equipment Used from neutral position on table Reps/Minutes 1. 10 w/ full range, 2. 10 (no symptoms), 3. 5 but has symptoms Comments Minor tingling 1st MTP finger pad ext goes away /c reps, symptom free flex wrist pronation/supination Sitting Exercise Name 1. pro/sup 2. UD/RD Side right Resistance 2# DB Reps/Minutes x10 each Comments non symptomatic Other Exercises Therapy ball stretching for pects/thoracic extension Other Exercise Name Pec stretch, TS ext, snow ann marie; EB HABD, 1/2 X, serratus press Resistance AROM> DB 3# Equipment Used 65 cm ball Reps/Minutes 30 SH stretch, x10 DB Comments good feedback stretch, tiring symptom free 1/2 kneel thoracic mobility Other Exercise Name rainbow rotations w/ trunk at wall Side bilateral Equipment Used full rotation Reps/Minutes 10 ea side Comments no symptoms into R arm, full hand ext Manual Therapy Treatment Consent Patient gave verbal consent for manual Yes treatment Soft Tissue Mobilization R hand/forearm Body Location wrist flexors, along w/ coracobracialis Mobilization Type Instrument Assisted,Rolling, Other Intensity/Depth Superficial Body Position Supine Comments Performed with fanning over carpal tunnel. No increase in symptoms. Less restriction of flexors cervical spine Body Location scalenes, SCM, paraspinals, suboccipitals Mobilization Type Rolling Intensity/Depth Moderate Body Position Hooklying Comments Increased tightness with posterior chain and SCM, tightness R>L. No increase in symptoms PT-OP-R Modalities Start: 04/06/24 07:29 Freq: Status: Active Protocol: Document 05/25/24 09:46 NM (Rec: 05/25/24 10:33 NM [id number]) Spinal Traction Traction Treatment Cervical Method Mechanical,Static Patient Position Hooklying Force Applied (Pounds) 20 Heating Pad Applied No Traction Treatment Comment 8 minutes: Traction with cervical flexion bias. pt monitored by PT throughout, reyes within reach. PT-OP-T Assessment and Plan Start: 04/06/24 07:29 Freq: Status: Active Protocol: Document 07/24/24 08:21 SP (Rec: 07/24/24 09:04 SP [id number]) Physical Therapy Assessment Goals Three Impairment ROM: R wrist flexion 50 deg Short Term Goal (STG) Pt will improve R wrist flexion to at least 60 deg in order to demonstrate improved ROM for pericare, if appropriate 06/06/24: AROM right wrist flexion to 50 deg and reproduces tingling 06/15/24: 60 deg of wrist flexion w/o symptom increase STG Duration 6 weeks MET Assisted Goal (LTG) Pt will improve R wrist flexion to at least 70 deg in order to demonstrate improved ROM for pericare or typing, if appropriate 06/06/24: See above 07/03/24: R wrist flexion 65 deg LTG Duration updated 8 weeks-NOT MET, PROGRESSING 07/03/24 One Impairment QOL/activity tolerance: quickdash 56.8% impairment Short Term Goal (STG) Pt will decrease quickdash impairment by at least 11% (1 MCID) in order to demonstrate improved symptom management and QOL 05/05/24- NOT MET: 34 or 52.3%; work module 31.3% 06/06/24 QuickDASH reveals 45. 45% impairment, not improving STG Duration 8 weeks Gray Tender Goal (LTG) Pt will report <25% impairment on quickdash due to pain or numbness/tingling in R hand/ wrist or neck in order to demonstrate improved symptom management, activity tolerance and QOL 06/06/24: See QuickDASH score above, not improving 07/03/24: 27.3% impairment QUICKDASH, 6/50 (12/100) NDI LTG Duration updated 8 weeks-PROGRESSING, NOT MET 07/03/24 Assessment Summary Assessment Pt tolerated tx well. Decreased muscle tightness R SCM and pec post manual. Good tolerance to ther ex and addition to DB during tball HEP with no symptoms. WIll progress standing next tx /c VP DESIGN wrist ex TB ex and Ys off wall assess mobility and symptoms. No symptoms end tx. Only light tingling 1st MTP on R during ecc wrist flex but went away with reps. Physical Therapy Plan Frequency and Duration Frequency of Treatment 1-2x/week Duration of treatment (weeks) 8 Plan of Care Start Date 07/03/24 Plan of Care End Date 09/01/24 Therapeutic Interventions Therapeutic Interventions Canalithic Repositioning,Gait Training,Home Exercise Program ,Joint Mobilizations,Manual Therapy,Neuromuscular Re- education,Orthotic/Prosthetic Management,Patient/Caregiver Education,Self-Care/Home Management,Sensory Integration ,Soft Tissue Mobilization, Taping,Therapeutic Activities, Therapeutic Exercises Modalities Cold Pack/Ice Massage,Electric Stimulation,Hot Packs, Traction- Mechanical, Ultrasound Other Referrals/Consults Referrals/Consults Recommended Recommend EMG for further symptom assessment prior to neurology visit Next Visit Focus/Plan Next Note Type Treatment Note Next Visit Plan Next tx try standign wrist TB ex and Ys offwall. Con't per plan: Assess carlos a for prone ITRY at ball, nerve glide on HEP; progress w/ reps then wt if carlos a. TS mobility at wall. cont with TS/CS mobility w/ deference to neural symptoms. Wrist/forearm strengthening (trial eccentric flex) > neutral ROM, progress wt as able, add banded when easier. rotator cuff and subscap strength for humeral position (progress into elevation as able), can trial snow angels with band in standing or PNF. From POC: Con't forearm manual work and wrist/carpal mobs, address carpal tunnel, consider work on scalenes, UT, LS, SCM as needed, other cervical mobs; scapular mobility > rows and low rows w / band (increased reps/ resistance)
--- NOTE | 2024-07-25 10:38 | PT.OTN ---
Current Diagnoses Stiffness of right wrist, not elsewhere classified (07/25/24) Radiculopathy, cervical region (07/25/24) Weakness (07/25/24) Physical Therapy Treatment Note PT-OP-A Visit Information Start: 04/06/24 07:29 Freq: Status: Active Protocol: Document 07/25/24 09:46 MB (Rec: 07/25/24 10:38 MB [id number]) Out-Patient Physical Therapy Visit Information Visit Information Visit Type Treatment Note Visit Note Change in insurance to , unlimited visits Pt has four visits left. Recommend discharging at that time. Visit Start Time 09:46 Visit Stop Time 10:26 Visit Number 27 Number of SPEECH CORRECTION ASSISTANT Visits 0 Evaluation Information Evaluation Date 04/06/24 Precautions Precautions neck pain and median nerve PT-OP-B Current Condition Start: 04/06/24 07:29 Freq: Status: Active Protocol: Document 04/06/24 14:33 NM (Rec: 04/06/24 16:15 NM [id number]) Current Condition History of Current Condition Onset Date Mother's day 2023 Current Complaints pain, numbness and tingling History of Current Condition Pt reports that she has cervical radiculopathy. She was seen January-February because entire R arm went numb and 10/ [address] Brown who referred her to PT. Over the past 2 months . She nows has pain only in the R hand vs no longer has the radiation. Pt reports that her condition started in November, when she started to experience numbness in her hand. She sleeps with her arms elevated on both sides. On Mother's day, she did a lot of excavating/moving yard work. The following Wednesday, she had pain; unable to type. Prescribed prednisone and muscle relaxers; steroid helped with symptoms. She only uses muscle relaxers occasionally, causes depression. Primarily felt in thumb and fingers 2-3. Feels like numbness/tingling, worse w/ master data analyst. She also had a minor whiplash event 2 weekends ago when dog pulled on leash, so now L sided pain; now longer as stiffness. Day before mothers' day, she walked several miles in her backpack, which is originally when the arm numbness began but was managable. She shakes her hands, wakes up at night. Denies weakness but states difficulty with fine motor. 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 PT-OP-F Manual Assessment Start: 04/06/24 07:29 Freq: Status: Active Protocol: Document 04/06/24 14:33 NM (Rec: 04/06/24 16:15 NM [id number]) Manual Assessments Soft Tissue Assessment Soft Tissue Mobility Assessment Increased soft tissue restrictions of cervical paraspinals, chest and periscapulars, wrist extensors . R medial scapular border 7 cm, L medial scapular border 8 cm Joint Mobility Assessment Joint Mobility Assessment Hypomobility of cervical spine with lateral gliding, especially L>R PT-OP-G Mobility & Gait Start: 04/06/24 07:29 Freq: Status: Active Protocol: Document 04/06/24 14:33 NM (Rec: 04/06/24 16:15 NM [id number]) OP Gait Assessment Gait Gait Assistance Required: Independent Distance (Feet) 150 Comments Gait Comments Stiff gait with limited trunk rotation and arm swing. R shoulder is more elevated. No widebased or ataxic gait, no LOB PT-OP-H Neuro Start: 04/06/24 07:29 Freq: Status: Active Protocol: Document 04/10/24 07:31 NM (Rec: 04/10/24 09:41 NM [id number]) Sensation Evaluation Comments Summary Comments BUE equally intact to light touch sensation PT-OP-J Posture/Palpation/Skin Start: 04/06/24 07:29 Freq: Status: Active Protocol: Document 04/06/24 14:33 NM (Rec: 04/06/24 16:15 NM [id number]) Posture Evaluation Position Standing Head/C-Spine Posture Forward Head Shoulder Posture (L) Rounded,(R) Rounded,(L) Forward,(R) Forward,(R) Elevated Scapula Posture (R) Rotated Up,(R) Elevated,(R ) Tipped Arm Posture (L) Externally Rotated,(R) Externally Rotated Pelvis Posture Anteriorly Tilted Weight Distribution Balanced Palpation Assessment Location R wrist/hand Palpation Details Tightness of wrist extensors Pain with gripping and wrist flexion cervical spine Palpation Findings Soft Tissue Tightness Palpation Details Moderate tightness of paraspinals, pectoralis, lat, levator scapula, upper trapezius, scalenes, suboccipitals Skin Assessment Other Assessments Skin Assessment Comments No R wrist swellin cm ea PT-OP-K Range of Motion Start: 04/06/24 07:29 Freq: Status: Active Protocol: Document 07/03/24 08:06 NM (Rec: 07/03/24 08:10 NM [id number]) Cervical Spine Range of Motion Cervical Spine Active Degrees Flexion 60 Extension 55 Rotation Left 82 Rotation Right 86 Lateral Flexion Left 40 Lateral Flexion Right 40 ROM Limitations Soft Tissue Tightness Comments pain on L side with ext and flex 05/05/24: 80 deg rot B, 45 deg L LF, 25 deg R LF, 55 deg ext, 60 deg flex 07/03/24: see above; tightness but no symptom reproduction Wrist Goniometric Range of Motion Wrist Right Flexion Active (degrees) 65 Extension Active (degrees) 70 Left Flexion Active (degrees) 60 Extension Active (degrees) 60 PT-OP-L Special Tests Start: 04/06/24 07:29 Freq: Status: Active Protocol: Document 04/10/24 07:31 NM (Rec: 04/10/24 09:41 NM [id number]) Special Tests Cervical Spine Special Tests Vertebral Artery Test Results - Comments intact cranial n, no abnormal palpation/auscultation of carotid a Shoulder Abduction Relief Test Test Results + Comments neural symptom relief with passive arm ABD on head ULTT Test Results median n Comments better w/ depression; pain also w/ ulnar n test position but no symptoms Distraction Test Results + Comments symptom resolved Spurling's Test Results + Comments local only on L PT-OP-M Strength Start: 04/06/24 07:29 Freq: Status: Active Protocol: Document 07/03/24 08:06 NM (Rec: 07/03/24 08:10 NM [id number]) Cervical Spine Strength Cervical Spine Manual Muscle Testing Flexion (C1-2) 4+ Good+ Extension 4+ Good+ Rotation Left 4+ Good+ Rotation Right 4+ Good+ Lateral Flexion Left (C3) 4+ Good+ Lateral Flexion Right (C3) 4+ Good+ Comments no pain or symptom reproduction 07/03/24: no pain or symptom reproduction Wrist Strength Wrist Manual Muscle Testing Right Flexion (C7) 4+ Good+ Extension (C6) 4+ Good+ Comments mild pain w/ flex and ext fingers: 4/5, no significant difference between sides 07/03/24: no symptom reproduction Left Flexion (C7) 4+ Good+ Extension (C6) 4+ Good+ PT-OP-Q Treatments Start: 04/06/24 07:29 Freq: Status: Active Protocol: Document 07/25/24 09:46 MB (Rec: 07/25/24 10:38 MB [id number]) Manual Therapy Treatment Consent Patient gave verbal consent for manual Yes treatment Other Other Manual Treatments Pt prone: PA thoracic mobs grade III-IV, STM and positional release many muscles with STM B upper traps and levator and right forearm , TrP B infra, subscap, upper traps and right forearm wrist flexors and extensors; pt supine: B first rib isometrics , positional release thoracic spine, B pect major STM Self-Care/Home Management Treatment Education Other Education Benefits of pool noodle vertical behind back when sitting in car/in other areas that cause discomfort to allow thoracic support and scapular movement PT-OP-R Modalities Start: 04/06/24 07:29 Freq: Status: Active Protocol: Document 05/25/24 09:46 NM (Rec: 05/25/24 10:33 NM [id number]) Spinal Traction Traction Treatment Cervical Method Mechanical,Static Patient Position Hooklying Force Applied (Pounds) 20 Heating Pad Applied No Traction Treatment Comment 8 minutes: Traction with cervical flexion bias. pt monitored by PT throughout, reyes within reach. PT-OP-T Assessment and Plan Start: 04/06/24 07:29 Freq: Status: Active Protocol: Document 07/25/24 09:46 MB (Rec: 07/25/24 10:38 MB [id number]) Physical Therapy Assessment Goals Three Impairment ROM: R wrist flexion 50 deg Short Term Goal (STG) Pt will improve R wrist flexion to at least 60 deg in order to demonstrate improved ROM for pericare, if appropriate 06/06/24: AROM right wrist flexion to 50 deg and reproduces tingling 06/15/24: 60 deg of wrist flexion w/o symptom increase STG Duration 6 weeks MET Collection Team Lead Goal (LTG) Pt will improve R wrist flexion to at least 70 deg in order to demonstrate improved ROM for pericare or typing, if appropriate 06/06/24: See above 07/03/24: R wrist flexion 65 deg LTG Duration updated 8 weeks-NOT MET, PROGRESSING 07/03/24 One Impairment QOL/activity tolerance: quickdash 56.8% impairment Short Term Goal (STG) Pt will decrease quickdash impairment by at least 11% (1 MCID) in order to demonstrate improved symptom management and QOL 05/05/24- NOT MET: 34 or 52.3%; work module 31.3% 06/06/24 QuickDASH reveals 45. 45% impairment, not improving STG Duration 8 weeks [facility] Goal (LTG) Pt will report <25% impairment on quickdash due to pain or numbness/tingling in R hand/ wrist or neck in order to demonstrate improved symptom management, activity tolerance and QOL 06/06/24: See QuickDASH score above, not improving 07/03/24: 27.3% impairment QUICKDASH, 6/50 (12/100) NDI LTG Duration updated 8 weeks-PROGRESSING, NOT MET 07/03/24 Assessment Summary Assessment Pt responds well to manual work and education today. Pt has 4 more treatments and will hopefully be ready to d/c at that time. She may benefit from ongoing manual work 1-2x a month at d/c. Physical Therapy Plan Frequency and Duration Frequency of Treatment 1-2x/week Duration of treatment (weeks) 8 Plan of Care Start Date 07/03/24 Plan of Care End Date 09/01/24 Therapeutic Interventions Therapeutic Interventions Canalithic Repositioning,Gait Training,Home Exercise Program ,Joint Mobilizations,Manual Therapy,Neuromuscular Re- education,Orthotic/Prosthetic Management,Patient/Caregiver Education,Self-Care/Home Management,Sensory Integration ,Soft Tissue Mobilization, Taping,Therapeutic Activities, Therapeutic Exercises Modalities Cold Pack/Ice Massage,Electric Stimulation,Hot Packs, Traction- Mechanical, Ultrasound Next Visit Focus/Plan Next Note Type Treatment Note Next Visit Plan Con't per POC, pt has a lot of exercises, consider review, removal and then progression as appropriate
--- NOTE | 2024-07-31 08:59 | PT.OTN ---
Current Diagnoses Stiffness of right wrist, not elsewhere classified (07/31/24) Radiculopathy, cervical region (07/31/24) Weakness (07/31/24) Physical Therapy Treatment Note PT-OP-A Visit Information Start: 04/06/24 07:29 Freq: Status: Active Protocol: Document 07/31/24 08:21 SP (Rec: 07/31/24 09:02 SP [id number]) Out-Patient Physical Therapy Visit Information Visit Information Visit Type Treatment Note Visit Note Change in insurance to , unlimited visits Pt has four visits left. Recommend discharging at that time. Visit Start Time 08:21 Visit Stop Time 08:59 Visit Number 28 Number of VISUAL AND STOCK ASSOCIATE Visits 1 Evaluation Information Evaluation Date 04/06/24 Precautions Precautions neck pain and median nerve PT-OP-B Current Condition Start: 04/06/24 07:29 Freq: Status: Active Protocol: Document 04/06/24 14:33 NM (Rec: 04/06/24 16:15 NM [id number]) Current Condition History of Current Condition Onset Date Mother's day 2023 Current Complaints pain, numbness and tingling History of Current Condition Pt reports that she has cervical radiculopathy. She was seen January-February because entire R arm went numb and 10/ [address] Brown who referred her to PT. Over the past 2 months . She nows has pain only in the R hand vs no longer has the radiation. Pt reports that her condition started in November, when she started to experience numbness in her hand. She sleeps with her arms elevated on both sides. On Mother's day, she did a lot of excavating/moving yard work. The following Wednesday, she had pain; unable to type. Prescribed prednisone and muscle relaxers; steroid helped with symptoms. She only uses muscle relaxers occasionally, causes depression. Primarily felt in thumb and fingers 2-3. Feels like numbness/tingling, worse w/ medical editor. She also had a minor whiplash event 2 weekends ago when dog pulled on leash, so now L sided pain; now longer as stiffness. Day before mothers' day, she walked several miles in her backpack, which is originally when the arm numbness began but was managable. She shakes her hands, wakes up at night. Denies weakness but states difficulty with fine motor. 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 She is noticing less tingling down R arm. She reports hasn't gottten the noodle for the car yet. PT-OP-F Manual Assessment Start: 04/06/24 07:29 Freq: Status: Active Protocol: Document 04/06/24 14:33 NM (Rec: 04/06/24 16:15 NM [id number]) Manual Assessments Soft Tissue Assessment Soft Tissue Mobility Assessment Increased soft tissue restrictions of cervical paraspinals, chest and periscapulars, wrist extensors . R medial scapular border 7 cm, L medial scapular border 8 cm Joint Mobility Assessment Joint Mobility Assessment Hypomobility of cervical spine with lateral gliding, especially L>R PT-OP-G Mobility & Gait Start: 04/06/24 07:29 Freq: Status: Active Protocol: Document 04/06/24 14:33 NM (Rec: 04/06/24 16:15 NM [id number]) OP Gait Assessment Gait Gait Assistance Required: Independent Distance (Feet) 150 Comments Gait Comments Stiff gait with limited trunk rotation and arm swing. R shoulder is more elevated. No widebased or ataxic gait, no LOB PT-OP-H Neuro Start: 04/06/24 07:29 Freq: Status: Active Protocol: Document 04/10/24 07:31 NM (Rec: 04/10/24 09:41 NM [id number]) Sensation Evaluation Comments Summary Comments BUE equally intact to light touch sensation PT-OP-J Posture/Palpation/Skin Start: 04/06/24 07:29 Freq: Status: Active Protocol: Document 04/06/24 14:33 NM (Rec: 04/06/24 16:15 NM [id number]) Posture Evaluation Position Standing Head/C-Spine Posture Forward Head Shoulder Posture (L) Rounded,(R) Rounded,(L) Forward,(R) Forward,(R) Elevated Scapula Posture (R) Rotated Up,(R) Elevated,(R ) Tipped Arm Posture (L) Externally Rotated,(R) Externally Rotated Pelvis Posture Anteriorly Tilted Weight Distribution Balanced Palpation Assessment Location R wrist/hand Palpation Details Tightness of wrist extensors Pain with gripping and wrist flexion cervical spine Palpation Findings Soft Tissue Tightness Palpation Details Moderate tightness of paraspinals, pectoralis, lat, levator scapula, upper trapezius, scalenes, suboccipitals Skin Assessment Other Assessments Skin Assessment Comments No R wrist swellin cm ea PT-OP-K Range of Motion Start: 04/06/24 07:29 Freq: Status: Active Protocol: Document 07/03/24 08:06 NM (Rec: 07/03/24 08:10 NM [id number]) Cervical Spine Range of Motion Cervical Spine Active Degrees Flexion 60 Extension 55 Rotation Left 82 Rotation Right 86 Lateral Flexion Left 40 Lateral Flexion Right 40 ROM Limitations Soft Tissue Tightness Comments pain on L side with ext and flex 05/05/24: 80 deg rot B, 45 deg L LF, 25 deg R LF, 55 deg ext, 60 deg flex 07/03/24: see above; tightness but no symptom reproduction Wrist Goniometric Range of Motion Wrist Right Flexion Active (degrees) 65 Extension Active (degrees) 70 Left Flexion Active (degrees) 60 Extension Active (degrees) 60 PT-OP-L Special Tests Start: 04/06/24 07:29 Freq: Status: Active Protocol: Document 04/10/24 07:31 NM (Rec: 04/10/24 09:41 NM [id number]) Special Tests Cervical Spine Special Tests Vertebral Artery Test Results - Comments intact cranial n, no abnormal palpation/auscultation of carotid a Shoulder Abduction Relief Test Test Results + Comments neural symptom relief with passive arm ABD on head ULTT Test Results median n Comments better w/ depression; pain also w/ ulnar n test position but no symptoms Distraction Test Results + Comments symptom resolved Spurling's Test Results + Comments local only on L PT-OP-M Strength Start: 04/06/24 07:29 Freq: Status: Active Protocol: Document 07/03/24 08:06 NM (Rec: 07/03/24 08:10 NM [id number]) Cervical Spine Strength Cervical Spine Manual Muscle Testing Flexion (C1-2) 4+ Good+ Extension 4+ Good+ Rotation Left 4+ Good+ Rotation Right 4+ Good+ Lateral Flexion Left (C3) 4+ Good+ Lateral Flexion Right (C3) 4+ Good+ Comments no pain or symptom reproduction 07/03/24: no pain or symptom reproduction Wrist Strength Wrist Manual Muscle Testing Right Flexion (C7) 4+ Good+ Extension (C6) 4+ Good+ Comments mild pain w/ flex and ext fingers: 4/5, no significant difference between sides 07/03/24: no symptom reproduction Left Flexion (C7) 4+ Good+ Extension (C6) 4+ Good+ PT-OP-Q Treatments Start: 04/06/24 07:29 Freq: Status: Active Protocol: Document 07/31/24 08:21 SP (Rec: 07/31/24 09:02 SP [id number]) Therapeutic Exercises Supine Exercises 6 foam roller exercises Supine Exercise Name 1. thoracic ext w/ flex Y, 2. snow ann marie, 3. PNF HABD w/ ER, 4. ER 90/90 Side bilateral Resistance 2# DB Equipment Used HEP Reps/Minutes 10 reps each Comments no pain or tingling thoracic mobility Supine Exercise Name TS ext, snow angle, pec stretch Side bilateral Equipment Used 65 over tball Reps/Minutes 3 min total Comments no increase in symptoms- good cool down post ex Prone Exercises periscapulars Prone Exercise Name I, T, row to ER, Y, Rows Side bilateral Resistance 1#> 2# DB (Ts, Is, row to ER), AROM Ys, Rows 5# DB Equipment Used 65 cm armenian ball Reps/Minutes 10 ea Comments cued CS retraction neutral position, relaxed shoulders; no inc symptoms Sidelying Exercises open book Sidelying Exercise Name HEP Side bilateral Resistance 2# DB Reps/Minutes 10 ea Comments good pec stretch and no symptoms Standing Exercises wrist strengthening Standing Exercise Name flex, ext, pron, sup, RD, UD- progressed standing against band /c HO Side right Resistance Tb #3 [place] Reps/Minutes 10 reps each Comments cued elbow extended at side- good feedback effort nonsymptomatic rotator cuff Standing Exercise Name miniband flex + er (seated) Side bilateral Resistance level 4 band dard teal Equipment Used full finger ext > slight fist position to dec tingle Reps/Minutes 2x10 Comments no tingle and muscle activation effort engagement through arm Other Exercises 1/2 kneel thoracic mobility Other Exercise Name rainbow rotations w/ trunk at wall Side bilateral Resistance tb #4 DARK teal Equipment Used full rotation Reps/Minutes 10 ea side Comments no symptoms into R arm, full hand ext PT-OP-R Modalities Start: 04/06/24 07:29 Freq: Status: Active Protocol: Document 05/25/24 09:46 NM (Rec: 05/25/24 10:33 NM [id number]) Spinal Traction Traction Treatment Cervical Method Mechanical,Static Patient Position Hooklying Force Applied (Pounds) 20 Heating Pad Applied No Traction Treatment Comment 8 minutes: Traction with cervical flexion bias. pt monitored by PT throughout, reyes within reach. PT-OP-T Assessment and Plan Start: 04/06/24 07:29 Freq: Status: Active Protocol: Document 07/31/24 08:21 SP (Rec: 07/31/24 09:02 SP [id number]) Physical Therapy Assessment Goals Three Impairment ROM: R wrist flexion 50 deg Short Term Goal (STG) Pt will improve R wrist flexion to at least 60 deg in order to demonstrate improved ROM for pericare, if appropriate 06/06/24: AROM right wrist flexion to 50 deg and reproduces tingling 06/15/24: 60 deg of wrist flexion w/o symptom increase STG Duration 6 weeks MET Quality Analyst/Technical Writer Goal (LTG) Pt will improve R wrist flexion to at least 70 deg in order to demonstrate improved ROM for pericare or typing, if appropriate 06/06/24: See above 07/03/24: R wrist flexion 65 deg LTG Duration updated 8 weeks-NOT MET, PROGRESSING 07/03/24 One Impairment QOL/activity tolerance: quickdash 56.8% impairment Short Term Goal (STG) Pt will decrease quickdash impairment by at least 11% (1 MCID) in order to demonstrate improved symptom management and QOL 05/05/24- NOT MET: 34 or 52.3%; work module 31.3% 06/06/24 QuickDASH reveals 45. 45% impairment, not improving STG Duration 8 weeks Quality Analyst/Technical Writer Goal (LTG) Pt will report <25% impairment on quickdash due to pain or numbness/tingling in R hand/ wrist or neck in order to demonstrate improved symptom management, activity tolerance and QOL 06/06/24: See QuickDASH score above, not improving 07/03/24: 27.3% impairment QUICKDASH, 50 (12/100) NDI LTG Duration updated 8 weeks-PROGRESSING, NOT MET 07/03/24 Assessment Summary Assessment Pt good feedback effort without symptoms into R arm/ hand. Cues for scap and head stability positioning for inhibiting radicular symptoms. Started to condense HEP with HOs, she will bring again next tx. Pt reports no UT tension end tx post therex. Physical Therapy Plan Frequency and Duration Frequency of Treatment 1-2x/week Duration of treatment (weeks) 8 Plan of Care Start Date 07/03/24 Plan of Care End Date 09/01/24 Therapeutic Interventions Therapeutic Interventions Canalithic Repositioning,Gait Training,Home Exercise Program ,Joint Mobilizations,Manual Therapy,Neuromuscular Re- education,Orthotic/Prosthetic Management,Patient/Caregiver Education,Self-Care/Home Management,Sensory Integration ,Soft Tissue Mobilization, Taping,Therapeutic Activities, Therapeutic Exercises Modalities Cold Pack/Ice Massage,Electric Stimulation,Hot Packs, Traction- Mechanical, Ultrasound Other Referrals/Consults Referrals/Consults Recommended Recommend EMG for further symptom assessment prior to neurology visit Next Visit Focus/Plan Next Note Type Treatment Note Next Visit Plan DC in 3 treatments. Con't per POC, Condense HEP if needed progression as appropriate
--- NOTE | 2024-08-02 08:13 | PT.OTN ---
Current Diagnoses Stiffness of right wrist, not elsewhere classified (08/02/24) Radiculopathy, cervical region (08/02/24) Weakness (08/02/24) Physical Therapy Treatment Note PT-OP-A Visit Information Start: 04/06/24 07:29 Freq: Status: Active Protocol: Document 08/02/24 07:26 NM (Rec: 08/02/24 07:39 NM [id number]) Out-Patient Physical Therapy Visit Information Visit Information Visit Type Discharge Summary Visit Note Change in insurance to , unlimited visits Pt has 2 visits left. Recommend discharging at that time. Visit Start Time 07:30 Visit Stop Time 08:10 Visit Number 29 Evaluation Information Evaluation Date 04/06/24 Precautions Precautions neck pain and median nerve PT-OP-B Current Condition Start: 04/06/24 07:29 Freq: Status: Active Protocol: Document 04/06/24 14:33 NM (Rec: 04/06/24 16:15 NM [id number]) Current Condition History of Current Condition Onset Date Mother's day 2023 Current Complaints pain, numbness and tingling History of Current Condition Pt reports that she has cervical radiculopathy. She was seen January-February because entire R arm went numb and 10/ [address] Brown who referred her to PT. Over the past 2 months . She nows has pain only in the R hand vs no longer has the radiation. Pt reports that her condition started in November, when she started to experience numbness in her hand. She sleeps with her arms elevated on both sides. On Mother's day, she did a lot of excavating/moving yard work. The following Wednesday, she had pain; unable to type. Prescribed prednisone and muscle relaxers; steroid helped with symptoms. She only uses muscle relaxers occasionally, causes depression. Primarily felt in thumb and fingers 2-3. Feels like numbness/tingling, worse w/ nuclear spectroscopist. She also had a minor whiplash event 2 weekends ago when dog pulled on leash, so now L sided pain; now longer as stiffness. Day before mothers' day, she walked several miles in her backpack, which is originally when the arm numbness began but was managable. She shakes her hands, wakes up at night. Denies weakness but states difficulty with fine motor. 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 Minimal tingling into R hand. Pt reports HEP with resistance bands are helpful. Pt requesting to be done today. PT-OP-F Manual Assessment Start: 04/06/24 07:29 Freq: Status: Active Protocol: Document 04/06/24 14:33 NM (Rec: 04/06/24 16:15 NM [id number]) Manual Assessments Soft Tissue Assessment Soft Tissue Mobility Assessment Increased soft tissue restrictions of cervical paraspinals, chest and periscapulars, wrist extensors . R medial scapular border 7 cm, L medial scapular border 8 cm Joint Mobility Assessment Joint Mobility Assessment Hypomobility of cervical spine with lateral gliding, especially L>R PT-OP-G Mobility & Gait Start: 04/06/24 07:29 Freq: Status: Active Protocol: Document 04/06/24 14:33 NM (Rec: 04/06/24 16:15 NM [id number]) OP Gait Assessment Gait Gait Assistance Required: Independent Distance (Feet) 150 Comments Gait Comments Stiff gait with limited trunk rotation and arm swing. R shoulder is more elevated. No widebased or ataxic gait, no LOB PT-OP-H Neuro Start: 04/06/24 07:29 Freq: Status: Active Protocol: Document 04/10/24 07:31 NM (Rec: 04/10/24 09:41 NM [id number]) Sensation Evaluation Comments Summary Comments BUE equally intact to light touch sensation PT-OP-J Posture/Palpation/Skin Start: 04/06/24 07:29 Freq: Status: Active Protocol: Document 04/06/24 14:33 NM (Rec: 04/06/24 16:15 NM [id number]) Posture Evaluation Position Standing Head/C-Spine Posture Forward Head Shoulder Posture (L) Rounded,(R) Rounded,(L) Forward,(R) Forward,(R) Elevated Scapula Posture (R) Rotated Up,(R) Elevated,(R ) Tipped Arm Posture (L) Externally Rotated,(R) Externally Rotated Pelvis Posture Anteriorly Tilted Weight Distribution Balanced Palpation Assessment Location R wrist/hand Palpation Details Tightness of wrist extensors Pain with gripping and wrist flexion cervical spine Palpation Findings Soft Tissue Tightness Palpation Details Moderate tightness of paraspinals, pectoralis, lat, levator scapula, upper trapezius, scalenes, suboccipitals Skin Assessment Other Assessments Skin Assessment Comments No R wrist swellin cm ea PT-OP-K Range of Motion Start: 04/06/24 07:29 Freq: Status: Active Protocol: Document 08/02/24 07:26 NM (Rec: 08/02/24 07:40 NM [id number]) Cervical Spine Range of Motion Cervical Spine Active Degrees Flexion 60 Extension 60 Rotation Left 85 Rotation Right 86 Lateral Flexion Left 45 Lateral Flexion Right 40 ROM Limitations Soft Tissue Tightness Comments pain on L side with ext and flex 05/05/24: 80 deg rot B, 45 deg L LF, 25 deg R LF, 55 deg ext, 60 deg flex 07/03/24: see above; tightness but no symptom reproduction Wrist Goniometric Range of Motion Wrist Right Flexion Active (degrees) 70 Extension Active (degrees) 70 Left Flexion Active (degrees) 60 Extension Active (degrees) 60 PT-OP-L Special Tests Start: 04/06/24 07:29 Freq: Status: Active Protocol: Document 04/10/24 07:31 NM (Rec: 04/10/24 09:41 NM [id number]) Special Tests Cervical Spine Special Tests Vertebral Artery Test Results - Comments intact cranial n, no abnormal palpation/auscultation of carotid a Shoulder Abduction Relief Test Test Results + Comments neural symptom relief with passive arm ABD on head ULTT Test Results median n Comments better w/ depression; pain also w/ ulnar n test position but no symptoms Distraction Test Results + Comments symptom resolved Spurling's Test Results + Comments local only on L PT-OP-M Strength Start: 04/06/24 07:29 Freq: Status: Active Protocol: Document 08/02/24 07:26 NM (Rec: 08/02/24 07:40 NM [id number]) Cervical Spine Strength Cervical Spine Manual Muscle Testing Flexion (C1-2) 4+ Good+ Extension 4+ Good+ Rotation Left 4+ Good+ Rotation Right 4+ Good+ Lateral Flexion Left (C3) 4+ Good+ Lateral Flexion Right (C3) 4+ Good+ Comments no pain or symptom reproduction 07/03/24: no pain or symptom reproduction Wrist Strength Wrist Manual Muscle Testing Right Flexion (C7) 4+ Good+ Extension (C6) 4+ Good+ Comments mild pain w/ flex and ext fingers: 4/5, no significant difference between sides 07/03/24: no symptom reproduction Left Flexion (C7) 4+ Good+ Extension (C6) 4+ Good+ PT-OP-Q Treatments Start: 04/06/24 07:29 Freq: Status: Active Protocol: Document 08/02/24 07:26 NM (Rec: 08/02/24 07:40 NM [id number]) Therapeutic Exercises Supine Exercises 6 foam roller exercises Supine Exercise Name 1. press, 2. ER Side bilateral Resistance 1. 5# db, 2. 2# db Reps/Minutes 1. 2x10, 2. 2x10 ea Comments no symptoms Prone Exercises periscapulars Prone Exercise Name I, T, row to ER, Y, Rows Side bilateral Resistance 1#> 2# DB (Ts, Is, row to ER), AROM Ys, Rows 5# DB Equipment Used 65 cm [place] ball Reps/Minutes 10 ea Comments cued CS retraction neutral position, relaxed shoulders; no inc symptoms Other Exercises 1/2 kneel Other Exercise Name 1. snow angels, 2. RTC ER lifts and D2 flex (under knee) - HEP Side bilateral Resistance 1. level 2 bands, 2. lvl 3 band Equipment Used no HO provided (photos on pt phone) Reps/Minutes 1. 15, 2. 10 ea Comments no inc symptoms; neutral spine 1/2 kneel thoracic mobility Other Exercise Name 1. open book, 2. rainbow rotations w/ trunk at wall Side bilateral Resistance 1. #5 band, 2.#1 band Equipment Used full rotation Reps/Minutes 1. 10 ea side, 2. 10 ea side Comments no symptoms into R arm, full hand ext quadruped Other Exercise Name 1. scapular presses, 2. bird dog Side bilateral Equipment Used mat on floor Reps/Minutes 1. 15, 2. 10 alt ea side Comments neutral spine; no symptoms PT-OP-R Modalities Start: 04/06/24 07:29 Freq: Status: Active Protocol: Document 05/25/24 09:46 NM (Rec: 05/25/24 10:33 NM [id number]) Spinal Traction Traction Treatment Cervical Method Mechanical,Static Patient Position Hooklying Force Applied (Pounds) 20 Heating Pad Applied No Traction Treatment Comment 8 minutes: Traction with cervical flexion bias. pt monitored by PT throughout, reyes within reach. PT-OP-T Assessment and Plan Start: 04/06/24 07:29 Freq: Status: Active Protocol: Document 08/02/24 07:26 NM (Rec: 08/02/24 07:39 NM [id number]) Physical Therapy Assessment Goals Three Impairment ROM: R wrist flexion 50 deg Short Term Goal (STG) Pt will improve R wrist flexion to at least 60 deg in order to demonstrate improved ROM for pericare, if appropriate 06/06/24: AROM right wrist flexion to 50 deg and reproduces tingling 06/15/24: 60 deg of wrist flexion w/o symptom increase STG Duration 6 weeks MET Licensed Loan Officer Assistant Goal (LTG) Pt will improve R wrist flexion to at least 70 deg in order to demonstrate improved ROM for pericare or typing, if appropriate 06/06/24: See above 07/03/24: R wrist flexion 65 deg 08/02/24: 70 deg wrist flexion ; rare tingling w/ pericare now LTG Duration updated 8 weeks-MET One Impairment QOL/activity tolerance: quickdash 56.8% impairment Short Term Goal (STG) Pt will decrease quickdash impairment by at least 11% (1 MCID) in order to demonstrate improved symptom management and QOL 05/05/24- NOT MET: 34 or 52.3%; work module 31.3% 06/06/24 QuickDASH reveals 45. 45% impairment, not improving STG Duration 8 weeks Assisted Goal (LTG) Pt will report <25% impairment on quickdash due to pain or numbness/tingling in R hand/ wrist or neck in order to demonstrate improved symptom management, activity tolerance and QOL 06/06/24: See QuickDASH score above, not improving 07/03/24: 27.3% impairment QUICKDASH, 6/50 (12/100) NDI 08/02/24: 13.6% impairment LTG Duration updated 8 weeks-MET Progress Towards Goals Progress Towards Goals Goals Met Assessment Summary Assessment Pt tolerated ther-ex well. No increase in symptoms. Good feedback for continued posterior chain, rotator cuff, and periscapular strengthening. Responds well to increase in resistance levels. Emphasis on establishing maintenance program and reviewing past HEP for maintenance. Pt has good feedback for resistance at last session. Able to maintain full hand ext today for all exercises, no increase in symptoms. PT and pt discussed discharge today due to pt progress; both in agreement. Physical Therapy Plan Frequency and Duration Frequency of Treatment 1-2x/week Duration of treatment (weeks) 8 Plan of Care Start Date 07/03/24 Plan of Care End Date 09/01/24 Therapeutic Interventions Therapeutic Interventions Canalithic Repositioning,Gait Training,Home Exercise Program ,Joint Mobilizations,Manual Therapy,Neuromuscular Re- education,Orthotic/Prosthetic Management,Patient/Caregiver Education,Self-Care/Home Management,Sensory Integration ,Soft Tissue Mobilization, Taping,Therapeutic Activities, Therapeutic Exercises Modalities Cold Pack/Ice Massage,Electric Stimulation,Hot Packs, Traction- Mechanical, Ultrasound Other Referrals/Consults Referrals/Consults Recommended Recommend EMG for further symptom assessment prior to neurology visit Discharge Physical Therapy Discharge Reasons Goals Met Discharge Comments All goals met. PT and pt in agreement about discharge. Pt educated to follow up with PCP or with new referral for PT if symptoms return, change, or worsen. Issued band progressions (level 2, 3, 4) and maintenance program Next Visit Focus/Plan Next Note Type Discharge Summary Next Visit Plan discharge from PT
== END 2024-08-04 10:22 | disposition home or self-care (01) ==
LOC: PHYS 07:30
PROVIDERS: Family Provider Family Medicine; PCP Family Medicine; Referring Provider Family Medicine; Visit Provider Family Medicine
DX: M54.12 Radiculopathy, cervical region (principal); R53.1 Weakness; M25.631 Stiffness of right wrist, not elsewhere classified
CPT/HCPCS: 97012; 97110; 97140; 97162; 97535